=== PATIENT | female | born 1960 | race Caucasian/White ===

== ENCOUNTER 2017-08-10 16:57 | Inpatient (IN) | payer MEDICAID ==
[2017-08-10] MEDS ORDERED: ASPIRIN 325 MG TABLET PO STA (17:26)
[2017-08-10] MEDS ORDERED: MORPHINE 2 MG/ML SYRINGE IVP STA ×2 (17:26→19:13)
--- NOTE | 2017-08-10 17:29 | ED Physician Documentation ---
PD HPI CHEST PAIN - Stated complaint Stated Complaint: CP/NAUSEA - Chief complaint Chief Complaint: Cardiac - History obtained from History obtained from: Patient - History of Present Illness Timing - onset: Other (56-year-old woman with history of psoriatic arthritis developed substernal chest pressure radiating across the chest into the arms and back around 9 AM this morning which is at times severe and associated with nausea and shortness of breath. She has never had this before. No history of heart problems. No recent travel.) Review of Systems Ten Systems: 10 systems reviewed and negative Constitutional: denies: Fever, Chills Cardiac: reports: Chest pain / pressure. denies: Palpitations, Pedal edema, Calf pain Respiratory: reports: Dyspnea. denies: Cough PD PAST MEDICAL HISTORY - Past Medical History Past Medical History: Yes Other Past Medical History: psoriatic arthritis/ ankylosing spondylitis - Present Medications Home Medications: Ambulatory Orders Medication Instructions Recorded Confirmed No Known Home Medications [No 08/10/17 08/10/17 Known Home Medications] - Allergies Allergies/Adverse Reactions: Allergies Allergy/AdvReac Type Severity Reaction Status Date / Time No Known Drug Allergies Allergy Verified 08/10/17 17:22 - Family History Family history: reports: Non contributory PD ED PE NORMAL - Vitals Vital signs reviewed: Yes - General General: Alert and oriented X 3, Other (anxious) - HEENT HEENT: PERRL, EOMI - Neck Neck: Supple, no meningeal sign, No bony TTP - Cardiac Cardiac: RRR, No murmur - Respiratory Respiratory: No respiratory distress, Clear bilaterally - Abdomen Abdomen: Normal bowel sounds, Soft, Non tender - Back Back: No CVA TTP, No spinal TTP - Derm Derm: Normal color, Warm and dry - Extremities Extremities: No edema, No calf tenderness / cord - Neuro Neuro: Alert and oriented X 3, Normal speech - Psych Psych: Normal mood, Normal affect Results - Vitals Vitals: Vital Signs - 24 hr 08/10/17 17:10 Temperature 36.6 C Heart Rate 89 Respiratory 28 H Rate Blood Pressure 156/99 H O2 Saturation 99 Oxygen O2 Source Room air - EKG (time done) 1710 Rate: Rate (enter#) (89) Rhythm: NSR [place]: Normal Intervals: Normal MD QRS: Normal Compare to prior EKG: Other (some artifact she is shaky) Computer interpretation: Agree with computer - Labs Labs: Laboratory Tests 08/10/17 08/10/17 08/10/17 17:20 17:20 17:20 WBC 9.7 RBC 5.46 H Hgb 16.0 Hct 47.8 H MCV 87.5 MCH 29.4 MCHC 33.6 RDW 13.7 Plt Count 234 MPV 9.5 Neut # 5.8 Lymph # 2.8 [place] # 0.8 Eos # 0.1 Baso # 0.1 Absolute Nucleated RBC 0.00 Nucleated RBC % 0.0 D-Dimer 209.7 Sodium 139 Potassium 3.8 Chloride 102 Carbon Dioxide 24 Anion Gap 13.0 BUN 14 Creatinine 1.1 H Estimated GFR (MDRD) 51 L Glucose 116 H Calcium 10.0 Total Bilirubin 0.3 AST 28 ALT 35 Alkaline Phosphatase 61 Total Creatine Kinase 85 CK-MB (CK-2) Troponin I Total Protein 7.9 Albumin 4.5 Globulin 3.4 Albumin/Globulin Ratio 1.3 Lipase 13 L 08/10/17 17:20 WBC RBC Hgb Hct MCV MCH MCHC RDW Plt Count MPV Neut # Lymph # [place] # Eos # Baso # Absolute Nucleated RBC Nucleated RBC % D-Dimer Sodium Potassium Chloride Carbon Dioxide Anion Gap BUN Creatinine Estimated GFR (MDRD) Glucose Calcium Total Bilirubin AST ALT Alkaline Phosphatase Total Creatine Kinase CK-MB (CK-2) 2.1 Troponin I < 0.04 Total Protein Albumin Globulin Albumin/Globulin Ratio Lipase - Rads (name of study) 2v chest Radiology: EMP read contemporaneously (NAD) PD MEDICAL DECISION MAKING - ED course ED course: 56-year-old woman with severe chest pain episode, aortic dissection is unlikely with negative d-dimer, equal upper extremity blood pressures and normal mediastinum on chest x-ray. Her EKG was nonspecific and initial troponin was negative. She will be placed in observation for further evaluation and treatment. Call placed to the hospitalist at 6:51 PM. Departure - Departure Disposition: ED Place in Observation Clinical Impression: Chest pain Qualifiers: Chest pain type: unspecified Qualified Code(s): R07.9 - Chest pain, unspecified Condition: Stable
[2017-08-10 17:42] LABS: BASOPHILS # (AUTO) 0.1 10^3/uL (0.0-0.1); BASOPHILS % (AUTO) 1.1 %; EOSINOPHILS # (AUTO) 0.1 10^3/uL (0.0-0.7); EOSINOPHILS % (AUTO) 1.2 %; LYMPHOCYTES # (AUTO) 2.8 10^3/uL (1.5-3.5); LYMPHOCYTES % (AUTO) 29.3 %; MEAN CORPUSCULAR HEMOGLOBIN 29.4 pg (27.0-31.0); MEAN CORPUSCULAR HGB CONC 33.6 g/dL (32.0-36.0); MEAN CORPUSCULAR VOLUME 87.5 fL (81.0-99.0); MEAN PLATELET VOLUME 9.5 fL (7.9-10.8); MONOCYTES # (AUTO) 0.8 10^3/uL (0.0-1.0); MONOCYTES % (AUTO) 8.6 %; NEUTROPHILS # (AUTO) 5.8 10^3/uL (1.5-6.6); NEUTROPHILS % (AUTO) 59.8 %; PLT - PLATELET COUNT 234 10^3/uL (130-450); RED BLOOD COUNT 5.46 10^6/uL (4.20-5.40); RED CELL DISTRIBUTION WIDTH 13.7 % (12.0-15.0); WHITE BLOOD COUNT 9.7 x10^3/uL (4.8-10.8)
[2017-08-10 17:52] LABS: ALBUMIN 4.5 g/dL (3.2-5.5); ALBUMIN/GLOBULIN RATIO 1.3 (1.0-2.2); BILIRUBIN,TOTAL 0.3 mg/dL (0.2-1.0); CREATININE 1.1 mg/dL (0.4-1.0); TOTAL PROTEIN 7.9 g/dL (6.7-8.2)
[2017-08-10 17:57] LABS: TROPONIN I < 0.04 ng/mL (<0.49)
[2017-08-10 17:59] LABS: CREATINE KINASE MB 2.1 ng/mL (0.6-6.3)
--- NOTE | 2017-08-10 18:38 | XRAY Report ---
EXAM: CHEST RADIOGRAPHY EXAM DATE: 08/10/2017 06:08 PM. CLINICAL HISTORY: Chest pain. COMPARISON: None. TECHNIQUE: 2 views. FINDINGS: Lungs/Pleura: Clear. No effusion or pneumothorax. Mediastinum: Heart and mediastinal contours are unremarkable. Upper lobe vessels not distended. Other: Degenerative changes. IMPRESSION: No acute disease. [facility] Referring Provider Line: [phone] SITE ID: [id number]
[2017-08-10] MEDS ORDERED: IBUPROFEN 600 MG TABLET PO PRN (19:31)
[2017-08-10] MEDS ORDERED: ZOLPIDEM 5 MG TABLET PO PRN (19:31)
[2017-08-10] MEDS ORDERED: oxyCODONE 5 MG TABLET PO PRN (19:31)
[2017-08-10] MEDS ORDERED: PROMETHAZINE 25 MG/1 ML VIAL IM PRN (19:31)
[2017-08-10] MEDS ORDERED: ACETAMINOPHEN 325 MG TABLET PO PRN (19:31)
--- NOTE | 2017-08-10 20:38 | HISTORY & PHYSICAL EXAMINATION ---
Chief Complaint - Chief Complaint Chief Complaint: Chest pain History of Present Illness - Admitted From Admitted From:: Emergency Department - History Obtained From Records Reviewed: Yes History obtained from: Patient Exam Limitations: None - History of Present Illness HPI Comment/Other: Patient is a 56-year-old female with a past medical history significant for obesity, psoriatic arthritis, ankylosing spondylitis, osteoarthritis, rheumatoid arthritis status post fusion of her cervical spine who presents to the emergency department with a chief complaint of chest pain. The patient states that the chest pain started when she woke up this morning. She states that she was standing for about 5 minutes and had taken her dogs out when all of a sudden she felt this severe chest pain going across her chest. She states that it radiated into her left arm and then both of her arms. She states that her arms felt numb. She also states that she was diaphoretic and nauseated. She states that she felt very short of air and felt spasms in her back. She states that she went and sat on her bed hoping that the pain would subside. She states that she drank some water and waited for the pain to subside however it remained constant. She states that the severity did however improve. She states that her told her she should go to the emergency room but the patient did not want to at that time. She states that the pain initially felt like it was a squeezing pain and then gradually became a heaviness over her chest. She states that the pain originated on the left side of the chest but moved across her chest and into her arms. She states that she tried to lie down in bed but that made her feel worse. She states that at around 3 PM the pain intensity started to increase and she then decided to come into the emergency department because she felt very anxious and panicked. The patient denies any fevers or chills. She denies any cough, increased lower extremity swelling or any recent dyspnea on exertion. She states that she has never had a pain like this before but was very worried that she was having a heart attack. The patient does state that she has recently started a keto diet which is a diet that is low in carbs but high in fats and protein. She states that her daily diet consists of a lot of water, childs, cream and cheese. She states that she is not allowed any carbs in her diet. The patient also states that she takes a lot of supplements but does not take any chronic medication. She states that she did take an aspirin at home in the morning which did help with the pain. She also states that she felt lightheaded throughout the day. The patient does state that she has been under a lot of stress recently. She just recently found out that her father has cancer and her daughter is getting next month for which there is a lot of things to do. The patient states to alleviate her stress she usually smokes. She does state that she smokes a pack a day. She also states that she does have some family history of heart disease including her father and uncle. The patient also states that she does have a new rash in her right lower abdominal wall. The patient denies any headaches, blurred vision, runny nose, sore throat, nasal congestion, difficulty swallowing, abdominal pain, vomiting, constipation , diarrhea, urinary urgency, urinary frequency, dysuria, joint pain, muscle aches, joint swelling, neck stiffness, recent unintentional weight loss, changes in her appetite, hair loss, night sweats or any focal neurologic deficits. On presentation to the emergency department the patient was afebrile heart rate was 89, she was hypertensive and she was quite tachypneic. The patient was not hypoxic and did appear to be quite anxious and distressed. The patient underwent an EKG which showed no ST elevations or ischemic changes to suggest an acute AK. The patient's lab work revealed a negative troponin, unremarkable CBC, a d-dimer which was within normal limits and normal electrolytes with a mildly elevated creatinine. The patient was given aspirin and morphine in the emergency department but the patient's chest pain did persist although she states that it improved with the medication. The patient also underwent a chest x-ray which showed no acute disease. Given the patient's risk factors of obesity, tobacco abuse and family history the patient was placed in observation for serial troponins, telemetry monitoring and an echocardiogram. History - Past Medical History Cardiovascular: reports: None Respiratory: reports: None Neuro: reports: None Endocrine/Autoimmune: reports: None GI: reports: None GAME DEVELOPER: reports: None : reports: None HEENT: reports: None Psych: reports: Anxiety Musculoskeletal: reports: Osteoarthritis, Rheumatoid arthritis, Other ( Psoriatic Arthritis) Other Past Medical History: psoriatic arthritis/ ankylosing spondylitis - Family & Social History Family History: Mother: Alive and Well, Cancer (Mom: Renal cell Ca, Aunt has cancer), Father: , CAD (Uncle had CAD), Other family: CAD, Cancer, Diabetes, Type 2 (Aunt has diabetes) Living arrangement: At home Living Situation: With spouse/s.o. Social History Notes: Patient was born in [place], [place] but her father was in the and the patient grew up in [place]. She states that they lived in [facility] while she was growing up. She is currently and lives with her in [place], [place]. She states that she moved to [facility] 2 years ago prior to that she was living in [place] near her father. She has 3 kids 2 daughters and 1 son. She smokes almost a pack a day and has been doing so for nearly 40 years. She drinks alcohol rarely. She denies any illicit drug use. - Substance History Use: Uses substance without health or social issues: Tobacco - POLST Patient has POLST: No POLST Status: Full Code Meds/Allgy - Home Medications Home Medications: Ambulatory Orders Medication Instructions Recorded Confirmed No Known Home Medications [No 08/10/17 08/10/17 Known Home Medications] - Allergies Allergies/Adverse Reactions: Allergies Allergy/AdvReac Type Severity Reaction Status Date / Time No Known Drug Allergies Allergy Verified 08/10/17 17:22 Review of Systems - Other Findings Other Findings: A comprehensive review of systems was performed the pertinent positives and negatives are stated above in the HPI and the remainder of the review of systems is negative. Exam - Vital Signs Reviewed Vital Signs: Yes Vital Signs: Vital Signs x48h Temp Pulse Resp BP Pulse Ox 08/10/17 19:36 83 18 119/48 L 100 08/10/17 18:15 76 16 125/74 98 08/10/17 17:10 36.6 C 89 28 H 156/99 H 99 - Physical Exam General Appearance: positive: Alert, Anxious, Other (Obese) Eyes Bilateral: positive: Normal inspection, PERRL, EOMI, No lid inflammation, Conjunctivae nml, No scleral icterus ENT: positive: ENT inspection nml, Pharynx nml, No signs of dehydration. negative: Purulent nasal drainage, Pharyngeal erythema, Oral lesions Neck: positive: Nml inspection, Thyroid nml, No JVD, Trachea midline. negative : Thyromegaly, Lymphadenopathy (R), Lymphadenopathy (L), Stiff neck, Carotid bruit, Tracheal deviation Respiratory: positive: No respiratory distress, Breath sounds nml, Other ( Tachypneic with chest wall tenderness). negative: Wheezes, Rales, Rhonchi Cardiovascular: positive: Regular rate & rhythm, No murmur, No gallop Peripheral Pulses: positive: 2+ Abdomen: positive: Non-tender, No organomegaly, Nml bowel sounds, No distention. negative: Guarding, Rebound, Hepatomegaly Back: positive: Nml inspection. negative: CVA tenderness (R), CVA tenderness (L ) Skin: positive: Color nml, No rash, Warm. negative: Cyanosis, Diaphoresis, Pallor Extremities: positive: Non-tender, Full ROM, Nml appearance, No pedal edema Neurologic/Psychiatric: positive: Oriented x3, CN's nml (2-12), Motor nml, Sensation nml, Mood/affect nml Conclusion/Plan - Problem List (1) Chest pain Conclusion/Plan: The patient presented with acute onset of chest pain starting earlier in the day. The chest pain had both typical and atypical features. It did improve with aspirin. The patient has risk factors of obesity, tobacco abuse and family history. Initial EKG and troponin were negative. The patient does have chest wall tenderness and history of arthritis makes me suspicious that this could be a musculoskeletal chest pain however given her risk factors and the fact that we should rule out acute coronary syndrome the patient will be placed in observation. Plan: Serial troponins x3 Telemetry monitoring Nitroglycerin when necessary for chest pain Aspirin Lipitor Echo Qualifiers: Chest pain type: unspecified Qualified Code(s): R07.9 - Chest pain, unspecified (2) Tobacco abuse Conclusion/Plan: The patient smokes about 1 pack per day and has been doing so for nearly 40 years now. The patient was counseled on the dangers of smoking and her risk for cardiovascular disease, stroke and cancers. The patient was advised to quit smoking. She will be given a nicotine patch while she is hospitalized. (3) Obesity (BMI 30-39.9) Conclusion/Plan: The patient has been on a keto diet which is high in fats and proteins and low in carbs. I advised against this diet and advised for patient to make gradual changes in her diet by reducing her calorie intake and exercising. I also referred the patient to find a PCP on the [facility] if she does not have one and have further discussions about weight reduction with her primary care physician once she establishes one. (4) Anxiety Conclusion/Plan: The patient was quite anxious when she came in due to the chest pain and also has been dealing with anxiety because of stresses such as her father's recent diagnosis with oral cancer and stress from her children including a daughter who is going to be getting . While she is hospitalized I have started her on Lorazepam and she may need a prescription for an anxiolytic when she does return home. (5) Arthritis Conclusion/Plan: The patient does have a history of arthritis and her pain is mostly controlled. However today her symptoms of chest pain and back spasms may be due to her history of arthritis or possibly due to pinched nerve as she has been having numbness in her arms. At this point I will be giving the patient Tylenol and pain medication to help deal with the pain. If we do rule out acute coronary syndrome I would think that the most likely diagnosis is musculoskeletal chest pain possibly related to her arthritis. - Lab Results Lab results reviewed: Yes Fish Bones: 08/10/17 17:20 08/10/17 17:20 Other Lab Results: Laboratory Results WBC 9.7 x10^3/uL (4.8-10.8) 08/10/17 17:20 RBC 5.46 10^6/uL (4.20-5.40) H 08/10/17 17:20 Hgb 16.0 g/dL (12.0-16.0) 08/10/17 17:20 Hct 47.8 % (37.0-47.0) H 08/10/17 17:20 MCV 87.5 fL (81.0-99.0) 08/10/17 17:20 MCH 29.4 pg (27.0-31.0) 08/10/17 17:20 MCHC 33.6 g/dL (32.0-36.0) 08/10/17 17:20 RDW 13.7 % (12.0-15.0) 08/10/17 17:20 Plt Count 234 10^3/uL (130-450) 08/10/17 17:20 MPV 9.5 fL (7.9-10.8) 08/10/17 17:20 Neut # 5.8 10^3/uL (1.5-6.6) 08/10/17 17:20 Lymph # 2.8 10^3/uL (1.5-3.5) 08/10/17 17:20 [place] # 0.8 10^3/uL (0.0-1.0) 08/10/17 17:20 Eos # 0.1 10^3/uL (0.0-0.7) 08/10/17 17:20 Baso # 0.1 10^3/uL (0.0-0.1) 08/10/17 17:20 Absolute Nucleated RBC 0.00 x10^3/uL 08/10/17 17:20 Nucleated RBC % 0.0 /100WBC 08/10/17 17:20 D-Dimer 209.7 ng/mL (200.0-255.0) 08/10/17 17:20 Sodium 139 mmol/L (135-145) 08/10/17 17:20 Potassium 3.8 mmol/L (3.5-5.0) 08/10/17 17:20 Chloride 102 mmol/L (101-111) 08/10/17 17:20 Carbon Dioxide 24 mmol/L (21-32) 08/10/17 17:20 Anion Gap 13.0 (6-13) 08/10/17 17:20 BUN 14 mg/dL (6-20) 08/10/17 17:20 Creatinine 1.1 mg/dL (0.4-1.0) H 08/10/17 17:20 Estimated GFR (MDRD) 51 (>89) L 08/10/17 17:20 Glucose 116 mg/dL (70-100) H 08/10/17 17:20 Calcium 10.0 mg/dL (8.5-10.3) 08/10/17 17:20 Total Bilirubin 0.3 mg/dL (0.2-1.0) 08/10/17 17:20 AST 28 IU/L (10-42) 08/10/17 17:20 ALT 35 IU/L (10-60) 08/10/17 17:20 Alkaline Phosphatase 61 IU/L (42-121) 08/10/17 17:20 Total Creatine Kinase 85 IU/L (22-269) 04/06/18 17:20 CK-MB (CK-2) 2.1 ng/mL (0.6-6.3) 08/10/17 17:20 Troponin I < 0.04 ng/mL (<0.49) 08/10/17 17:20 Total Protein 7.9 g/dL (6.7-8.2) 08/10/17 17:20 Albumin 4.5 g/dL (3.2-5.5) 08/10/17 17:20 Globulin 3.4 g/dL (2.1-4.2) 08/10/17 17:20 Albumin/Globulin Ratio 1.3 (1.0-2.2) 08/10/17 17:20 Lipase 13 U/L (22-51) L 08/10/17 17:20 - Diagnostic Imaging Results Diagnostic Imaging Results: positive: Final report reviewed Diagnostic Imaging Results Comments: Chest x-ray Impression: No active disease - EKG Results EKG Interpreted Independently: Yes Core Measures - Anticipated LOS I expect patient to be DC'd or transferred within 96 hours.: Yes - DVT/VTE - Prophylaxis VTE/DVT Prophylaxis med ordered at admit?: Yes
[2017-08-10] MEDS: MORPHINE 2 MG/ML SYRINGE IVP PRN (21:14)
[2017-08-10] MEDS: PROCHLORPERAZINE 10 MG/2 ML VIAL IVP PRN (21:15)
[2017-08-10] MEDS: NITROGLYCERIN SL 0.4 MG TABLET SL PRN (21:15)
[2017-08-10] MEDS: LORazepam 0.5 MG TABLET PO PRN (21:22)
[2017-08-10] MEDS: NICOTINE 21 MG PATCH TOP SCH (21:22)
[2017-08-10] MEDS: ATORVASTATIN 40 MG TABLET PO SCH (21:23)
[2017-08-10] MEDS: HYDROCORTISONE 1% CREAM 28 GM TUBE TOP SCH (23:00)
[2017-08-10] MEDS: oxyCODONE 5 MG TABLET PO PRN (23:01)
[2017-08-11] MEDS: SODIUM CHLORIDE FLUSH 0.9% 10 ML SYRINGE IVP SCH ×3 (00:25→15:33)
[2017-08-11] MEDS: MORPHINE 2 MG/ML SYRINGE IVP PRN ×4 (05:59→15:33)
[2017-08-11] MEDS: SODIUM CHLORIDE FLUSH 0.9% 10 ML SYRINGE IVP PRN (05:59)
[2017-08-11] MEDS: NITROGLYCERIN SL 0.4 MG TABLET SL PRN ×3 (06:10→06:23)
[2017-08-11 06:15] LABS: BASOPHILS # (AUTO) 0.1 10^3/uL (0.0-0.1); EOSINOPHILS # (AUTO) 0.2 10^3/uL (0.0-0.7); EOSINOPHILS % (AUTO) 2.9 %; HGB - HEMOGLOBIN 14.4 g/dL (12.0-16.0); LYMPHOCYTES # (AUTO) 2.9 10^3/uL (1.5-3.5); LYMPHOCYTES % (AUTO) 43.4 %; MEAN CORPUSCULAR HEMOGLOBIN 29.3 pg (27.0-31.0); MEAN CORPUSCULAR HGB CONC 33.1 g/dL (32.0-36.0); MEAN CORPUSCULAR VOLUME 88.6 fL (81.0-99.0); MONOCYTES # (AUTO) 0.6 10^3/uL (0.0-1.0); MONOCYTES % (AUTO) 9.4 %; NEUTROPHILS # (AUTO) 2.9 10^3/uL (1.5-6.6); NEUTROPHILS % (AUTO) 43.3 %; PLT - PLATELET COUNT 200 10^3/uL (130-450); RED BLOOD COUNT 4.91 10^6/uL (4.20-5.40); RED CELL DISTRIBUTION WIDTH 13.7 % (12.0-15.0); WHITE BLOOD COUNT 6.7 x10^3/uL (4.8-10.8)
[2017-08-11 06:33] LABS: ALBUMIN 3.8 g/dL (3.2-5.5); ALBUMIN/GLOBULIN RATIO 1.4 (1.0-2.2); ALKALINE PHOSPHATASE 48 IU/L (42-121); ALT ALANINE AMINOTRANSFERASE 31 IU/L (10-60); AST ASPARTATE AMINOTRANSFERASE 23 IU/L (10-42); BILIRUBIN,TOTAL 0.5 mg/dL (0.2-1.0); BUN - BLOOD UREA NITROGEN 15 mg/dL (6-20); CARBON DIOXIDE - CO2 26 mmol/L (21-32); CHLORIDE 103 mmol/L (101-111); CHOL/HDL RATIO 3.5 (<4.4); CHOLESTEROL 138 mg/dL; CREATININE 0.7 mg/dL (0.4-1.0); GFR - MDRD 86 (>89); GLUCOSE 114 mg/dL (70-100); HDL CHOLESTEROL 40 mg/dL; LDL CHOLESTEROL,CALCULATED 71 mg/dL; LDL/HDL RATIO 1.8 (<4.4); SODIUM 138 mmol/L (135-145); TOTAL PROTEIN 6.5 g/dL (6.7-8.2); VLDL CHOLESTEROL 27 mg/dL
[2017-08-11] MEDS: LORazepam 0.5 MG TABLET PO PRN ×2 (06:44→14:37)
[2017-08-11 07:19] LABS: HB2 TOTAL 16.8 g/dL; HEMOGLOBIN A1C 0.79 g/dL; HEMOGLOBIN A1C % 6.5 % (4.6-6.2)
[2017-08-11] MEDS: NICOTINE 21 MG PATCH TOP SCH (08:35)
[2017-08-11] MEDS: ASPIRIN EC 81 MG TABLET PO SCH (08:38)
[2017-08-11] MEDS: HYDROCORTISONE 1% CREAM 28 GM TUBE TOP SCH ×2 (08:39→20:31)
[2017-08-11] MEDS ORDERED: FAMOTIDINE 20 MG TABLET PO SCH (09:00)
[2017-08-11] MEDS ORDERED: POLYETHYLENE GLYCOL 3350 17 GM PACKET PO SCH (09:00)
[2017-08-11] MEDS ORDERED: ENOXAPARIN 40 MG/0.4 ML SYRINGE SUBQ SCH (09:00)
[2017-08-11] MEDS ORDERED: SODIUM CHLORIDE 0.9% 1,000 ML IV ONE (11:06)
[2017-08-11] MEDS: KETOROLAC 15 MG/ML VIAL IVP PRN ×2 (11:38→20:40)
[2017-08-11] MEDS ORDERED: fentaNYL 100 MCG/2 ML VIAL IVP ONE (12:00)
[2017-08-11] MEDS ORDERED: ONDANSETRON 4 MG/2 ML VIAL IVP ONE (12:00)
[2017-08-11] MEDS ORDERED: METOCLOPRAMIDE 10 MG/2 ML VIAL IVP ONE (12:00)
[2017-08-11] MEDS: oxyCODONE 5 MG TABLET PO PRN (14:10)
[2017-08-11] MEDS ORDERED: fentaNYL 100 MCG/2 ML VIAL IVP PRN (16:34)
[2017-08-11] MEDS: PROCHLORPERAZINE 10 MG/2 ML VIAL IVP PRN (18:02)
--- NOTE | 2017-08-11 18:04 | PROVIDER PROGRESS NOTE ---
Subjective - Prog Note Date Prog Note Date: 08/11/17 - Subjective Pt reports feeling: Worse Subjective: Complains of unbearable pain and nausea; initially the pain was on the right side of the chest, then in the epigastrium and in the right UQ of abdomen. Reports eating makes the pain worse, noticed the symptoms when started "keto- diet". Objective - Vital Signs/Intake & Output Vital Signs: Vital Signs x48h Temp Pulse Resp BP Pulse Ox 08/11/17 15:28 36.3 C L 71 18 118/62 94 08/11/17 11:22 36.4 C L 74 18 130/80 95 Intake & Output: Intake & Output 08/08/17 08/09/17 08/10/17 08/11/17 23:59 23:59 23:59 23:59 Intake Total 400 690 Output Total 400 200 Balance 0 490 - Objective General Appearance: positive: Mild distress (distress due to abd pain.) Eyes Bilateral: positive: Normal inspection Respiratory: positive: No respiratory distress Cardiovascular: positive: Regular rate & rhythm Abdomen: positive: Tenderness (Right upper quadrant and epigastric tenderness.) - Lab Results Fish Bones: 08/12/17 04:54 08/11/17 05:48 Other Labs: Lab Results x24hrs 08/11/17 08/11/17 08/11/17 Range/Units 06:35 05:48 05:48 WBC (4.8-10.8) x10^3/uL RBC (4.20-5.40) 10^6/uL Hgb (12.0-16.0) g/dL Hct (37.0-47.0) % MCV (81.0-99.0) fL MCH (27.0-31.0) pg MCHC (32.0-36.0) g/dL RDW (12.0-15.0) % Plt Count (130-450) 10^3/uL MPV (7.9-10.8) fL Neut # (1.5-6.6) 10^3/uL Lymph # (1.5-3.5) 10^3/uL [place] # (0.0-1.0) 10^3/uL Eos # (0.0-0.7) 10^3/uL Baso # (0.0-0.1) 10^3/uL Absolute Nucleated RBC x10^3/uL Nucleated RBC % /100WBC Sodium (135-145) mmol/L Potassium (3.5-5.0) mmol/L Chloride (101-111) mmol/L Carbon Dioxide (21-32) mmol/L Anion Gap (6-13) BUN (6-20) mg/dL Creatinine (0.4-1.0) mg/dL Estimated GFR (MDRD) (>89) Glucose (70-100) mg/dL Glycated Hemoglobin 6.5 H (4.6-6.2) % Estim Average Glucose 140 H (70-100) Calcium (8.5-10.3) mg/dL Total Bilirubin (0.2-1.0) mg/dL AST (10-42) IU/L ALT (10-60) IU/L Alkaline Phosphatase (42-121) IU/L Troponin I < 0.04 (<0.49) ng/mL B-Natriuretic Peptide 5 (5-100) pg/mL Total Protein (6.7-8.2) g/dL Albumin (3.2-5.5) g/dL Globulin (2.1-4.2) g/dL Albumin/Globulin Ratio (1.0-2.2) Triglycerides ( - 149) mg/dL Cholesterol ( - 199) mg/dL LDL Cholesterol, Calc ( - 129) mg/dL VLDL Cholesterol mg/dL HDL Cholesterol (60 - ) mg/dL LDL/HDL Ratio (<4.4) Cholesterol/HDL Ratio (<4.4) 08/11/17 08/11/17 08/11/17 Range/Units 05:48 05:48 00:30 WBC 6.7 (4.8-10.8) x10^3/uL RBC 4.91 (4.20-5.40) 10^6/uL Hgb 14.4 (12.0-16.0) g/dL Hct 43.5 (37.0-47.0) % MCV 88.6 (81.0-99.0) fL MCH 29.3 (27.0-31.0) pg MCHC 33.1 (32.0-36.0) g/dL RDW 13.7 (12.0-15.0) % Plt Count 200 (130-450) 10^3/uL MPV 9.0 (7.9-10.8) fL Neut # 2.9 (1.5-6.6) 10^3/uL Lymph # 2.9 (1.5-3.5) 10^3/uL [place] # 0.6 (0.0-1.0) 10^3/uL Eos # 0.2 (0.0-0.7) 10^3/uL Baso # 0.1 (0.0-0.1) 10^3/uL Absolute Nucleated RBC 0.00 x10^3/uL Nucleated RBC % 0.0 /100WBC Sodium 138 (135-145) mmol/L Potassium 4.1 (3.5-5.0) mmol/L Chloride 103 (101-111) mmol/L Carbon Dioxide 26 (21-32) mmol/L Anion Gap 9.0 (6-13) BUN 15 (6-20) mg/dL Creatinine 0.7 (0.4-1.0) mg/dL Estimated GFR (MDRD) 86 L (>89) Glucose 114 H (70-100) mg/dL Glycated Hemoglobin (4.6-6.2) % Estim Average Glucose (70-100) Calcium 9.0 (8.5-10.3) mg/dL Total Bilirubin 0.5 (0.2-1.0) mg/dL AST 23 (10-42) IU/L ALT 31 (10-60) IU/L Alkaline Phosphatase 48 (42-121) IU/L Troponin I < 0.04 (<0.49) ng/mL B-Natriuretic Peptide (5-100) pg/mL Total Protein 6.5 L (6.7-8.2) g/dL Albumin 3.8 (3.2-5.5) g/dL Globulin 2.7 (2.1-4.2) g/dL Albumin/Globulin Ratio 1.4 (1.0-2.2) Triglycerides 133 ( - 149) mg/dL Cholesterol 138 ( - 199) mg/dL LDL Cholesterol, Calc 71 ( - 129) mg/dL VLDL Cholesterol 27 mg/dL HDL Cholesterol 40 L (60 - ) mg/dL LDL/HDL Ratio 1.8 (<4.4) Cholesterol/HDL Ratio 3.5 (<4.4) Assessment/Plan - Problem List (1) Abdominal pain Impression: 1. Chest pain was likely referred pain, or more of an epigastric pain. Underwent negative cardiac rule out. Echocardiogram was unremarkable, but cooking appliance repair technician saw gall stones. 2. US abd ordered, resulted at the end of the day showing cholecystitis. Case was d/w surgeon Dr. Robertson, he will see the patient in consultation. 3. Lactic acidosis /mild. Plan: ABX l(actic acidosis/ cholecystitis). NPO. IV hydration. Symptom control. Surgery evaluation. Qualifiers: Abdominal location: right upper quadrant Qualified Code(s): R10.11 - Right upper quadrant pain
--- NOTE | 2017-08-11 19:14 | Ultrasound Report ---
EXAM: ABDOMEN ULTRASOUND EXAM DATE: 08/11/2017 06:07 PM. CLINICAL HISTORY: Biliary colic / ? cholecystitis. COMPARISON: None. TECHNIQUE: Real-time scanning was performed with static images obtained. FINDINGS: Exam is technically difficult due to patient's pain and body habitus. Liver: Enlarged. Echogenic with coarsened echotexture. 22 cm. Main portal vein flow: Hepatopetal. Gallbladder: Cholelithiasis. Mild wall thickening up to 4 mm. No pericholecystic fluid. Positive sono graphic Chen sign. Biliary System: Common bile duct measures 5 mm. No intrahepatic or extrahepatic ductal dilatation. Pancreas: Largely obscured by bowel gas. Visualized portion of pancreatic body is within normal limit s. Kidneys: Right: 10.4 cm longitudinally. Questionable horseshoe kidney anatomy. Midline abdomen is obscured by bowel gas. Small 9 x 8 x 7 mm exophytic cyst at the interpolar region. No contour-deforming mass, st ones, or hydronephrosis. Left: 11.5 cm longitudinally. Contains a 6 x 6 x 5 mm hyperechoic mass, most consistent with an angio myolipoma. No stones, or hydronephrosis. Spleen: 12.3 x 6.3 x 4.6 cm (volume of 186 cc). Normal in size and echotexture. Aorta and Inferior Vena Cava: Unremarkable in visualized portions. Other: None. IMPRESSION: 1. Cholelithiasis with sonographic evidence of acute cholecystitis. 2. Diffuse hepatic steatosis and hepatomegaly. 3. Questioned horseshoe kidney anatomy. 4. 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 Findings are being called to the patient's referring clinician. Addendum will be issued when findings are discussed. [facility] Referring Provider Line: [phone] SITE ID: [id number]
--- NOTE | 2017-08-11 19:14 | Ultrasound Preliminary Report ---
Exam: US ABDOMEN COMPLETE IMPRESSION: 1. Cholelithiasis with sonographic evidence of acute cholecystitis. 2. Diffuse hepatic steatosis and hepatomegaly. 3. Questioned horseshoe kidney anatomy. 4. 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 Findings are being called to the patient's referring clinician. Addendum will be issued when findings are discussed. [facility] SITE ID: [id number]
[2017-08-11] MEDS: LACTATED RINGERS 1,000 ML IV SCH ×2 (19:45→23:27)
[2017-08-11] MEDS: ATORVASTATIN 40 MG TABLET PO SCH (20:29)
[2017-08-11] MEDS ORDERED: IOPAMIDOL-300 50 ML VIAL ONE (21:49)
[2017-08-11] MEDS ORDERED: IOPAMIDOL-300 100 ML VIAL ONE (21:49)
[2017-08-11] MEDS ORDERED: CIPROFLOXACIN 400 MG/200 ML 200 ML IV SCH (22:00)
[2017-08-11] MEDS ORDERED: IOPAMIDOL-300 50 ML VIAL PO ONE (22:36)
[2017-08-11] MEDS: metroNIDAZOLE 500 MG/100 ML 500 MG/100 ML BAG IV SCH (22:44)
[2017-08-11] MEDS: fentaNYL 100 MCG/2 ML VIAL IVP PRN (22:53)
[2017-08-11] MEDS ORDERED: IOPAMIDOL-300 100 ML VIAL IVP ONE (23:36)
--- NOTE | 2017-08-11 23:59 | CT Preliminary Report ---
Exam: CT ABDOMEN/PELVIS W/ IMPRESSION: 1. No acute inflammatory or obstructive process seen in the abdomen or pelvis. No CT evidence of isc hemic bowel. Of note, this does not exclude the clinical diagnosis. 2. Quite fatty liver. 3. Post hysterectomy. 4. Incidental horseshoe kidney. [facility] SITE ID: [id number]
--- NOTE | 2017-08-12 00:04 | CT Report ---
EXAM: CT ABDOMEN AND PELVIS EXAM DATE: 08/11/2017 11:37 PM. CLINICAL HISTORY: Abdominal pain with elevated lactic acid. COMPARISONS: Ultrasound same day. TECHNIQUE: Routine helical CT imaging was performed through the abdomen and pelvis. IV contrast: Yes . Enteric contrast: Yes . Reconstructions: Coronal and sagittal. In accordance with CT protocol optimization, one or more of the following dose reduction techniques w ere utilized for this exam: automated exposure control, adjustment of mA and/or KV based on patient s ize, or use of iterative reconstructive technique. FINDINGS: Lung Bases: Mild right lung base scarring. Liver: Quite fatty. No suspicious masses. Gallbladder/Bile Ducts: Unremarkable. Spleen: Unremarkable. Pancreas: Unremarkable. Adrenal Glands: Unremarkable. Kidneys: Horseshoe configuration. No suspicious masses or hydronephrosis. Peritoneal Cavity/Bowel: No bowel obstruction or inflammatory process seen. No free air or significan t free fluid. No masses or adenopathy. The appendix is not seen but there is no evidence of appendici tis. No excessive stool burden. Pelvic Organs: Post hysterectomy with no adnexal masses seen. The bladder appears within normal limit s. Vasculature: No vascular thrombosis seen. No aneurysms or other significant abnormality. Bones: No significant abnormality. Other: None. IMPRESSION: 1. No acute inflammatory or obstructive process seen in the abdomen or pelvis. No CT evidence of isch emic bowel. Of note, this does not exclude the clinical diagnosis. 2. Quite fatty liver. 3. Post hysterectomy. 4. Incidental horseshoe kidney. [facility] Referring Provider Line: [phone] SITE ID: [id number]
[2017-08-12] MEDS: metroNIDAZOLE 500 MG/100 ML 500 MG/100 ML BAG IV SCH ×4 (00:09→19:08)
[2017-08-12] MEDS: LORazepam 0.5 MG TABLET PO PRN ×2 (00:15→17:13)
[2017-08-12] MEDS: fentaNYL 100 MCG/2 ML VIAL IVP PRN ×4 (00:54→08:29)
[2017-08-12] MEDS: CIPROFLOXACIN 400 MG/200 ML 200 ML IV SCH ×3 (00:59→21:54)
[2017-08-12] MEDS: SODIUM CHLORIDE FLUSH 0.9% 10 ML SYRINGE IVP SCH ×3 (00:59→15:59)
[2017-08-12 05:04] LABS: BASOPHILS # (AUTO) 0.1 10^3/uL (0.0-0.1); BASOPHILS % (AUTO) 0.9 %; EOSINOPHILS # (AUTO) 0.2 10^3/uL (0.0-0.7); EOSINOPHILS % (AUTO) 2.6 %; HGB - HEMOGLOBIN 13.6 g/dL (12.0-16.0); LYMPHOCYTES # (AUTO) 2.7 10^3/uL (1.5-3.5); LYMPHOCYTES % (AUTO) 34.7 %; MEAN CORPUSCULAR HEMOGLOBIN 29.6 pg (27.0-31.0); MEAN CORPUSCULAR HGB CONC 33.3 g/dL (32.0-36.0); MEAN CORPUSCULAR VOLUME 88.9 fL (81.0-99.0); MEAN PLATELET VOLUME 8.7 fL (7.9-10.8); MONOCYTES # (AUTO) 0.7 10^3/uL (0.0-1.0); MONOCYTES % (AUTO) 9.5 %; NEUTROPHILS % (AUTO) 52.3 %; PLT - PLATELET COUNT 210 10^3/uL (130-450); RED BLOOD COUNT 4.59 10^6/uL (4.20-5.40); RED CELL DISTRIBUTION WIDTH 13.8 % (12.0-15.0); WHITE BLOOD COUNT 7.7 x10^3/uL (4.8-10.8)
[2017-08-12 05:17] LABS: PHOSPHORUS 5.1 mg/dL (2.5-4.6)
[2017-08-12] MEDS: KETOROLAC 15 MG/ML VIAL IVP PRN ×2 (08:29→15:59)
[2017-08-12] MEDS: ASPIRIN EC 81 MG TABLET PO SCH ×2 (08:46→08:56)
[2017-08-12] MEDS: NICOTINE 21 MG PATCH TOP SCH (08:46)
[2017-08-12] MEDS: HYDROCORTISONE 1% CREAM 28 GM TUBE TOP SCH ×2 (08:48→21:58)
[2017-08-12] MEDS ORDERED: BUPIVACAINE 0.5%-EPI 1:200000 PF 10 ML VIAL ONE (10:06)
[2017-08-12] MEDS ORDERED: LACTATED RINGERS 100 ML IV ONE (10:30)
[2017-08-12] MEDS ORDERED: LACTATED RINGERS 1,000 ML IV ONE (11:03)
[2017-08-12] MEDS ORDERED: BUPIVACAINE 0.5%-EPI 1:200000 PF 30 ML VIAL SUBQ ONE (11:18)
[2017-08-12] MEDS ORDERED: ROCURONIUM 50 MG/5 ML VIAL IVP ONE (11:30)
[2017-08-12] MEDS ORDERED: ONDANSETRON 4 MG/2 ML VIAL IVP ONE (11:30)
[2017-08-12] MEDS ORDERED: MIDAZOLAM 2 MG/2 ML VIAL IVP ONE (11:30)
[2017-08-12] MEDS ORDERED: LIDOCAINE-MPF 2% 5 ML VIAL IM ONE (11:30)
[2017-08-12] MEDS ORDERED: fentaNYL 250 MCG/5 ML VIAL IVP ONE (11:30)
[2017-08-12] MEDS ORDERED: NEOSTIGMINE 1 MG/1 ML 10 ML MDV IVP ONE (11:30)
[2017-08-12] MEDS ORDERED: SUCCINYLCHOLINE 200 MG/10 ML VIAL IVP ONE (11:30)
[2017-08-12] MEDS ORDERED: ACETAMINOPHEN 1,000 MG/100 ML 100 ML IV ONE (11:30)
[2017-08-12] MEDS ORDERED: DEXAMETHASONE 4 MG/ML VIAL IVP ONE (11:30)
[2017-08-12] MEDS ORDERED: GLYCOPYRROLATE 1 MG/5 ML VIAL IVP ONE (11:30)
[2017-08-12] MEDS ORDERED: PROPOFOL 200 MG/20 ML VIAL IVP ONE (11:30)
--- NOTE | 2017-08-12 11:45 | PROVIDER PROGRESS NOTE ---
Subjective - Prog Note Date Prog Note Date: 08/12/17 - Subjective Pt reports feeling: No change (Still with RUQ pain and nausea. Seen in the morning, awaiting cholecystectomy.) Objective - Vital Signs/Intake & Output Vital Signs: Vital Signs x48h Temp Pulse Resp BP Pulse Ox 08/12/17 08:00 36.4 C L 77 15 132/83 H 97 Intake & Output: Intake & Output 08/09/17 08/10/17 08/11/17 08/12/17 23:59 23:59 23:59 23:59 Intake Total 279.999 600 Output Total 950 Balance 279.999 -350 - Objective General Appearance: positive: No acute distress Respiratory: positive: No respiratory distress Cardiovascular: positive: Regular rate & rhythm Abdomen: positive: Tenderness Skin: positive: Color nml Neurologic/Psychiatric: positive: Oriented x3 - Lab Results Fish Bones: 08/12/17 04:54 08/11/17 05:48 Other Labs: Lab Results x24hrs 08/12/17 08/12/17 08/12/17 Range/Units 04:54 04:54 04:54 WBC 7.7 (4.8-10.8) x10^3/uL RBC 4.59 (4.20-5.40) 10^6/uL Hgb 13.6 (12.0-16.0) g/dL Hct 40.8 (37.0-47.0) % MCV 88.9 (81.0-99.0) fL MCH 29.6 (27.0-31.0) pg MCHC 33.3 (32.0-36.0) g/dL RDW 13.8 (12.0-15.0) % Plt Count 210 (130-450) 10^3/uL MPV 8.7 (7.9-10.8) fL Neut # 4.0 (1.5-6.6) 10^3/uL Lymph # 2.7 (1.5-3.5) 10^3/uL [place] # 0.7 (0.0-1.0) 10^3/uL Eos # 0.2 (0.0-0.7) 10^3/uL Baso # 0.1 (0.0-0.1) 10^3/uL Absolute Nucleated RBC 0.00 x10^3/uL Nucleated RBC % 0.0 /100WBC Lactic Acid 1.4 (0.5-2.2) mmol/L Phosphorus 5.1 H (2.5-4.6) mg/dL Magnesium 2.0 (1.7-2.8) mg/dL Assessment/Plan - Problem List (1) Abdominal pain Impression: 1. Acute Cholecystitis. Surgery today. IV, NPO, symptom control. ABX. 2. Thrombocytopenia/ mild; on IVF, ABX, DVT prophylactic dose lovenox -all of which can cause drop in platelet count. 3. Lactic acidosis resolved. 4. HgA1C 6.5, DM -new diagnosis. Qualifiers: Abdominal location: right upper quadrant Qualified Code(s): R10.11 - Right upper quadrant pain
[2017-08-12] MEDS ORDERED: HYDROcod/ACETAM 5/325 MG TABLET PO PRN ×2 (11:50)
[2017-08-12] MEDS: HYDROmorphone 1 MG/ML CARPUJECT ONE ×4 (12:15→12:47)
[2017-08-12] MEDS ORDERED: ONDANSETRON 4 MG/2 ML VIAL ONE (12:25)
[2017-08-12] MEDS ORDERED: KETOROLAC 30 MG/ML VIAL ONE (12:44)
[2017-08-12] MEDS ORDERED: HYDROcodone/ACETAM 7.5 MG/325 MG 15 ML UDC PO PRN ×2 (13:41)
[2017-08-12] MEDS: HYDROmorphone 1 MG/ML CARPUJECT IVP PRN ×4 (14:26→19:53)
[2017-08-12] MEDS: ACETAMINOPHEN 1,000 MG/100 ML 100 ML IV SCH ×2 (14:51→20:14)
[2017-08-12] MEDS: LACTATED RINGERS 1,000 ML IV SCH (14:52)
[2017-08-12] MEDS: SODIUM CHLORIDE FLUSH 0.9% 10 ML SYRINGE IVP PRN ×2 (16:53→19:53)
--- NOTE | 2017-08-12 18:21 | OPERATIVE REPORT ---
DATE OF SERVICE: 08/12/2017 Physician: Yobani Robertson MD PREOPERATIVE DIAGNOSES 1. Acute cholecystitis. 2. Ultrasound showing fatty liver. POSTOPERATIVE DIAGNOSES 1. Acute cholecystitis. 2. Ultrasound showing fatty liver. PROCEDURES PERFORMED 1. Laparoscopic cholecystectomy. 2. Liver biopsy. ANESTHESIA: Jammie Jordan CRNA. INDICATIONS FOR PROCEDURE: The patient is a 56-year-old female who presents with acute onset of chest pain, along with right back pain radiating to her right upper quadrant. She had an abdominal ultrasound, which showed a thickened gallbladder wall containing gallstones. On physical exam, she was tender in right upper quadrant consistent with acute cholecystitis. FINDINGS AT SURGERY: The patient had acute and chronic cholecystitis with a gallbladder containing a gallstone. PROCEDURE: After informed consent was obtained, the patient was taken to the operating room and placed in supine position. General endotracheal anesthesia was then administered. The patient's abdomen was then prepped and draped in the usual sterile fashion. Prior to making any abdominal incisions, the skin overlying the area to be incised was then injected with local anesthesia. Then, the infraumbilical incision was made in the skin using a scalpel. A 12 mm Optiview trocar was then inserted through the incision through the fascia and into the abdominal cavity under direct vision. The abdomen was then insufflated and looking inside no injuries were noted. Three 5 mm ports were then placed in the right upper quadrant under direct vision. The gallbladder fundus was then grasped and lifted anterior and superiorly exposing the triangle of [place]ot. There was omental adhesion to the gallbladder which was taken down using electrocautery. The peritoneum and the neck of the gallbladder was then incised, with the cystic duct then being identified. It was dissected free from the surrounding structures. Critical view was obtained. Clips were then placed proximally and distally along the cystic duct with it then being divided. Cystic artery was identified, clipped proximally and distally and then divided. Gallbladder was then dissected off the gallbladder bed using electrocautery, placed in an Endobag and removed through the umbilical port. Right upper quadrant was thoroughly irrigated until the return fluid was clear. A Neel-Cut needle was then placed through one of the port sites and into the liver, obtaining a biopsy. Hemostasis was obtained using electrocautery. The ports were then removed. No bleeding was noted at the port sites, with the abdomen then being desufflated. The umbilical fascial defect was closed using 0 Vicryl suture. Skin incisions were closed using 4-0 Monocryl subcuticular stitches. Dermabond was then applied. The patient was then awakened, extubated, and taken from the operating room in stable condition. ESTIMATED BLOOD LOSS: 25 mL. COMPLICATIONS: None. CONDITION OF THE PATIENT AT END OF PROCEDURE: Stable. SPECIMENS 1. Gallbladder. 2. Gallstones. DRAINS OR PACKS: None. CLASSIFICATION OF WOUND: Clean/contaminated. TD: 08/12/2017 18:20
[2017-08-12] MEDS: oxyCODONE 5 MG TABLET PO PRN ×2 (18:22→22:00)
[2017-08-12] MEDS: ATORVASTATIN 40 MG TABLET PO SCH (21:57)
--- NOTE | 2017-08-12 22:57 | CONSULTATION NOTE ---
DATE OF SERVICE: 08/12/2017 Physician: Yobani Robertson MD REFERRING PROVIDER: Tana Blackburn MD REASON FOR REFERRAL: Abdominal pain. HISTORY OF PRESENT ILLNESS: Patient is a 56-year-old female who presented to the hospital 2 days ago with acute onset of chest pain in the upper part of the chest. It radiated to both arms. She was then admitted to the hospital to rule out myocardial infarction. Her cardiac enzymes along with EKG were normal. Her chest pain resolved, but now she is presenting with right upper quadrant abdominal pain and tenderness. She had an abdominal ultrasound, which showed a gallbladder with gallstones, mildly thickened wall with positive Chen 's sign. Patient's liver function test along with white blood cell count are normal. Pain is in the right back radiating to the right upper quadrant. She has had intermittent pain in the past and has been told that she may need to have surgery on her gallbladder. PAST SURGICAL HISTORY 1. Cervical fusion. 2. Lap band being placed and later removed. 3. Ventral hernia repair. 4. Appendectomy. 5. Hysterectomy. ALLERGIES TO MEDICATIONS: NONE. MEDICATIONS: None. HABITS: Patient does smoke. Denies any alcohol or drug use. PAST MEDICAL HISTORY: Psoriatic arthritis, rheumatoid arthritis, osteoarthritis , anxiety. FAMILY HISTORY: Mother with renal cell cancer and aunt with unknown cancer. Family history of coronary artery disease. REVIEW OF SYSTEMS CARDIAC: Complains of chest pain that has now resolved. GASTROINTESTINAL: Abdominal pain and nausea. MUSCULOSKELETAL: Arthritis. PHYSICAL EXAMINATION VITAL SIGNS: Temperature is 36.6, heart rate 75, blood pressure 117/63. GENERAL: Patient is lying in bed. She is having mild uncomfortable secondary to right upper quadrant abdominal pain. EYES: Nonicteric. NECK: No lymphadenopathy. HEART: Regular. LUNGS: Clear. BACK: Nontender. ABDOMEN: Soft, tender in right upper quadrant with positive Chen's sign. No hernias. EXTREMITIES: No edema or cyanosis. NEUROLOGIC: Patient appears to be neurologically intact without any deficit. PSYCHOLOGICAL: Patient is coherent, cooperative, and appears to answer questions fully. DIAGNOSTIC DATA: See history of present illness. ASSESSMENT 1. Right upper quadrant abdominal pain with abdominal ultrasound showing gallstones and the thickened gallbladder wall with positive Chen's sign. Patient has a high chance of having acute cholecystitis. I have recommended that she undergo a laparoscopic cholecystectomy, possible laparotomy. Patient has also a fatty liver and consideration for liver biopsy at the time of the procedure. The risks and possible complications of surgery have been explained to her and include, but not limited to bleeding, infection, anesthesia risk, heart or lung problems, wound healing problems, continued symptoms after surgery, injury to abdominal structures such as intestine or common bile duct causing morbidity and need for further intervention, anesthesia risks, heart or lung problems hernia, formation, etc. She accepts the risks and wishes to proceed with the procedure. 2. Chest pain, resolved at this time. Cardiac in nature, has been ruled out. This could be musculoskeletal secondary to her arthritis conditions. 3. Tobacco dependency. She is on nicotine patch. 4. Morbid obesity. 5. Arthritis. PLAN 1. N.p.o. 2. IV fluids. 3. IV antibiotics. 4. Laparoscopic cholecystectomy, possible laparotomy, possible liver biopsy. TD: 08/12/2017 22:56 PAVITHRA
[2017-08-13] MEDS: HYDROmorphone 1 MG/ML CARPUJECT IVP PRN ×5 (00:11→22:25)
[2017-08-13] MEDS: SODIUM CHLORIDE FLUSH 0.9% 10 ML SYRINGE IVP SCH ×3 (00:23→13:19)
[2017-08-13] MEDS: SODIUM CHLORIDE FLUSH 0.9% 10 ML SYRINGE IVP PRN ×2 (00:32→04:18)
[2017-08-13] MEDS: metroNIDAZOLE 500 MG/100 ML 500 MG/100 ML BAG IV SCH ×3 (00:50→13:18)
[2017-08-13] MEDS: LORazepam 0.5 MG TABLET PO PRN ×4 (00:59→23:51)
[2017-08-13] MEDS: ACETAMINOPHEN 1,000 MG/100 ML 100 ML IV SCH ×3 (01:55→15:12)
[2017-08-13] MEDS: KETOROLAC 15 MG/ML VIAL IVP PRN ×2 (02:07→16:20)
[2017-08-13] MEDS: ONDANSETRON 4 MG/2 ML VIAL IVP PRN ×3 (02:09→22:29)
[2017-08-13 04:19] LABS: BASOPHILS # (AUTO) 0.1 10^3/uL (0.0-0.1); BASOPHILS % (AUTO) 0.6 %; HGB - HEMOGLOBIN 13.2 g/dL (12.0-16.0); LYMPHOCYTES # (AUTO) 1.2 10^3/uL (1.5-3.5); LYMPHOCYTES % (AUTO) 12.1 %; MEAN CORPUSCULAR HEMOGLOBIN 29.3 pg (27.0-31.0); MEAN CORPUSCULAR HGB CONC 32.8 g/dL (32.0-36.0); MEAN CORPUSCULAR VOLUME 89.4 fL (81.0-99.0); MEAN PLATELET VOLUME 8.6 fL (7.9-10.8); MONOCYTES # (AUTO) 0.6 10^3/uL (0.0-1.0); MONOCYTES % (AUTO) 5.8 %; NEUTROPHILS # (AUTO) 8.4 10^3/uL (1.5-6.6); NEUTROPHILS % (AUTO) 81.5 %; PLT - PLATELET COUNT 208 10^3/uL (130-450); RED CELL DISTRIBUTION WIDTH 13.6 % (12.0-15.0); WHITE BLOOD COUNT 10.3 x10^3/uL (4.8-10.8)
[2017-08-13 04:32] LABS: ALBUMIN 3.5 g/dL (3.2-5.5); ALBUMIN/GLOBULIN RATIO 1.4 (1.0-2.2); BILIRUBIN,TOTAL 0.4 mg/dL (0.2-1.0); CALCIUM 8.5 mg/dL (8.5-10.3); CREATININE 0.7 mg/dL (0.4-1.0)
[2017-08-13] MEDS: PROCHLORPERAZINE 10 MG/2 ML VIAL IVP PRN (06:58)
[2017-08-13] MEDS ORDERED: KETOROLAC 15 MG/ML VIAL IVP PRN (07:34)
[2017-08-13] MEDS ORDERED: oxyCODONE 5 MG TABLET PO PRN (07:37)
[2017-08-13] MEDS: NICOTINE 21 MG PATCH TOP SCH (08:13)
[2017-08-13] MEDS: HYDROCORTISONE 1% CREAM 28 GM TUBE TOP SCH ×2 (08:14→22:25)
[2017-08-13] MEDS ORDERED: HYDROmorphone 1 MG/ML CARPUJECT IVP PRN (08:49)
[2017-08-13] MEDS ORDERED: POLYETHYLENE GLYCOL 3350 17 GM PACKET PO SCH (09:00)
[2017-08-13] MEDS: traMADol 50 MG TABLET PO PRN ×2 (11:14→16:20)
[2017-08-13] MEDS ORDERED: oxyCOD/ACETAMIN 5 MG/325 MG TABLET PO PRN ×2 (16:56)
--- NOTE | 2017-08-13 17:03 | PROVIDER PROGRESS NOTE ---
Subjective - General Admit Date: 08/11/17 Procedure Date: 08/12/17 Post Op Days: 1 Procedure Performed: laparoscopic cholecystectomy - Review of Systems Gastrointestinal: positive: Other (c/o significant incisional pain) Objective - Patient Data Vital Signs: Vital Signs x48h Temp Pulse Resp BP Pulse Ox 08/13/17 16:00 36.7 C 71 18 120/65 96 Intake & Output: Intake and Output Totals x24h 08/11/17 08/12/17 08/13/17 23:59 23:59 23:59 Intake Total 180.938 4488.150 1512.933 Output Total 950 500 Balance 367.478 4779.150 1012.933 - Lab Results Lab Results: 08/13/17 04:01 08/13/17 04:01 Other Lab Results: Lab Results x24hrs 08/13/17 08/13/17 Range/Units 04:01 04:01 WBC 10.3 (4.8-10.8) x10^3/uL RBC 4.50 (4.20-5.40) 10^6/uL Hgb 13.2 (12.0-16.0) g/dL Hct 40.2 (37.0-47.0) % MCV 89.4 (81.0-99.0) fL MCH 29.3 (27.0-31.0) pg MCHC 32.8 (32.0-36.0) g/dL RDW 13.6 (12.0-15.0) % Plt Count 208 (130-450) 10^3/uL MPV 8.6 (7.9-10.8) fL Neut # 8.4 H (1.5-6.6) 10^3/uL Lymph # 1.2 L (1.5-3.5) 10^3/uL [place] # 0.6 (0.0-1.0) 10^3/uL Eos # 0.0 (0.0-0.7) 10^3/uL Baso # 0.1 (0.0-0.1) 10^3/uL Absolute Nucleated RBC 0.02 x10^3/uL Nucleated RBC % 0.2 /100WBC Sodium 137 (135-145) mmol/L Potassium 3.9 (3.5-5.0) mmol/L Chloride 103 (101-111) mmol/L Carbon Dioxide 28 (21-32) mmol/L Anion Gap 6.0 (6-13) BUN 12 (6-20) mg/dL Creatinine 0.7 (0.4-1.0) mg/dL Estimated GFR (MDRD) 86 L (>89) Glucose 132 H (70-100) mg/dL Calcium 8.5 (8.5-10.3) mg/dL Total Bilirubin 0.4 (0.2-1.0) mg/dL AST 73 H (10-42) IU/L ALT 81 H (10-60) IU/L Alkaline Phosphatase 43 (42-121) IU/L Total Protein 6.0 L (6.7-8.2) g/dL Albumin 3.5 (3.2-5.5) g/dL Globulin 2.5 (2.1-4.2) g/dL Albumin/Globulin Ratio 1.4 (1.0-2.2) - Current Medications Current Medications: Current Medications Generic Name Dose Route Start Last Admin Trade Name Fre PRN Reason Stop Dose Admin Atorvastatin Calcium 80 mg 08/10/17 21:00 08/12/17 21:57 Lipitor PO 80 mg QPM SONIA Administration Hydrocortisone 1 applic 08/10/17 21:00 08/13/17 08:14 Hydrocortisone TOP 1 applic BID SONIA Administration Hydromorphone HCl 1 mg 08/13/17 08:49 08/13/17 15:12 Dilaudid Inj Carp IVP 1 mg Q2HR PRN Administration PAIN Acetaminophen 100 mls @ 400 mls/hr 08/12/17 14:00 08/13/17 16:00 Ofirmev IV Infused Q6H SONIA Infusion Ketorolac Tromethamine 15 mg 08/11/17 11:05 08/13/17 16:20 Toradol Inj IVP 08/16/17 11:04 15 mg Q6HR PRN Administration PAIN Lorazepam 0.5 mg 08/10/17 20:36 08/13/17 13:16 Ativan PO 0.5 mg Q6H PRN Administration Anxiety Nicotine 1 patch 08/10/17 21:00 08/13/17 08:13 Nicoderm TOP 1 patch DAILY SONIA Administration Nitroglycerin 0.4 mg 08/10/17 19:31 08/11/17 06:23 Nitrostat SL 0.4 mg Q5MIN PRN Administration Chest Pain Ondansetron HCl 4 mg 08/10/17 19:31 08/13/17 13:18 Zofran Inj IVP 4 mg Q6HR PRN Administration Nausea / Vomiting Prochlorperazine Edisylate 10 mg 08/10/17 19:31 08/13/17 06:58 Compazine Inj IVP 10 mg Q6HR PRN Administration Nausea / Vomiting Sodium Chloride 10 ml 08/10/17 19:31 08/13/17 04:18 Normal Saline Flush 0.9% IVP 10 ml PRN PRN Administration NEEDED PER PROVIDER ORDERS Sodium Chloride 10 ml 08/11/17 01:00 08/13/17 13:19 Normal Saline Flush 0.9% IVP 10 ml 0100,0900,1700 SONIA Administration - Physical Exam Abdomen: positive: Other (incision clean without evidence of infection) Impression/Plan - Problem List Problem List: POD#1 C/o incisional pain not relieved with oral pain medication only IV dilaudid. Patients is feeling better with less nausea. Will try Percocet to see if patient has adequate pain relief. Will try pain medication/management overnight and if doing well, will discharge in AM. Mobilize patient. Low fat diet.
[2017-08-13] MEDS: DOCUSATE SODIUM 250 MG CAPSULE PO SCH (17:12)
--- NOTE | 2017-08-13 21:12 | DISCHARGE SUMMARY ---
Physician: Tana Blackburn MD DATE OF ADMISSION: 08/11/2017 DATE OF DISCHARGE: 08/13/2017 TRANSFER OF SERVICE NOTE BRIEF PRESENTATION AND HOSPITAL COURSE: The patient is a 56-year-old female who claims that she has no past medical history and has not provided the name of her primary care physician. She was not forthcoming about where is she coming from, but she reported being new in the area. She came to the ER on 08/10/2017 complaining of chest discomfort. I refer the reader to the history and physical dictated by Dr. Doll. The ER workup initially was unrevealing. The patient had unremarkable laboratories and negative troponin. Her EKG did not show acute ischemia. She underwent rapid cardiac rule-out including 3 negative troponins, was monitored on telemetry, and no event was recorded. On the morning of the second hospital day, she had an ultrasound of her heart/echocardiogram, which showed no abnormal valves, no wall motion abnormality, and normal systolic and diastolic function. Regardless of the negative workup, patient kept complaining of unbearable pain. Her pain complaint was to the point when she would be anxious, holding her chest. The technician automated equipment doing the echocardiogram informed us that as an incidental finding, she saw gallstones. Therefore, ultrasound of the abdomen was done, which showed abnormal gallbladder and gallstones. When these findings were shared with the patient, the chest pain complaint somewhat moved to the abdomen and subsequently she started to have abdominal pain radiating to her back. At that point, I consulted a surgeon, Dr. Robertson, who saw the patient and discussed the option of cholecystectomy with her. Subsequently, the patient was taken to surgery and underwent laparoscopic procedure. I refer the reader to the surgical note for details. In any case, Dr. Robertson shared with me the result of the surgery, which is gallbladder was removed, but there was no significant inflammation. Subsequently, the patient also informed me that liver biopsy was done and I suppose that was for the indication of fatty liver. Following the laparoscopic procedure, the patient remained in the hospital, given that her pain complaint remained complex, including chest discomfort, back pain, abdominal pain. Her pain was bad enough that she required IV Dilaudid, which she was getting in quite high dose, in 2 mg IV boluses. I would like to note that prior to this IV Dilaudid order, the patient was kept on IV fentanyl, morphine and different pain medication regimens were tried, but not much has worked. In any case, for 3 days she was continuously given IV narcotics. On the morning of the 4th day, the patient was afebrile and hemodynamically stable. I attempted to discuss her case with the surgeon, Dr. Robertson; however, he was busy and could not return my phone calls, or could not have a conversation with me when I met him in the hallway. When I saw the patient, I felt after laparoscopic procedure and with unrevealing workup, no obvious acute pathology causing the pain complaint, it would not be reasonable to continue IV narcotics. Therefore, I informed the patient that we would manage her pain with IV Toradol/anti-inflammatory and we would continue with oral opiate-like medications. I thought that IV opiate would not be beneficial. I explained to the patient that in some cases IV opiates would actually increase the pain sensation. The patient asking for more opiates, and I felt this was exactly her case and regardless of giving her quite significant doses of narcotics, she continued to complain of pain, and I felt that her pain was actually worse. I also offered further workup to the patient, but my conversation with her and with her mainly focused on the opiate issue. Subsequently, Dr. Robertson decided to take over the case, and I am dictating this note signing off the case. Patient remains hospitalized under Dr. Robertson's service. He will handle further workup or symptom control and discharge. Regarding additional issues, I would like to note that patient's blood glucose was found slightly elevated, therefore hemoglobin A1c was checked, which returned 6.5, being slightly above normal. The patient likely is developing type 2 diabetes. In addition, lipid panel was checked as well and HDL cholesterol was found lower than normal. PHYSICAL EXAMINATION VITAL SIGNS: Stable, reviewed per electronic medical record. GENERAL: Patient is a well-developed female who was alert, oriented, neurologically nonfocal. PSYCHIATRIC: Appeared anxious and tearful. Patient complained of pain, and she was tearful, especially when discontinuation of IV Dilaudid was discussed. She, however, did not show any other physical sign of pain such as increased heart rate or any other physical distress. Notably, when I entered the room, she had painful grimace on her face; however, that painful expression changed as the topic and the conversation changed. DISCHARGE DIAGNOSES 1. Atypical chest pain, underwent rapid cardiac rule out. 2. Cholelithiasis, abnormal gallbladder on ultrasound, status post cholecystectomy. 3. Complex pain complaint. 4. High tolerance to narcotics including tolerating 2 mg IV Dilaudid pushes without any mental status change, somnolence, and requesting more. 5. Hyperglycemia/type 2 diabetes. 6. Dyslipidemia. DISCHARGE RECOMMENDATIONS 1. Negative cardiac rule out. The patient might still have coronary artery disease, and we will recommend outpatient followup for chest pain with cardiac stress test and referral to cardiology if the chest pain continues, or if the stress test turns out to be abnormal. 2. Recommend establishing primary care. 3. Do not recommend any form, way, or use of narcotics as the patient does not have any diagnosis that would support that. 4. Recommend a diabetic diet, dietitian followup and primary care followup for diabetes. 5. Recommend diet and lipid lowering agents if needed. That will also be deferred to the primary care setting. 6. Regarding post-cholecystectomy and liver biopsy care, we will defer it to the surgery service, Dr. Robertson. Time spent in the care of this patient today was 1-1/2 hours, which included repeated visits with the patient, discussion with her , trying to reach Dr. Robertson to discuss the case, discussing the case with case management and nursing as well. I spent more than 50% of the time was spent with coordination of the care. TD: 08/13/2017 21:11 [email or web address]
[2017-08-13] MEDS: oxyCODONE 5 MG TABLET PO PRN (22:21)
[2017-08-13] MEDS: ATORVASTATIN 40 MG TABLET PO SCH (22:21)
[2017-08-14] MEDS: HYDROmorphone 1 MG/ML CARPUJECT IVP PRN ×2 (00:24→03:23)
[2017-08-14] MEDS: SODIUM CHLORIDE FLUSH 0.9% 10 ML SYRINGE IVP SCH ×2 (03:23→08:32)
[2017-08-14] MEDS: LORazepam 0.5 MG TABLET PO PRN (06:15)
[2017-08-14] MEDS: oxyCODONE 5 MG TABLET PO PRN (06:15)
[2017-08-14] MEDS: SODIUM CHLORIDE FLUSH 0.9% 10 ML SYRINGE IVP PRN (06:37)
[2017-08-14] MEDS: ONDANSETRON 4 MG/2 ML VIAL IVP PRN (06:37)
[2017-08-14] MEDS ORDERED: HYDROmorphone 2 MG TABLET PO PRN (08:01)
[2017-08-14] MEDS ORDERED: IBUPROFEN 400 MG TABLET PO PRN (08:03)
[2017-08-14] MEDS: DOCUSATE SODIUM 250 MG CAPSULE PO SCH (08:30)
[2017-08-14] MEDS: NICOTINE 21 MG PATCH TOP SCH (08:30)
[2017-08-14] MEDS: HYDROCORTISONE 1% CREAM 28 GM TUBE TOP SCH (08:32)
[2017-08-14] MEDS ORDERED: oxyCODONE 5 MG TABLET PO PRN (08:32)
[2017-08-14 08:58] LABS: ALBUMIN 3.8 g/dL (3.2-5.5); ALBUMIN/GLOBULIN RATIO 1.5 (1.0-2.2); BILIRUBIN,TOTAL 0.4 mg/dL (0.2-1.0); CALCIUM 8.5 mg/dL (8.5-10.3); CREATININE 0.8 mg/dL (0.4-1.0); TOTAL PROTEIN 6.3 g/dL (6.7-8.2)
--- NOTE | 2017-08-14 11:32 | Discharge Plan ---
Discharge Plan Disposition: 01 Home, Self Care Condition: Good Prescriptions: oxyCODONE [Roxicodone] 10 mg PO Q4HR PRN #30 tablet PRN Reason: Pain LORazepam [Ativan] 1 mg PO Q6H PRN #15 tablet PRN Reason: Anxiety Diet: Regular Activity Restrictions: no lifting over 15 lbs Shower Restrictions: No Driving Restrictions: Yes Weight Bearing: Full Weight Instruction Topics: Gallbladder Surg, Cholecystectomy Laparoscopic Additional Instructions or Follow Up instructions: Colace 100 mg 2 tablets po twice a day No Smoking: If you smoke, Please STOP! Call for help. Follow-up with: Yobani Robertson MD [Provider Admit Priv/Credential] - 2 Weeks
[2017-08-14 14:01] VITALS: BP 131/76
== END 2017-08-14 14:21 | disposition home or self-care (01) | DRG 419 ==
LOC: ED 16:57 → OBS 19:31 → OBSVTOIN 08-11 21:14 → MS3 08-11 23:18
PROVIDERS: ADMIT Internal Medicine; ATTEND Internal Medicine
PROC: 0FB03ZX Excision of Liver, Percutaneous Approach, Diagnostic (ICD-10-PCS; 2017-08-12)
PROC: 0FT44ZZ Resection of Gallbladder, Percutaneous Endoscopic Approach (ICD-10-PCS; principal; 2017-08-12 10:30)
DX: K80.00 Calculus of gallbladder with acute cholecystitis without obstruction (principal); K76.0 Fatty (change of) liver, not elsewhere classified; R73.9 Hyperglycemia, unspecified; E78.5 Hyperlipidemia, unspecified; E66.9 Obesity, unspecified; Z68.39 Body mass index [BMI] 39.0-39.9, adult; L40.50 Arthropathic psoriasis, unspecified; M06.9 Rheumatoid arthritis, unspecified; M45.9 Ankylosing spondylitis of unspecified sites in spine; M19.90 Unspecified osteoarthritis, unspecified site; F17.210 Nicotine dependence, cigarettes, uncomplicated; F41.9 Anxiety disorder, unspecified; Z98.1 Arthrodesis status; Z82.49 Family history of ischemic heart disease and other diseases of the circulatory system
CPT/HCPCS: 36415; 71046; 74177; 76700; 80053; 80061; 82550; 82553; 83036; 83605; 83690; 83721; 83735; 83880; 84100; 84484; 85025; 85379; 88304; 88307; 88313; 93005; 93306; 96361; 96372; 96374; 96375; 96376; 99283; 99284

== ENCOUNTER 2017-08-30 09:42 | Outpatient (CLI) | payer MEDICAID ==
[2017-08-30 17:59] LABS: BASOPHILS # (AUTO) 0.1 10^3/uL (0.0-0.1); BASOPHILS % (AUTO) 1.2 %; EOSINOPHILS # (AUTO) 0.2 10^3/uL (0.0-0.7); HGB - HEMOGLOBIN 15.1 g/dL (12.0-16.0); LYMPHOCYTES # (AUTO) 2.4 10^3/uL (1.5-3.5); LYMPHOCYTES % (AUTO) 30.2 %; MEAN CORPUSCULAR HEMOGLOBIN 29.7 pg (27.0-31.0); MEAN CORPUSCULAR HGB CONC 32.9 g/dL (32.0-36.0); MEAN CORPUSCULAR VOLUME 90.4 fL (81.0-99.0); MEAN PLATELET VOLUME 9.8 fL (7.9-10.8); MONOCYTES # (AUTO) 0.6 10^3/uL (0.0-1.0); MONOCYTES % (AUTO) 7.1 %; NEUTROPHILS # (AUTO) 4.7 10^3/uL (1.5-6.6); NEUTROPHILS % (AUTO) 59.5 %; PLT - PLATELET COUNT 239 10^3/uL (130-450); RED CELL DISTRIBUTION WIDTH 13.7 % (12.0-15.0); WHITE BLOOD COUNT 7.9 x10^3/uL (4.8-10.8)
[2017-08-30 18:12] LABS: ALBUMIN 4.4 g/dL (3.2-5.5); ALBUMIN/GLOBULIN RATIO 1.5 (1.0-2.2); ALKALINE PHOSPHATASE 60 IU/L (42-121); ALT ALANINE AMINOTRANSFERASE 37 IU/L (10-60); AST ASPARTATE AMINOTRANSFERASE 26 IU/L (10-42); BILIRUBIN,TOTAL 0.5 mg/dL (0.2-1.0); BUN - BLOOD UREA NITROGEN 11 mg/dL (6-20); CALCIUM 9.3 mg/dL (8.5-10.3); CARBON DIOXIDE - CO2 28 mmol/L (21-32); CHLORIDE 103 mmol/L (101-111); CHOL/HDL RATIO 3.9 (<4.4); CHOLESTEROL 146 mg/dL; CREATININE 0.6 mg/dL (0.4-1.0); GFR - MDRD 103 (>89); GLUCOSE 106 mg/dL (70-100); HDL CHOLESTEROL 37 mg/dL; LDL CHOLESTEROL,CALCULATED 61 mg/dL; LDL/HDL RATIO 1.6 (<4.4); SODIUM 138 mmol/L (135-145); TOTAL PROTEIN 7.4 g/dL (6.7-8.2); VLDL CHOLESTEROL 48 mg/dL
[2017-08-30 18:13] LABS: CRP - C-REACTIVE PROTEIN < 1.0 mg/dL (0-1.0)
== END 2017-08-30 09:43 | disposition home or self-care (01) ==
LOC: LAB.F 09:42
PROVIDERS: ATTEND Internal Medicine
DX: K76.0 Fatty (change of) liver, not elsewhere classified (principal); E66.9 Obesity, unspecified; M06.9 Rheumatoid arthritis, unspecified
CPT/HCPCS: 36415; 80053; 80061; 83721; 84443; 85025; 85651; 86140; 86200

== ENCOUNTER 2017-09-06 15:35 | Outpatient (CLI) | payer MEDICAID ==
--- NOTE | 2017-09-07 17:59 | Mammography Report ---
DIGITAL SCREENING MAMMOGRAM: 09/06/2017 CLINICAL INDICATION: A 56-year-old for baseline. TECHNIQUE: Routine CC and MLO projections were obtained of the breasts. FINDINGS: The breasts demonstrate fatty replacement bilaterally. A few punctate, typically benign calcifications are present. No suspicious masses, clustered microcalcifications, or regions of architectural distortion are identified. IMPRESSION: BENIGN FINDINGS. RECOMMENDATION: Routine annual screening unless otherwise clinically indicated. BI-RADS category 2 benign findings. STANDARD QUALIFYING STATEMENTS 1. This examination was reviewed with the aid of Computed-Aided Detection (CAD). 2. A negative or benign imaging report should not delay biopsy if clinically suspicious findings are present. Consider surgical consultation if warranted. More than 5% of cancers are not identified by imaging. 3. Dense breasts may obscure an underlying neoplasm. TD: 09/07/2017 17:58
== END 2017-09-06 15:36 | disposition home or self-care (01) ==
LOC: DI 15:35
PROVIDERS: ATTEND Internal Medicine
DX: Z12.31 Encounter for screening mammogram for malignant neoplasm of breast (principal)
CPT/HCPCS: 77067

== ENCOUNTER → 2017-11-28 | Outpatient (CLI) | payer MEDICAID | LOC: RT.N 16:54 | PROVIDERS: ATTEND Family Medicine | DX: R60.0 Localized edema (principal); R55 Syncope and collapse | CPT/HCPCS: 93005 ==

== ENCOUNTER 2017-12-04 11:43 | Outpatient (CLI) | payer MEDICAID ==
--- NOTE | 2017-12-04 12:24 | XRAY Report ---
Procedure Date: 12/04/2017 Accession Number: [id number] / [id number] Procedure: XRN - Hand 3 View LT CPT Code: FULL RESULT: EXAM: Hand 3 View LT DATE: 12/04/2017 12:00 PM CLINICAL HISTORY: PAIN IN LEFT HAND COMPARISON: None. TECHNIQUE: 3 views. FINDINGS: Bones: There are no bone lesions. Question minimally displaced fracture of the distal aspect of the middle third phalanx. Joints: There is advanced degenerative change with complete joint space loss in the distal and proximal interphalangeal joints, most severe in the distal second and third interphalangeal joints. There is no periarticular osteoporosis or marginal erosion to suggest rheumatoid arthritis. Additionally, metacarpophalangeal joints are preserved. Soft Tissues: Normal. No soft tissue swelling. IMPRESSION: Advanced degenerative joint disease, pattern suggestive of osteoarthrosis. Question of a minimally displaced distal fracture of the middle third phalanx should be correlated to point tenderness at the third distal interphalangeal joint significantly greater than the other interphalangeal joints. [facility]
== END 2017-12-04 11:44 | disposition home or self-care (01) ==
LOC: DI.N 11:43
PROVIDERS: ATTEND Family Medicine
DX: M19.042 Primary osteoarthritis, left hand (principal); R60.0 Localized edema; R55 Syncope and collapse; E66.9 Obesity, unspecified; R74.0 Nonspecific elevation of levels of transaminase and lactic acid dehydrogenase [LDH]
CPT/HCPCS: 36415; 80053; 80061; 83540; 83721; 84443; 84466; 85025; 86317; 86704; 86709; 86803; 87340

== ENCOUNTER 2017-12-04 13:02 | Outpatient (CLI) | payer MEDICAID ==
[2017-12-04 18:50] LABS: BASOPHILS # (AUTO) 0.1 10^3/uL (0.0-0.1); BASOPHILS % (AUTO) 1.2 %; EOSINOPHILS # (AUTO) 0.1 10^3/uL (0.0-0.7); EOSINOPHILS % (AUTO) 1.8 %; HGB - HEMOGLOBIN 15.9 g/dL (12.0-16.0); LYMPHOCYTES # (AUTO) 2.5 10^3/uL (1.5-3.5); LYMPHOCYTES % (AUTO) 32.1 %; MEAN CORPUSCULAR HEMOGLOBIN 30.8 pg (27.0-31.0); MEAN CORPUSCULAR HGB CONC 33.3 g/dL (32.0-36.0); MEAN CORPUSCULAR VOLUME 92.6 fL (81.0-99.0); MEAN PLATELET VOLUME 9.7 fL (7.9-10.8); MONOCYTES # (AUTO) 0.5 10^3/uL (0.0-1.0); MONOCYTES % (AUTO) 5.8 %; NEUTROPHILS # (AUTO) 4.6 10^3/uL (1.5-6.6); NEUTROPHILS % (AUTO) 59.1 %; PLT - PLATELET COUNT 208 10^3/uL (130-450); RED BLOOD COUNT 5.15 10^6/uL (4.20-5.40); RED CELL DISTRIBUTION WIDTH 14.3 % (12.0-15.0); WHITE BLOOD COUNT 7.9 x10^3/uL (4.8-10.8)
[2017-12-04 19:43] LABS: % IRON SATURATION 27 % (20-50); ALBUMIN/GLOBULIN RATIO 1.2 (1.0-2.2); ALKALINE PHOSPHATASE 57 IU/L (42-121); ALT ALANINE AMINOTRANSFERASE 49 IU/L (10-60); AST ASPARTATE AMINOTRANSFERASE 31 IU/L (10-42); BILIRUBIN,TOTAL 0.7 mg/dL (0.2-1.0); BUN - BLOOD UREA NITROGEN 15 mg/dL (6-20); CALCIUM 9.4 mg/dL (8.5-10.3); CARBON DIOXIDE - CO2 26 mmol/L (21-32); CHLORIDE 102 mmol/L (101-111); CHOL/HDL RATIO 3.7 (<4.4); CHOLESTEROL 164 mg/dL; CREATININE 0.7 mg/dL (0.4-1.0); GFR - MDRD 86 (>89); GLUCOSE 112 mg/dL (70-100); HDL CHOLESTEROL 44 mg/dL; IRON 103 ug/dL (28-170); LDL CHOLESTEROL,CALCULATED 69 mg/dL; LDL/HDL RATIO 1.6 (<4.4); SODIUM 137 mmol/L (135-145); TOTAL IRON BINDING CAPACITY 379 ug/dL (250-450); TOTAL PROTEIN 7.4 g/dL (6.7-8.2); TRANSFERRIN 271 mg/dL (192-382); VLDL CHOLESTEROL 51 mg/dL
[2017-12-05 12:31] LABS: HEPATITIS B SURFACE ANTIGEN NON-REACTIVE (NON-REACTIVE)
[2017-12-05 14:43] LABS: HEPATITIS C ANTIBODY NON-REACTIVE (NON-REACTIVE)
== END 2017-12-04 13:03 | disposition home or self-care (01) ==
LOC: LAB.N 13:02
PROVIDERS: ATTEND Family Medicine
DX: R60.0 Localized edema (principal); R55 Syncope and collapse; E66.9 Obesity, unspecified; R74.0 Nonspecific elevation of levels of transaminase and lactic acid dehydrogenase [LDH]
CPT/HCPCS: 36415; 80053; 80061; 83540; 83721; 84443; 84466; 85025; 86317; 86704; 86709; 86803; 87340

== ENCOUNTER 2017-12-12 08:00 | Outpatient (CLI) | payer MEDICAID ==
[2017-12-12 19:18] LABS: HEMOGLOBIN A1C 0.76 g/dL; HEMOGLOBIN A1C % 6.2 % (4.6-6.2)
[2017-12-12 21:42] LABS: RHEUMATOID FACTOR NEGATIVE (Negative)
[2017-12-14 16:46] LABS: ANA SCREEN POSITIVE (NEGATIVE)
== END 2017-12-12 08:01 | disposition home or self-care (01) ==
LOC: LAB.N 08:00
PROVIDERS: ATTEND Family Medicine
DX: R73.01 Impaired fasting glucose (principal); M79.642 Pain in left hand
CPT/HCPCS: 36415; 83036; 84550; 85651; 86038; 86430

== ENCOUNTER → 2018-03-21 | Outpatient (CLI) | payer MEDICAID ==
[2018-03-21 19:29] LABS: HGB - HEMOGLOBIN 16.2 g/dL (12.0-16.0); MEAN CORPUSCULAR HEMOGLOBIN 30.2 pg (27.0-31.0); MEAN CORPUSCULAR VOLUME 91.7 fL (81.0-99.0); MEAN PLATELET VOLUME 9.8 fL (7.9-10.8); RED BLOOD COUNT 5.37 10^6/uL (4.20-5.40); RED CELL DISTRIBUTION WIDTH 13.9 % (12.0-15.0); WHITE BLOOD COUNT 8.4 x10^3/uL (4.8-10.8)
[2018-03-21 19:59] LABS: CALCIUM 9.5 mg/dL (8.5-10.3); CREATININE 0.7 mg/dL (0.4-1.0)
[2018-03-21 20:10] LABS: HB2 TOTAL 18.3 g/dL; HEMOGLOBIN A1C 0.81 g/dL; HEMOGLOBIN A1C % 6.2 % (4.6-6.2)
== END ==
LOC: LAB.N 08:00
PROVIDERS: ATTEND Physician Assistant Medical
DX: I20.8 Other forms of angina pectoris (principal); R55 Syncope and collapse; R73.03 Prediabetes
CPT/HCPCS: 36415; 80048; 83036; 83880; 85027

== ENCOUNTER 2018-04-19 04:29 | Emergency (ER) | payer MEDICAID ==
[2018-04-19] MEDS ORDERED: NITROGLYCERIN SL 0.4 MG TABLET SL STA (04:35)
[2018-04-19] MEDS ORDERED: ONDANSETRON 4 MG/2 ML VIAL IVP STA (04:35)
[2018-04-19] MEDS ORDERED: SODIUM CHLORIDE 0.9% 1,000 ML IV ONE (04:35)
[2018-04-19] MEDS ORDERED: HEPARIN 25000UNITS/500ML (D5W) 25,000 UNIT/500 ML BAG IV STA (04:35)
[2018-04-19] MEDS ORDERED: HEPARIN 5,000 UNIT/ML VIAL IVP STA (04:35)
[2018-04-19] MEDS ORDERED: METOPROLOL 5 MG/5 ML VIAL IVP STA (04:37)
[2018-04-19] MEDS ORDERED: NITROGLYCERIN SL 0.4 MG TABLET SL ONE (04:38)
[2018-04-19] MEDS ORDERED: HEPARIN 5,000 UNIT/ML VIAL ONE (04:39)
[2018-04-19] MEDS ORDERED: CLOPIDOGREL 300 MG TABLET PO ONE (04:39)
[2018-04-19] MEDS ORDERED: ASPIRIN CHEW 81 MG TABLET ONE (04:39)
[2018-04-19] MEDS ORDERED: HEPARIN 25000UNITS/500ML (D5W) 25,000 UNIT/500 ML BAG IV ONE (04:40)
[2018-04-19] MEDS ORDERED: ASPIRIN CHEW 81 MG TABLET PO STA (04:40)
[2018-04-19] MEDS ORDERED: METOPROLOL TARTRATE 50 MG TABLET ONE (04:40)
--- NOTE | 2018-04-19 04:44 | ED Physician Documentation ---
PD HPI CHEST PAIN - Stated complaint Stated Complaint: CHEST PX - Chief complaint Chief Complaint: Cardiac - History obtained from History obtained from: Patient, Family - History of Present Illness Timing - onset: How many hours ago (1) Timing - onset during: Rest Timing - duration: Hours (1) Timing - details: Abrupt onset Pain level max: 8 Pain level now: 8 Quality: Aching, Pain Location: Substernal Radiation: Left upper extremity, Right upper extremity Improved by: Nothing Worsened by: Other (nothing) Associated symptoms: Shortness of air, Nausea, Feeling faint / dizzy. 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 Review of Systems Ten Systems: 10 systems reviewed and negative Constitutional: denies: Fever, Chills Ears: denies: Ear pain Nose: denies: Rhinorrhea / runny nose, Congestion Throat: denies: Sore throat Respiratory: denies: Cough, Wheezing GI: denies: Vomiting, Diarrhea Skin: denies: Rash Musculoskeletal: denies: Neck pain, Back pain Neurologic: denies: Headache PD PAST MEDICAL HISTORY - Past Medical History Past Medical History: Yes Cardiovascular: None Respiratory: None Endocrine/Autoimmune: None GI: None GUEST RELATIONS RECEPTIONIST: None : None HEENT: None Psych: Anxiety Musculoskeletal: Osteoarthritis, Rheumatoid arthritis, Other Derm: None - Past Surgical History Past Surgical History: Yes General: Appendectomy, Gastric surgery, Other /GUEST RELATIONS RECEPTIONIST: section, Hysterectomy, Other - Present Medications Home Medications: Ambulatory Orders Medication Instructions Recorded Confirmed LORazepam [Ativan] 1 mg PO Q6H PRN #15 tablet 08/14/17 oxyCODONE [Roxicodone] 10 mg PO Q4HR PRN #30 tablet 08/14/17 - Allergies Allergies/Adverse Reactions: Allergies Allergy/AdvReac Type Severity Reaction Status Date / Time No Known Drug Allergies Allergy Verified 04/19/18 04:37 - Social History Does the pt smoke?: No Smoking Status: Never smoker Does the pt drink ETOH?: No Does the pt have substance abuse?: Yes Substance Use and Type: Marijuana - Immunizations Immunizations are current?: Yes - POLST Patient has POLST: No POLST Status: Full Code PD ED PE NORMAL - Vitals Vital signs reviewed: Yes - General General: Alert and oriented X 3, Other (appears in pain) - HEENT HEENT: Moist mucous membranes - Neck Neck: Supple, no meningeal sign - Cardiac Cardiac: RRR, Strong equal pulses - Respiratory Respiratory: No respiratory distress, Clear bilaterally - Abdomen Abdomen: Soft, Non tender, Non distended - Derm Derm: Warm and dry - Extremities Extremities: No calf tenderness / cord - Neuro Neuro: Alert and oriented X 3 Results - Vitals Vitals: Vital Signs - 24 hr 04/19/18 04/19/18 04:30 05:01 Temperature 36.0 C L Heart Rate 78 85 Respiratory 24 20 Rate Blood Pressure 146/106 H 132/111 H O2 Saturation 99 100 Oxygen O2 Source Room air - EKG (time done) 0433 Rate: Rate (enter#) (83) Rhythm: NSR [place]: Normal Intervals: Normal [place] QRS: Normal Ischemia: ST elevation c/w ischemia (V1-2) - Labs Labs: Laboratory Tests 04/19/18 04/19/18 04/19/18 05:36 05:36 05:36 WBC 7.4 RBC 4.44 Hgb 13.5 Hct 40.4 MCV 91.2 MCH 30.5 MCHC 33.4 RDW 13.8 Plt Count 193 MPV 9.2 Neut # (Auto) 3.2 Lymph # (Auto) 3.4 [place] # (Auto) 0.6 Eos # (Auto) 0.2 Baso # (Auto) 0.1 Absolute Nucleated RBC 0.02 Nucleated RBC % 0.3 Sodium 138 Potassium 3.6 Chloride 101 Carbon Dioxide 25 Anion Gap 12.0 BUN 14 Creatinine 0.6 Estimated GFR (MDRD) 102 Glucose 137 H Calcium 9.4 Total Bilirubin 0.5 AST 31 ALT 41 Alkaline Phosphatase 60 Troponin I 0.05 Total Protein 7.3 Albumin 4.5 Globulin 2.8 Albumin/Globulin Ratio 1.6 Lipase 26 - Rads (name of study) cxr Radiology: Prelim report reviewed, EMP read contemporaneously, See rad report (no acute disease.) PD MEDICAL DECISION MAKING - ED course Complexity details: re-evaluated patient, considered differential, d/w patient, d/w family, d/w income tax consultant ED course: 57-year-old female who presents to the emergency department with chest pain, substernal and radiated to the bilateral arms. Took aspirin 162 mg prior to arrival. Found to have a STEMI on EKG. Given another 162 mg of aspirin. Started on a heparin drip. Also given metoprolol, morphine and Zofran. Discussed the case with Dr. Angeles, emergency department physician at [facility] who graciously accepts in transfer. Patient transferred to [facility] for further care. This document was made in part using voice recognition software. While efforts are made to proofread this document, sound alike and grammatical errors may occur. - Critical Care Time(min): 30 Time Includes: Direct patient care, Reassess patient, Document care, Coordinate care, See progress note Data interpretation: See progress note Procedures included in critical care time: See progress note Procedures excluded from critical care time: EKG, See progress note Departure - Departure Disposition: 02 Transfer Acute Care Hosp Clinical Impression: STEMI (ST elevation myocardial infarction) Qualifiers: Involved coronary artery: unspecified coronary artery Qualified Code(s): I21.3 - ST elevation (STEMI) myocardial infarction of unspecified site Condition: Stable Discharge Date/Time: 04/19/18 05:02
[2018-04-19 05:02] VITALS: BP 132/111
--- NOTE | 2018-04-19 05:19 | XRAY Report ---
Reason: Chest Pain Procedure Date: 04/19/2018 Accession Number: [id number] / [id number] Procedure: XR - Chest 1 View X-Ray CPT Code: 94842 FULL RESULT: EXAM: CHEST RADIOGRAPHY EXAM DATE: 04/19/2018 04:56 AM. CLINICAL HISTORY: Chest Pain. COMPARISON: CHEST 2 VIEW 08/10/2017 5:50 PM. TECHNIQUE: 1 view. FINDINGS: Lungs/Pleura: No alveolar consolidation or pleural effusion seen. Borderline pulmonary vascular congestion. No pneumothorax. Mediastinum: Within exam limitations, heart size is upper normal. Other: None. IMPRESSION: 1. Borderline heart size and pulmonary vascularity. RADIA
[2018-04-19 05:52] LABS: BASOPHILS # (AUTO) 0.1 10^3/uL (0.0-0.1); BASOPHILS % (AUTO) 0.9 %; EOSINOPHILS # (AUTO) 0.2 10^3/uL (0.0-0.7); EOSINOPHILS % (AUTO) 2.2 %; HGB - HEMOGLOBIN 13.5 g/dL (12.0-16.0); LYMPHOCYTES # (AUTO) 3.4 10^3/uL (1.5-3.5); LYMPHOCYTES % (AUTO) 45.9 %; MEAN CORPUSCULAR HEMOGLOBIN 30.5 pg (27.0-31.0); MEAN CORPUSCULAR HGB CONC 33.4 g/dL (32.0-36.0); MEAN CORPUSCULAR VOLUME 91.2 fL (81.0-99.0); MEAN PLATELET VOLUME 9.2 fL (7.9-10.8); MONOCYTES # (AUTO) 0.6 10^3/uL (0.0-1.0); MONOCYTES % (AUTO) 8.2 %; NEUTROPHILS # (AUTO) 3.2 10^3/uL (1.5-6.6); NEUTROPHILS % (AUTO) 42.8 %; PLT - PLATELET COUNT 193 10^3/uL (130-450); RED BLOOD COUNT 4.44 10^6/uL (4.20-5.40); RED CELL DISTRIBUTION WIDTH 13.8 % (12.0-15.0); WHITE BLOOD COUNT 7.4 x10^3/uL (4.8-10.8)
[2018-04-19 06:00] LABS: ALBUMIN 4.5 g/dL (3.2-5.5); ALBUMIN/GLOBULIN RATIO 1.6 (1.0-2.2); BILIRUBIN,TOTAL 0.5 mg/dL (0.2-1.0); CALCIUM 9.4 mg/dL (8.5-10.3); CREATININE 0.6 mg/dL (0.4-1.0); TOTAL PROTEIN 7.3 g/dL (6.7-8.2)
== END 2018-04-19 05:02 | disposition short-term general hospital (02) ==
LOC: ED 04:29
DX: I21.3 ST elevation (STEMI) myocardial infarction of unspecified site (principal)
CPT/HCPCS: 36415; 71045; 80053; 83690; 84484; 85025; 93005; 96374; 96375; 99285; 99291; A9270

== ENCOUNTER 2018-04-19 05:02 | Outpatient (CLI) | payer MEDICAID | END 2018-04-19 05:03 | disposition short-term general hospital (02) | LOC: EMS 05:02 | PROVIDERS: ATTEND Surgery | DX: R07.9 Chest pain, unspecified (principal) | CPT/HCPCS: A0425; A0427; A0999 ==

== ENCOUNTER 2018-06-05 10:52 | Outpatient (CLI) | payer MEDICAID ==
[2018-06-05 13:07] LABS: BASOPHILS % (AUTO) 0.9 %; EOSINOPHILS # (AUTO) 0.1 10^3/uL (0.0-0.7); EOSINOPHILS % (AUTO) 2.7 %; HGB - HEMOGLOBIN 14.9 g/dL (12.0-16.0); LYMPHOCYTES # (AUTO) 1.5 10^3/uL (1.5-3.5); LYMPHOCYTES % (AUTO) 27.6 %; MEAN CORPUSCULAR HEMOGLOBIN 30.1 pg (27.0-31.0); MEAN CORPUSCULAR HGB CONC 33.9 g/dL (32.0-36.0); MEAN CORPUSCULAR VOLUME 88.7 fL (81.0-99.0); MEAN PLATELET VOLUME 8.7 fL (7.9-10.8); MONOCYTES # (AUTO) 0.4 10^3/uL (0.0-1.0); MONOCYTES % (AUTO) 8.1 %; NEUTROPHILS # (AUTO) 3.3 10^3/uL (1.5-6.6); NEUTROPHILS % (AUTO) 60.7 %; PLT - PLATELET COUNT 203 10^3/uL (130-450); RED BLOOD COUNT 4.95 10^6/uL (4.20-5.40); RED CELL DISTRIBUTION WIDTH 13.3 % (12.0-15.0); WHITE BLOOD COUNT 5.5 x10^3/uL (4.8-10.8)
[2018-06-05 13:31] LABS: THYROID STIMULATING HORMONE 3.81 uIU/mL (0.34-5.60)
[2018-06-05 13:32] LABS: HB2 TOTAL 16.1 g/dL; HEMOGLOBIN A1C 0.72 g/dL; HEMOGLOBIN A1C % 6.2 % (4.6-6.2)
[2018-06-05 13:38] LABS: ALBUMIN 4.2 g/dL (3.2-5.5); ALBUMIN/GLOBULIN RATIO 1.4 (1.0-2.2); ALKALINE PHOSPHATASE 48 IU/L (42-121); ALT ALANINE AMINOTRANSFERASE 39 IU/L (10-60); AST ASPARTATE AMINOTRANSFERASE 29 IU/L (10-42); BILIRUBIN,TOTAL 0.6 mg/dL (0.2-1.0); BUN - BLOOD UREA NITROGEN 16 mg/dL (6-20); CALCIUM 9.4 mg/dL (8.5-10.3); CARBON DIOXIDE - CO2 29 mmol/L (21-32); CHLORIDE 100 mmol/L (101-111); CHOL/HDL RATIO 3.6 (<4.4); CHOLESTEROL 170 mg/dL; CREATININE 0.7 mg/dL (0.4-1.0); GFR - MDRD 86 (>89); GLUCOSE 116 mg/dL (70-100); HDL CHOLESTEROL 47 mg/dL; LDL CHOLESTEROL,CALCULATED 85 mg/dL; LDL/HDL RATIO 1.8 (<4.4); SODIUM 137 mmol/L (135-145); TOTAL PROTEIN 7.1 g/dL (6.7-8.2); VLDL CHOLESTEROL 38 mg/dL
[2018-06-05 13:39] LABS: FOLATE 15.93 ng/mL (5.90 - >24.8)
== END 2018-06-05 23:59 | disposition home or self-care (01) ==
LOC: LAB.N 10:52
PROVIDERS: ATTEND Nurse Practitioner
DX: I10 Essential (primary) hypertension (principal); E55.9 Vitamin D deficiency, unspecified; R53.83 Other fatigue; R73.9 Hyperglycemia, unspecified; I50.9 Heart failure, unspecified
CPT/HCPCS: 36415; 80053; 80061; 82306; 82607; 82746; 83036; 83721; 83880; 84443; 84484; 85025

== ENCOUNTER 2018-07-01 15:23 | Outpatient (CLI) | payer MEDICAID ==
[2018-07-01 15:46] LABS: CALCIUM 9.6 mg/dL (8.5-10.3); CREATININE 0.8 mg/dL (0.4-1.0)
== END 2018-07-01 15:24 | disposition home or self-care (01) ==
LOC: LAB 15:23
PROVIDERS: ATTEND Nurse Practitioner
DX: R07.9 Chest pain, unspecified (principal); I51.81 Takotsubo syndrome
CPT/HCPCS: 36415; 80048

== ENCOUNTER 2018-07-17 08:00 | Outpatient (CLI) | payer MEDICAID ==
[2018-07-17 19:37] LABS: CRP - C-REACTIVE PROTEIN < 1.0 mg/dL (0-1.0)
[2018-07-17 19:38] LABS: URIC ACID 8.2 mg/dL (2.6-7.2)
[2018-07-17 21:20] LABS: RHEUMATOID FACTOR NEGATIVE (Negative)
[2018-07-19 20:40] LABS: ANA SCREEN NEGATIVE (NEGATIVE)
== END 2018-07-17 23:59 | disposition home or self-care (01) ==
LOC: LAB.N 08:00
PROVIDERS: ATTEND Nurse Practitioner
DX: R53.1 Weakness (principal); M25.40 Effusion, unspecified joint
CPT/HCPCS: 36415; 84550; 85651; 86038; 86140; 86200; 86430

== ENCOUNTER 2018-10-10 08:00 | Outpatient (CLI) | payer MEDICAID | END 2018-10-10 23:59 | disposition home or self-care (01) | LOC: LAB.R 08:00 | PROVIDERS: ATTEND Obstetrics & Gynecology | DX: R10.2 Pelvic and perineal pain (principal) | CPT/HCPCS: 87661; 87801 ==

== ENCOUNTER 2018-10-31 07:53 | Day surgery (SDC) | payer MEDICAID ==
[2018-10-31] MEDS ORDERED: LACTATED RINGERS 1,000 ML IV ONE (08:20)
[2018-10-31] MEDS ORDERED: fentaNYL 250 MCG/5 ML VIAL IVP ONE (09:44)
[2018-10-31] MEDS ORDERED: MIDAZOLAM 2 MG/2 ML VIAL IVP ONE (09:44)
[2018-10-31] MEDS ORDERED: PROPOFOL 200 MG/20 ML VIAL IVP ONE (09:44)
[2018-10-31 11:13] VITALS: BP 114/71
== END 2018-10-31 07:54 | disposition home or self-care (01) ==
LOC: SDS 07:53
PROVIDERS: ATTEND Surgery
PROC: 0DBN8ZZ Excision of Sigmoid Colon, Via Natural or Artificial Opening Endoscopic (ICD-10-PCS; principal; 2018-10-31 09:30)
DX: Z12.11 Encounter for screening for malignant neoplasm of colon (principal); K63.5 Polyp of colon; K64.8 Other hemorrhoids; T88.52XA Failed moderate sedation during procedure, initial encounter; T41.1X5A Adverse effect of intravenous anesthetics, initial encounter; Y92.234 Operating room of hospital as the place of occurrence of the external cause; E66.9 Obesity, unspecified; I10 Essential (primary) hypertension; F17.290 Nicotine dependence, other tobacco product, uncomplicated; I25.2 Old myocardial infarction; Z68.41 Body mass index [BMI] 40.0-44.9, adult; Z79.899 Other long term (current) drug therapy
CPT/HCPCS: 45385; J3010; J7120

== ENCOUNTER 2018-11-14 09:50 | Outpatient (CLI) | payer MEDICAID ==
[2018-11-14 10:35] LABS: ALBUMIN 4.4 g/dL (3.2-5.5); ALBUMIN/GLOBULIN RATIO 1.4 (1.0-2.2); BILIRUBIN,TOTAL 0.7 mg/dL (0.2-1.0); CALCIUM 9.6 mg/dL (8.5-10.3); CREATININE 0.7 mg/dL (0.4-1.0); TOTAL PROTEIN 7.6 g/dL (6.7-8.2)
--- NOTE | 2018-11-14 23:25 | XRAY Report ---
Reason: [id number],R0602,I429,I509,CARDIOMYOPATHY,CHF,ACUTE,SOB Procedure Date: 11/14/2018 Accession Number: [id number] / [id number] Procedure: XR - Abdomen Acute CPT Code: FULL RESULT: EXAM: ABDOMINAL SERIES AND PA CHEST EXAM DATE: 11/14/2018 10:43 AM. CLINICAL HISTORY: CARDIOMYOPATHY,CHF,ACUTE,SOB. COMPARISON: CHEST 1 VIEW 04/19/2018 4:47 AM ABDOMEN/PELVIS W/ 08/11/2017 11:15 PM. TECHNIQUE: 2 views abdomen and 1 view chest. FINDINGS: CHEST: Lungs/Pleura: No dense consolidation. No effusion or pneumothorax. Mediastinum: Contours are unremarkable. ABDOMEN: Bowel Gas Pattern: No abnormally dilated gas-filled loops of bowel. Free Air: None. Other: Right upper quadrant surgical clips. Mild lumbar levocurvature. IMPRESSION: No acute radiographic abnormalities. RADIA
== END 2018-11-14 09:51 | disposition home or self-care (01) ==
LOC: LAB 09:50 → DI 09:51
PROVIDERS: ATTEND Obstetrics & Gynecology
DX: I42.9 Cardiomyopathy, unspecified (principal); I50.9 Heart failure, unspecified; R63.5 Abnormal weight gain
CPT/HCPCS: 36415; 74022; 80053; 83880

== ENCOUNTER 2018-12-27 17:12 | Emergency (ER) | payer MEDICAID ==
[2018-12-27] MEDS ORDERED: IPRATROPIUM/ALBUTEROL 3 ML NEB INH STA (17:26)
[2018-12-27] MEDS ORDERED: LORazepam 2 MG/ML VIAL IVP STA (17:36)
--- NOTE | 2018-12-27 17:39 | ED Physician Documentation ---
History of Present Illness - Stated complaint Stated Complaint: SOA/Cough - Chief complaint Chief Complaint: Resp - History obtained from History obtained from: Patient - History of Present Illness Timing: Today (This is a 58-year-old woman with a chief complaint of shortness of breath and productive cough. Review of the chart shows that couple of years ago she was admitted for intractable chest pain, there were considered significant concerns in that visit for drug-seeking behavior. Her work-up was negative at time. Subsequent to that last year she had an apparent STEMI, and was sent to [place]. She said that she had a negative angiographic findings, and was found to have cardiomyopathy. She does not know her ejection fraction. About 10 days ago she developed shortness of breath and a productive cough with green thick sputum. She was hospitalized in the [place] for a few days on IV antibiotics and they were running several tests, mostly centering around her fatty liver she says. She signed out AGAINST MEDICAL ADVICE so that she could return home. She is not really worse, but she still having a productive cough. She is not currently on any antibiotics. On initial evaluation she is clearly panicking and in distress from that.) Review of Systems Ten Systems: 10 systems reviewed and negative Constitutional: reports: Sweats. denies: Fever, Chills Cardiac: reports: Chest pain / pressure. 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 : None HEENT: None Psych: Anxiety Musculoskeletal: Osteoarthritis, Rheumatoid arthritis, Other Derm: None - Past Surgical History Past Surgical History: Yes General: Appendectomy, Gastric surgery, Other /EXHIBIT CLEANER: section, Hysterectomy, Other - Present Medications Home Medications: Ambulatory Orders Medication Instructions Recorded Confirmed Allopurinol [Zyloprim] 100 mg PO DAILY 10/31/18 10/31/18 Furosemide 40 mg PO DAILY 10/31/18 10/31/18 Losartan [Cozaar] 100 mg PO DAILY 10/31/18 10/31/18 Omeprazole 20 mg PO DAILY 10/31/18 10/31/18 buPROPion [Wellbutrin Sr] 75 mg PO DAILY 10/31/18 10/31/18 Albuterol Sulf [Ventolin Hfa 1 - 2 puffs INH Q4HR PRN #1 inhaler 12/27/18 Inhaler] Alprazolam [Xanax] 0.5 mg PO TID PRN #10 tablet 12/27/18 Benzonatate [Tessalon Perle] 100 - 200 mg PO TID PRN #30 capsule 12/27/18 - Allergies Allergies/Adverse Reactions: Allergies Allergy/AdvReac Type Severity Reaction Status Date / Time No Known Drug Allergies Allergy Verified 10/31/18 08:19 - Social History Does the pt smoke?: No Smoking Status: Never smoker Does the pt drink ETOH?: No Does the pt have substance abuse?: Yes - Immunizations Immunizations are current?: Yes - POLST Patient has POLST: No POLST Status: Full Code PD ED PE NORMAL - Vitals Vital signs reviewed: Yes - General General: Alert and oriented X 3, Other (She is a rotund 58-year-old woman who is in distress from a panic attack, hard to redirect.) - HEENT HEENT: PERRL, EOMI - Neck Neck: Supple, no meningeal sign, No bony TTP - Cardiac Cardiac: RRR, No murmur - Respiratory Respiratory: Other (Hyperventilating but clear lung sounds) - Abdomen Abdomen: Soft, Non tender - Extremities Extremities: No edema, No calf tenderness / cord - Neuro Neuro: Alert and oriented X 3, Normal speech Results - Vitals Vitals: Vital Signs - 24 hr 12/27/18 12/27/18 17:15 17:40 Temperature 36.5 C Heart Rate 95 86 Respiratory 20 28 H Rate Blood Pressure 148/88 H O2 Saturation 100 Oxygen O2 Source Room air - EKG (time done) 1748 Rate: Rate (enter#) (78) Rhythm: NSR, LAE [place]: Normal Intervals: Normal [place] QRS: Normal Ischemia: Non specific changes (Early R wave transition. Previous evidence of anterior STEMI has resolved.) Compare to prior EKG: Changed from prior EKG (no STEMI) - Labs Labs: Laboratory Tests 12/27/18 12/27/18 12/27/18 17:39 17:39 17:39 WBC 9.9 RBC 4.57 Hgb 13.5 Hct 40.8 MCV 89.3 MCH 29.5 MCHC 33.1 RDW 12.8 Plt Count 323 MPV 10.0 Neut # (Auto) 5.0 Lymph # (Auto) 3.1 [place] # (Auto) 1.0 Eos # (Auto) 0.2 Baso # (Auto) 0.1 Absolute Nucleated RBC 0.00 Nucleated RBC % 0.0 VBG pH VBG pCO2 VBG pO2 VBG HCO3 VBG Total CO2 VBG O2 Saturation VBG Base Excess Sodium 142 Potassium 4.1 Chloride 106 Carbon Dioxide 24 Anion Gap 12.0 BUN 9 Creatinine 0.7 Estimated GFR (MDRD) 85 L Glucose 180 H Calcium 9.3 Total Bilirubin 0.2 AST 47 H ALT 128 H Alkaline Phosphatase 106 Troponin I High Sens 4.0 Total Protein 7.5 Albumin 3.9 Globulin 3.6 Albumin/Globulin Ratio 1.1 Lipase 25 Ethyl Alcohol < 5.0 12/27/18 18:36 WBC RBC Hgb Hct MCV MCH MCHC RDW Plt Count MPV Neut # (Auto) Lymph # (Auto) [place] # (Auto) Eos # (Auto) Baso # (Auto) Absolute Nucleated RBC Nucleated RBC % VBG pH 7.425 H VBG pCO2 39.7 L VBG pO2 49.1 H VBG HCO3 25.5 VBG Total CO2 26.7 VBG O2 Saturation 86.7 H VBG Base Excess 1.1 Sodium Potassium Chloride Carbon Dioxide Anion Gap BUN Creatinine Estimated GFR (MDRD) Glucose Calcium Total Bilirubin AST ALT Alkaline Phosphatase Troponin I High Sens Total Protein Albumin Globulin Albumin/Globulin Ratio Lipase Ethyl Alcohol - Rads (name of study) 2v chest Radiology: EMP read contemporaneously (nromal) PD MEDICAL DECISION MAKING - ED course ED course: 58-year-old woman with recent diagnosis of pneumonia being treated in the [facility], now presents with persistent/worsening cough. This is clearly overlaid on exam with a significant anxiety component. Her work-up is negative here with a clear chest x-ray and clear lungs on exam. There is no evidence of heart failure. She was feeling much better after Ativan here. She was offered codeine for the cough which she declined, "it does not do anything for me." We settled on some Tessalon and Xanax for recurrent anxiety and she is encouraged to have her anxiety treated. Departure - Departure Disposition: 01 Home, Self Care Clinical Impression: Cough Condition: Good Record reviewed to determine appropriate education?: Yes Instructions: ED Bronchitis Asthmatic Prescriptions: Albuterol Sulf [Ventolin Hfa Inhaler] 1 - 2 puffs INH Q4HR PRN #1 inhaler PRN Reason: Shortness Of Air/Wheezing Alprazolam [Xanax] 0.5 mg PO TID PRN #10 tablet PRN Reason: Anxiety Benzonatate [Tessalon Perle] 100 - 200 mg PO TID PRN #30 capsule PRN Reason: Cough Comments: Your chest x-ray today is clear, your labs are normal except for mild chronic liver inflammation from fatty liver. Follow-up with your primary care physician. Return for new or worsening symptoms.
[2018-12-27 17:45] LABS: MEAN CORPUSCULAR VOLUME 89.3 fL (81.0-99.0)
[2018-12-27 17:48] LABS: BASOPHILS # (AUTO) 0.1 10^3/uL (0.0-0.1); EOSINOPHILS # (AUTO) 0.2 10^3/uL (0.0-0.7); HGB - HEMOGLOBIN 13.5 g/dL (12.0-16.0); LYMPHOCYTES # (AUTO) 3.1 10^3/uL (1.5-3.5); LYMPHOCYTES % (AUTO) 31.7 %; MEAN CORPUSCULAR HEMOGLOBIN 29.5 pg (27.0-31.0); MEAN CORPUSCULAR HGB CONC 33.1 g/dL (32.0-36.0); MONOCYTES % (AUTO) 9.9 %; NEUTROPHILS % (AUTO) 50.4 %; PLT - PLATELET COUNT 323 10^3/uL (130-450); RED BLOOD COUNT 4.57 10^6/uL (4.20-5.40); RED CELL DISTRIBUTION WIDTH 12.8 % (12.0-15.0); WHITE BLOOD COUNT 9.9 x10^3/uL (4.8-10.8)
[2018-12-27 18:04] LABS: ALBUMIN 3.9 g/dL (3.2-5.5); ALBUMIN/GLOBULIN RATIO 1.1 (1.0-2.2); ALKALINE PHOSPHATASE 106 IU/L (42-121); ALT ALANINE AMINOTRANSFERASE 128 IU/L (10-60); AST ASPARTATE AMINOTRANSFERASE 47 IU/L (10-42); BILIRUBIN,TOTAL 0.2 mg/dL (0.2-1.0); BUN - BLOOD UREA NITROGEN 9 mg/dL (6-20); CALCIUM 9.3 mg/dL (8.5-10.3); CARBON DIOXIDE - CO2 24 mmol/L (21-32); CHLORIDE 106 mmol/L (101-111); CREATININE 0.7 mg/dL (0.4-1.0); GFR - MDRD 85 (>89); GLUCOSE 180 mg/dL (70-100); LIPASE 25 U/L (22-51); SODIUM 142 mmol/L (135-145); TOTAL PROTEIN 7.5 g/dL (6.7-8.2)
--- NOTE | 2018-12-27 18:40 | XRAY Report ---
Reason: cough Procedure Date: 12/27/2018 Accession Number: [id number] / [id number] Procedure: XR - Chest 2 View X-Ray CPT Code: 85978 FULL RESULT: EXAM: CHEST RADIOGRAPHY EXAM DATE: 12/27/2018 06:23 PM. CLINICAL HISTORY: Cough. COMPARISON: ABDOMEN ACUTE 11/14/2018 10:21 AM. TECHNIQUE: 2 views. FINDINGS: Lungs/Pleura: No focal opacities evident. No pleural effusion. No pneumothorax. Normal volumes. Mediastinum: Heart and mediastinal contours are unremarkable. Other: Postsurgical changes cervical spine. Minimal lower thoracic upper lumbar S-shaped scoliosis. IMPRESSION: Clear lungs. No acute findings. RADIA
[2018-12-27 18:42] LABS: VBG BASE EXCESS 1.1 mmol/L (-2 - +2); VBG PCO2 39.7 mmHg (41-51); VBG PH 7.425 (7.31-7.41); VBG PO2 49.1 mmHg (25-47); VBG TOTAL CO2 26.7 mmol/L (24-29)
[2018-12-27] MEDS ORDERED: BENZONATATE 100 MG CAPSULE PO STA (18:49)
[2018-12-27 19:04] VITALS: BP 146/89
== END 2018-12-27 19:05 | disposition home or self-care (01) ==
LOC: ED 17:12
DX: R05 Cough (principal); R41.9 Unspecified symptoms and signs involving cognitive functions and awareness
CPT/HCPCS: 36415; 71046; 80053; 80320; 82803; 83690; 84484; 85025; 93005; 94640; 96374; 99283; 99284; A9270; J2060

== ENCOUNTER 2019-01-08 08:00 | Outpatient (CLI) | payer MEDICAID | END 2019-01-08 23:59 | disposition home or self-care (01) | LOC: LAB.R 08:00 | PROVIDERS: ATTEND Physician Assistant Medical | DX: J04.0 Acute laryngitis (principal) | CPT/HCPCS: 87070; 87077 ==

== ENCOUNTER 2019-02-28 21:24 | Emergency (ER) | payer MEDICAID ==
[2019-02-28] MEDS ORDERED: SODIUM CHLORIDE 0.9% 1,000 ML IV STA (21:51)
[2019-02-28] MEDS ORDERED: MORPHINE 10 MG/ML VIAL IVP STA (21:51)
[2019-02-28] MEDS ORDERED: HYDROmorphone 1 MG/ML CARPUJECT IVP STA ×3 (21:51→23:41)
[2019-02-28] MEDS ORDERED: ONDANSETRON 4 MG/2 ML VIAL IVP STA (21:55)
[2019-02-28 21:57] LABS: BASOPHILS # (AUTO) 0.1 10^3/uL (0.0-0.1); EOSINOPHILS # (AUTO) 0.1 10^3/uL (0.0-0.7); EOSINOPHILS % (AUTO) 2.4 %; HGB - HEMOGLOBIN 14.3 g/dL (12.0-16.0); LYMPHOCYTES # (AUTO) 2.5 10^3/uL (1.5-3.5); LYMPHOCYTES % (AUTO) 41.8 %; MEAN CORPUSCULAR HEMOGLOBIN 30.2 pg (27.0-31.0); MEAN CORPUSCULAR HGB CONC 33.1 g/dL (32.0-36.0); MEAN CORPUSCULAR VOLUME 91.1 fL (81.0-99.0); MEAN PLATELET VOLUME 10.3 fL (7.9-10.8); MONOCYTES # (AUTO) 0.5 10^3/uL (0.0-1.0); MONOCYTES % (AUTO) 8.1 %; NEUTROPHILS # (AUTO) 2.8 10^3/uL (1.5-6.6); NEUTROPHILS % (AUTO) 46.4 %; PLT - PLATELET COUNT 240 10^3/uL (130-450); RED BLOOD COUNT 4.74 10^6/uL (4.20-5.40); RED CELL DISTRIBUTION WIDTH 12.6 % (12.0-15.0)
--- NOTE | 2019-02-28 22:03 | ED Physician Documentation ---
PD HPI ABD PAIN - Stated complaint Stated Complaint: BK PX - Chief complaint Chief Complaint: Abd Pain - History obtained from History obtained from: Patient - History of Present Illness Timing - onset: How many hours ago (1-2) Timing - details: Abrupt onset, Waxing and waning Pain level max: 10 Pain level now: 10 Quality: Pain Location: RUQ Radiation: Right flank Improved by: Other (no ameliorating factors) Worsened by: Palpation Associated symptoms: Nausea, Vomiting. 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 Waxing and waning. Denies h/o same Review of Systems Constitutional: denies: Fever, Chills, Sweats Cardiac: reports: Reviewed and negative Respiratory: reports: Reviewed and negative GI: reports: Abdominal Pain, Nausea, Vomiting. 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 : None HEENT: None Psych: Anxiety Musculoskeletal: Osteoarthritis, Rheumatoid arthritis, Other Derm: None - Past Surgical History Past Surgical History: Yes General: Appendectomy, Gastric surgery, Other /UNIX SYSTEMS ADMINISTRATOR: section, Hysterectomy, Other - Present Medications Home Medications: Ambulatory Orders Medication Instructions Recorded Confirmed Allopurinol [Zyloprim] 100 mg PO DAILY 10/31/18 10/31/18 Furosemide 40 mg PO DAILY 10/31/18 10/31/18 Losartan [Cozaar] 100 mg PO DAILY 10/31/18 10/31/18 Omeprazole 20 mg PO DAILY 10/31/18 10/31/18 buPROPion [Wellbutrin Sr] 75 mg PO DAILY 10/31/18 10/31/18 Albuterol Sulf [Ventolin Hfa 1 - 2 puffs INH Q4HR PRN #1 inhaler 12/27/18 Inhaler] Alprazolam [Xanax] 0.5 mg PO TID PRN #10 tablet 12/27/18 Benzonatate [Tessalon Perle] 100 - 200 mg PO TID PRN #30 capsule 12/27/18 Ondansetron Odt [Zofran] 4 mg TL Q6H PRN #10 tablet 03/01/19 Oxycodone HCl/Acetaminophen 1 - 2 each PO Q6H PRN #14 tablet 03/01/19 [Percocet 5-325 mg Tablet] - Allergies Allergies/Adverse Reactions: Allergies Allergy/AdvReac Type Severity Reaction Status Date / Time No Known Drug Allergies Allergy Verified 10/31/18 08:19 - Social History Does the pt smoke?: No Smoking Status: Never smoker Does the pt drink ETOH?: No Does the pt have substance abuse?: Yes - Immunizations Immunizations are current?: Yes - POLST Patient has POLST: No POLST Status: Full Code PD ED PE NORMAL - Vitals Vital signs reviewed: Yes - General General: Alert and oriented X 3, Well developed/nourished, Other (obvious severe painful distress) - HEENT HEENT: Moist mucous membranes - Neck Neck: Supple, no meningeal sign - Cardiac Cardiac: RRR, No murmur - Respiratory Respiratory: No respiratory distress, Clear bilaterally - Abdomen Abdomen: Soft, Non distended, Other (mild TTP RUQ and right hypogastrium without rebound or guarding) - Back Back: No CVA TTP - Derm Derm: Normal color, Warm and dry, No rash Results - Vitals Vitals: Vital Signs - 24 hr 02/28/19 02/28/19 03/01/19 21:37 23:40 00:00 Temperature 36.4 C L Heart Rate 101 H 56 L 70 Respiratory 30 H 16 14 Rate Blood Pressure 116/81 H 149/55 H 126/83 H O2 Saturation 100 93 99 03/01/19 03/01/19 03/01/19 00:30 01:00 01:43 Temperature Heart Rate 72 77 80 Respiratory 20 13 18 Rate Blood Pressure 129/69 141/100 H 136/72 H O2 Saturation 100 100 97 03/01/19 03/01/19 03/01/19 01:59 02:30 03:23 Temperature Heart Rate 77 71 64 Respiratory 20 16 14 Rate Blood Pressure 133/80 H 125/72 128/68 O2 Saturation 97 99 95 03/01/19 03/01/19 03/01/19 03:43 04:02 05:41 Temperature Heart Rate 77 76 70 Respiratory 11 L 9 L 12 Rate Blood Pressure 121/73 150/95 H 124/83 H O2 Saturation 97 97 100 03/01/19 03/01/19 03/01/19 06:00 07:08 10:00 Temperature Heart Rate 79 71 85 Respiratory 14 10 L 22 Rate Blood Pressure 139/83 H 133/67 H 122/76 O2 Saturation 98 98 95 03/01/19 03/01/19 03/01/19 10:30 11:00 11:17 Temperature 37 C Heart Rate 88 78 80 Respiratory 13 19 16 Rate Blood Pressure 110/67 110/67 O2 Saturation 99 100 98 Oxygen O2 Source Room air - EKG (time done) No standard instances Rate: Rate (enter#) (89) Rhythm: NSR [place]: LAD Intervals: Normal [place] QRS: Normal Ischemia: Normal ST segments - Labs Labs: Laboratory Tests 02/28/19 02/28/19 02/28/19 21:50 21:50 21:50 WBC 6.0 RBC 4.74 Hgb 14.3 Hct 43.2 MCV 91.1 MCH 30.2 MCHC 33.1 RDW 12.6 Plt Count 240 MPV 10.3 Neut # (Auto) 2.8 Lymph # (Auto) 2.5 [place] # (Auto) 0.5 Eos # (Auto) 0.1 Baso # (Auto) 0.1 Absolute Nucleated RBC 0.00 Nucleated RBC % 0.0 D-Dimer 270.7 H Sodium 140 Potassium 4.1 Chloride 103 Carbon Dioxide 26 Anion Gap 11.0 BUN 14 Creatinine 1.0 Estimated GFR (MDRD) 57 L Glucose 262 H Lactic Acid Calcium 9.4 Total Bilirubin 0.8 AST 43 H ALT 71 H Alkaline Phosphatase 57 Troponin I High Sens Total Protein 7.2 Albumin 4.2 Globulin 3.0 Albumin/Globulin Ratio 1.4 Lipase 27 Urine Color Urine Clarity Urine pH Ur Specific [place] Urine Protein Urine Glucose (UA) Urine Ketones Urine Occult Blood Urine Nitrite Urine Bilirubin Urine Urobilinogen Ur Leukocyte Esterase Ur Microscopic Review Urine Culture Comments 02/28/19 03/01/19 03/01/19 23:21 01:57 03:32 WBC RBC Hgb Hct MCV MCH MCHC RDW Plt Count MPV Neut # (Auto) Lymph # (Auto) [place] # (Auto) Eos # (Auto) Baso # (Auto) Absolute Nucleated RBC Nucleated RBC % D-Dimer Sodium Potassium Chloride Carbon Dioxide Anion Gap BUN Creatinine Estimated GFR (MDRD) Glucose Lactic Acid 4.6 H* Calcium Total Bilirubin AST ALT Alkaline Phosphatase Troponin I High Sens 2.7 Total Protein Albumin Globulin Albumin/Globulin Ratio Lipase Urine Color YELLOW Urine Clarity CLEAR Urine pH 6.0 Ur Specific [place] 1.020 Urine Protein NEGATIVE Urine Glucose (UA) 500 H Urine Ketones TRACE Urine Occult Blood NEGATIVE Urine Nitrite NEGATIVE Urine Bilirubin NEGATIVE Urine Urobilinogen 0.2 (NORMAL) Ur Leukocyte Esterase NEGATIVE Ur Microscopic Review NOT INDICATED Urine Culture Comments NOT INDICATED 03/01/19 07:15 WBC RBC Hgb Hct MCV MCH MCHC RDW Plt Count MPV Neut # (Auto) Lymph # (Auto) [place] # (Auto) Eos # (Auto) Baso # (Auto) Absolute Nucleated RBC Nucleated RBC % D-Dimer Sodium Potassium Chloride Carbon Dioxide Anion Gap BUN Creatinine Estimated GFR (MDRD) Glucose Lactic Acid 1.9 Calcium Total Bilirubin AST ALT Alkaline Phosphatase Troponin I High Sens Total Protein Albumin Globulin Albumin/Globulin Ratio Lipase Urine Color Urine Clarity Urine pH Ur Specific [place] Urine Protein Urine Glucose (UA) Urine Ketones Urine Occult Blood Urine Nitrite Urine Bilirubin Urine Urobilinogen Ur Leukocyte Esterase Ur Microscopic Review Urine Culture Comments - Rads (name of study) CT A/P Radiology: Prelim report reviewed, See rad report thoracic MRI Radiology: See rad report PD MEDICAL DECISION MAKING - ED course Complexity details: reviewed old records (previous records reviewed including [facility] ED visit 2 months ago, [facility] inpatient stay last year, and [facility] ED visit 04/2018 as well as [facility] records (she was transferred to [facility] on this 04/2018 visit)), reviewed results, re-evaluated patient, considered differential, d/w patient ED course: Patient required repeated doses of dilaudid, zofran, and a dose of IV phenergan, as well as valium IV, before symptoms could be controlled. The ED w/u does not reveal etiology of her symptoms. During her stay, there appeared to be a component of her pain that was related to movement and thus thoracic MRI ordered. Departure - Departure Disposition: 01 Home, Self Care Clinical Impression: Flank pain Condition: Good Instructions: ED Flank Pain Uncertain Cause Follow-Up: Elpidio Mejia PA-C [Primary Care Provider] - Within 3 Days Prescriptions: Ondansetron Odt [Zofran] 4 mg TL Q6H PRN #10 tablet PRN Reason: Nausea / Vomiting Oxycodone HCl/Acetaminophen [Percocet 5-325 mg Tablet] 1 - 2 each PO Q6H PRN #14 tablet PRN Reason: pain Comments: Your blood sugar was a bit high today, this can be a sign of diabetes, please follow up with your PCP/regular doctor to have this rechecked and to consider diabetes screening. Return to the emergency department if you are having new or worsening symptoms such as weakness in your arms or legs, changing chest discomfort, coughing up blood, shortness of breath. Do not drink alcohol or drive while taking narcotic pain medication. Note that many narcotic pain relievers also contain Tylenol/acetaminophen. Please ensure that your total dose of acetaminophen from all sources does not exceed 3 g (3000 mg) per day. You may get constipated while on this medication. Take a stool softener such as Colace twice a day while you are on it. Also add an [id number] laxative such as senna or MiraLAX on any day that you do not have a bowel movement. If you received a narcotic pain medication or sedative while in the emergency department, do not drive for the next 24 hours. Discharge Date/Time: 03/01/19 11:17
[2019-02-28 22:09] LABS: ALBUMIN 4.2 g/dL (3.2-5.5); ALBUMIN/GLOBULIN RATIO 1.4 (1.0-2.2); BILIRUBIN,TOTAL 0.8 mg/dL (0.2-1.0); CALCIUM 9.4 mg/dL (8.5-10.3); TOTAL PROTEIN 7.2 g/dL (6.7-8.2)
[2019-02-28] MEDS ORDERED: KETOROLAC 30 MG/ML VIAL IVP STA (22:16)
--- NOTE | 2019-02-28 23:35 | CT Report ---
Reason: right flank pain Procedure Date: 02/28/2019 Accession Number: [id number] / [id number] Procedure: CT - Abdomen/Pelvis WO CPT Code: FULL RESULT: EXAM: CT ABDOMEN AND PELVIS (CT KUB) EXAM DATE: 02/28/2019 10:59 PM. CLINICAL HISTORY: Right flank pain. Nausea. COMPARISONS: ABDOMEN/PELVIS W/ 08/11/2017 11:15 PM. TECHNIQUE: Routine axial helical CT imaging was performed through the abdomen and pelvis without IV contrast. Reconstructions: Coronal and sagittal. In accordance with CT protocol optimization, one or more of the following dose reduction techniques were utilized for this exam: automated exposure control, adjustment of mA and/or KV based on patient size, or use of iterative reconstructive technique. FINDINGS: Lung Bases: Unremarkable. Right Kidney/Ureter: Horseshoe kidney. Suspect nonobstructing 2 mm stone in the right moiety. No ureteral stone or hydronephrosis seen on the right. There may be minimal perinephric stranding about the right moiety. Left Kidney/Ureter: Horseshoe kidney. No stones, hydronephrosis, or hydroureter of the left moiety. No perinephric fat stranding on the left. Other Solid Organs: Enlarged fatty liver measuring 21.2 cm. Spleen, pancreas, and adrenals show no focal abnormalities on this noncontrast examination. Gallbladder/Bile Ducts: Status post cholecystectomy. Peritoneal Cavity: No bowel obstruction seen. No free air or free fluid. No diverticulitis. Moderate stool in the colon. No lymphadenopathy. Pelvic Organs: Uterus is absent. The visualized pelvic organs are unremarkable. Vasculature: Unremarkable. Other: Degenerative changes in the spine with grade 1 degenerative spondylolisthesis at L4-L5. IMPRESSION: 1. Horseshoe kidney with possible nonobstructing 2 mm stone in the right moiety. 2. No ureteral stone or obstructive uropathy seen bilaterally. 3. Possible trace perinephric stranding on the right. Recently passed stone would be a consideration. Mild infection would also be in the differential diagnosis. 4. Enlarged fatty liver. RADIA
[2019-02-28] MEDS ORDERED: diazePAM INJ 5 MG/ML SYRINGE IVP STA (23:41)
[2019-03-01] MEDS ORDERED: HYDROmorphone 1 MG/ML CARPUJECT IVP STA ×3 (01:20→09:39)
[2019-03-01 02:07] LABS: BILIRUBIN,URINE NEGATIVE (NEGATIVE); GLUCOSE, URINE (UA) 500 mg/dL (NEGATIVE); KETONES,URINE (UA) TRACE mg/dL (NEGATIVE); LEUKOCYTE ESTERASE, URINE NEGATIVE (NEGATIVE); NITRITE,URINE NEGATIVE (NEGATIVE); OCCULT BLOOD,URINE NEGATIVE (NEGATIVE); PROTEIN,URINE NEGATIVE (NEGATIVE); UROBILINOGEN,URINE 0.2 (NORMAL) E.U./dL (NORMAL)
[2019-03-01 02:08] LABS: CLARITY,URINE CLEAR (CLEAR)
[2019-03-01] MEDS ORDERED: ONDANSETRON 4 MG/2 ML VIAL ONE (02:37)
[2019-03-01] MEDS ORDERED: ONDANSETRON 4 MG/2 ML VIAL IVP STA (02:40)
[2019-03-01] MEDS ORDERED: PROMETHAZINE INJ 25 MG in SODIUM CHLORIDE 0.9% 50 ML IV STA (03:05)
[2019-03-01] MEDS ORDERED: diazePAM INJ 5 MG/ML SYRINGE IVP STA (06:05)
[2019-03-01] MEDS ORDERED: oxyCODONE 5 MG TABLET PO STA (06:07)
--- NOTE | 2019-03-01 07:40 | ED Physician Documentation ---
ED Addendum - Addendum Addendum: Pt received in sign-out from Dr. Ortiz. This is a 58F Presenting with right thoracic/flank pain. CT shows a horseshoe kidney, with a nonobstructing stone in the right moiety, but no ureteral stone. Labs are unrevealing, lactate was slightly elevated, and will be rechecked. Age-adjusted D-dimer negative, low suspicion for PE. She is awaiting MRI of her thoracic spine, if this is negative we will reassess and likely plans to discharge patient home. She has required multiple doses of pain medications while here. 03/01/19 07:39 Chest x-ray shows no focal consolidation or acute abnormality. Repeat Lactate normal. MRI of the thoracic spine is overall unremarkable, with no significant stenosis. I reviewed patients results with her and explained that I do not see an emergent cause of her discomfort. She has been up and walking independently to the bathroom, is able to tolerate PO, has normal vital signs, and is well- appearing. I discussed that given her extensive work-up and reassuring results at this time, I recommended close PCP follow up and return to the ED with reggie ng or worsening symptoms. Originally the plan with Dr. Ortiz was to discharge with prescriptions for phenergan, valium, and percocet, however I was not comfortable sending her home with this combination of medications so I provided a prescription for a small number of percocet with instructions to use them sparingly and only if absolutely needed. Patient agreed and was discharged home, she continued to be well-appearing at the time of discharge. 03/01/19 09:49
--- NOTE | 2019-03-01 09:28 | MRI Report ---
Reason: back pain radiating to right flank Procedure Date: 03/01/2019 Accession Number: [id number] / [id number] Procedure: MRI - Thoracic Spine W/O CPT Code: FULL RESULT: EXAM: MRI THORACIC SPINE WITHOUT CONTRAST EXAM DATE: 03/01/2019 09:12 AM. CLINICAL HISTORY: Back pain radiating to right flank. COMPARISONS: None. TECHNIQUE: Multiplanar, multisequence T1-weighted and fluid-sensitive sequences of the thoracic spine from C7 to L1 without contrast. Other: None. FINDINGS: Spinal Canal: No signal abnormality in the visualized spinal cord. Alignment: No scoliosis or spondylolisthesis. Bone Marrow: No gross fractures or bone lesion. No bone marrow replacement. Disk Levels/Facets: Multilevel disk space height loss and disk dehydration. C7-T1: Unremarkable. T1-T2: Unremarkable. T2-T3: Unremarkable. T3-T4: Unremarkable. T4-T5: Unremarkable. T5-T6: Unremarkable. T6-T7: Unremarkable. T7-T8: Unremarkable. T8-T9: Unremarkable. T9-T10: Unremarkable. T10-T11: Unremarkable. T11-T12: Unremarkable. T12-L1: Unremarkable. Musculature: Moderate fatty atrophy of the multifidus musculature. Other: The visualized lungs, mediastinum, and abdominal cavity are unremarkable. IMPRESSION: 1. Overall, unremarkable exam. The bones are normal. 2. No central or foraminal stenosis. Mild disk space height loss and some disk dehydration. RADIA
--- NOTE | 2019-03-01 09:47 | XRAY Report ---
Reason: cough Procedure Date: 03/01/2019 Accession Number: [id number] / [id number] Procedure: XR - Chest 2 View X-Ray CPT Code: 11722 FULL RESULT: EXAM: CHEST RADIOGRAPHY EXAM DATE: 03/01/2019 09:18 AM. CLINICAL HISTORY: Cough. COMPARISON: CHEST 2 VIEW 12/27/2018 5:55 PM. TECHNIQUE: 2 views. FINDINGS: Lungs/Pleura: No focal opacities evident. No pleural effusion. No pneumothorax. Normal volumes. Mediastinum: Heart and mediastinal contours are unremarkable. Other: None. IMPRESSION: No focal consolidation. RADIA
[2019-03-01 11:05] VITALS: BP 110/67
== END 2019-03-01 11:17 | disposition home or self-care (01) ==
LOC: ED 21:24
DX: M54.6 Pain in thoracic spine (principal); R10.11 Right upper quadrant pain; N20.0 Calculus of kidney; Q63.1 Lobulated, fused and horseshoe kidney; R73.9 Hyperglycemia, unspecified; M19.90 Unspecified osteoarthritis, unspecified site; M06.9 Rheumatoid arthritis, unspecified; Z90.49 Acquired absence of other specified parts of digestive tract; Z79.899 Other long term (current) drug therapy
CPT/HCPCS: 36415; 71046; 72146; 74176; 80053; 81003; 83605; 83690; 84484; 85025; 85379; 93005; 96361; 96365; 96375; 96376; 99284; A9270; J1170; J7040; 81001; 87086

== ENCOUNTER 2019-05-04 02:24 | Emergency (ER) | payer MEDICAID ==
--- NOTE | 2019-05-04 03:43 | ED Physician Documentation ---
PD HPI SKIN - Stated complaint Stated Complaint: SWOLLEN BUMP ON ABD - Chief complaint Chief Complaint: Wound - History obtained from History obtained from: Patient - History of Present Illness Timing - onset: How many hours ago (5) Timing - duration: Hours (5) Timing - details: Abrupt onset (She noticed onset of the left abdominal wall tenderness and redness while bringing wood in from the outside. She noticed discomfort as her arm brushed on the area but did not notice a bite per se or bug per se.), Still present Location: Abdomen (left lower abd wall) Quality / character: Painful, Discolored (red), Swelling Improved by: No: Benadryl Associated symptoms: Myalgias. 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 : None HEENT: None Psych: Depression, Anxiety Musculoskeletal: Osteoarthritis, Rheumatoid arthritis, Other Derm: None - Past Surgical History Past Surgical History: Yes General: Appendectomy, Gastric surgery, Other /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: section, Hysterectomy, Other - Present Medications Home Medications: Ambulatory Orders Medication Instructions Recorded Confirmed Losartan [Cozaar] 100 mg PO DAILY 10/31/18 05/04/19 Omeprazole 20 mg PO DAILY 10/31/18 05/04/19 Alprazolam [Xanax] 0.5 mg PO TID PRN #10 tablet 12/27/18 05/04/19 Doxycycline Monohydrate 100 mg PO BID #14 tablet 05/04/19 Hydrocodone/Acetaminophen [[place] 1 each PO Q6H PRN #12 tablet 05/04/19 5-325 Tablet] dexAMETHasone [Decadron] 4 mg PO DAILY #5 tablet 05/04/19 - Allergies Allergies/Adverse Reactions: Allergies Allergy/AdvReac Type Severity Reaction Status Date / Time No Known Drug Allergies Allergy Verified 05/04/19 02:32 - Social History Does the pt smoke?: No Smoking Status: Never smoker Does the pt drink ETOH?: No Does the pt have substance abuse?: Yes - Immunizations Immunizations are current?: Yes - POLST Patient has POLST: No POLST Status: Full Code PD ED PE NORMAL - Vitals Vital signs reviewed: Yes - General General: Alert and oriented X 3, No acute distress, Well developed/nourished - Abdomen Abdomen: Soft, Non tender, Non distended, No organomegaly, Other (There is a 3 to 4 cm area of rounded redness with some local induration and firmness and 1/2 cm central pustule on the left lower abdominal wall. The pustule area is raised above the surface. I nicked it with a scalpel tip and got a couple of drops of white fluid from it that I cultured. There is no other drainage. The soft tissue in the area is very tender. There is no diffuse abdominal tenderness nor deep tenderness to palpation.) - Derm Derm: Normal color, Warm and dry - Neuro Neuro: Alert and oriented X 3, No motor deficit, Normal speech Results - Vitals Vitals: Vital Signs - 24 hr 05/04/19 02:30 Temperature 36.8 C Heart Rate 91 Respiratory 16 Rate Blood Pressure 149/103 H O2 Saturation 97 Oxygen O2 Source Room air PD MEDICAL DECISION MAKING - ED course Complexity details: considered differential (Consider local venom effect such as a spider bite and possibly some local inflammatory or allergic response to it. However concern would be for infectious cause instead.), d/w patient Departure - Departure Disposition: 01 Home, Self Care Clinical Impression: Abdominal wall cellulitis Condition: Stable Record reviewed to determine appropriate education?: Yes Follow-Up: Deadnre Rodriguez MD [Primary Care Provider] - Prescriptions: dexAMETHasone [Decadron] 4 mg PO DAILY #5 tablet Doxycycline Monohydrate 100 mg PO BID #14 tablet Hydrocodone/Acetaminophen [[place] 5-325 Tablet] 1 each PO Q6H PRN #12 tablet PRN Reason: Pain Comments: This could be a local venom effect and allergic reaction to an insect such as a spider bite. If so would be treated with antihistamines such as Benadryl or cetirizine and also steroid medicine such as Decadron daily for the next 5 days to reduce the inflammation response. However this could be a local infection blossoming quickly and so would want to treat it with an antibiotic in case. I did do a culture from the small amount of pus that came from the pustule. This will result in a couple of days. If there is no growth from it, then we can discontinue the antibiotics. Tylenol or ibuprofen if needed for pains. Add pain medicine if needed.
[2019-05-04] MEDS ORDERED: oxyCODONE 5 MG TABLET PO STA (04:03)
[2019-05-04] MEDS ORDERED: diphenhydrAMINE 25 MG CAPSULE PO STA (04:03)
[2019-05-04] MEDS ORDERED: CHERRY SYRUP 10 ML UDC PO ONE (04:03)
[2019-05-04] MEDS ORDERED: DOXYCYCLINE 100 MG TABLET PO STA (04:03)
[2019-05-04] MEDS ORDERED: DEXAMETHASONE 10 MG/ML VIAL PO STA (04:03)
[2019-05-04 04:31] VITALS: BP 150/89
== END 2019-05-04 04:21 | disposition home or self-care (01) ==
LOC: ED 02:24
DX: L03.311 Cellulitis of abdominal wall (principal)
CPT/HCPCS: 87070; 87181; 87205; 99283; A9270

== ENCOUNTER 2019-09-25 07:11 | Emergency (ER) | payer MEDICAID ==
[2019-09-25] MEDS ORDERED: ASPIRIN CHEW 81 MG TABLET PO STA (07:33)
[2019-09-25] MEDS ORDERED: SODIUM CHLORIDE 0.9% 1,000 ML IV STA (07:33)
[2019-09-25] MEDS ORDERED: KETOROLAC 30 MG/ML VIAL IVP STA (07:45)
[2019-09-25] MEDS ORDERED: LORazepam 2 MG/ML VIAL IVP STA (07:45)
[2019-09-25 07:54] LABS: BASOPHILS # (AUTO) 0.1 10^3/uL (0.0-0.1); EOSINOPHILS # (AUTO) 0.1 10^3/uL (0.0-0.7); EOSINOPHILS % (AUTO) 1.2 %; HGB - HEMOGLOBIN 16.2 g/dL (12.0-16.0); LYMPHOCYTES # (AUTO) 1.8 10^3/uL (1.5-3.5); LYMPHOCYTES % (AUTO) 17.6 %; MEAN CORPUSCULAR HEMOGLOBIN 30.2 pg (27.0-31.0); MEAN CORPUSCULAR HGB CONC 33.8 g/dL (32.0-36.0); MEAN CORPUSCULAR VOLUME 89.2 fL (81.0-99.0); MEAN PLATELET VOLUME 10.6 fL (7.9-10.8); MONOCYTES % (AUTO) 9.2 %; NEUTROPHILS # (AUTO) 7.3 10^3/uL (1.5-6.6); NEUTROPHILS % (AUTO) 70.5 %; PLT - PLATELET COUNT 240 10^3/uL (130-450); RED BLOOD COUNT 5.37 10^6/uL (4.20-5.40); RED CELL DISTRIBUTION WIDTH 12.2 % (12.0-15.0); WHITE BLOOD COUNT 10.3 x10^3/uL (4.8-10.8)
[2019-09-25 07:56] LABS: INR 1.1 (0.8-1.2); PT - PROTHROMBIN TIME 12.5 secs (9.9-12.6)
[2019-09-25 08:03] LABS: D-DIMER 280.7 ng/mL (200.0-255.0)
[2019-09-25 08:05] LABS: ALBUMIN 4.2 g/dL (3.2-5.5); ALBUMIN/GLOBULIN RATIO 1.1 (1.0-2.2); BILIRUBIN,TOTAL 0.8 mg/dL (0.2-1.0); CALCIUM 9.4 mg/dL (8.5-10.3); CREATININE 0.7 mg/dL (0.4-1.0); TOTAL PROTEIN 7.9 g/dL (6.7-8.2)
--- NOTE | 2019-09-25 08:16 | XRAY Report ---
Reason: Chest Pain Procedure Date: 09/25/2019 Accession Number: [id number] / [id number] Procedure: XR - Chest 1 View X-Ray CPT Code: 80473 Final Report FULL RESULT: EXAM: CHEST RADIOGRAPHY EXAM DATE: 09/25/2019 07:50 AM. CLINICAL HISTORY: Chest Pain. COMPARISON: CHEST 2 VIEW 03/01/2019 8:08 AM. TECHNIQUE: 1 view. FINDINGS: Lungs/Pleura: No focal opacities evident. No pleural effusion. No pneumothorax. Mediastinum: Within exam limitations, the cardiomediastinal contour is normal. Other: None. IMPRESSION: No focal consolidation. RADIA
[2019-09-25] MEDS ORDERED: IOVERSOL 320 100 ML VIAL IVP ONE ×2 (08:20→08:47)
--- NOTE | 2019-09-25 09:45 | CT Report ---
Reason: R chest pain, dyspnea, elevated d-dimer Procedure Date: 09/25/2019 Accession Number: [id number] / [id number] Procedure: CT - ANGIO CHEST W/WO CPT Code: Final Report FULL RESULT: EXAM: CT ANGIOGRAM CHEST EXAM DATE: 09/25/2019 08:41 AM. CLINICAL HISTORY: R chest pain, dyspnea, elevated d-dimer. COMPARISON: None. TECHNIQUE: Routine helical imaging was performed through the chest in the pulmonary arterial phase. IV Contrast: 80 mL Optiray 320. Reconstructions: Coronal 3-D MIP reconstructions. Sagittal and coronal. In accordance with CT protocol optimization, one or more of the following dose reduction techniques were utilized for this exam: automated exposure control, adjustment of mA and/or KV based on patient size, or use of iterative reconstructive technique. FINDINGS: Pulmonary Arteries: Diagnostic quality: Adequate through the segmental arteries. No evidence for acute or chronic pulmonary emboli. RV/LV is within normal limits. There is no interventricular septal bowing. There is no reflux of contrast material in the IVC. Lungs/Pleura: Irregular opacities in the right lung base. No pleural effusion or pneumothorax. Mediastinum: Normal. No cardiac enlargement or adenopathy. Thoracic Aorta: Unremarkable. Upper Abdomen: The liver is diffusely low in attenuation consistent with hepatic steatosis. Other: None. IMPRESSION: 1. No pulmonary emboli. 2. Irregular opacities in the right lung base may represent aspiration or infectious process. RADIA
[2019-09-25] MEDS ORDERED: cefTRIAXone 2 GM in SODIUM CHLORIDE 0.9% MINIBAG 100 ML IV STA (10:23)
[2019-09-25] MEDS ORDERED: AZITHROMYCIN 250 MG TABLET PO STA (10:23)
--- NOTE | 2019-09-25 10:25 | ED Physician Documentation ---
PD HPI CHEST PAIN - Stated complaint Stated Complaint: SOA - Chief complaint Chief Complaint: Cardiac - History obtained from History obtained from: Patient - Additional information Additional information: Patient comes emergency department complaining of right chest sided chest pain which is worse when she takes a deep breath. She states it starts in the right lateral chest wall and wraps around underneath her right breast. Patient states that it is very hard to get a deep breath and because it hurts. Patient states she has been coughing only very little and denies any fevers or chills. She states that she had pneumonia back in the late fall and that her breathing has never seem to be quite the same since. She states that at that time, she was admitted to the ICU in [facility], but had to catch a flight back. She signed herself out AGAINST MEDICAL ADVICE and then re-presented to the hospital when she returned to the [facility]. Patient states that she was treated with antibiotics, but has seemed to have various illnesses throughout the remainder of winter and spring. Patient denies any abdominal pain. No nausea or vomiting she denies any left-sided chest pain. No lower extremity edema or pain. No other complaints at this time. Review of Systems Ten Systems: 10 systems reviewed and negative Constitutional: reports: Reviewed and negative Eyes: reports: Reviewed and negative Ears: reports: Reviewed and negative Nose: reports: Reviewed and negative Throat: reports: Reviewed and negative Cardiac: reports: Chest pain / pressure Respiratory: reports: Dyspnea GI: reports: Reviewed and negative : reports: Reviewed and negative Skin: reports: Reviewed and negative Musculoskeletal: reports: Reviewed and negative Neurologic: reports: Reviewed and negative Psychiatric: reports: Reviewed and negative Endocrine: reports: Reviewed and negative Immunocompromised: reports: Reviewed and negative PD PAST MEDICAL HISTORY - Past Medical History Past Medical History: Yes Cardiovascular: Congestive heart failure, [place] Respiratory: None Neuro: None Endocrine/Autoimmune: None 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 : None HEENT: None Psych: Depression, Anxiety Musculoskeletal: Osteoarthritis, Rheumatoid arthritis, Other Derm: None - Past Surgical History Past Surgical History: Yes General: Appendectomy, Gastric surgery, 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, Hysterectomy, Other - Present Medications Home Medications: Ambulatory Orders Medication Instructions Recorded Confirmed Losartan [Cozaar] 100 mg PO DAILY 10/31/18 05/04/19 Omeprazole 20 mg PO DAILY 10/31/18 05/04/19 Alprazolam [Xanax] 0.5 mg PO TID PRN #10 tablet 12/27/18 05/04/19 Doxycycline Monohydrate 100 mg PO BID #14 tablet 05/04/19 Hydrocodone/Acetaminophen [[place] 1 each PO Q6H PRN #12 tablet 05/04/19 5-325 Tablet] dexAMETHasone [Decadron] 4 mg PO DAILY #5 tablet 05/04/19 Azithromycin [Zithromax] 250 mg PO DAILY #6 tablet 09/25/19 Hydrocodone/Acetaminophen 1 - 2 each PO Q6H PRN #14 tablet 09/25/19 [Hydrocodon-Acetaminophen 5-325] - Allergies Allergies/Adverse Reactions: Allergies Allergy/AdvReac Type Severity Reaction Status Date / Time No Known Drug Allergies Allergy Verified 09/25/19 18:54 - Social History Does the pt smoke?: No Smoking Status: Never smoker Does the pt drink ETOH?: No Does the pt have substance abuse?: Yes - Immunizations Immunizations are current?: Yes - POLST Patient has POLST: No POLST Status: Full Code PD ED PE NORMAL - Vitals Vital signs reviewed: Yes - General General: Alert and oriented X 3, Well developed/nourished, Other (Patient appears very anxious, but when distracted, is able to Become more calm) - HEENT HEENT: Atraumatic (.), PERRL, EOMI, Moist mucous membranes - Neck Neck: Supple, no meningeal sign - Cardiac Cardiac: RRR, No murmur - Respiratory Respiratory: Clear bilaterally, Other (Patient is tachypneic, but is splinting and taking shallow breaths. When distracted, she is actually able to take a deep breath repeatedly and her respiratory rate dropped significantly to a nearly normal rate. Patient is able to speak in full sentences.) - Abdomen Abdomen: Soft, Non tender, Non distended - Derm Derm: Normal color, Warm and dry, No rash - Extremities Extremities: No deformity, No edema, No calf tenderness / cord - Neuro Neuro: Alert and oriented X 3, Other (Grossly normal) - Psych Psych: Other (Patient is very anxious. She is hyperventilating and crying out.) Results - Vitals Vitals: Vital Signs - 24 hr 09/25/19 09/25/19 09/25/19 07:13 07:30 08:00 Temperature 37.3 C Heart Rate 114 H 96 91 Respiratory 35 H 25 H 26 H Rate Blood Pressure 154/121 H 128/66 137/71 H O2 Saturation 93 97 93 09/25/19 09/25/19 09/25/19 09:00 09:30 10:30 Temperature Heart Rate 85 86 84 Respiratory 17 16 16 Rate Blood Pressure 140/69 H 136/86 H 142/78 H O2 Saturation 94 98 98 09/25/19 11:25 Temperature 36.4 C L Heart Rate 85 Respiratory 18 Rate Blood Pressure 140/70 H O2 Saturation 97 Oxygen O2 Source Room air - EKG (time done) 0751 Rate: Rate (enter#) (86) Rhythm: NSR [place]: Normal Intervals: Normal [place] QRS: LVH Ischemia: Normal ST segments. No: T wave inversion Compare to prior EKG: Old EKG unavailable Computer interpretation: Agree with computer - Labs Labs: Laboratory Tests 09/25/19 09/25/19 09/25/19 07:34 07:34 07:34 WBC 10.3 RBC 5.37 Hgb 16.2 H Hct 47.9 H MCV 89.2 MCH 30.2 MCHC 33.8 RDW 12.2 Plt Count 240 MPV 10.6 Neut # (Auto) 7.3 H Lymph # (Auto) 1.8 [place] # (Auto) 1.0 Eos # (Auto) 0.1 Baso # (Auto) 0.1 Absolute Nucleated RBC 0.00 Nucleated RBC % 0.0 PT 12.5 INR 1.1 D-Dimer 280.7 H Sodium Potassium Chloride Carbon Dioxide Anion Gap BUN Creatinine Estimated GFR (MDRD) Glucose Calcium Total Bilirubin AST ALT Alkaline Phosphatase Troponin I High Sens B-Natriuretic Peptide 12 Total Protein Albumin Globulin Albumin/Globulin Ratio Lipase 09/25/19 09/25/19 07:34 07:34 WBC RBC Hgb Hct MCV MCH MCHC RDW Plt Count MPV Neut # (Auto) Lymph # (Auto) [place] # (Auto) Eos # (Auto) Baso # (Auto) Absolute Nucleated RBC Nucleated RBC % PT INR D-Dimer Sodium 134 L Potassium 4.1 Chloride 96 L Carbon Dioxide 25 Anion Gap 13.0 BUN 10 Creatinine 0.7 Estimated GFR (MDRD) 85 L Glucose 307 H Calcium 9.4 Total Bilirubin 0.8 AST 27 ALT 46 Alkaline Phosphatase 84 Troponin I High Sens 2.4 B-Natriuretic Peptide Total Protein 7.9 Albumin 4.2 Globulin 3.7 Albumin/Globulin Ratio 1.1 Lipase 26 - Rads (name of study) CTA chest Radiology: Final report received, EMP read indepedently, See rad report (Final radiologist impression: No pulmonary emboli; Irregular opacities in right lung base may represent aspiration or infectious process.) cxr Radiology: Final report received, EMP read indepedently, See rad report (No focal consolidation) PD MEDICAL DECISION MAKING - ED course Complexity details: reviewed results, re-evaluated patient, considered differential, d/w patient ED course: The patient is extremely anxious in the emergency department, but was actually found to have good oxygen saturation, and was found to have a normal lung exam. Her pain sounded more pleuritic or mechanical than visceral, and I suspected that her tachypnea was mainly due to splinting and shallow respirations. Patient was worked up with labs, EKG, and chest x-ray, which were unremarkable except for a significantly elevated d-dimer. As such, CT angiogram was obtained, and showed no PE, but some scattered small areas that could represent pneumonia. As such, the patient was treated with Rocephin and Zithromax in the emergency department. She was also treated with Ativan, Toradol, and ultimately, a dose of Dilaudid. The patient expressed her wish to be admitted to the hospital for her chest pain, and I stated to her that we have no grounds to admit her, given her normal lung exam, normal oxygen saturation, normal white blood cell count, and lack of emergent findings on work-up. The patient was found to be feeling more comfortable and not so anxious, and I felt she was stable for discharge home. She requested medication for pain at home and I stated I would give her a small dose prescription of analgesia, but that otherwise, she should use ibuprofen and Tylenol. Patient is advised that as her antibiotics begin to work, she will most likely notice an improvement in her pain. Departure - Departure Disposition: 01 Home, Self Care Clinical Impression: Pneumonia Qualifiers: Pneumonia type: due to unspecified organism Laterality: right Lung location: unspecified part of lung Qualified Code(s): J18.9 - Pneumonia, unspecified organism Condition: Stable Instructions: ED Pneumonia Adult Prescriptions: Azithromycin [Zithromax] 250 mg PO DAILY #6 tablet Hydrocodone/Acetaminophen [Hydrocodon-Acetaminophen 5-325] 1 - 2 each PO Q6H PRN #14 tablet PRN Reason: pain Comments: Your CT scan showed no blood clot, but you do have a small area of pneumonia. Please finish the antibiotics at home, as directed. You may use ibuprofen and Tylenol, as needed for pain, as well. Discharge Date/Time: 09/25/19 11:27
[2019-09-25] MEDS ORDERED: HYDROmorphone 1 MG/ML CARPUJECT IVP STA (10:51)
[2019-09-25 11:27] VITALS: BP 140/70
== END 2019-09-25 11:27 | disposition home or self-care (01) ==
LOC: ED 07:11
DX: J18.9 Pneumonia, unspecified organism (principal); F41.9 Anxiety disorder, unspecified; R79.89 Other specified abnormal findings of blood chemistry
CPT/HCPCS: 36415; 71045; 71275; 80053; 83690; 83880; 84484; 85025; 85379; 85610; 93005; 96361; 96365; 96375; 99285; A9270; J1170; J2060; Q9967

== ENCOUNTER 2019-09-25 18:43 | Inpatient (IN) | payer MEDICAID ==
--- NOTE | 2019-09-25 19:47 | ED Physician Documentation ---
History of Present Illness - Stated complaint Stated Complaint: SOA - Chief complaint Chief Complaint: Resp - History obtained from History obtained from: Patient (Patient is a 4-year-old female who presents with right-sided flank pain she was seen here earlier today for similar complaints and was sent home and return complaining of severe pain in her right flank. She had a significant work-up to include labs and a negative CTA of the chest however she is complaining of severe right-sided lower back pain that radiates up towards her shoulder blade she has had a previous cholecystectomy she denies fevers.) Review of Systems Constitutional: reports: Reviewed and negative Eyes: reports: Reviewed and negative Ears: reports: Reviewed and negative Nose: reports: Reviewed and negative Throat: reports: Reviewed and negative Cardiac: reports: Reviewed and negative Respiratory: reports: Reviewed and negative GI: reports: Reviewed and negative : reports: Reviewed and negative Skin: reports: Reviewed and negative Musculoskeletal: reports: Other (Right-sided flank pain) Neurologic: reports: Reviewed and negative Psychiatric: reports: Reviewed and negative Endocrine: reports: Reviewed and negative Immunocompromised: reports: Reviewed and negative PD PAST MEDICAL HISTORY - Past Medical History Past Medical History: Yes Cardiovascular: Congestive heart failure, [place] Respiratory: None Neuro: None Endocrine/Autoimmune: None GI: GERD 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 : None HEENT: None Psych: Depression, Anxiety Musculoskeletal: Osteoarthritis, Rheumatoid arthritis, Other Derm: None - Past Surgical History Past Surgical History: Yes General: Appendectomy, Gastric surgery, Other /PERFORMANCE IMPROVEMENT ANALYST: section, Hysterectomy, Other - Present Medications Home Medications: Ambulatory Orders Medication Instructions Recorded Confirmed Losartan [Cozaar] 100 mg PO DAILY 10/31/18 05/04/19 Omeprazole 20 mg PO DAILY 10/31/18 05/04/19 Alprazolam [Xanax] 0.5 mg PO TID PRN #10 tablet 12/27/18 05/04/19 Doxycycline Monohydrate 100 mg PO BID #14 tablet 05/04/19 Hydrocodone/Acetaminophen [Ray 1 each PO Q6H PRN #12 tablet 05/04/19 5-325 Tablet] dexAMETHasone [Decadron] 4 mg PO DAILY #5 tablet 05/04/19 Azithromycin [Zithromax] 250 mg PO DAILY #6 tablet 09/25/19 Hydrocodone/Acetaminophen 1 - 2 each PO Q6H PRN #14 tablet 09/25/19 [Hydrocodon-Acetaminophen 5-325] - Allergies Allergies/Adverse Reactions: Allergies Allergy/AdvReac Type Severity Reaction Status Date / Time No Known Drug Allergies Allergy Verified 09/25/19 18:54 - Social History Does the pt smoke?: No Smoking Status: Never smoker Does the pt drink ETOH?: No Does the pt have substance abuse?: Yes - Immunizations Immunizations are current?: Yes - POLST Patient has POLST: No POLST Status: Full Code PD ED PE NORMAL - Vitals Vital signs reviewed: Yes - General General: Alert and oriented X 3, No acute distress - HEENT HEENT: PERRL - Neck Neck: Supple, no meningeal sign - Cardiac Cardiac: RRR, No murmur - Respiratory Respiratory: Clear bilaterally - Abdomen Abdomen: Normal bowel sounds, Soft, Non tender, Non distended - Back Back: Other (Right-sided CVA tenderness to palpation) - Derm Derm: Warm and dry - Extremities Extremities: No deformity - Neuro Neuro: Alert and oriented X 3 - Psych Psych: Normal mood, Normal affect Results - Vitals Vitals: Vital Signs - 24 hr 09/25/19 09/25/19 09/25/19 18:50 20:43 22:00 Temperature 36.8 C Heart Rate 71 98 93 Respiratory 14 16 17 Rate Blood Pressure 127/89 H 120/74 134/84 H O2 Saturation 93 92 96 Oxygen O2 Source Room air - EKG (time done) 18:58 Rate: Other (no stemi) - Labs Labs: Laboratory Tests 09/25/19 09/25/19 09/25/19 20:15 20:15 20:15 WBC 11.5 H RBC 5.27 Hgb 15.6 Hct 47.4 H MCV 89.9 MCH 29.6 MCHC 32.9 RDW 12.3 Plt Count 219 MPV 10.4 Neut # (Auto) 9.2 H Lymph # (Auto) 0.9 L [place] # (Auto) 1.2 H Eos # (Auto) 0.0 Baso # (Auto) 0.1 Absolute Nucleated RBC 0.00 Nucleated RBC % 0.0 PT INR APTT Sodium 132 L Potassium 4.3 Chloride 94 L Carbon Dioxide 25 Anion Gap 13.0 BUN 10 Creatinine 0.7 Estimated GFR (MDRD) 85 L Glucose 345 H Lactic Acid 2.0 Calcium 9.3 Total Bilirubin 0.7 AST 56 H ALT 68 H Alkaline Phosphatase 92 Troponin I High Sens B-Natriuretic Peptide Total Protein 8.1 Albumin 4.2 Globulin 3.9 Albumin/Globulin Ratio 1.1 Lipase 23 Urine Color Urine Clarity Urine pH Ur Specific [place] Urine Protein Urine Glucose (UA) Urine Ketones Urine Occult Blood Urine Nitrite Urine Bilirubin Urine Urobilinogen Ur Leukocyte Esterase Ur Microscopic Review Urine Culture Comments Urine HCG, Qual 09/25/19 09/25/19 09/25/19 20:15 20:15 20:15 WBC RBC Hgb Hct MCV MCH MCHC RDW Plt Count MPV Neut # (Auto) Lymph # (Auto) [place] # (Auto) Eos # (Auto) Baso # (Auto) Absolute Nucleated RBC Nucleated RBC % PT 12.9 H INR 1.1 APTT 27.0 Sodium Potassium Chloride Carbon Dioxide Anion Gap BUN Creatinine Estimated GFR (MDRD) Glucose Lactic Acid Calcium Total Bilirubin AST ALT Alkaline Phosphatase Troponin I High Sens 2.6 B-Natriuretic Peptide 13 Total Protein Albumin Globulin Albumin/Globulin Ratio Lipase Urine Color Urine Clarity Urine pH Ur Specific [place] Urine Protein Urine Glucose (UA) Urine Ketones Urine Occult Blood Urine Nitrite Urine Bilirubin Urine Urobilinogen Ur Leukocyte Esterase Ur Microscopic Review Urine Culture Comments Urine HCG, Qual 09/25/19 09/25/19 20:56 20:56 WBC RBC Hgb Hct MCV MCH MCHC RDW Plt Count MPV Neut # (Auto) Lymph # (Auto) [place] # (Auto) Eos # (Auto) Baso # (Auto) Absolute Nucleated RBC Nucleated RBC % PT INR APTT Sodium Potassium Chloride Carbon Dioxide Anion Gap BUN Creatinine Estimated GFR (MDRD) Glucose Lactic Acid Calcium Total Bilirubin AST ALT Alkaline Phosphatase Troponin I High Sens B-Natriuretic Peptide Total Protein Albumin Globulin Albumin/Globulin Ratio Lipase Urine Color YELLOW Urine Clarity CLEAR Urine pH 5.0 Ur Specific [place] >=1.030 H >=1.030 H Urine Protein NEGATIVE Urine Glucose (UA) 500 H Urine Ketones TRACE Urine Occult Blood NEGATIVE Urine Nitrite NEGATIVE Urine Bilirubin NEGATIVE Urine Urobilinogen 0.2 (NORMAL) Ur Leukocyte Esterase NEGATIVE Ur Microscopic Review NOT INDICATED Urine Culture Comments NOT INDICATED Urine HCG, Qual NEGATIVE PD MEDICAL DECISION MAKING - ED course Complexity details: reviewed results, re-evaluated patient, considered differential (CT of the chest performed earlier in the day did show possible right-sided pneumonia with right-sided pleural effusion. Patient is having worsening pain today we did get a CT scan the abdomen pelvis as she was now complaining of some right-sided flank pain she has no evidence of ureterolithiasis or obstructing nephrolithiasis. Patient's continue to have intractable pain As well as a pneumonia on imaging, hyponatremia, hyperglycemia and a possible pleural effusion did discuss the case with the hospitalist who agreed to admit this patient for observation.), d/w patient, d/w corporate travel consultant - Consults Consults: Discussed case with (dr. burciaga. will admit for observation.) Departure - Departure Disposition: ED Place in Observation Clinical Impression: Pleural effusion, Hyperglycemia, Hyponatremia Pneumonia Qualifiers: Pneumonia type: due to unspecified organism Laterality: right Lung location: lower lobe of lung Qualified Code(s): J18.9 - Pneumonia, unspecified organism Condition: Stable Discharge Date/Time: 09/25/19 22:45
[2019-09-25] MEDS ORDERED: KETOROLAC 30 MG/ML VIAL IVP STA (20:01)
[2019-09-25] MEDS ORDERED: HYDROmorphone 0.5 MG/0.5 ML SYRINGE IVP STA (20:01)
[2019-09-25] MEDS ORDERED: SODIUM CHLORIDE 0.9% 1,000 ML IV STA (20:01)
[2019-09-25] MEDS ORDERED: ONDANSETRON 4 MG/2 ML VIAL IVP STA (20:01)
[2019-09-25] MEDS ORDERED: HYDROmorphone 1 MG/ML CARPUJECT IVP STA (20:15)
[2019-09-25 20:19] LABS: BASOPHILS # (AUTO) 0.1 10^3/uL (0.0-0.1); BASOPHILS % (AUTO) 0.5 %; EOSINOPHILS % (AUTO) 0.3 %; HGB - HEMOGLOBIN 15.6 g/dL (12.0-16.0); LYMPHOCYTES # (AUTO) 0.9 10^3/uL (1.5-3.5); LYMPHOCYTES % (AUTO) 8.2 %; MEAN CORPUSCULAR HEMOGLOBIN 29.6 pg (27.0-31.0); MEAN CORPUSCULAR HGB CONC 32.9 g/dL (32.0-36.0); MEAN CORPUSCULAR VOLUME 89.9 fL (81.0-99.0); MEAN PLATELET VOLUME 10.4 fL (7.9-10.8); MONOCYTES # (AUTO) 1.2 10^3/uL (0.0-1.0); MONOCYTES % (AUTO) 10.3 %; NEUTROPHILS # (AUTO) 9.2 10^3/uL (1.5-6.6); NEUTROPHILS % (AUTO) 80.2 %; PLT - PLATELET COUNT 219 10^3/uL (130-450); RED BLOOD COUNT 5.27 10^6/uL (4.20-5.40); RED CELL DISTRIBUTION WIDTH 12.3 % (12.0-15.0); WHITE BLOOD COUNT 11.5 x10^3/uL (4.8-10.8)
[2019-09-25 20:30] LABS: INR 1.1 (0.8-1.2); PT - PROTHROMBIN TIME 12.9 secs (9.9-12.6)
[2019-09-25 20:32] LABS: ALBUMIN 4.2 g/dL (3.2-5.5); ALBUMIN/GLOBULIN RATIO 1.1 (1.0-2.2); BILIRUBIN,TOTAL 0.7 mg/dL (0.2-1.0); CALCIUM 9.3 mg/dL (8.5-10.3); CREATININE 0.7 mg/dL (0.4-1.0); TOTAL PROTEIN 8.1 g/dL (6.7-8.2)
[2019-09-25 21:03] LABS: BILIRUBIN,URINE NEGATIVE (NEGATIVE); GLUCOSE, URINE (UA) 500 mg/dL (NEGATIVE); KETONES,URINE (UA) TRACE mg/dL (NEGATIVE); LEUKOCYTE ESTERASE, URINE NEGATIVE (NEGATIVE); NITRITE,URINE NEGATIVE (NEGATIVE); OCCULT BLOOD,URINE NEGATIVE (NEGATIVE); PROTEIN,URINE NEGATIVE (NEGATIVE); UROBILINOGEN,URINE 0.2 (NORMAL) E.U./dL (NORMAL)
[2019-09-25 21:04] LABS: CLARITY,URINE CLEAR (CLEAR)
[2019-09-25 21:05] LABS: HCG UR QUAL NEGATIVE
--- NOTE | 2019-09-25 21:06 | CT Report ---
Reason: Right-sided flank pain Procedure Date: 09/25/2019 Accession Number: [id number] / [id number] Procedure: CT - Abdomen/Pelvis WO CPT Code: Final Report FULL RESULT: EXAM: CT ABDOMEN AND PELVIS EXAM DATE: 09/25/2019 08:33 PM. CLINICAL HISTORY: Right-sided flank pain. COMPARISONS: ABDOMEN/PELVIS W/O 02/28/2019 10:53 PM ANGIO CHEST W/WO 09/25/2019 8:30 AM. TECHNIQUE: Routine helical CT imaging was performed through the abdomen and pelvis. IV contrast: None. Enteric contrast: No. Reconstructions: Coronal and sagittal. In accordance with CT protocol optimization, one or more of the following dose reduction techniques were utilized for this exam: automated exposure control, adjustment of mA and/or KV based on patient size, or use of iterative reconstructive technique. FINDINGS: Lung Bases: There is pulmonary consolidation in the right lower lobe with a trace right pleural effusion. Liver: There is hepatomegaly. Liver parenchyma is diffusely low in density. The liver measures 227 mm cranial caudal. There is focal fatty sparing in segment 4. Gallbladder/Bile Ducts: Gallbladder is surgically absent. Spleen: Normal in size and contour. Pancreas: Normal in size and contour. Adrenal Glands: Normal. Kidneys: There is a horseshoe kidney. No renal mass or hydronephrosis demonstrated by noncontrast CT Peritoneal Cavity/Bowel: The bowel is normal in caliber. There is no abnormal fluid or gas collection. No lymphadenopathy. Pelvic Organs: There is contrast within the urinary bladder. Uterus is absent. Vasculature: No aneurysms or other significant abnormality. Bones: No significant abnormality. Other: None. IMPRESSION: 1. Hepatomegaly with steatosis of the liver. 2. Horseshoe kidney. 3. Findings in the chest are dictated in separate report. RADIA
[2019-09-25] MEDS ORDERED: HYDROmorphone 0.5 MG/0.5 ML SYRINGE IVP PRN ×2 (22:06→23:15)
--- NOTE | 2019-09-25 22:38 | HISTORY & PHYSICAL EXAMINATION ---
Chief Complaint - Chief Complaint Chief Complaint: right-sided pleuritic pain History of Present Illness - Admitted From Admitted From:: [facility] ED - History Obtained From Records Reviewed: yes History obtained from: patient - History of Present Illness HPI Comment/Other: Patient is 58-year-old female who presented to the ED with complaint of right- sided pleuritic/musculoskeletal pain and dyspnea. Her symptoms started last night but got worse this morning. She initially presented to the ED this morning where work-up showed that she had pneumonia and a small right pleural effusion. She was prescribed oral antibiotics and pain medications and discharged home. She took the oral pain medication she was given with no significant improvement in her pain. As a result of significant pain she was having difficulty breathing and she was very nauseous so she returned to the emergency department later this evening. In the ED she was given Dilaudid 1 mg IV x2. While this caused a slight improvement in her pain, her symptoms worsened 2 hours after administration. As a result of the intractable pain she was presented for admission. She denied any recent injury. She denied chest pain, abdominal pain, fever or chills. History - Past Medical History Cardiovascular: reports: Congestive heart failure, [place] Respiratory: reports: None Neuro: reports: None Endocrine/Autoimmune: reports: None GI: reports: GERD MUCK OPERATOR: reports: None : reports: None HEENT: reports: None Psych: reports: Depression, Anxiety Musculoskeletal: reports: Osteoarthritis, Rheumatoid arthritis, Other Derm: reports: None MRSA Hx?: Yes - Past Surgical History General: reports: Appendectomy, Gastric surgery, Other /MUCK OPERATOR: reports: section, Hysterectomy, Other - Family & Social History Family History: Mother: Alive and Well, Cancer (Mom: Renal cell Ca, Aunt has cancer), Father: , CAD (Uncle had CAD), Other family: CAD, Cancer, Diabetes, Type 2 (Aunt has diabetes) Social History Notes: Patient was born in [place], [place] but her father was in the and the patient grew up in [place]. She states that they lived in [facility] while she was growing up. She is currently and lives with her in [place], [place]. She states that she moved to [facility] 2 years ago prior to that she was living in [place] near her father. She has 3 kids 2 daughters and 1 son. She smokes almost a pack a day and has been doing so for nearly 40 years. She drinks alcohol rarely. She denies any illicit drug use. - Substance History Use: Uses substance without health or social issues: Tobacco - POLST Patient has POLST: No POLST Status: Full Code Meds/Allgy - Home Medications Home Medications: Ambulatory Orders Medication Instructions Recorded Confirmed Losartan [Cozaar] 100 mg PO DAILY 10/31/18 05/04/19 Omeprazole 20 mg PO DAILY 10/31/18 05/04/19 Alprazolam [Xanax] 0.5 mg PO TID PRN #10 tablet 12/27/18 05/04/19 Doxycycline Monohydrate 100 mg PO BID #14 tablet 05/04/19 Hydrocodone/Acetaminophen [[place] 1 each PO Q6H PRN #12 tablet 05/04/19 5-325 Tablet] dexAMETHasone [Decadron] 4 mg PO DAILY #5 tablet 05/04/19 Azithromycin [Zithromax] 250 mg PO DAILY #6 tablet 09/25/19 Hydrocodone/Acetaminophen 1 - 2 each PO Q6H PRN #14 tablet 09/25/19 [Hydrocodon-Acetaminophen 5-325] - Allergies Allergies/Adverse Reactions: Allergies Allergy/AdvReac Type Severity Reaction Status Date / Time No Known Drug Allergies Allergy Verified 09/25/19 18:54 Review of Systems - Constitutional Constitutional: denies: Fatigue, Fever, Weakness - Eyes Eyes: denies: Pain, Dipolpia - Ears, Nose & Throat Ears, Nose & Throat: denies: Sore throat - Cardiovascular Cariovascular: denies: Irregular heart rate, Palpitations, Chest pain, Syncope, Exertional dyspnea - Respiratory Respiratory: reports: Pleuritic pain. denies: Cough, Sputum production, Wheezing, SOB at rest, SOB with exertion - Gastrointestinal Gastrointestinal: reports: Nausea, Reflux/heartburn. denies: Abdominal pain, Abdominal distention, Constipation, Diarrhea, Vomiting - Genitourinary Genitourinary: denies: Dysuria, Frequency, Urgency, Hematuria - Musculoskeletal Musculoskeletal: denies: Muscle pain, Back pain, Muscle aches - Integumentary Integumentary: denies: Rash, Pruritis - Neurological Neurological: denies: General weakness, Headache, Dizziness - Psychiatric Psychiatric: reports: Anxiety. denies: Depression - Endocrine Endocrine: denies: Polyuria, Polydypsia - Hematologic/Lymphatic Hematologic/Lymphatic: denies: Anemia, Bruising Prior Level of Functionality: She is independent of activities of daily living Exam - Vital Signs Vital Signs: Vital Signs x48h Temp Pulse Resp BP Pulse Ox 09/25/19 22:00 93 17 134/84 H 96 09/25/19 20:43 98 16 120/74 92 09/25/19 18:50 36.8 C 71 14 127/89 H 93 - Physical Exam General Appearance: positive: Severe distress Eyes Bilateral: positive: PERRL, EOMI ENT: positive: No signs of dehydration Neck: positive: No JVD, Trachea midline Respiratory: negative: Chest non-tender, Wheezes, Rales, Rhonchi Cardiovascular: positive: Regular rate & rhythm, No murmur Abdomen: positive: Non-tender, No organomegaly, Nml bowel sounds, No distention. negative: Guarding, Rebound Back: positive: Nml inspection Skin: positive: Color nml, No rash, Warm, Dry Extremities: positive: Non-tender, Full ROM, Nml appearance, No pedal edema Neurologic/Psychiatric: positive: Oriented x3, Motor nml, Mood/affect nml Conclusion/Plan - Problem List (1) Pneumonia Conclusion/Plan: Will administer a dose of Rocephin IV. We will continue azithromycin to 50 mg p.o. daily x4 more doses. We will give patient an incentive spirometer. Qualifiers: Pneumonia type: due to unspecified organism Laterality: right Lung location: lower lobe of lung Qualified Code(s): J18.9 - Pneumonia, unspecified organism (2) Intractable pain Conclusion/Plan: This is likely multifactorial: pleuritic pain related to her pneumonia and possibly muskuloskeletal due to disalignment or dislocation of a rib. We will manage pain with Dilaudid IV and oral [place] oral. Flexeril has also been ordered. Patient given an incentive spirometer. Anticipating improvement tomorrow such that patient may be discharged home. (3) Hyperglycemia Conclusion/Plan: Suspect diabetes mellitus. Hemoglobin A1c pending. Sliding scale insulin and Accu-Cheks ordered. Carb controlled diet ordered. Patient advised on watching sugars especially processed sugars in her diet and on increasing physical activity. - Lab Results Fish Bones: 09/26/19 04:30 09/26/19 04:30 Core Measures - Anticipated LOS I expect patient to be DC'd or transferred within 96 hours.: Yes - DVT/VTE - Prophylaxis VTE/DVT Device ordered at admit?: Yes VTE/DVT Prophylaxis med ordered at admit?: Yes
[2019-09-25] MEDS: SODIUM CHLORIDE FLUSH 0.9% 10 ML SYRINGE IVP SCH (23:55)
[2019-09-25] MEDS: CYCLOBENZAPRINE 10 MG TABLET PO PRN (23:55)
[2019-09-25] MEDS: HYDROcod/ACETAM 5/325 MG TABLET PO PRN (23:55)
[2019-09-26] MEDS: HYDROmorphone 1 MG/ML CARPUJECT IVP PRN ×8 (02:21→21:56)
[2019-09-26] MEDS: HYDROcod/ACETAM 5/325 MG TABLET PO PRN ×4 (03:33→21:22)
[2019-09-26 05:22] LABS: BASOPHILS # (AUTO) 0.1 10^3/uL (0.0-0.1); BASOPHILS % (AUTO) 0.7 %; EOSINOPHILS # (AUTO) 0.1 10^3/uL (0.0-0.7); EOSINOPHILS % (AUTO) 1.5 %; HGB - HEMOGLOBIN 14.3 g/dL (12.0-16.0); LYMPHOCYTES # (AUTO) 1.6 10^3/uL (1.5-3.5); MEAN CORPUSCULAR HEMOGLOBIN 28.4 pg (27.0-31.0); MEAN CORPUSCULAR HGB CONC 31.2 g/dL (32.0-36.0); MEAN CORPUSCULAR VOLUME 91.1 fL (81.0-99.0); MEAN PLATELET VOLUME 10.8 fL (7.9-10.8); MONOCYTES % (AUTO) 11.8 %; NEUTROPHILS % (AUTO) 67.5 %; PLT - PLATELET COUNT 212 10^3/uL (130-450); RED BLOOD COUNT 5.03 10^6/uL (4.20-5.40); RED CELL DISTRIBUTION WIDTH 12.5 % (12.0-15.0); WHITE BLOOD COUNT 8.9 x10^3/uL (4.8-10.8)
[2019-09-26 05:31] LABS: CREATININE 0.7 mg/dL (0.4-1.0)
[2019-09-26 06:12] LABS: HB2 TOTAL 15.5 g/dL; HEMOGLOBIN A1C 1.74 g/dL; HEMOGLOBIN A1C % 12.4 % (4.6-6.2)
[2019-09-26] MEDS ORDERED: INSULIN GLARGINE 300 UNIT/3 ML PEN SUBQ SCH (08:00)
[2019-09-26] MEDS ORDERED: INSULIN ASPART 300 UNIT/3 ML PEN SUBQ SCH (08:00)
[2019-09-26] MEDS ORDERED: SODIUM CHLORIDE 0.9% 1,000 ML IV SCH (08:00)
[2019-09-26] MEDS: INSULIN ASPART 300 UNIT/3 ML PEN SUBQ SCH ×5 (08:27→21:09)
[2019-09-26] MEDS: CYCLOBENZAPRINE 10 MG TABLET PO PRN ×2 (08:29→16:57)
[2019-09-26] MEDS: ENOXAPARIN 40 MG/0.4 ML SYRINGE SUBQ SCH (08:29)
[2019-09-26] MEDS: SODIUM CHLORIDE FLUSH 0.9% 10 ML SYRINGE IVP SCH ×2 (08:30→16:43)
[2019-09-26] MEDS ORDERED: cefTRIAXone 1 GM in SODIUM CHLORIDE 0.9% MINIBAG 100 ML IV SCH (09:00)
[2019-09-26] MEDS ORDERED: cefTRIAXone 2 GM in SODIUM CHLORIDE 0.9% MINIBAG 100 ML IV SCH (09:00)
[2019-09-26] MEDS ORDERED: AZITHROMYCIN 250 MG TABLET PO SCH (09:00)
--- NOTE | 2019-09-26 09:08 | XRAY Report ---
Reason: cough Procedure Date: 09/26/2019 Accession Number: [id number] / [id number] Procedure: XR - Chest 1 View X-Ray CPT Code: 66395 Final Report FULL RESULT: EXAM: CHEST RADIOGRAPHY EXAM DATE: 09/26/2019 08:31 AM. CLINICAL HISTORY: Cough. COMPARISON: CHEST 1 VIEW 09/25/2019 7:31 AM ANGIO CHEST W/WO 09/25/2019 8:30 AM. TECHNIQUE: 1 view. FINDINGS: Lungs/Pleura: Increasing right basilar infiltrate. Mild linear left basilar opacities likely representing atelectasis. No pleural effusion or pneumothorax. Mediastinum: Within exam limitations, the cardiomediastinal contour is normal. The aorta is mildly tortuous, as before. Other: The bones are unremarkable. IMPRESSION: Increasing right basilar infiltrate, suggesting worsening infection. RADIA
[2019-09-26] MEDS ORDERED: oxyCODONE 5 MG TABLET PO PRN (09:27)
[2019-09-26] MEDS: KETOROLAC 15 MG/ML VIAL IVP PRN ×3 (10:37→21:57)
--- NOTE | 2019-09-26 11:29 | PHARMACY PROGRESS NOTE ---
- Best Possible Medication History Admit Date and Time: 09/25/192205 Processed by: Pharmacy Medication History completed: Yes Patient Interview: Completed Secondary Source(s): Pharmacy records, Insurance records As the person ultimately responsible for medication therapy, providers are able to order a medication from an existing home medication list in [facility] via the "Reconcile Routine" prior to Confirmation of that medication by operations support specialist. Such practice is discouraged except when the physician, in their clinical judgment, deems that a medical need exists for a medication without regard to previous use.
--- NOTE | 2019-09-26 11:50 | PROVIDER PROGRESS NOTE ---
Subjective - Prog Note Date Prog Note Date: 09/26/19 - Subjective Pt reports feeling: No change Subjective: pt report her right flank pain. she denies fever, chill or chest pain. Current Medications - Current Medications Current Medications: Active Medications Hydrocodone Bitart/Acetaminophen ([place] 5/325) 1 tab PO Q4HR PRN PRN Reason: Pain 5 to 7 Last Admin: 09/26/19 10:37 Dose: 1 tab Azithromycin (Zithromax) 250 mg PO DAILY SONIA Stop: 09/29/19 09:01 Last Admin: 09/26/19 08:29 Dose: 250 mg Cyclobenzaprine HCl (Flexeril) 10 mg PO TID PRN PRN Reason: Spasms Last Admin: 09/26/19 08:29 Dose: 10 mg Enoxaparin Sodium (Lovenox) 40 mg SUBQ DAILY [facility] Last Admin: 09/26/19 08:29 Dose: 40 mg Hydromorphone HCl (Dilaudid Inj Carp) 1 mg IVP Q2H PRN PRN Reason: PAIN 8-10 Last Admin: 09/26/19 12:20 Dose: 1 mg Sodium Chloride (Normal Saline 0.9%) 1,000 mls @ 100 mls/hr IV .Q10H SONIA Stop: 09/27/19 03:59 Last Admin: 09/26/19 08:29 Dose: 100 mls/hr Ceftriaxone Sodium 2 gm/ (Sodium Chloride) 100 mls @ 200 mls/hr IV DAILY SONIA Stop: 09/30/19 09:29 Last Infusion: 09/26/19 10:30 Dose: Infused Insulin Aspart (Novolog) 5 unit SUBQ QDBREAKFAST [facility]; Protocol Last Admin: 09/26/19 08:27 Dose: 5 unit Insulin Aspart (Novolog) 1 - 9 unit SUBQ 0800,1200,1700,2100 [facility]; Protocol Last Admin: 09/26/19 12:21 Dose: 5 unit Insulin Glargine (Lantus Solostar) 20 unit SUBQ QDBREAKFAST [facility] Ketorolac Tromethamine (Toradol Inj (15mg)) 15 mg IVP Q6HR PRN PRN Reason: PAIN Stop: 10/01/19 06:52 Last Admin: 09/26/19 10:37 Dose: 15 mg Ondansetron HCl (Zofran Inj) 4 mg IVP Q6HR PRN PRN Reason: Nausea / Vomiting Sodium Chloride (Normal Saline Flush 0.9%) 10 ml IVP PRN PRN PRN Reason: NEEDED PER PROVIDER ORDERS Sodium Chloride (Normal Saline Flush 0.9%) 10 ml IVP 0100,0900,1700 SONIA Last Admin: 09/26/19 08:30 Dose: 10 ml No Known Home Medications 09/26/19 Objective - Vital Signs/Intake & Output Vital Signs: Vital Signs x48h Temp Pulse Resp BP Pulse Ox 09/26/19 08:58 36.9 C 74 24 135/90 H 95 09/26/19 03:51 36.7 C 83 18 127/64 94 Intake & Output: Intake & Output 09/23/19 09/24/19 09/25/19 09/26/19 23:59 23:59 23:59 23:59 Intake Total 240 620 Output Total 100 Balance 140 620 - Objective General Appearance: positive: Alert, Mild distress. negative: Lethargic Eyes Bilateral: positive: Normal inspection, PERRL, No lid inflammation ENT: positive: ENT inspection nml, Pharynx nml, No signs of dehydration. negative: Purulent nasal drainage Neck: positive: Nml inspection, Thyroid nml, No JVD, Trachea midline. negative: Thyromegaly, Lymphadenopathy (R), Lymphadenopathy (L), Stiff neck, Tracheal deviation Respiratory: positive: Chest non-tender, No respiratory distress, Rhonchi. negative: Wheezes, Rales Cardiovascular: positive: Regular rate & rhythm, No murmur, No gallop. negative: Irregularly irregular, Tachycardia, Bradycardia, Systolic murmur, Diastolic murmur Peripheral Pulses: 2+ Radial (R), 2+ Radial (L) Abdomen: positive: Non-tender, No organomegaly, Nml bowel sounds. negative: Tenderness, Guarding, Rebound Back: positive: Nml inspection Skin: positive: Color nml, No rash, Warm, Dry. negative: Cyanosis, Diaphoresis, Pallor Extremities: positive: Non-tender, Nml appearance. negative: Calf tenderness, Ilana's sign/cords Neurologic/Psychiatric: positive: Oriented x3, Sensation nml. negative: Weakness, Sensory loss, Facial droop, Slurred/abnml speech - Lab Results Fish Bones: 09/26/19 04:30 05/22/20 04:30 Other Labs: Lab Results x24hrs 09/26/19 09/26/19 09/26/19 Range/Units 07:54 04:30 04:30 WBC 8.9 (4.8-10.8) x10^3/uL RBC 5.03 (4.20-5.40) 10^6/uL Hgb 14.3 (12.0-16.0) g/dL Hct 45.8 (37.0-47.0) % MCV 91.1 (81.0-99.0) fL MCH 28.4 (27.0-31.0) pg MCHC 31.2 L (32.0-36.0) g/dL RDW 12.5 (12.0-15.0) % Plt Count 212 (130-450) 10^3/uL MPV 10.8 (7.9-10.8) fL Neut # (Auto) 6.0 (1.5-6.6) 10^3/uL Lymph # (Auto) 1.6 (1.5-3.5) 10^3/uL [place] # (Auto) 1.0 (0.0-1.0) 10^3/uL Eos # (Auto) 0.1 (0.0-0.7) 10^3/uL Baso # (Auto) 0.1 (0.0-0.1) 10^3/uL Absolute Nucleated RBC 0.00 x10^3/uL Nucleated RBC % 0.0 /100WBC PT (9.9-12.6) secs INR (0.8-1.2) APTT (24.9-33.3) secs Sodium 134 L (135-145) mmol/L Potassium 4.3 (3.5-5.0) mmol/L Chloride 98 L (101-111) mmol/L Carbon Dioxide 26 (21-32) mmol/L Anion Gap 10.0 (6-13) BUN 13 (6-20) mg/dL Creatinine 0.7 (0.4-1.0) mg/dL Estimated GFR (MDRD) 85 L (>89) Glucose 328 H (70-100) mg/dL POC Whole Bld Glucose 292 H (70 - 100) mg/dL Glycated Hemoglobin (4.6-6.2) % Estim Average Glucose (70-100) Lactic Acid (0.5-2.2) mmol/L Calcium 9.0 (8.5-10.3) mg/dL Total Bilirubin (0.2-1.0) mg/dL AST (10-42) IU/L ALT (10-60) IU/L Alkaline Phosphatase (42-121) IU/L Troponin I High Sens (2.3-14.8) ng/L B-Natriuretic Peptide (5-100) pg/mL Total Protein (6.7-8.2) g/dL Albumin (3.2-5.5) g/dL Globulin (2.1-4.2) g/dL Albumin/Globulin Ratio (1.0-2.2) Lipase (22-51) U/L Urine Color Urine Clarity (CLEAR) Urine pH (5.0-7.5) PH Ur Specific [place] (1.002-1.030) Urine Protein (NEGATIVE) mg/dL Urine Glucose (UA) (NEGATIVE) mg/dL Urine Ketones (NEGATIVE) mg/dL Urine Occult Blood (NEGATIVE) Urine Nitrite (NEGATIVE) Urine Bilirubin (NEGATIVE) Urine Urobilinogen (NORMAL) E.U./dL Ur Leukocyte Esterase (NEGATIVE) Ur Microscopic Review Urine Culture Comments Urine HCG, Qual 09/26/19 09/25/19 09/25/19 Range/Units 04:30 20:56 20:56 WBC (4.8-10.8) x10^3/uL RBC (4.20-5.40) 10^6/uL Hgb (12.0-16.0) g/dL Hct (37.0-47.0) % MCV (81.0-99.0) fL MCH (27.0-31.0) pg MCHC (32.0-36.0) g/dL RDW (12.0-15.0) % Plt Count (130-450) 10^3/uL MPV (7.9-10.8) fL Neut # (Auto) (1.5-6.6) 10^3/uL Lymph # (Auto) (1.5-3.5) 10^3/uL [place] # (Auto) (0.0-1.0) 10^3/uL Eos # (Auto) (0.0-0.7) 10^3/uL Baso # (Auto) (0.0-0.1) 10^3/uL Absolute Nucleated RBC x10^3/uL Nucleated RBC % /100WBC PT (9.9-12.6) secs INR (0.8-1.2) APTT (24.9-33.3) secs Sodium (135-145) mmol/L Potassium (3.5-5.0) mmol/L Chloride (101-111) mmol/L Carbon Dioxide (21-32) mmol/L Anion Gap (6-13) BUN (6-20) mg/dL Creatinine (0.4-1.0) mg/dL Estimated GFR (MDRD) (>89) Glucose (70-100) mg/dL POC Whole Bld Glucose (70 - 100) mg/dL Glycated Hemoglobin 12.4 H (4.6-6.2) % Estim Average Glucose 309 H (70-100) Lactic Acid (0.5-2.2) mmol/L Calcium (8.5-10.3) mg/dL Total Bilirubin (0.2-1.0) mg/dL AST (10-42) IU/L ALT (10-60) IU/L Alkaline Phosphatase (42-121) IU/L Troponin I High Sens (2.3-14.8) ng/L B-Natriuretic Peptide (5-100) pg/mL Total Protein (6.7-8.2) g/dL Albumin (3.2-5.5) g/dL Globulin (2.1-4.2) g/dL Albumin/Globulin Ratio (1.0-2.2) Lipase (22-51) U/L Urine Color YELLOW Urine Clarity CLEAR (CLEAR) Urine pH 5.0 (5.0-7.5) PH Ur Specific [place] >=1.030 H >=1.030 H (1.002-1.030) Urine Protein NEGATIVE (NEGATIVE) mg/dL Urine Glucose (UA) 500 H (NEGATIVE) mg/dL Urine Ketones TRACE (NEGATIVE) mg/dL Urine Occult Blood NEGATIVE (NEGATIVE) Urine Nitrite NEGATIVE (NEGATIVE) Urine Bilirubin NEGATIVE (NEGATIVE) Urine Urobilinogen 0.2 (NORMAL) (NORMAL) E.U./dL Ur Leukocyte Esterase NEGATIVE (NEGATIVE) Ur Microscopic Review NOT INDICATED Urine Culture Comments NOT INDICATED Urine HCG, Qual NEGATIVE 09/25/19 09/25/19 09/25/19 Range/Units 20:15 20:15 20:15 WBC (4.8-10.8) x10^3/uL RBC (4.20-5.40) 10^6/uL Hgb (12.0-16.0) g/dL Hct (37.0-47.0) % MCV (81.0-99.0) fL MCH (27.0-31.0) pg MCHC (32.0-36.0) g/dL RDW (12.0-15.0) % Plt Count (130-450) 10^3/uL MPV (7.9-10.8) fL Neut # (Auto) (1.5-6.6) 10^3/uL Lymph # (Auto) (1.5-3.5) 10^3/uL [place] # (Auto) (0.0-1.0) 10^3/uL Eos # (Auto) (0.0-0.7) 10^3/uL Baso # (Auto) (0.0-0.1) 10^3/uL Absolute Nucleated RBC x10^3/uL Nucleated RBC % /100WBC PT 12.9 H (9.9-12.6) secs INR 1.1 (0.8-1.2) APTT 27.0 (24.9-33.3) secs Sodium (135-145) mmol/L Potassium (3.5-5.0) mmol/L Chloride (101-111) mmol/L Carbon Dioxide (21-32) mmol/L Anion Gap (6-13) BUN (6-20) mg/dL Creatinine (0.4-1.0) mg/dL Estimated GFR (MDRD) (>89) Glucose (70-100) mg/dL POC Whole Bld Glucose (70 - 100) mg/dL Glycated Hemoglobin (4.6-6.2) % Estim Average Glucose (70-100) Lactic Acid (0.5-2.2) mmol/L Calcium (8.5-10.3) mg/dL Total Bilirubin (0.2-1.0) mg/dL AST (10-42) IU/L ALT (10-60) IU/L Alkaline Phosphatase (42-121) IU/L Troponin I High Sens 2.6 (2.3-14.8) ng/L B-Natriuretic Peptide 13 (5-100) pg/mL Total Protein (6.7-8.2) g/dL Albumin (3.2-5.5) g/dL Globulin (2.1-4.2) g/dL Albumin/Globulin Ratio (1.0-2.2) Lipase (22-51) U/L Urine Color Urine Clarity (CLEAR) Urine pH (5.0-7.5) PH Ur Specific [place] (1.002-1.030) Urine Protein (NEGATIVE) mg/dL Urine Glucose (UA) (NEGATIVE) mg/dL Urine Ketones (NEGATIVE) mg/dL Urine Occult Blood (NEGATIVE) Urine Nitrite (NEGATIVE) Urine Bilirubin (NEGATIVE) Urine Urobilinogen (NORMAL) E.U./dL Ur Leukocyte Esterase (NEGATIVE) Ur Microscopic Review Urine Culture Comments Urine HCG, Qual 09/25/19 09/25/19 09/25/19 Range/Units 20:15 20:15 20:15 WBC 11.5 H (4.8-10.8) x10^3/uL RBC 5.27 (4.20-5.40) 10^6/uL Hgb 15.6 (12.0-16.0) g/dL Hct 47.4 H (37.0-47.0) % MCV 89.9 (81.0-99.0) fL MCH 29.6 (27.0-31.0) pg MCHC 32.9 (32.0-36.0) g/dL RDW 12.3 (12.0-15.0) % Plt Count 219 (130-450) 10^3/uL MPV 10.4 (7.9-10.8) fL Neut # (Auto) 9.2 H (1.5-6.6) 10^3/uL Lymph # (Auto) 0.9 L (1.5-3.5) 10^3/uL [place] # (Auto) 1.2 H (0.0-1.0) 10^3/uL Eos # (Auto) 0.0 (0.0-0.7) 10^3/uL Baso # (Auto) 0.1 (0.0-0.1) 10^3/uL Absolute Nucleated RBC 0.00 x10^3/uL Nucleated RBC % 0.0 /100WBC PT (9.9-12.6) secs INR (0.8-1.2) APTT (24.9-33.3) secs Sodium 132 L (135-145) mmol/L Potassium 4.3 (3.5-5.0) mmol/L Chloride 94 L (101-111) mmol/L Carbon Dioxide 25 (21-32) mmol/L Anion Gap 13.0 (6-13) BUN 10 (6-20) mg/dL Creatinine 0.7 (0.4-1.0) mg/dL Estimated GFR (MDRD) 85 L (>89) Glucose 345 H (70-100) mg/dL POC Whole Bld Glucose (70 - 100) mg/dL Glycated Hemoglobin (4.6-6.2) % Estim Average Glucose (70-100) Lactic Acid 2.0 (0.5-2.2) mmol/L Calcium 9.3 (8.5-10.3) mg/dL Total Bilirubin 0.7 (0.2-1.0) mg/dL AST 56 H (10-42) IU/L ALT 68 H (10-60) IU/L Alkaline Phosphatase 92 (42-121) IU/L Troponin I High Sens (2.3-14.8) ng/L B-Natriuretic Peptide (5-100) pg/mL Total Protein 8.1 (6.7-8.2) g/dL Albumin 4.2 (3.2-5.5) g/dL Globulin 3.9 (2.1-4.2) g/dL Albumin/Globulin Ratio 1.1 (1.0-2.2) Lipase 23 (22-51) U/L Urine Color Urine Clarity (CLEAR) Urine pH (5.0-7.5) PH Ur Specific [place] (1.002-1.030) Urine Protein (NEGATIVE) mg/dL Urine Glucose (UA) (NEGATIVE) mg/dL Urine Ketones (NEGATIVE) mg/dL Urine Occult Blood (NEGATIVE) Urine Nitrite (NEGATIVE) Urine Bilirubin (NEGATIVE) Urine Urobilinogen (NORMAL) E.U./dL Ur Leukocyte Esterase (NEGATIVE) Ur Microscopic Review Urine Culture Comments Urine HCG, Qual ABX Reporting Has patient been on IV antibiotics over the past 48 hours?: Yes Assessment/Plan - Problem List (1) Pneumonia Impression: 09/25 pt report right flank pain, possible radiated a pain from pneumonia at right side. Chest x-ray will show worsening right lower pneumonia and left Bas ilar opacity like representing atelectatics. Covid 19 is order today morning. Plan:Continue antibiotics treatment, continue IVF (2) Intractable pain Conclusion/Plan: pt report right flank pain, possible radiated a pain from pneumonia at right side. CAT scan of abdomen reveals unremarkable. continue pain control (3) new diabetes Patient has A1c 12.4, patient reported she did not know she has diabetic before, patient glucose level is over 300, with start to uses sliding scale, begin Lantus, beginning hypoglycemia protocol, consult with chemical educator (4)obesity Patient has weight 115 kg, BMI 43.5, discussed with the patient for loss of the weight (5)Medical non-compliance Patient heads medications scheduled, but pharmacy find out patient she did not take any medication in the home, clearly patient did not do medical compliance, discussed with the patient the importance of medical compliance, advised patient for medical compliance Qualifiers: Pneumonia type: due to unspecified organism Laterality: right Lung location: lower lobe of lung Qualified Code(s): J18.9 - Pneumonia, unspecified organism
[2019-09-26] MEDS: ONDANSETRON 4 MG/2 ML VIAL IVP PRN (16:02)
[2019-09-26] MEDS: HYDROmorphone 1 MG/ML CARPUJECT IVP SCH ×2 (16:31→16:55)
[2019-09-26] MEDS: CEFEPIME 2 GM in SODIUM CHLORIDE 0.9% MINIBAG 100 ML IV SCH ×2 (16:33→21:05)
[2019-09-26] MEDS: SODIUM CHLORIDE 0.9% 1,000 ML IV SCH (18:17)
[2019-09-26] MEDS: ACETAMINOPHEN 325 MG TABLET PO PRN (18:21)
[2019-09-26] MEDS: VANCOMYCIN INJ 1 GM, VANCOMYCIN INJ 250 MG in SODIUM CHLORIDE 0.9% 250 ML IV SCH (18:21)
[2019-09-27] MEDS: SODIUM CHLORIDE FLUSH 0.9% 10 ML SYRINGE IVP SCH ×4 (00:18→21:33)
[2019-09-27] MEDS: CYCLOBENZAPRINE 10 MG TABLET PO PRN ×3 (00:19→17:02)
[2019-09-27] MEDS: HYDROmorphone 1 MG/ML CARPUJECT IVP PRN ×6 (00:19→21:33)
[2019-09-27] MEDS: HYDROcod/ACETAM 5/325 MG TABLET PO PRN ×4 (04:41→23:26)
[2019-09-27] MEDS: KETOROLAC 15 MG/ML VIAL IVP PRN ×2 (04:43→15:45)
[2019-09-27 05:28] LABS: BASOPHILS # (AUTO) 0.1 10^3/uL (0.0-0.1); BASOPHILS % (AUTO) 0.7 %; EOSINOPHILS # (AUTO) 0.3 10^3/uL (0.0-0.7); EOSINOPHILS % (AUTO) 2.9 %; HGB - HEMOGLOBIN 13.9 g/dL (12.0-16.0); LYMPHOCYTES # (AUTO) 1.1 10^3/uL (1.5-3.5); LYMPHOCYTES % (AUTO) 11.4 %; MEAN CORPUSCULAR HEMOGLOBIN 28.7 pg (27.0-31.0); MEAN CORPUSCULAR VOLUME 92.6 fL (81.0-99.0); MEAN PLATELET VOLUME 10.4 fL (7.9-10.8); MONOCYTES # (AUTO) 1.1 10^3/uL (0.0-1.0); MONOCYTES % (AUTO) 11.4 %; NEUTROPHILS # (AUTO) 7.2 10^3/uL (1.5-6.6); PLT - PLATELET COUNT 209 10^3/uL (130-450); RED BLOOD COUNT 4.84 10^6/uL (4.20-5.40); RED CELL DISTRIBUTION WIDTH 12.4 % (12.0-15.0); WHITE BLOOD COUNT 9.9 x10^3/uL (4.8-10.8)
[2019-09-27 05:36] LABS: ALBUMIN 3.5 g/dL (3.2-5.5); BILIRUBIN,TOTAL 0.8 mg/dL (0.2-1.0); CALCIUM 8.4 mg/dL (8.5-10.3); CREATININE 0.7 mg/dL (0.4-1.0); TOTAL PROTEIN 6.9 g/dL (6.7-8.2)
[2019-09-27] MEDS: VANCOMYCIN INJ 1 GM, VANCOMYCIN INJ 250 MG in SODIUM CHLORIDE 0.9% 250 ML IV SCH ×2 (05:58→18:30)
[2019-09-27] MEDS: SODIUM CHLORIDE 0.9% 1,000 ML IV SCH (06:24)
[2019-09-27] MEDS ORDERED: INSULIN GLARGINE 300 UNIT/3 ML PEN SUBQ SCH (08:00)
[2019-09-27] MEDS: ENOXAPARIN 40 MG/0.4 ML SYRINGE SUBQ SCH (08:28)
[2019-09-27] MEDS: CEFEPIME 2 GM in SODIUM CHLORIDE 0.9% MINIBAG 100 ML IV SCH (08:29)
[2019-09-27] MEDS: INSULIN ASPART 300 UNIT/3 ML PEN SUBQ SCH ×5 (08:31→20:43)
[2019-09-27] MEDS: INSULIN GLARGINE 300 UNIT/3 ML PEN SUBQ SCH (08:31)
[2019-09-27] MEDS ORDERED: IOVERSOL 320 100 ML VIAL IVP ONE ×2 (15:42→16:36)
[2019-09-27] MEDS: ONDANSETRON 4 MG/2 ML VIAL IVP PRN (15:48)
[2019-09-27] MEDS: ACETAMINOPHEN 325 MG TABLET PO PRN (15:50)
--- NOTE | 2019-09-27 15:51 | PROVIDER PROGRESS NOTE ---
Assessment/Plan - Problem List (1) Intractable pain Assessment/Plan: She is supposed to get oral narcotics and Dilaudid which are not controlling the pain. The pain is definitely pleuritic therefore we will add a nonsteroidal anti- inflammatory and check an ESR. Caloric dose will be increased. We will obtain a chest CT for more definitive imaging of the area. She will be made an Inpatient (2) Pleuritic chest pain Assessment/Plan: As above in #1. Flexeril was not helping the pain. She desaturated to 86% on room air, needs 2 L of oxygen Obtain CT chest, eval for PE. Will obtain an Echo as pericarditis could give her pleuritic pain although it would usually be on the left side, unless she has dextrocardia. Obtain ESR. Incentive spirometry was ordered but she cannot tolerated because of severe pain with minimal inspiration. (3) Pleural effusion Assessment/Plan: This was reported on the chest x-ray. CT chest ordered. Nonsteroidal anti-inflammatories will be started for management (4) CAP (community acquired pneumonia) Assessment/Plan: She started getting a new cough today but has such bad splinting that she cannot expectorate anything Her COVID nasal swab was sent yesterday, it has returned negative. Will obtain a chest CT to evaluate lung parenchyma in more detail. Will stop the respiratory isolation order. Continue empiric broadened antibiotics of Vanco and Cefipime. (5) DM (diabetes mellitus), type 2, uncontrolled Assessment/Plan: Patient has had elevated A1c's for months, at this presentation, the A1c is greater than 12. She has been started on sliding scale insulin and carb controlled diet and seen by diabetic nurse educator yesterday. She will be discharged on oral agents to start management and needs close foll ow-up and weight loss (6) Hyponatremia Assessment/Plan: [place] related to hyperglycemia but also may be from the long pathology. Follow BMP daily. (7) Horseshoe kidney Assessment/Plan: Patient was diagnosed with this at her last admission when she needed cholecystectomy. It was again reported on imaging of the abdomen by CT this admission. - Current Meds Current Meds: Current Medications Generic Name Dose Route Start Last Admin Trade Name Freq PRN Reason Stop Dose Admin Acetaminophen 650 mg 09/26/19 16:53 09/26/19 18:21 Tylenol PO 650 mg Q4HR PRN Administration Pain or Fever > 38C (100.4F) Hydrocodone Bitart/Acetaminophen 1 tab 09/25/19 22:06 09/27/19 13:23 [place] 5/325 PO 1 tab Q4HR PRN Administration Pain 5 to 7 Cyclobenzaprine HCl 10 mg 09/25/19 23:02 09/27/19 08:28 Flexeril PO 10 mg TID PRN Administration Spasms Enoxaparin Sodium 40 mg 09/26/19 09:00 09/27/19 08:28 Lovenox SUBQ 40 mg DAILY SONIA Administration Hydromorphone HCl 1 mg 09/26/19 06:53 09/27/19 12:01 Dilaudid Inj Carp IVP 1 mg Q2H PRN Administration PAIN 8-10 Cefepime HCl 2 gm/ Sodium 100 mls @ 200 mls/hr 09/26/19 16:15 09/27/19 09:00 Chloride IV Infused BID SONIA Infusion Vancomycin HCl 1 gm/ 250 mls @ 167 mls/hr 09/26/19 18:00 09/27/19 06:55 Vancomycin HCl 250 mg/ Sodium IV Infused Chloride Q12H SONIA Infusion Insulin Aspart 5 unit 09/26/19 08:00 09/27/19 08:31 Novolog SUBQ 5 unit QDBREAKFAST SONIA Administration Protocol Insulin Aspart 1 - 9 unit 09/26/19 08:00 09/27/19 11:58 Novolog SUBQ 3 unit 0800,1200,1700,2100 SONIA Administration Protocol Insulin Glargine 15 unit 09/27/19 08:00 09/27/19 08:31 Lantus Solostar SUBQ 15 unit QDBREAKFAST SONIA Administration Ketorolac Tromethamine 15 mg 09/26/19 06:53 09/27/19 15:45 Toradol Inj (15mg) IVP 10/01/19 06:52 15 mg Q6HR PRN Administration PAIN Ondansetron HCl 4 mg 09/25/19 22:06 09/27/19 15:48 Zofran Inj IVP 4 mg Q6HR PRN Administration Nausea / Vomiting Sodium Chloride 10 ml 09/26/19 01:00 09/27/19 09:00 Normal Saline Flush 0.9% IVP 10 ml 0100,0900,1700 SONIA Administration - Lab Result Fish Bone Diagrams: 09/27/19 04:40 09/27/19 04:40 - Additional Planning My Orders: My Active Orders 09/27/19 ESR- ERYTHROCYTE SEDIMENT RATE [HEME] Urgent 09/27/19 12:17 Isolation [Isolation - Discontinue] [RC] .once 09/27/19 15:27 CHEST W [CT] Stat 09/27/19 15:46 Admit \ Transfer \ Status [RC] .ONCE 09/28/19 05:00 BMP - BASIC METABOLIC PANEL [CHEM] DAILYLAB 09/29/19 05:00 BMP - BASIC METABOLIC PANEL [CHEM] DAILYLAB 09/30/19 05:00 BMP - BASIC METABOLIC PANEL [CHEM] DAILYLAB 10/01/19 05:00 BMP - BASIC METABOLIC PANEL [CHEM] DAILYLAB Subjective - Subjective Patient Reports: Pain (Worsened pleuritic chest pain, rated 10 out of 10, it has now wrapped around from the right flank area to the right axillary line and below the right breast. She is visibly splinting because of it.) Objective Vital Signs: Vital Signs - 24 hr 09/26/19 09/26/19 09/27/19 16:01 21:00 00:06 Temperature 37.3 C 38.1 C H 37.4 C Heart Rate [ 99 85 91 Brachial] Respiratory 24 17 18 Rate Blood Pressure 148/89 H 119/75 123/67 [Left Brachial artery] O2 Saturation 92 95 93 09/27/19 09/27/19 09/27/19 05:48 07:39 13:11 Temperature 37.3 C 36.9 C 37.4 C Heart Rate [ 91 89 91 Brachial] Respiratory 20 18 22 Rate Blood Pressure 135/79 H 99/62 141/93 H [Left Brachial artery] O2 Saturation 93 94 94 Oxygen O2 Source Nasal cannula I&O (Last 24 Hrs): Intake and Output Totals x24h 09/25/19 09/26/19 09/27/19 23:59 23:59 23:59 Intake Total 240 3010 1820.000 Output Total 100 300 Balance 140 3010 1520.000 General: Alert, Moderate distress HEENT: Atraumatic, EOMI, Mucous membr. moist/pink Neck: Supple, No JVD Neuro: Alert, Non Focal Cardiovascular: Regular rate, Other (Distant heart sounds) Respiratory: Other (Distant breath sounds, Cannot rule out a rub) Abdomen: Soft, Other Extremities: No edema - Results Results: Laboratory Results WBC 9.9 x10^3/uL (4.8-10.8) 09/27/19 04:40 RBC 4.84 10^6/uL (4.20-5.40) 09/27/19 04:40 Hgb 13.9 g/dL (12.0-16.0) 09/27/19 04:40 Hct 44.8 % (37.0-47.0) 09/27/19 04:40 MCV 92.6 fL (81.0-99.0) 09/27/19 04:40 MCH 28.7 pg (27.0-31.0) 09/27/19 04:40 MCHC 31.0 g/dL (32.0-36.0) L 09/27/19 04:40 RDW 12.4 % (12.0-15.0) 09/27/19 04:40 Plt Count 209 10^3/uL (130-450) 09/27/19 04:40 MPV 10.4 fL (7.9-10.8) 09/27/19 04:40 Neut # (Auto) 7.2 10^3/uL (1.5-6.6) H 09/27/19 04:40 Lymph # (Auto) 1.1 10^3/uL (1.5-3.5) L 09/27/19 04:40 [place] # (Auto) 1.1 10^3/uL (0.0-1.0) H 09/27/19 04:40 Eos # (Auto) 0.3 10^3/uL (0.0-0.7) 09/27/19 04:40 Baso # (Auto) 0.1 10^3/uL (0.0-0.1) 09/27/19 04:40 Absolute Nucleated RBC 0.00 x10^3/uL 09/27/19 04:40 Nucleated RBC % 0.0 /100WBC 09/27/19 04:40 PT 12.9 secs (9.9-12.6) H 09/25/19 20:15 INR 1.1 (0.8-1.2) 09/25/19 20:15 APTT 27.0 secs (24.9-33.3) 09/25/19 20:15 Sodium 133 mmol/L (135-145) L 09/27/19 04:40 Potassium 4.2 mmol/L (3.5-5.0) 09/27/19 04:40 Chloride 99 mmol/L (101-111) L 09/27/19 04:40 Carbon Dioxide 25 mmol/L (21-32) 09/27/19 04:40 Anion Gap 9.0 (6-13) 09/27/19 04:40 BUN 12 mg/dL (6-20) 09/27/19 04:40 Creatinine 0.7 mg/dL (0.4-1.0) 09/27/19 04:40 Estimated GFR (MDRD) 85 (>89) L 09/27/19 04:40 Glucose 230 mg/dL (70-100) H 09/27/19 04:40 POC Whole Bld Glucose 194 mg/dL (70 - 100) H 09/27/19 11:18 Glycated Hemoglobin 12.4 % (4.6-6.2) H 09/26/19 04:30 Estim Average Glucose 309 (70-100) H 09/26/19 04:30 Lactic Acid 2.0 mmol/L (0.5-2.2) 09/25/19 20:15 Calcium 8.4 mg/dL (8.5-10.3) L 09/27/19 04:40 Total Bilirubin 0.8 mg/dL (0.2-1.0) 09/27/19 04:40 AST 34 IU/L (10-42) 09/27/19 04:40 ALT 46 IU/L (10-60) 09/27/19 04:40 Alkaline Phosphatase 83 IU/L (42-121) 09/27/19 04:40 Troponin I High Sens 2.6 ng/L (2.3-14.8) 09/25/19 20:15 B-Natriuretic Peptide 13 pg/mL (5-100) 09/25/19 20:15 Total Protein 6.9 g/dL (6.7-8.2) 09/27/19 04:40 Albumin 3.5 g/dL (3.2-5.5) 09/27/19 04:40 Globulin 3.4 g/dL (2.1-4.2) 09/27/19 04:40 Albumin/Globulin Ratio 1.0 (1.0-2.2) 09/27/19 04:40 Lipase 23 U/L (22-51) 09/25/19 20:15 Urine Color YELLOW 09/25/19 20:56 Urine Clarity CLEAR (CLEAR) 09/25/19 20:56 Urine pH 5.0 PH (5.0-7.5) 09/25/19 20:56 Ur Specific [place] >=1.030 (1.002-1.030) H 09/25/19 20:56 Urine Protein NEGATIVE mg/dL (NEGATIVE) 09/25/19 20:56 Urine Glucose (UA) 500 mg/dL (NEGATIVE) H 09/25/19 20:56 Urine Ketones TRACE mg/dL (NEGATIVE) 09/25/19 20:56 Urine Occult Blood NEGATIVE (NEGATIVE) 09/25/19 20:56 Urine Nitrite NEGATIVE (NEGATIVE) 09/25/19 20:56 Urine Bilirubin NEGATIVE (NEGATIVE) 09/25/19 20:56 Urine Urobilinogen 0.2 (NORMAL) E.U./dL (NORMAL) 09/25/19 20:56 Ur Leukocyte Esterase NEGATIVE (NEGATIVE) 09/25/19 20:56 Ur Microscopic Review NOT INDICATED 09/25/19 20:56 Urine Culture Comments NOT INDICATED 09/25/19 20:56 Urine HCG, Qual NEGATIVE 09/25/19 20:56 Coronavirus (PCR) NEGATIVE 09/26/19 11:30 - Procedures Procedures: Procedures EXCISION OF LIVER, PERCUTANEOUS APPROACH, DIAGNOSTIC (08/11/17) EXCISION OF SIGMOID COLON, ENDO (10/31/18) RESECTION OF GALLBLADDER, PERCUTANEOUS ENDOSCOPIC APPROACH (08/11/17)
--- NOTE | 2019-09-27 17:08 | CT Report ---
Reason: Pleuritic R chest pain Procedure Date: 09/27/2019 Accession Number: [id number] / [id number] Procedure: CT - CHEST W CPT Code: Final Report FULL RESULT: EXAM: CT CHEST EXAM DATE: 09/27/2019 04:33 PM. CLINICAL HISTORY: Pleuritic R chest pain. COMPARISONS: CHEST 1 VIEW 09/26/2019 8:04 AM ANGIO CHEST W/WO 09/25/2019 8:30 AM. TECHNIQUE: Routine helical CT imaging was performed through the chest. IV contrast: 80 cc Optiray 320. Reconstructions: Coronal and sagittal. In accordance with CT protocol optimization, one or more of the following dose reduction techniques were utilized for this exam: automated exposure control, adjustment of mA and/or KV based on patient size, or use of iterative reconstructive technique. FINDINGS: Lungs/Pleura: Right upper lobe areas of atelectasis or infiltrate. Right middle lobe infiltrate. Right lower lobe infiltrate. Loculated right effusion 3.6 cm. Left upper lobe small peripheral areas of infiltrate. Left lower lobe infiltrate. Left apical scarring. Areas of infiltrate in the lingula. Mediastinum: Mediastinal adenopathy. Largest lymph node as azygoesophageal 1.2 cm. Bilateral hilar adenopathy. Heart size normal. Right cardiophrenic angle small lymph nodes Bones: Unremarkable. Visualized Abdomen: Fatty infiltrated liver with areas of fatty sparing Other: Right thyroid 2.1 cm nodular density. IMPRESSION: 1. Bilateral areas of infiltrate most prominent in right middle lobe, right lower lobe. Loculated right pleural effusion 3.6 cm. 2. Mediastinal and hilar adenopathy. 3. Right thyroid nodule could be evaluated with ultrasound [facility]
[2019-09-27] MEDS ORDERED: AZITHROMYCIN INJ 500 MG in SODIUM CHLORIDE 0.9% 250 ML IV SCH (18:03)
[2019-09-27] MEDS: AMPICILLIN/SULBACTAM 3 GM in SODIUM CHLORIDE 0.9% MINIBAG 100 ML IV SCH (20:31)
[2019-09-27] MEDS: KETOROLAC 30 MG/ML VIAL IVP PRN (20:40)
[2019-09-27] MEDS: AZITHROMYCIN INJ 500 MG in SODIUM CHLORIDE 0.9% 250 ML IV SCH (21:35)
[2019-09-28] MEDS: CYCLOBENZAPRINE 10 MG TABLET PO PRN ×2 (00:58→13:03)
[2019-09-28] MEDS: AMPICILLIN/SULBACTAM 3 GM in SODIUM CHLORIDE 0.9% MINIBAG 100 ML IV SCH ×5 (00:58→23:56)
[2019-09-28] MEDS: SODIUM CHLORIDE FLUSH 0.9% 10 ML SYRINGE IVP PRN ×2 (03:29→04:57)
[2019-09-28] MEDS: HYDROcod/ACETAM 5/325 MG TABLET PO PRN ×5 (03:29→22:56)
[2019-09-28] MEDS: HYDROmorphone 1 MG/ML CARPUJECT IVP PRN ×5 (03:29→19:51)
[2019-09-28] MEDS: KETOROLAC 30 MG/ML VIAL IVP PRN ×2 (04:57→10:55)
[2019-09-28 05:33] LABS: BASOPHILS # (AUTO) 0.1 10^3/uL (0.0-0.1); BASOPHILS % (AUTO) 0.8 %; EOSINOPHILS # (AUTO) 0.2 10^3/uL (0.0-0.7); EOSINOPHILS % (AUTO) 3.1 %; HGB - HEMOGLOBIN 12.9 g/dL (12.0-16.0); LYMPHOCYTES # (AUTO) 0.8 10^3/uL (1.5-3.5); LYMPHOCYTES % (AUTO) 11.1 %; MEAN CORPUSCULAR HEMOGLOBIN 28.7 pg (27.0-31.0); MEAN CORPUSCULAR HGB CONC 31.3 g/dL (32.0-36.0); MEAN CORPUSCULAR VOLUME 91.6 fL (81.0-99.0); MEAN PLATELET VOLUME 10.3 fL (7.9-10.8); MONOCYTES # (AUTO) 0.9 10^3/uL (0.0-1.0); MONOCYTES % (AUTO) 12.3 %; NEUTROPHILS # (AUTO) 5.4 10^3/uL (1.5-6.6); NEUTROPHILS % (AUTO) 72.2 %; PLT - PLATELET COUNT 198 10^3/uL (130-450); RED CELL DISTRIBUTION WIDTH 12.3 % (12.0-15.0); WHITE BLOOD COUNT 7.5 x10^3/uL (4.8-10.8)
[2019-09-28 05:49] LABS: BUN - BLOOD UREA NITROGEN 8 mg/dL (6-20); CALCIUM 8.2 mg/dL (8.5-10.3); CARBON DIOXIDE - CO2 25 mmol/L (21-32); CHLORIDE 102 mmol/L (101-111); CREATININE 0.6 mg/dL (0.4-1.0); GLUCOSE 209 mg/dL (70-100); SODIUM 134 mmol/L (135-145); VANCOMYCIN,TROUGH 8.8 ug/mL (10.0-20.0)
[2019-09-28 06:16] LABS: MAGNESIUM 2.2 mg/dL (1.7-2.8); PHOSPHORUS 2.4 mg/dL (2.5-4.6)
[2019-09-28] MEDS: VANCOMYCIN INJ 1 GM, VANCOMYCIN INJ 250 MG in SODIUM CHLORIDE 0.9% 250 ML IV SCH (06:34)
[2019-09-28] MEDS: INSULIN ASPART 300 UNIT/3 ML PEN SUBQ SCH ×5 (08:01→21:03)
[2019-09-28] MEDS: INSULIN GLARGINE 300 UNIT/3 ML PEN SUBQ SCH (08:02)
[2019-09-28] MEDS: SODIUM CHLORIDE FLUSH 0.9% 10 ML SYRINGE IVP SCH ×3 (08:15→23:56)
[2019-09-28] MEDS: ENOXAPARIN 40 MG/0.4 ML SYRINGE SUBQ SCH (08:15)
[2019-09-28] MEDS ORDERED: POTASSIUM PHOSPHATE 15 MMOL in SODIUM CHLORIDE 0.9% 250 ML IV ONE (10:00)
[2019-09-28] MEDS: NEUTRA-PHOS 250 MG TABLET PO SCH ×2 (11:49→13:10)
--- NOTE | 2019-09-28 12:33 | PROVIDER PROGRESS NOTE ---
Assessment/Plan - Problem List (1) Intractable pain Assessment/Plan: Her pain is overall somewhat better but still occurs with activity, inspiration, movement or cough. She is holding a pillow in front of her chest when coughing. We will make her NSAIDs scheduled. (2) Pleuritic chest pain Assessment/Plan: Will make her IV NSAID scheduled for the next 1 to 2 days. Hopefully she can resume incentive spirometry that way. Will order an Echo to R/O a pericardial effusion, which could also give severe pleuritic pain, which is usually anterior, not R lateral and R flank area. (3) Pleural effusion Assessment/Plan: The NSAID is being used for pain control and anti-inflammatory effect of this pleural effusion. (4) CAP (community acquired pneumonia) Assessment/Plan: A multilobar pneumonia was found yesterday by CT of the chest. Continue with IV antibiotics empiric. We will order respiratory culture however she may not be able to produce sputum because of splinting when coughing and sputum could be normal since she has had 2 to 3 days of antibiotics. (5) Multilobar lung infiltrate Assessment/Plan: Yesterday, a chest CT scan showed involvement of every lobe of the lungs, bilaterally. I confirmed that by speaking to the [facility] interpreting radiologist personally. The images are not consistent with COVID pneumonia, the radiologist described. It is unclear why she has such a diffuse pneumonia. (6) DM (diabetes mellitus), type 2, uncontrolled Assessment/Plan: At presentation, her A1c was 12. She has had elevated A1c's in the 6 range for many months and has never started diabetic treatment. Several days ago she had a first visit from a diabetic nurse specialist teacher. She will need to follow with the [facility] here or her PCP or an admissions gate attendant. She is on a carb controlled diet and sliding scale insulin while here, at discharge metformin will be started (7) Hyponatremia Assessment/Plan: She is still hovering between 132 and 134 daily. This is likely from her hyperglycemia or the significant pulmonary disease. Follow BMP daily (8) Horseshoe kidney Assessment/Plan: As per Hx. (9) Morbid obesity with BMI of 45.0-49.9, adult Assessment/Plan: Weight loss would also help DM management. (10) Hx of cardiomyopathy Assessment/Plan: Today the patient revealed to me that she remembered having chest pain 2 years ago when she came here to the ER, and then was transferred to [facility] because she "had a heart attack". She said she had a coronary angiogram and did not need stents, and she was diagnosed "with a cardiomyopathy". She follows by Dr. Onofre every 6 months and states the cardiomyopathy "has healed itself". And yet, she was on no prescription meds before this hospitalization. An Echo will be ordered, to evaluate LV function and also the RV, in case or Cor Pulmonale. - Current Meds Current Meds: Current Medications Generic Name Dose Route Start Last Admin Trade Name Freq PRN Reason Stop Dose Admin Acetaminophen 650 mg 09/26/19 16:53 09/27/19 15:50 Tylenol PO 650 mg Q4HR PRN Administration Pain or Fever > 38C (100.4F) Hydrocodone Bitart/Acetaminophen 1 tab 09/25/19 22:06 09/28/19 11:50 [place] 5/325 PO 1 tab Q4HR PRN Administration Pain 5 to 7 Cyclobenzaprine HCl 10 mg 09/25/19 23:02 09/28/19 00:58 Flexeril PO 10 mg TID PRN Administration Spasms Enoxaparin Sodium 40 mg 09/26/19 09:00 09/28/19 08:15 Lovenox SUBQ 40 mg DAILY SONIA Administration Hydromorphone HCl 1 mg 09/26/19 06:53 09/28/19 10:55 Dilaudid Inj Carp IVP 1 mg Q2H PRN Administration PAIN 8-10 Ampicillin Sodium/Sulbactam 100 mls @ 200 mls/hr 09/27/19 19:00 09/28/19 12:05 Sodium 3 gm/ Sodium Chloride IV 200 mls/hr Q6HR SONIA Administration Azithromycin 500 mg/ Sodium 250 mls @ 250 mls/hr 09/27/19 19:00 09/27/19 22:45 Chloride IV Infused 1800 SONIA Infusion Potassium Phosphate 15 mmol/ 255 mls @ 63 mls/hr 09/28/19 10:00 09/28/19 10:30 Sodium Chloride IV 09/28/19 14:02 Infused ONCE ONE Infusion Protocol Insulin Aspart 5 unit 09/26/19 08:00 09/28/19 08:01 Novolog SUBQ 5 unit QDBREAKFAST SONIA Administration Protocol Insulin Aspart 1 - 9 unit 09/26/19 08:00 09/28/19 11:57 Novolog SUBQ 1 unit 0800,1200,1700,2100 SONIA Administration Protocol Insulin Glargine 15 unit 09/27/19 08:00 09/28/19 08:02 Lantus Solostar SUBQ 15 unit QDBREAKFAST SONIA Administration Ondansetron HCl 4 mg 09/25/19 22:06 09/27/19 15:48 Zofran Inj IVP 4 mg Q6HR PRN Administration Nausea / Vomiting Sodium Chloride 10 ml 09/25/19 22:06 09/28/19 04:57 Normal Saline Flush 0.9% IVP 10 ml PRN PRN Administration NEEDED PER PROVIDER ORDERS Sodium Chloride 10 ml 09/26/19 01:00 09/28/19 08:15 Normal Saline Flush 0.9% IVP 10 ml 0100,0900,1700 SONIA Administration Sodium Phosphate 250 mg 09/28/19 11:00 09/28/19 11:49 K-Phos Neutral PO 09/28/19 13:01 250 mg Q2H SONIA Administration Protocol - Lab Result Fish Bone Diagrams: 09/28/19 05:20 09/28/19 05:20 - Additional Planning My Orders: My Active Orders 09/27/19 17:54 Daily Weight [RC] 0600 Initiate Bronchodialator Britany [RC] .PROTOCOL Initiate ICU Electrolyte Prot. [RC] .protocol Initiate Lung Inflation Protoc [RC] .PROTOCOL Initiate Secretion Clearance P [RC] .PROTOCOL Code Status [OTHERS] Routine 09/27/19 17:56 Oral Care - Nursing [RC] Routine Telemetry- [RC] Q4HR Turn, Cough and Deep Breathe [RC] Routine 09/27/19 19:00 Ampicillin/Sulbactam [Unasyn] 3 gm Sodium Chloride 0.9% Minibag [Normal Saline 0.9% Minibag] 100 ml IV Q6HR Azithromycin Inj [Zithromax Inj] 500 mg Sodium Chloride 0.9% [Normal Saline 0.9%] 250 ml IV 1800 09/28/19 10:00 Potassium Phosphate 15 mmol Sodium Chloride 0.9% [Normal Saline 0.9%] 250 ml IV ONCE 09/28/19 18:00 Ketorolac Inj (30Mg) [Toradol Inj (30Mg)] 30 mg IVP Q6HR 09/29/19 05:00 BMP - BASIC METABOLIC PANEL [CHEM] DAILYLAB 09/30/19 05:00 BMP - BASIC METABOLIC PANEL [CHEM] DAILYLAB 10/01/19 05:00 BMP - BASIC METABOLIC PANEL [CHEM] DAILYLAB Objective Vital Signs: Vital Signs - 24 hr 09/27/19 09/27/19 09/27/19 13:11 16:38 18:20 Temperature 37.4 C 37.2 C 37.1 C Heart Rate [ 91 90 91 Brachial] Respiratory 22 20 19 Rate Blood Pressure 141/93 H 145/80 H 150/72 H [Left Brachial artery] Blood Pressure [Right Radial artery] O2 Saturation 94 95 95 09/27/19 09/27/19 09/27/19 19:57 20:00 21:00 Temperature 37.2 C 37.2 C Heart Rate [ 84 88 Brachial] Respiratory 17 19 Rate Blood Pressure 109/75 100/82 H [Left Brachial artery] Blood Pressure [Right Radial artery] O2 Saturation 94 92 09/27/19 09/27/19 09/28/19 22:16 23:00 00:00 Temperature 36.7 C 36.7 C Heart Rate [ 88 84 82 Brachial] Respiratory 19 17 13 Rate Blood Pressure 102/59 L 101/69 [Left Brachial artery] Blood Pressure 98/71 [Right Radial artery] O2 Saturation 92 91 L 90 L 09/28/19 09/28/19 09/28/19 01:00 02:00 03:01 Temperature Heart Rate [ 87 81 86 Brachial] Respiratory 21 17 17 Rate Blood Pressure [Left Brachial artery] Blood Pressure 120/70 129/88 H 152/96 H [Right Radial artery] O2 Saturation 94 95 93 09/28/19 09/28/19 09/28/19 04:19 05:00 06:00 Temperature Heart Rate [ 93 88 86 Brachial] Respiratory 23 16 95 H Rate Blood Pressure [Left Brachial artery] Blood Pressure 139/74 H 138/93 H 112/71 [Right Radial artery] O2 Saturation 92 92 16 L 09/28/19 09/28/19 09/28/19 07:00 08:00 09:00 Temperature Heart Rate [ 80 88 85 Brachial] Respiratory 13 23 16 Rate Blood Pressure [Left Brachial artery] Blood Pressure 111/59 L 124/79 123/58 L [Right Radial artery] O2 Saturation 95 96 94 05/24/20 11:00 Temperature Heart Rate [ 85 Brachial] Respiratory 14 Rate Blood Pressure [Left Brachial artery] Blood Pressure 123/79 [Right Radial artery] O2 Saturation 95 Oxygen O2 Source Nasal cannula I&O (Last 24 Hrs): Intake and Output Totals x24h 09/26/19 09/27/19 09/28/19 23:59 23:59 23:59 Intake Total 3010 3120.000 1469 Output Total 1400 700 Balance 3010 1720.000 769 General: Alert, Oriented x3 HEENT: Mucous membr. moist/pink, Other (Hoarsew voice, new since yesterday) Neck: Supple, No JVD Neuro: Alert, Non Focal Cardiovascular: Regular rate, No murmurs, Other (Diastnat heart sounds due to large breasts) Respiratory: Other (Distant breath sounds antyyeriorly, scattered wheezes posteriorly (per her RN, Cirilo).) Abdomen: Soft, No tenderness, Other (Obese with a pannus) Extremities: No clubbing, No edema - Results Results: Laboratory Results WBC 7.5 x10^3/uL (4.8-10.8) 09/28/19 05:20 RBC 4.50 10^6/uL (4.20-5.40) 09/28/19 05:20 Hgb 12.9 g/dL (12.0-16.0) 09/28/19 05:20 Hct 41.2 % (37.0-47.0) 09/28/19 05:20 MCV 91.6 fL (81.0-99.0) 09/28/19 05:20 MCH 28.7 pg (27.0-31.0) 09/28/19 05:20 MCHC 31.3 g/dL (32.0-36.0) L 09/28/19 05:20 RDW 12.3 % (12.0-15.0) 09/28/19 05:20 Plt Count 198 10^3/uL (130-450) 09/28/19 05:20 MPV 10.3 fL (7.9-10.8) 09/28/19 05:20 Neut # (Auto) 5.4 10^3/uL (1.5-6.6) 09/28/19 05:20 Lymph # (Auto) 0.8 10^3/uL (1.5-3.5) L 09/28/19 05:20 [place] # (Auto) 0.9 10^3/uL (0.0-1.0) 09/28/19 05:20 Eos # (Auto) 0.2 10^3/uL (0.0-0.7) 09/28/19 05:20 Baso # (Auto) 0.1 10^3/uL (0.0-0.1) 09/28/19 05:20 Absolute Nucleated RBC 0.00 x10^3/uL 09/28/19 05:20 Nucleated RBC % 0.0 /100WBC 09/28/19 05:20 ESR 52 mm/Hr (0-30) H 09/27/19 16:00 PT 12.9 secs (9.9-12.6) H 09/25/19 20:15 INR 1.1 (0.8-1.2) 09/25/19 20:15 APTT 27.0 secs (24.9-33.3) 09/25/19 20:15 Sodium 134 mmol/L (135-145) L 09/28/19 05:20 Potassium 3.8 mmol/L (3.5-5.0) 09/28/19 05:20 Chloride 102 mmol/L (101-111) 09/28/19 05:20 Carbon Dioxide 25 mmol/L (21-32) 09/28/19 05:20 Anion Gap 7.0 (6-13) 09/28/19 05:20 BUN 8 mg/dL (6-20) 09/28/19 05:20 Creatinine 0.6 mg/dL (0.4-1.0) 09/28/19 05:20 Estimated GFR (MDRD) 102 (>89) 09/28/19 05:20 Glucose 209 mg/dL (70-100) H 09/28/19 05:20 POC Whole Bld Glucose 153 mg/dL (70 - 100) H 09/28/19 11:54 Glycated Hemoglobin 12.4 % (4.6-6.2) H 09/26/19 04:30 Estim Average Glucose 309 (70-100) H 09/26/19 04:30 Lactic Acid 2.0 mmol/L (0.5-2.2) 09/25/19 20:15 Calcium 8.2 mg/dL (8.5-10.3) L 09/28/19 05:20 Phosphorus 2.4 mg/dL (2.5-4.6) L 09/28/19 05:20 Magnesium 2.2 mg/dL (1.7-2.8) 09/28/19 05:20 Total Bilirubin 0.8 mg/dL (0.2-1.0) 09/27/19 04:40 AST 34 IU/L (10-42) 09/27/19 04:40 ALT 46 IU/L (10-60) 09/27/19 04:40 Alkaline Phosphatase 83 IU/L (42-121) 09/27/19 04:40 Troponin I High Sens 2.6 ng/L (2.3-14.8) 09/25/19 20:15 B-Natriuretic Peptide 13 pg/mL (5-100) 09/25/19 20:15 Total Protein 6.9 g/dL (6.7-8.2) 09/27/19 04:40 Albumin 3.5 g/dL (3.2-5.5) 09/27/19 04:40 Globulin 3.4 g/dL (2.1-4.2) 09/27/19 04:40 Albumin/Globulin Ratio 1.0 (1.0-2.2) 09/27/19 04:40 Lipase 23 U/L (22-51) 09/25/19 20:15 Urine Color YELLOW 09/25/19 20:56 Urine Clarity CLEAR (CLEAR) 09/25/19 20:56 Urine pH 5.0 PH (5.0-7.5) 09/25/19 20:56 Ur Specific [place] >=1.030 (1.002-1.030) H 09/25/19 20:56 Urine Protein NEGATIVE mg/dL (NEGATIVE) 09/25/19 20:56 Urine Glucose (UA) 500 mg/dL (NEGATIVE) H 09/25/19 20:56 Urine Ketones TRACE mg/dL (NEGATIVE) 09/25/19 20:56 Urine Occult Blood NEGATIVE (NEGATIVE) 09/25/19 20:56 Urine Nitrite NEGATIVE (NEGATIVE) 09/25/19 20:56 Urine Bilirubin NEGATIVE (NEGATIVE) 09/25/19 20:56 Urine Urobilinogen 0.2 (NORMAL) E.U./dL (NORMAL) 09/25/19 20:56 Ur Leukocyte Esterase NEGATIVE (NEGATIVE) 09/25/19 20:56 Ur Microscopic Review NOT INDICATED 09/25/19 20:56 Urine Culture Comments NOT INDICATED 09/25/19 20:56 Urine HCG, Qual NEGATIVE 09/25/19 20:56 Nasal Screen MRSA (PCR) NEGATIVE (NEGATIVE) 09/27/19 18:15 Last Dose Date 09/26/19 09/28/19 05:20 Last Dose Time 1800 09/28/19 05:20 Vancomycin Trough 8.8 ug/mL (10.0-20.0) L 09/28/19 05:20 Coronavirus (PCR) NEGATIVE 09/26/19 11:30 - Procedures Procedures: Procedures EXCISION OF LIVER, PERCUTANEOUS APPROACH, DIAGNOSTIC (08/11/17) EXCISION OF SIGMOID COLON, ENDO (10/31/18) RESECTION OF GALLBLADDER, PERCUTANEOUS ENDOSCOPIC APPROACH (08/11/17)
[2019-09-28] MEDS: VANCOMYCIN IV SCH (13:05)
[2019-09-28] MEDS: SODIUM CHLORIDE 0.9% IV SCH (13:05)
[2019-09-28] MEDS: KETOROLAC 30 MG/ML VIAL IVP SCH ×2 (18:09→23:56)
[2019-09-28] MEDS: ACETAMINOPHEN 325 MG TABLET PO PRN (18:13)
[2019-09-28] MEDS: AZITHROMYCIN INJ 500 MG in SODIUM CHLORIDE 0.9% 250 ML IV SCH (19:51)
[2019-09-28] MEDS: FAMOTIDINE 20 MG TABLET PO SCH (21:03)
[2019-09-29] MEDS: VANCOMYCIN IV SCH ×2 (01:52→13:50)
[2019-09-29] MEDS: SODIUM CHLORIDE 0.9% IV SCH ×2 (01:52→13:50)
[2019-09-29] MEDS: HYDROmorphone 1 MG/ML CARPUJECT IVP PRN ×5 (04:11→23:06)
[2019-09-29 05:03] LABS: BASOPHILS # (AUTO) 0.1 10^3/uL (0.0-0.1); BASOPHILS % (AUTO) 0.9 %; EOSINOPHILS # (AUTO) 0.3 10^3/uL (0.0-0.7); EOSINOPHILS % (AUTO) 5.2 %; HGB - HEMOGLOBIN 12.7 g/dL (12.0-16.0); LYMPHOCYTES # (AUTO) 1.1 10^3/uL (1.5-3.5); LYMPHOCYTES % (AUTO) 18.3 %; MEAN CORPUSCULAR HEMOGLOBIN 28.7 pg (27.0-31.0); MEAN CORPUSCULAR HGB CONC 30.7 g/dL (32.0-36.0); MEAN CORPUSCULAR VOLUME 93.7 fL (81.0-99.0); MONOCYTES # (AUTO) 0.7 10^3/uL (0.0-1.0); MONOCYTES % (AUTO) 11.2 %; NEUTROPHILS # (AUTO) 3.7 10^3/uL (1.5-6.6); NEUTROPHILS % (AUTO) 63.7 %; PLT - PLATELET COUNT 225 10^3/uL (130-450); RED BLOOD COUNT 4.42 10^6/uL (4.20-5.40); RED CELL DISTRIBUTION WIDTH 12.4 % (12.0-15.0); WHITE BLOOD COUNT 5.8 x10^3/uL (4.8-10.8)
[2019-09-29 05:15] LABS: CREATININE 0.6 mg/dL (0.4-1.0); PHOSPHORUS 3.6 mg/dL (2.5-4.6)
[2019-09-29] MEDS: AMPICILLIN/SULBACTAM 3 GM in SODIUM CHLORIDE 0.9% MINIBAG 100 ML IV SCH ×3 (05:51→20:15)
[2019-09-29] MEDS: KETOROLAC 30 MG/ML VIAL IVP SCH ×3 (05:51→19:16)
[2019-09-29] MEDS: HYDROcod/ACETAM 5/325 MG TABLET PO PRN ×2 (06:51→11:02)
[2019-09-29] MEDS: CYCLOBENZAPRINE 10 MG TABLET PO PRN ×3 (06:54→16:00)
[2019-09-29] MEDS: INSULIN ASPART 300 UNIT/3 ML PEN SUBQ SCH ×5 (08:12→20:56)
[2019-09-29] MEDS: INSULIN GLARGINE 300 UNIT/3 ML PEN SUBQ SCH (08:18)
[2019-09-29] MEDS: polyethylene glycoL 3350 17 GM PACKET PO SCH (08:24)
[2019-09-29] MEDS: ACETAMINOPHEN 325 MG TABLET PO PRN ×2 (08:27→20:00)
[2019-09-29] MEDS: SODIUM CHLORIDE FLUSH 0.9% 10 ML SYRINGE IVP SCH ×2 (08:27→17:19)
[2019-09-29] MEDS: ENOXAPARIN 40 MG/0.4 ML SYRINGE SUBQ SCH (08:38)
[2019-09-29] MEDS: FAMOTIDINE 20 MG TABLET PO SCH ×2 (08:49→20:15)
[2019-09-29] MEDS: ONDANSETRON 4 MG/2 ML VIAL IVP PRN (08:56)
[2019-09-29] MEDS: SODIUM CHLORIDE FLUSH 0.9% 10 ML SYRINGE IVP PRN (08:57)
[2019-09-29] MEDS: BENZONATATE 100 MG CAPSULE PO PRN ×2 (10:40→17:31)
--- NOTE | 2019-09-29 13:10 | PROVIDER PROGRESS NOTE ---
Assessment/Plan - Problem List (1) Intractable pain Assessment/Plan: Overall her pain is better than on the first 2 days of admission. She still gets breakthrough pain when her medications wear off. (2) Pleuritic chest pain Assessment/Plan: At admission her pain was right posterio-lateral pain, at the rib cage border and was labeled flank pain but it then began to spread to the rightlateral rib cage alower border and around, to below the right breast and is definitely pleuritic. She has extreme splinting. Because of splinting and desaturations she was moved to the ICU 2 days ago. Nonsteroidal anti-inflammatory meds have been started on a scheduled basis, IV dosing. In addition, she gets iv pain meds. These need to be adjusted to oral meds so that she can tolerate the pain after Dch, at home. An Echo was ordered to evaluate for pericarditis as well. (3) Pleural effusion Assessment/Plan: Her admission chest x-ray showed just a right lower lobe infiltrate and small pleural effusion. By the time her chest CT was done 2 days later, she has infiltrates in every lobe of her lungs bilaterally and a larger sized right pleural effusion. She was started on scheduled iv NSAIDs. A follow-up chest x-ray (portable and decubitus) will be planned for tomorrow to determine if the pleural effusion is decreasing or growing in size. The patient even stated that she "would not mind having surgery remove the fluid so that she can hurry up and feel better". A chest tube for evacuation may need to be considered if the effusion is increasing in size. (4) CAP (community acquired pneumonia) Assessment/Plan: I spoke to the [facility] radiologist to confirm that she has such extensive infiltrates. The radiologist confirmed that this appears to be a bacterial pneumonia, it does not have features of being atypical or viral pneumonia such as COVID. The patient tested negative for COVID by nasal swab done at admission. Continue with IV antibiotics. (5) Multilobar lung infiltrate Assessment/Plan: As above. Patient is not immunocompromised that we know of to have such extensive infiltrates. She was on no prescription medications at all before this hospitalization. (6) DM (diabetes mellitus), type 2, uncontrolled Assessment/Plan: Her past lab reports showed she had A1c levels of 6-7. Patient told me today that she was not aware of being a pre-diabetic before this admission. At admission now her A1c was 12. She was seen by the [facility] diabetic nurse educator here on Sunday and started to get education about managing diabetes. Here she is on a carb controlled diet and sliding scale insulin. At discharge, starting Metformin is the plan. (7) Hyponatremia Assessment/Plan: Related to her hyperglycemia and slowly getting better. Follow BMP daily. (8) Horseshoe kidney Assessment/Plan: This was diagnosed several months ago when she had imaging of the abdomen. (9) Morbid obesity with BMI of 45.0-49.9, adult Assessment/Plan: Weight loss was discussed with the patient. (10) Hx of cardiomyopathy Assessment/Plan: Yesterday the patient offered details about her past cardiac history. She said she has been here several times with chest pain and in the past needed transfer to [facility], she is followed by Dr. Onofre, she said she had an angiogram that showed no coronary blockages and that she was told she had cardiomyopathy. She was on no prescription medications however before this hospitalization. - Current Meds Current Meds: Current Medications Generic Name Dose Route Start Last Admin Trade Name Freq PRN Reason Stop Dose Admin Acetaminophen 650 mg 09/26/19 16:53 09/29/19 08:27 Tylenol PO 650 mg Q4HR PRN Administration Pain or Fever > 38C (100.4F) Hydrocodone Bitart/Acetaminophen 1 tab 09/25/19 22:06 09/29/19 11:02 [place] 5/325 PO 1 tab Q4HR PRN Administration Pain 5 to 7 Benzonatate 100 mg 09/29/19 09:43 09/29/19 10:40 Tessalon PO 100 mg TID PRN Administration Cough Cyclobenzaprine HCl 10 mg 09/25/19 23:02 09/29/19 06:54 Flexeril PO 10 mg TID PRN Administration Spasms Enoxaparin Sodium 40 mg 09/26/19 09:00 09/29/19 08:38 Lovenox SUBQ 40 mg DAILY SONIA Administration Famotidine 20 mg 09/28/19 21:00 09/29/19 08:49 Pepcid PO 20 mg BID SONIA Administration Hydromorphone HCl 1 mg 09/26/19 06:53 09/29/19 08:57 Dilaudid Inj Carp IVP 1 mg Q2H PRN Administration PAIN 8-10 Ampicillin Sodium/Sulbactam 100 mls @ 200 mls/hr 09/27/19 19:00 09/29/19 12:02 Sodium 3 gm/ Sodium Chloride IV 200 mls/hr Q6HR SONIA Administration Azithromycin 500 mg/ Sodium 250 mls @ 250 mls/hr 09/27/19 19:00 09/28/19 22:57 Chloride IV Infused 1800 SONIA Infusion Vancomycin HCl 1 gm/ 500 mls @ 250 mls/hr 09/28/19 14:00 09/29/19 04:55 Vancomycin HCl 750 mg/ Sodium IV Infused Chloride Q12H SONIA Infusion Insulin Aspart 5 unit 09/26/19 08:00 09/29/19 08:12 Novolog SUBQ 5 unit QDBREAKFAST SONIA Administration Protocol Insulin Aspart 1 - 9 unit 09/26/19 08:00 09/29/19 12:01 Novolog SUBQ Not Given 0800,1200,1700,2100 [facility] Protocol Insulin Glargine 15 unit 09/27/19 08:00 09/29/19 08:18 Lantus Solostar SUBQ 15 unit QDBREAKFAST SONIA Administration Ketorolac Tromethamine 30 mg 09/28/19 18:00 09/29/19 12:00 Toradol Inj (30mg) IVP 10/03/19 17:59 30 mg Q6HR SONIA Administration Ondansetron HCl 4 mg 09/25/19 22:06 09/29/19 08:56 Zofran Inj IVP 4 mg Q6HR PRN Administration Nausea / Vomiting Polyethylene Glycol 17 gm 09/29/19 09:00 09/29/19 08:24 Miralax PO 17 gm DAILY SONIA Administration Sodium Chloride 10 ml 09/25/19 22:06 09/29/19 08:57 Normal Saline Flush 0.9% IVP 10 ml PRN PRN Administration NEEDED PER PROVIDER ORDERS Sodium Chloride 10 ml 09/26/19 01:00 09/29/19 08:27 Normal Saline Flush 0.9% IVP 10 ml 0100,0900,1700 SONIA Administration - Lab Result Fish Bone Diagrams: 09/29/19 04:53 09/29/19 04:53 - Additional Planning My Orders: My Active Orders 09/28/19 18:00 Ketorolac Inj (30Mg) [Toradol Inj (30Mg)] 30 mg IVP Q6HR 09/28/19 21:00 Famotidine [Pepcid] 20 mg PO BID 09/29/19 09:00 polyethylene glycoL 3350 [Miralax] 17 gm PO DAILY 09/29/19 09:43 Benzonatate [Tessalon] 100 mg PO TID PRN 09/30/19 05:00 BMP - BASIC METABOLIC PANEL [CHEM] DAILYLAB CBC - COMP BLD CT W/AUTO DIFF [HEME] DAILYLAB MAGNESIUM [CHEM] DAILYLAB PHOSPHORUS [CHEM] DAILYLAB 09/30/19 08:00 Echo Transthoracic Complete [ECHO] Routine 10/01/19 05:00 BMP - BASIC METABOLIC PANEL [CHEM] DAILYLAB CBC - COMP BLD CT W/AUTO DIFF [HEME] DAILYLAB MAGNESIUM [CHEM] DAILYLAB PHOSPHORUS [CHEM] DAILYLAB Subjective - Subjective Patient Reports: Shortness of Breath, Other (She still has severe pleuritic chest pain, which breaks through between medication doses. Today she is tearful, says she is feeling sorry for herself.) Objective Vital Signs: Vital Signs - 24 hr 09/28/19 09/28/19 09/28/19 14:00 15:00 16:00 Temperature 36.3 C L Heart Rate [ 83 82 91 Brachial] Respiratory 12 13 18 Rate Blood Pressure 122/80 109/75 138/87 H [Left Brachial artery] Blood Pressure [Left Radial artery] O2 Saturation 94 96 98 09/28/19 09/29/19 09/29/19 20:00 00:03 04:20 Temperature 37.0 C 36.8 C 36.8 C Heart Rate [ 83 77 88 Brachial] Respiratory 18 16 22 Rate Blood Pressure [Left Brachial artery] Blood Pressure 114/87 H 132/88 H 97/82 H [Left Radial artery] O2 Saturation 95 97 95 09/29/19 08:35 Temperature 36.8 C Heart Rate [ 94 Brachial] Respiratory 19 Rate Blood Pressure [Left Brachial artery] Blood Pressure 129/73 [Left Radial artery] O2 Saturation 94 Oxygen O2 Source Nasal cannula I&O (Last 24 Hrs): Intake and Output Totals x24h 09/27/19 09/28/19 09/29/19 23:59 23:59 23:59 Intake Total 3120.000 3169 1440 Output Total 1400 900 500 Balance 6684.204 2726 940 General: Alert, Oriented x3 HEENT: Mucous membr. moist/pink Neck: Supple, No JVD Neuro: Alert, Non Focal Cardiovascular: Regular rate, No murmurs, Other (Distant heart sounds due to large breasts) Respiratory: Other (Scattered crackles in all lung winn posteriorly, except left lower sounds clear. She is splinting and not taking deep breaths.) Abdomen: Soft, Other (Obese with pannus) Extremities: No edema - Results Results: Laboratory Results WBC 5.8 x10^3/uL (4.8-10.8) 09/29/19 04:53 RBC 4.42 10^6/uL (4.20-5.40) 09/29/19 04:53 Hgb 12.7 g/dL (12.0-16.0) 09/29/19 04:53 Hct 41.4 % (37.0-47.0) 09/29/19 04:53 MCV 93.7 fL (81.0-99.0) 09/29/19 04:53 MCH 28.7 pg (27.0-31.0) 09/29/19 04:53 MCHC 30.7 g/dL (32.0-36.0) L 09/29/19 04:53 RDW 12.4 % (12.0-15.0) 09/29/19 04:53 Plt Count 225 10^3/uL (130-450) 09/29/19 04:53 MPV 10.0 fL (7.9-10.8) 09/29/19 04:53 Neut # (Auto) 3.7 10^3/uL (1.5-6.6) 09/29/19 04:53 Lymph # (Auto) 1.1 10^3/uL (1.5-3.5) L 09/29/19 04:53 [place] # (Auto) 0.7 10^3/uL (0.0-1.0) 09/29/19 04:53 Eos # (Auto) 0.3 10^3/uL (0.0-0.7) 09/29/19 04:53 Baso # (Auto) 0.1 10^3/uL (0.0-0.1) 09/29/19 04:53 Absolute Nucleated RBC 0.00 x10^3/uL 09/29/19 04:53 Nucleated RBC % 0.0 /100WBC 09/29/19 04:53 ESR 52 mm/Hr (0-30) H 09/27/19 16:00 PT 12.9 secs (9.9-12.6) H 09/25/19 20:15 INR 1.1 (0.8-1.2) 09/25/19 20:15 APTT 27.0 secs (24.9-33.3) 09/25/19 20:15 Sodium 137 mmol/L (135-145) 09/29/19 04:53 Potassium 3.7 mmol/L (3.5-5.0) 09/29/19 04:53 Chloride 102 mmol/L (101-111) 09/29/19 04:53 Carbon Dioxide 28 mmol/L (21-32) 09/29/19 04:53 Anion Gap 7.0 (6-13) 09/29/19 04:53 BUN 8 mg/dL (6-20) 09/29/19 04:53 Creatinine 0.6 mg/dL (0.4-1.0) 09/29/19 04:53 Estimated GFR (MDRD) 102 (>89) 09/29/19 04:53 Glucose 155 mg/dL (70-100) H 09/29/19 04:53 POC Whole Bld Glucose 110 mg/dL (70 - 100) H 09/29/19 12:01 Glycated Hemoglobin 12.4 % (4.6-6.2) H 09/26/19 04:30 Estim Average Glucose 309 (70-100) H 09/26/19 04:30 Lactic Acid 2.0 mmol/L (0.5-2.2) 09/25/19 20:15 Calcium 8.0 mg/dL (8.5-10.3) L 09/29/19 04:53 Phosphorus 3.6 mg/dL (2.5-4.6) 09/29/19 04:53 Magnesium 2.0 mg/dL (1.7-2.8) 09/29/19 04:53 Total Bilirubin 0.8 mg/dL (0.2-1.0) 09/27/19 04:40 AST 34 IU/L (10-42) 09/27/19 04:40 ALT 46 IU/L (10-60) 09/27/19 04:40 Alkaline Phosphatase 83 IU/L (42-121) 09/27/19 04:40 Troponin I High Sens 2.6 ng/L (2.3-14.8) 09/25/19 20:15 B-Natriuretic Peptide 13 pg/mL (5-100) 09/25/19 20:15 Total Protein 6.9 g/dL (6.7-8.2) 09/27/19 04:40 Albumin 2.5 g/dL (3.2-5.5) L 09/29/19 04:53 Globulin 3.4 g/dL (2.1-4.2) 09/27/19 04:40 Albumin/Globulin Ratio 1.0 (1.0-2.2) 09/27/19 04:40 Lipase 23 U/L (22-51) 09/25/19 20:15 Urine Color YELLOW 09/25/19 20:56 Urine Clarity CLEAR (CLEAR) 09/25/19 20:56 Urine pH 5.0 PH (5.0-7.5) 09/25/19 20:56 Ur Specific [place] >=1.030 (1.002-1.030) H 09/25/19 20:56 Urine Protein NEGATIVE mg/dL (NEGATIVE) 09/25/19 20:56 Urine Glucose (UA) 500 mg/dL (NEGATIVE) H 09/25/19 20:56 Urine Ketones TRACE mg/dL (NEGATIVE) 09/25/19 20:56 Urine Occult Blood NEGATIVE (NEGATIVE) 09/25/19 20:56 Urine Nitrite NEGATIVE (NEGATIVE) 09/25/19 20:56 Urine Bilirubin NEGATIVE (NEGATIVE) 09/25/19 20:56 Urine Urobilinogen 0.2 (NORMAL) E.U./dL (NORMAL) 09/25/19 20:56 Ur Leukocyte Esterase NEGATIVE (NEGATIVE) 09/25/19 20:56 Ur Microscopic Review NOT INDICATED 09/25/19 20:56 Urine Culture Comments NOT INDICATED 09/25/19 20:56 Urine HCG, Qual NEGATIVE 09/25/19 20:56 Nasal Screen MRSA (PCR) NEGATIVE (NEGATIVE) 09/27/19 18:15 Last Dose Date 09/26/19 09/28/19 05:20 Last Dose Time 1800 09/28/19 05:20 Vancomycin Trough 8.8 ug/mL (10.0-20.0) L 09/28/19 05:20 Coronavirus (PCR) NEGATIVE 09/26/19 11:30 - Procedures Procedures: Procedures EXCISION OF LIVER, PERCUTANEOUS APPROACH, DIAGNOSTIC (08/11/17) EXCISION OF SIGMOID COLON, ENDO (10/31/18) RESECTION OF GALLBLADDER, PERCUTANEOUS ENDOSCOPIC APPROACH (08/11/17)
--- NOTE | 2019-09-29 15:26 | PHARMACY PROGRESS NOTE ---
- Therapy Status Vancomycin regimen day #: 2 Therapy status: Trough subtherapeutic (INCREASE DOSE TO 1750MG Q12 FROM 1250MG Q12, RETIME [place] [employer] STATE TROUGH) Basis for treatment: Empirical Trough goal: 15-20 - ERIK Risk Risk level for Acute Kidney Injury: Moderate Acute Kidney Injury risk factors: Wt >100kg or BMI >40, IV contrast within 72 hrs, Goal trough >15, Diabetes, Admission to ICU - Monitoring and Recommendation Clinical response to treatment: I&O Previous 24 hours 09/27/19 09/28/19 09/29/19 23:59 23:59 23:59 Intake Total 3120.000 3169 1540 Output Total 1400 900 500 Balance 5951.712 5313 1040 Lab Results 09/29/19 09/28/19 09/27/19 04:53 05:20 16:00 ESR 52 H BUN 8 8 Creatinine 0.6 0.6 Estimated GFR (MDRD) 102 102 09/27/19 09/26/19 09/25/19 04:40 04:30 20:15 ESR BUN 12 13 10 Creatinine 0.7 0.7 0.7 Estimated GFR (MDRD) 85 L 85 L 85 L Vancomycin Monitoring 09/28/19 05:20 Vancomycin Trough 8.8 L Monitoring plan: Daily serum creatinine
[2019-09-29] MEDS: BENZOCAINE/MENTHOL LOZENGE MM PRN (20:01)
[2019-09-29] MEDS ORDERED: BISACODYL 10 MG SUPP PR ONE (21:00)
[2019-09-30] MEDS: AMPICILLIN/SULBACTAM 3 GM in SODIUM CHLORIDE 0.9% MINIBAG 100 ML IV SCH ×5 (00:05→23:49)
[2019-09-30] MEDS: KETOROLAC 30 MG/ML VIAL IVP SCH ×5 (00:06→23:49)
[2019-09-30] MEDS: SODIUM CHLORIDE FLUSH 0.9% 10 ML SYRINGE IVP SCH ×4 (00:07→23:50)
[2019-09-30] MEDS ORDERED: SODIUM CHLORIDE 0.9% 500 ML IV PRN (00:43)
[2019-09-30] MEDS ORDERED: SODIUM CHLORIDE 0.9% 500 ML ONE (00:46)
[2019-09-30 01:04] LABS: VANCOMYCIN,TROUGH 14.6 ug/mL (10.0-20.0)
[2019-09-30] MEDS: SODIUM CHLORIDE 0.9% IV SCH (01:08)
[2019-09-30] MEDS: VANCOMYCIN IV SCH (01:08)
[2019-09-30] MEDS ORDERED: SENNA 8.6 MG TABLET PO SCH (02:00)
[2019-09-30] MEDS: HYDROmorphone 1 MG/ML CARPUJECT IVP PRN ×4 (03:39→21:44)
[2019-09-30] MEDS: BENZONATATE 100 MG CAPSULE PO PRN ×2 (04:52→22:19)
[2019-09-30 05:07] LABS: CALCIUM 7.8 mg/dL (8.5-10.3); CREATININE 0.5 mg/dL (0.4-1.0); MAGNESIUM 2.1 mg/dL (1.7-2.8); PHOSPHORUS 3.7 mg/dL (2.5-4.6)
[2019-09-30 06:03] LABS: BASOPHILS % (AUTO) 0.7 %; EOSINOPHILS # (AUTO) 0.3 10^3/uL (0.0-0.7); EOSINOPHILS % (AUTO) 4.9 %; HGB - HEMOGLOBIN 12.1 g/dL (12.0-16.0); LYMPHOCYTES # (AUTO) 0.9 10^3/uL (1.5-3.5); LYMPHOCYTES % (AUTO) 16.2 %; MEAN CORPUSCULAR HEMOGLOBIN 29.7 pg (27.0-31.0); MEAN CORPUSCULAR VOLUME 92.9 fL (81.0-99.0); MEAN PLATELET VOLUME 9.2 fL (7.9-10.8); MONOCYTES # (AUTO) 0.8 10^3/uL (0.0-1.0); MONOCYTES % (AUTO) 13.9 %; NEUTROPHILS # (AUTO) 3.7 10^3/uL (1.5-6.6); NEUTROPHILS % (AUTO) 63.8 %; PLT - PLATELET COUNT 246 10^3/uL (130-450); RED BLOOD COUNT 4.07 10^6/uL (4.20-5.40); RED CELL DISTRIBUTION WIDTH 12.7 % (12.0-15.0); WHITE BLOOD COUNT 5.7 x10^3/uL (4.8-10.8)
[2019-09-30] MEDS ORDERED: POTASSIUM CHLORIDE 20 MEQ TABLET PO ONE (08:00)
[2019-09-30] MEDS: INSULIN ASPART 300 UNIT/3 ML PEN SUBQ SCH ×5 (08:07→20:52)
[2019-09-30] MEDS: INSULIN GLARGINE 300 UNIT/3 ML PEN SUBQ SCH (08:07)
[2019-09-30] MEDS: SENNA 8.6 MG TABLET PO SCH ×3 (08:33→20:47)
[2019-09-30] MEDS: FAMOTIDINE 20 MG TABLET PO SCH ×2 (08:33→20:47)
[2019-09-30] MEDS: DOCUSATE SODIUM 250 MG CAPSULE PO SCH (08:34)
[2019-09-30] MEDS: ENOXAPARIN 40 MG/0.4 ML SYRINGE SUBQ SCH (08:34)
[2019-09-30] MEDS: polyethylene glycoL 3350 17 GM PACKET PO SCH (08:35)
--- NOTE | 2019-09-30 18:36 | PROVIDER PROGRESS NOTE ---
Subjective - Prog Note Date Prog Note Date: 09/30/19 Prog Note Time: 18:34 - Subjective Pt reports feeling: No change (from yesterday) Subjective: Tearful this morning. Every time she takes a deep breath or coughs the stabbing, sharp pleuritic chest pain is really severe. This is been stable for her. It is not a new problem. Right now she is on IV Toradol, Dilaudid and it helps. She was told that she had diabetes a few years ago by the certified adaptive physical educator and she never followed up. A1c is now 12%. She really does not want to take Lantus or short acting insulin and would really like to try oral medication. She has been seen by Leilani certified adaptive physical educator today. Leilani is firm that she will follow-up with the patient and not let her slip through the cracks if we try this. Current Medications - Current Medications Current Medications: Active Medications Acetaminophen (Tylenol) 650 mg PO Q4HR PRN PRN Reason: Pain or Fever > 38C (100.4F) Last Admin: 09/29/19 20:00 Dose: 650 mg Hydrocodone Bitart/Acetaminophen ([place] 5/325) 1 tab PO Q4HR PRN PRN Reason: Pain 5 to 7 Last Admin: 09/29/19 11:02 Dose: 1 tab Benzonatate (Tessalon) 100 mg PO TID PRN PRN Reason: Cough Last Admin: 09/30/19 04:52 Dose: 100 mg Cyclobenzaprine HCl (Flexeril) 10 mg PO TID PRN PRN Reason: Spasms Last Admin: 09/29/19 16:00 Dose: 10 mg Docusate Sodium (Colace 250mg Capsule) 250 - 500 mg PO DAILY [facility] Last Admin: 09/30/19 08:34 Dose: 250 mg Enoxaparin Sodium (Lovenox) 40 mg SUBQ DAILY [facility] Last Admin: 09/30/19 08:34 Dose: 40 mg Famotidine (Pepcid) 20 mg PO BID [facility] Last Admin: 09/30/19 08:33 Dose: 20 mg Hydromorphone HCl (Dilaudid Inj Carp) 1 mg IVP Q2H PRN PRN Reason: PAIN 8-10 Last Admin: 09/30/19 13:03 Dose: 1 mg Ampicillin Sodium/Sulbactam (Sodium 3 gm/ Sodium Chloride) 100 mls @ 200 mls/hr IV Q6HR [facility] Last Infusion: 09/30/19 18:30 Dose: Infused Sodium Chloride (Normal Saline 0.9%) 500 mls @ 0 mls/hr IV Q24H PRN PRN Reason: TKO RATE Last Admin: 09/30/19 00:44 Dose: 20 mls/hr Insulin Aspart (Novolog) 5 unit SUBQ QDBREAKFAST [facility]; Protocol Last Admin: 09/30/19 08:07 Dose: 5 unit Insulin Aspart (Novolog) 1 - 9 unit SUBQ 0800,1200,1700,2100 [facility]; Protocol Last Admin: 09/30/19 16:54 Dose: Not Given Insulin Glargine (Lantus Solostar) 15 unit SUBQ QDBREAKFAST [facility] Last Admin: 09/30/19 08:07 Dose: 15 unit Ketorolac Tromethamine (Toradol Inj (30mg)) 30 mg IVP Q6HR [facility] Stop: 10/03/19 17:59 Last Admin: 09/30/19 18:19 Dose: 30 mg Metformin HCl (Glucophage) 500 mg PO BIDWM [facility] Ondansetron HCl (Zofran Inj) 4 mg IVP Q6HR PRN PRN Reason: Nausea / Vomiting Last Admin: 09/29/19 08:56 Dose: 4 mg Polyethylene Glycol (Miralax) 17 gm PO DAILY [facility] Last Admin: 09/30/19 08:35 Dose: Not Given Senna (Senokot) 17.2 - 25.8 mg PO Q6H [facility] Stop: 10/01/19 02:01 Last Admin: 09/30/19 17:03 Dose: 17.2 mg Sodium Chloride (Normal Saline Flush 0.9%) 10 ml IVP PRN PRN PRN Reason: NEEDED PER PROVIDER ORDERS Last Admin: 09/29/19 08:57 Dose: 10 ml Sodium Chloride (Normal Saline Flush 0.9%) 10 ml IVP 0100,0900,1700 [facility] Last Admin: 09/30/19 17:27 Dose: 10 ml Throat Lozenges (Cepacol) 1 lozenge MM Q2HR PRN PRN Reason: Throat pain Last Admin: 09/29/19 20:01 Dose: 1 lozenge No Known Home Medications 09/26/19 Objective - Vital Signs/Intake & Output Reviewed Vital Signs: Yes Vital Signs: Vital Signs x48h Temp Pulse Resp BP BP Pulse Ox 09/30/19 17:41 147/82 H 09/30/19 17:08 36.9 C 78 22 95 09/30/19 16:54 36.8 C 84 21 154/97 H 95 09/30/19 13:00 37.2 C 90 17 93 09/30/19 12:16 83 25 H 168/95 H 96 Intake & Output: Intake & Output 09/27/19 09/28/19 09/29/19 09/30/19 23:59 23:59 23:59 23:59 Intake Total 3120.000 3169 3640 1915 Output Total 1400 900 500 825 Balance 0562.587 0003 3140 1090 - Objective General Appearance: positive: Moderate distress (From pleuritic chest pain and cough) Eyes Bilateral: positive: PERRL ENT: positive: Pharynx nml Neck: positive: No JVD. negative: Lymphadenopathy (R), Lymphadenopathy (L), Stiff neck Respiratory: positive: Chest non-tender, Wheezes (But no increased respiratory effort, slow shallow unlabored respiration), Other (Diminished at bases, dull left base with new egophony). negative: Rales, Rhonchi Cardiovascular: positive: Regular rate & rhythm, Systolic murmur. negative: Gallop/S4, Friction rub Abdomen: positive: Non-tender, No organomegaly, Nml bowel sounds, No distention Skin: positive: Warm, Dry Extremities: positive: Full ROM, No pedal edema Neurologic/Psychiatric: positive: Oriented x3, CN's nml (2-12), Motor nml, Weakness (Generalized and she is fatigued from being in bed with pneumonia) - Lab Results Fish Bones: 09/30/19 05:55 09/30/19 04:43 Other Labs: Lab Results x24hrs 09/30/19 09/30/19 09/30/19 Range/Units 16:48 11:07 07:24 WBC (4.8-10.8) x10^3/uL RBC (4.20-5.40) 10^6/uL Hgb (12.0-16.0) g/dL Hct (37.0-47.0) % MCV (81.0-99.0) fL MCH (27.0-31.0) pg MCHC (32.0-36.0) g/dL RDW (12.0-15.0) % Plt Count (130-450) 10^3/uL MPV (7.9-10.8) fL Neut # (Auto) (1.5-6.6) 10^3/uL Lymph # (Auto) (1.5-3.5) 10^3/uL [place] # (Auto) (0.0-1.0) 10^3/uL Eos # (Auto) (0.0-0.7) 10^3/uL Baso # (Auto) (0.0-0.1) 10^3/uL Absolute Nucleated RBC x10^3/uL Nucleated RBC % /100WBC Sodium (135-145) mmol/L Potassium (3.5-5.0) mmol/L Chloride (101-111) mmol/L Carbon Dioxide (21-32) mmol/L Anion Gap (6-13) BUN (6-20) mg/dL Creatinine (0.4-1.0) mg/dL Estimated GFR (MDRD) (>89) Glucose (70-100) mg/dL POC Whole Bld Glucose 122 H 140 H 123 H (70 - 100) mg/dL Calcium (8.5-10.3) mg/dL Phosphorus (2.5-4.6) mg/dL Magnesium (1.7-2.8) mg/dL Albumin (3.2-5.5) g/dL Last Dose Date Last Dose Time Vancomycin Trough (10.0-20.0) ug/mL 09/30/19 09/30/19 09/30/19 Range/Units 05:55 04:43 04:43 WBC 5.7 (4.8-10.8) x10^3/uL RBC 4.07 L (4.20-5.40) 10^6/uL Hgb 12.1 (12.0-16.0) g/dL Hct 37.8 (37.0-47.0) % MCV 92.9 (81.0-99.0) fL MCH 29.7 (27.0-31.0) pg MCHC 32.0 (32.0-36.0) g/dL RDW 12.7 (12.0-15.0) % Plt Count 246 (130-450) 10^3/uL MPV 9.2 (7.9-10.8) fL Neut # (Auto) 3.7 (1.5-6.6) 10^3/uL Lymph # (Auto) 0.9 L (1.5-3.5) 10^3/uL [place] # (Auto) 0.8 (0.0-1.0) 10^3/uL Eos # (Auto) 0.3 (0.0-0.7) 10^3/uL Baso # (Auto) 0.0 (0.0-0.1) 10^3/uL Absolute Nucleated RBC 0.00 x10^3/uL Nucleated RBC % 0.0 /100WBC Sodium 135 (135-145) mmol/L Potassium 3.4 L (3.5-5.0) mmol/L Chloride 99 L (101-111) mmol/L Carbon Dioxide 26 (21-32) mmol/L Anion Gap 10.0 (6-13) BUN 6 (6-20) mg/dL Creatinine 0.5 (0.4-1.0) mg/dL Estimated GFR (MDRD) 126 (>89) Glucose 135 H (70-100) mg/dL POC Whole Bld Glucose (70 - 100) mg/dL Calcium 7.8 L (8.5-10.3) mg/dL Phosphorus 3.7 (2.5-4.6) mg/dL Magnesium 2.1 (1.7-2.8) mg/dL Albumin 2.7 L (3.2-5.5) g/dL Last Dose Date Last Dose Time Vancomycin Trough (10.0-20.0) ug/mL 09/30/19 09/29/19 Range/Units 00:47 20:47 WBC (4.8-10.8) x10^3/uL RBC (4.20-5.40) 10^6/uL Hgb (12.0-16.0) g/dL Hct (37.0-47.0) % MCV (81.0-99.0) fL MCH (27.0-31.0) pg MCHC (32.0-36.0) g/dL RDW (12.0-15.0) % Plt Count (130-450) 10^3/uL MPV (7.9-10.8) fL Neut # (Auto) (1.5-6.6) 10^3/uL Lymph # (Auto) (1.5-3.5) 10^3/uL [place] # (Auto) (0.0-1.0) 10^3/uL Eos # (Auto) (0.0-0.7) 10^3/uL Baso # (Auto) (0.0-0.1) 10^3/uL Absolute Nucleated RBC x10^3/uL Nucleated RBC % /100WBC Sodium (135-145) mmol/L Potassium (3.5-5.0) mmol/L Chloride (101-111) mmol/L Carbon Dioxide (21-32) mmol/L Anion Gap (6-13) BUN (6-20) mg/dL Creatinine (0.4-1.0) mg/dL Estimated GFR (MDRD) (>89) Glucose (70-100) mg/dL POC Whole Bld Glucose 157 H (70 - 100) mg/dL Calcium (8.5-10.3) mg/dL Phosphorus (2.5-4.6) mg/dL Magnesium (1.7-2.8) mg/dL Albumin (3.2-5.5) g/dL Last Dose Date UNKNOWN Last Dose Time UNKNOWN Vancomycin Trough 14.6 (10.0-20.0) ug/mL ABX Reporting Has patient been on IV antibiotics over the past 48 hours?: Yes Assessment/Plan - Problem List (1) Pleurisy with effusion Impression: Overall her pain is better than on the first 2 days of admission. She still gets breakthrough pain when her medications wear off. Her admission chest x-ray showed just a right lower lobe infiltrate and small pleural effusion. By the time her chest CT was done 2 days later, she has infiltrates in every lobe of her lungs bilaterally and a larger sized right pleural effusion. She was started on scheduled iv NSAIDs. A follow-up chest x-ray (portable and decubitus) Was planned for today to determine if the pleural effusion is decreasing or growing in size. The patient even stated that she "would not mind having surgery remove the fluid so that she can hurry up and feel better". A chest tube for evacuation may need to be considered if the effusion is increasing in size. Once I went over this process with her, she changed her mind. She thought that she would be taken to the operating room and given general anesthesia. I explained that usually they do not do that. She decided to wait. She does not want a chest tube at this time. (2) CAP (community acquired pneumonia) Assessment/Plan: Hospitalist spoke to the [facility] radiologist to confirm that she has such extensive infiltrates. The radiologist confirmed that this appears to be a bacterial pneumonia, it does not have features of being atypical or viral pneumonia such as COVID. The patient tested negative for COVID by nasal swab done at admission. I thought of septic pulmonary embolic disease. Echocardiogram was done September 29 and has not been completely read. Preliminary shows left ventricular wall motion normal with ejection fraction 55 to 60%. No significant valvular heart disease. Mild to moderately abnormal right heart pressures with RVSP at 50 mmHg. Compared to the prior echo she has pulmonary arterial systolic pressure that is increased. She had respiratory culture but never had blood cultures done. White cell count started at 11.5 thousand. She is drifted down to 5.7 thousand today. Maximum temperature was 38.1 on the day of admission. Since then she is gradually drifted down and has been afebrile since September 27 in the evening. At most she required 2 L. She is down to 2 L nasal cannula and O2 sat is 95%. Continue with IV antibiotics.Since she is MRSA negative, vancomycin has been discontinued and she is on Unasyn. (3) DM (diabetes mellitus), type 2, uncontrolled Assessment/Plan: Her past lab reports showed she had A1c levels of 6-7. Patient told me previous Hospitalist that she was not aware of being a pre-diabetic before this admission. But the diabetic education center says that the patient has been informed of this before. There was no follow-through. At admission now her A1c was 12. She [place] [facility] [place] here on Sunday and today and started to get education about managing diabetes. Here she is on a carb controlled diet and sliding scale insulin. At discharge, starting Metformin is the plan. She really wants to try metformin before she leaves. She does not want to take insulin. Plan: Start metformin with meals. Give her prescription for Lantus to be used at home. She does not have to brass pickler the prescription at this time. clinical educator will follow up with her after 3 to 5 days. If glucose is unacceptably high, she will need to start the Lantus. (4) Hyponatremia resolved. Assessment/Plan: Related to her hyperglycemia and slowly getting better. Follow BMP daily. (5) Horseshoe kidney Assessment/Plan: This was diagnosed several months ago when she had imaging of the abdomen. (6) Morbid obesity with BMI of 45.0-49.9, adult Assessment/Plan: Weight loss was discussed with the patient. (7) Hx of cardiomyopathy Assessment/Plan: On 09/27, the patient offered details about her past cardiac history to that hospitalist. She said she has been here several times with chest pain and in the past needed transfer to [facility], she is followed by Dr. Onofre, she said she had an angiogram that showed no coronary blockages and that she was told she had cardiomyopathy. She was on no prescription medications however before this hospitalization. Echocardiogram was reviewed and results discussed in problem #2. Plan: No change at this time (8) Hypokalemia supplement po.
[2019-09-30] MEDS: metFORMIN 500 MG TABLET PO SCH (20:47)
[2019-09-30] MEDS: SODIUM CHLORIDE FLUSH 0.9% 10 ML SYRINGE IVP PRN (21:44)
[2019-09-30] MEDS: HYDROcod/ACETAM 5/325 MG TABLET PO PRN (22:19)
[2019-10-01] MEDS: SENNA 8.6 MG TABLET PO SCH (00:51)
[2019-10-01 05:23] LABS: BASOPHILS # (AUTO) 0.1 10^3/uL (0.0-0.1); BASOPHILS % (AUTO) 0.8 %; EOSINOPHILS # (AUTO) 0.3 10^3/uL (0.0-0.7); HGB - HEMOGLOBIN 12.2 g/dL (12.0-16.0); LYMPHOCYTES # (AUTO) 1.3 10^3/uL (1.5-3.5); LYMPHOCYTES % (AUTO) 20.9 %; MEAN CORPUSCULAR HEMOGLOBIN 29.8 pg (27.0-31.0); MEAN CORPUSCULAR HGB CONC 31.9 g/dL (32.0-36.0); MEAN CORPUSCULAR VOLUME 93.2 fL (81.0-99.0); MEAN PLATELET VOLUME 9.5 fL (7.9-10.8); MONOCYTES # (AUTO) 0.9 10^3/uL (0.0-1.0); MONOCYTES % (AUTO) 14.7 %; NEUTROPHILS # (AUTO) 3.5 10^3/uL (1.5-6.6); NEUTROPHILS % (AUTO) 57.8 %; PLT - PLATELET COUNT 303 10^3/uL (130-450); RED CELL DISTRIBUTION WIDTH 12.7 % (12.0-15.0)
[2019-10-01 05:35] LABS: CALCIUM 8.3 mg/dL (8.5-10.3); CREATININE 0.6 mg/dL (0.4-1.0); MAGNESIUM 2.1 mg/dL (1.7-2.8); PHOSPHORUS 4.1 mg/dL (2.5-4.6)
[2019-10-01] MEDS: AMPICILLIN/SULBACTAM 3 GM in SODIUM CHLORIDE 0.9% MINIBAG 100 ML IV SCH ×4 (05:51→23:57)
[2019-10-01] MEDS: SODIUM CHLORIDE FLUSH 0.9% 10 ML SYRINGE IVP PRN ×3 (05:51→17:41)
[2019-10-01] MEDS: KETOROLAC 30 MG/ML VIAL IVP SCH ×4 (05:51→23:57)
[2019-10-01] MEDS ORDERED: MAGNESIUM HYDROXIDE 2,400 MG/30 ML UDC PO ONE (07:00)
[2019-10-01] MEDS: HYDROcod/ACETAM 5/325 MG TABLET PO PRN ×3 (08:05→21:04)
[2019-10-01] MEDS: metFORMIN 500 MG TABLET PO SCH ×2 (08:06→17:30)
[2019-10-01] MEDS: INSULIN ASPART 300 UNIT/3 ML PEN SUBQ SCH ×5 (08:11→20:52)
[2019-10-01] MEDS: INSULIN GLARGINE 300 UNIT/3 ML PEN SUBQ SCH (08:11)
[2019-10-01] MEDS: FAMOTIDINE 20 MG TABLET PO SCH ×2 (08:13→20:50)
[2019-10-01] MEDS: DOCUSATE SODIUM 250 MG CAPSULE PO SCH (08:13)
[2019-10-01] MEDS: polyethylene glycoL 3350 17 GM PACKET PO SCH (08:13)
[2019-10-01] MEDS: ENOXAPARIN 40 MG/0.4 ML SYRINGE SUBQ SCH (08:48)
--- NOTE | 2019-10-01 10:11 | XRAY Report ---
Reason: fu pnuem and effusion Procedure Date: 10/01/2019 Accession Number: [id number] / [id number] Procedure: XR - Chest 3 View X-Ray CPT Code: 71876 Final Report FULL RESULT: EXAM: CHEST RADIOGRAPHY EXAM DATE: 10/01/2019 09:22 AM. CLINICAL HISTORY: Follow-up pneumonia and pleural effusion. COMPARISON: Chest radiograph from 09/26/2019, CT chest from 09/27/2019. TECHNIQUE: 3 views. FINDINGS: Lungs/Pleura: There is a small-moderate, loculated right pleural effusion, which remains anti-dependent in left lateral decubitus position. Pleural effusion measures approximately 3.8 cm in thickness laterally. There is patchy opacity in the right mid lung and base. The left lung is clear. No left pleural effusion is demonstrated. No pneumothorax. Mediastinum: There is partial obscuration of the right heart border. Overall cardiomediastinal contour is mildly prominent, as seen previously. Other: None. IMPRESSION: Small-moderate, loculated right pleural effusion with associated airspace opacity in the right midlung and base. Overall appearance is similar to the previous CT when accounting for difference in position. [facility]
[2019-10-01] MEDS ORDERED: BISACODYL 10 MG SUPP PR ONE (10:30)
[2019-10-01] MEDS: SODIUM CHLORIDE FLUSH 0.9% 10 ML SYRINGE IVP SCH ×3 (10:50→23:57)
[2019-10-01] MEDS: HYDROmorphone 1 MG/ML CARPUJECT IVP PRN ×2 (11:16→14:41)
--- NOTE | 2019-10-01 13:35 | PROVIDER PROGRESS NOTE ---
Subjective - Prog Note Date Prog Note Date: 10/01/19 Prog Note Time: 13:33 - Subjective Pt reports feeling: No change Subjective: This poor unfortunate lady continues to be in significant pleuritic chest pain. Brings her to tears. I re-discussed the need for chest tube since she may have a loculated effusion on that left side and pain is not getting any better. This terrifies her and she really wants to be "put under" if she gets a chest tube. I have discussed the case with Dr. Warren. At 3 cm size, this may be too small to have any intervention. Even with interventional radiology. But because her pain is progressing, he recommends repeating a CT of the chest. If the CT shows that her loculated effusion is getting worse, he feels that she would be a candidate for interventional radiology or cardiothoracic surgical consultation. The patient herself states that if she needs to be transferred to have a procedure done, she would like to be transferred to [facility]. Her supervisor blood is there. I did speak to her today. He wanted to be brought up-to-date on her case. He reiterates that she has a high level of anxiety, almost to the point of working herself up into a panic attack and refusing to get something done because she gets so scared. I spoke to him at [phone]. Current Medications - Current Medications Current Medications: Active Medications Acetaminophen (Tylenol) 650 mg PO Q4HR PRN PRN Reason: Pain or Fever > 38C (100.4F) Last Admin: 09/29/19 20:00 Dose: 650 mg Hydrocodone Bitart/Acetaminophen ([place] 5/325) 1 tab PO Q4HR PRN PRN Reason: Pain 5 to 7 Last Admin: 10/01/19 13:31 Dose: 1 tab Benzonatate (Tessalon) 100 mg PO TID PRN PRN Reason: Cough Last Admin: 09/30/19 22:19 Dose: 100 mg Cyclobenzaprine HCl (Flexeril) 10 mg PO TID PRN PRN Reason: Spasms Last Admin: 09/29/19 16:00 Dose: 10 mg Docusate Sodium (Colace 250mg Capsule) 250 - 500 mg PO DAILY SONIA Last Admin: 10/01/19 08:13 Dose: 250 mg Enoxaparin Sodium (Lovenox) 40 mg SUBQ DAILY [facility] Last Admin: 10/01/19 08:48 Dose: 40 mg Famotidine (Pepcid) 20 mg PO BID [facility] Last Admin: 10/01/19 08:13 Dose: 20 mg Hydromorphone HCl (Dilaudid Inj Carp) 1 mg IVP Q2H PRN PRN Reason: PAIN 8-10 Last Admin: 10/01/19 11:16 Dose: 1 mg Ampicillin Sodium/Sulbactam (Sodium 3 gm/ Sodium Chloride) 100 mls @ 200 mls/hr IV Q6HR [facility] Last Infusion: 10/01/19 11:53 Dose: Infused Sodium Chloride (Normal Saline 0.9%) 500 mls @ 0 mls/hr IV Q24H PRN PRN Reason: TKO RATE Last Infusion: 10/01/19 06:33 Dose: Infused Insulin Aspart (Novolog) 5 unit SUBQ QDBREAKFAST [facility]; Protocol Last Admin: 10/01/19 08:12 Dose: 5 unit Insulin Aspart (Novolog) 1 - 9 unit SUBQ 0800,1200,1700,2100 [facility]; Protocol Last Admin: 10/01/19 13:32 Dose: Not Given Insulin Glargine (Lantus Solostar) 15 unit SUBQ QDBREAKFAST [facility] Last Admin: 10/01/19 08:11 Dose: 15 unit Ketorolac Tromethamine (Toradol Inj (30mg)) 30 mg IVP Q6HR [facility] Stop: 10/03/19 17:59 Last Admin: 10/01/19 12:00 Dose: 30 mg Metformin HCl (Glucophage) 500 mg PO BIDWM [facility] Last Admin: 10/01/19 08:06 Dose: 500 mg Ondansetron HCl (Zofran Inj) 4 mg IVP Q6HR PRN PRN Reason: Nausea / Vomiting Last Admin: 09/29/19 08:56 Dose: 4 mg Polyethylene Glycol (Miralax) 17 gm PO DAILY [facility] Last Admin: 10/01/19 08:13 Dose: 17 gm Sodium Chloride (Normal Saline Flush 0.9%) 10 ml IVP PRN PRN PRN Reason: NEEDED PER PROVIDER ORDERS Last Admin: 10/01/19 12:11 Dose: 10 ml Sodium Chloride (Normal Saline Flush 0.9%) 10 ml IVP 0100,0900,1700 SONIA Last Admin: 10/01/19 10:50 Dose: Not Given Throat Lozenges (Cepacol) 1 lozenge MM Q2HR PRN PRN Reason: Throat pain Last Admin: 09/29/19 20:01 Dose: 1 lozenge No Known Home Medications 09/26/19 Objective - Vital Signs/Intake & Output Reviewed Vital Signs: Yes Vital Signs: Vital Signs x48h Temp Pulse Resp BP Pulse Ox 10/01/19 13:00 36.9 C 85 18 93 10/01/19 08:27 36.6 C 85 24 104/84 H 94 Intake & Output: Intake & Output 09/28/19 09/29/19 09/30/19 10/01/19 23:59 23:59 23:59 23:59 Intake Total 3169 3640 1915 1480 Output Total 900 062 595 5379 Balance 2269 3140 940 80 - Objective General Appearance: positive: Moderate distress (from pleurtitic chest pain), Anxious, Other (5 feet 4 inches white female who weighs 122.5 kg) Eyes Bilateral: positive: PERRL, EOMI ENT: positive: Pharynx nml Neck: positive: No JVD. negative: Stiff neck Respiratory: positive: Wheezes, Other (gets kan with sitting up and struggles to get out of bed to BR. Pain is limiting.) Cardiovascular: positive: Regular rate & rhythm. negative: Gallop/S4, Friction rub Abdomen: positive: Non-tender, Nml bowel sounds, No distention. negative: Guarding, Rebound Skin: positive: Warm Extremities: positive: Full ROM, Pedal edema Neurologic/Psychiatric: positive: Oriented x3, CN's nml (2-12), Motor nml. negative: Mood/affect nml - Lab Results Fish Bones: 10/01/19 04:20 10/01/19 04:20 Other Labs: Lab Results x24hrs 10/01/19 10/01/19 10/01/19 Range/Units 12:24 08:04 04:20 WBC (4.8-10.8) x10^3/uL RBC (4.20-5.40) 10^6/uL Hgb (12.0-16.0) g/dL Hct (37.0-47.0) % MCV (81.0-99.0) fL MCH (27.0-31.0) pg MCHC (32.0-36.0) g/dL RDW (12.0-15.0) % Plt Count (130-450) 10^3/uL MPV (7.9-10.8) fL Neut # (Auto) (1.5-6.6) 10^3/uL Lymph # (Auto) (1.5-3.5) 10^3/uL Stanley # (Auto) (0.0-1.0) 10^3/uL Eos # (Auto) (0.0-0.7) 10^3/uL Baso # (Auto) (0.0-0.1) 10^3/uL Absolute Nucleated RBC x10^3/uL Nucleated RBC % /100WBC Sodium (135-145) mmol/L Potassium (3.5-5.0) mmol/L Chloride (101-111) mmol/L Carbon Dioxide (21-32) mmol/L Anion Gap (6-13) BUN (6-20) mg/dL Creatinine (0.4-1.0) mg/dL Estimated GFR (MDRD) (>89) Glucose (70-100) mg/dL POC Whole Bld Glucose 107 H 134 H (70 - 100) mg/dL Calcium (8.5-10.3) mg/dL Phosphorus (2.5-4.6) mg/dL Magnesium (1.7-2.8) mg/dL Albumin 2.4 L (3.2-5.5) g/dL 10/01/19 10/01/19 09/30/19 Range/Units 04:20 04:20 20:48 WBC 6.0 (4.8-10.8) x10^3/uL RBC 4.10 L (4.20-5.40) 10^6/uL Hgb 12.2 (12.0-16.0) g/dL Hct 38.2 (37.0-47.0) % MCV 93.2 (81.0-99.0) fL MCH 29.8 (27.0-31.0) pg MCHC 31.9 L (32.0-36.0) g/dL RDW 12.7 (12.0-15.0) % Plt Count 303 (130-450) 10^3/uL MPV 9.5 (7.9-10.8) fL Neut # (Auto) 3.5 (1.5-6.6) 10^3/uL Lymph # (Auto) 1.3 L (1.5-3.5) 10^3/uL Stanley # (Auto) 0.9 (0.0-1.0) 10^3/uL Eos # (Auto) 0.3 (0.0-0.7) 10^3/uL Baso # (Auto) 0.1 (0.0-0.1) 10^3/uL Absolute Nucleated RBC 0.00 x10^3/uL Nucleated RBC % 0.0 /100WBC Sodium 139 (135-145) mmol/L Potassium 3.7 (3.5-5.0) mmol/L Chloride 99 L (101-111) mmol/L Carbon Dioxide 30 (21-32) mmol/L Anion Gap 10.0 (6-13) BUN 6 (6-20) mg/dL Creatinine 0.6 (0.4-1.0) mg/dL Estimated GFR (MDRD) 102 (>89) Glucose 123 H (70-100) mg/dL POC Whole Bld Glucose 144 H (70 - 100) mg/dL Calcium 8.3 L (8.5-10.3) mg/dL Phosphorus 4.1 (2.5-4.6) mg/dL Magnesium 2.1 (1.7-2.8) mg/dL Albumin (3.2-5.5) g/dL 09/30/19 Range/Units 16:48 WBC (4.8-10.8) x10^3/uL RBC (4.20-5.40) 10^6/uL Hgb (12.0-16.0) g/dL Hct (37.0-47.0) % MCV (81.0-99.0) fL MCH (27.0-31.0) pg MCHC (32.0-36.0) g/dL RDW (12.0-15.0) % Plt Count (130-450) 10^3/uL MPV (7.9-10.8) fL Neut # (Auto) (1.5-6.6) 10^3/uL Lymph # (Auto) (1.5-3.5) 10^3/uL Stanley # (Auto) (0.0-1.0) 10^3/uL Eos # (Auto) (0.0-0.7) 10^3/uL Baso # (Auto) (0.0-0.1) 10^3/uL Absolute Nucleated RBC x10^3/uL Nucleated RBC % /100WBC Sodium (135-145) mmol/L Potassium (3.5-5.0) mmol/L Chloride (101-111) mmol/L Carbon Dioxide (21-32) mmol/L Anion Gap (6-13) BUN (6-20) mg/dL Creatinine (0.4-1.0) mg/dL Estimated GFR (MDRD) (>89) Glucose (70-100) mg/dL POC Whole Bld Glucose 122 H (70 - 100) mg/dL Calcium (8.5-10.3) mg/dL Phosphorus (2.5-4.6) mg/dL Magnesium (1.7-2.8) mg/dL Albumin (3.2-5.5) g/dL ABX Reporting Has patient been on IV antibiotics over the past 48 hours?: Yes Assessment/Plan - Problem List (1) Pleurisy with effusion Impression: Overall her pain is better than on the first 2 days of admission. She still gets breakthrough pain when her medications wear off. Her admission chest x-ray showed just a right lower lobe infiltrate and small pleural effusion. By the time her chest CT was done 2 days later, she has infiltrates in every lobe of her lungs bilaterally and a larger sized right pleural effusion. She also had a loculated effusion on the right that was between 3 to 4 cm size. She was started on scheduled iv NSAIDs. A follow-up chest x-ray (portable and decubitus) Was planned for 09/30 to deter mine if the pleural effusion is decreasing or growing in size. The patient even stated that she "would not mind having surgery remove the fluid so that she can hurry up and feel better". A chest tube for evacuation may need to be considered if the effusion is increasing in size. Once I went over this process with her, she changed her mind. She thought that she would be taken to the operating room and given general anesthesia. I explained that usually they do not do that. She decided to wait. She does not want a chest tube at this time. We did do a repeat chest x-ray. That was yesterday. She has a small, moderate, loculated right pleural effusion with associated airspace opacity in the right midlung and base. Overall appearance is similar to the previous CT. Plan: Repeat CT of the chest Once the size of the loculated effusion is assessed, she will either remain here for duration of therapy or need to be transferred. Continue antibiotics Continue to reassure and use judicious pain medication (2) CAP (community acquired pneumonia) Assessment/Plan: She has been here 7 days now. Hospitalist spoke to the [facility] radiologist to confirm that she has such extensive infiltrates. The radiologist confirmed that this appears to be a bacterial pneumonia, it does not have features of being atypical or viral pneumonia such as COVID. The patient tested negative for COVID by nasal swab done at admission. I thought of septic pulmonary embolic disease. Echocardiogram was done September 29 and has not been completely read. Preliminary shows left ventricular wall motion normal with ejection fraction 55 to 60%. No significant valvular heart disease. Mild to moderately abnormal right heart pressures with RVSP at 50 mmHg. Compared to the prior echo she has pulmonary arterial systolic pressure that is increased. She had respiratory culture but never had blood cultures done. White cell count started at 11.5 thousand. She is drifted down to 5.7 and is 6 today. Maximum temperature was 38.1 on the day of admission. Since then she is gradually drifted down and has been afebrile since September 27 in the evening. At most she required 2 L. She is down to 1 L nasal cannula and O2 sat is 93% so she was put back to 2 L and is still 93% Continue with IV antibiotics.Since she is MRSA negative, vancomycin has been discontinued and she is on Unasyn. (3) DM (diabetes mellitus), type 2, uncontrolled Assessment/Plan: Her past lab reports showed she had A1c levels of 6-7. Patient told me previous Hospitalist that she was not aware of being a pre-diabetic before this admission. But the diabetic education center says that the patient has been informed of this before. There was no follow-through. At admission now her A1c was 12. She was seen by the [facility] diabetic nurse educator here on Sunday and today and started to get education about managing diabetes. Here she is on a carb controlled diet and sliding scale insulin. At discharge, starting Metformin is the plan. She really wants to try metformin before she leaves. She does not want to take insulin. Plan: Yesterday glucose was 123, 140, 122, 144. Today she is 134 and 107. She is receiving 5 units with each meal of NovoLog. 15 units of Lantus in the morning. And Glucophage 500 mg twice daily with meals. In an attempt to get her closer to her goal of being on Glucophage and no insulin, I will stop the meal dosing, increase Glucophage to 750, and continue Lantus 15 units. I also sent a prescription to [employer] for a true Metrix glucometer with true metric test strips. Lancets. And a prescription for Lantus pen with needles. She does not have to pickle processor the prescription until her glucose is consistently greater than 1:30 in the morning in spite of Glucophage 750. Leilani from the diabetic education program states that she will follow-up with the patient within 3 to 4 days of discharge to make sure that she does not need to go on the Lantus. (4) Hyponatremia resolved. Assessment/Plan: Related to her hyperglycemia and slowly getting better. Follow BMP daily. (5) Horseshoe kidney Assessment/Plan: This was diagnosed several months ago when she had imaging of the abdomen. (6) Morbid obesity with BMI of 45.0-49.9, adult Assessment/Plan: Weight loss was discussed with the patient. (7) Hx of cardiomyopathy Assessment/Plan: On 09/27, the patient offered details about her past cardiac history to that hospitalist. She said she has been here several times with chest pain and in the past needed transfer to [facility], she is followed by Dr. Onofre, she said she had an angiogram that showed no coronary blockages and that she was to ld she had cardiomyopathy. She was on no prescription medications however before this hospitalization. Echocardiogram was reviewed and results discussed in problem #2. Plan: No change at this time (8) Hypokalemia supplement po.
--- NOTE | 2019-10-01 14:27 | CT Report ---
Reason: worse chest pain in pt w loculate L effusion Procedure Date: 10/01/2019 Accession Number: [id number] / [id number] Procedure: CT - CHEST WO CPT Code: Final Report FULL RESULT: EXAM: CT CHEST EXAM DATE: 10/01/2019 01:57 PM. CLINICAL HISTORY: Worse chest pain in pt w loculate L effusion. COMPARISONS: CHEST W 09/27/2019 4:07 PM. TECHNIQUE: Routine helical CT imaging was performed through the chest. IV contrast: None. Reconstructions: Coronal and sagittal. In accordance with CT protocol optimization, one or more of the following dose reduction techniques were utilized for this exam: automated exposure control, adjustment of mA and/or KV based on patient size, or use of iterative reconstructive technique. FINDINGS: Lungs/Pleura: There is a small right and trace left pleural effusion. Small right pleural effusion is smaller since 09 27 19. There is improved atelectasis and scarring in right middle and lower lobes with mild residual scarlike opacities. Mild atelectasis is also seen in left lung base. Overall improvement since 09 27 19. Mild underlying loculations on right pleural effusion cannot be excluded. Mediastinum: Persistently enlarged right thyroid lobe noted, most consistent with goiter. No mediastinal lymphadenopathy. No adenopathy or masses. The heart and great vessels are normal. Small subcentimeter lymph nodes in the right anterior costophrenic sulcus are unchanged since prior. Bones: Unremarkable. Visualized Abdomen: Significant low attenuation hepatic parenchyma is suggestive of steatosis. Other: None. IMPRESSION: A small right and trace left pleural effusion. Small right pleural effusion is smaller since 09 27 19 with improved atelectasis and scarring in right middle and lower lobes with mild residual scar like opacities. However underlying pleural loculations cannot be excluded. Small subcentimeter lymph node in right cardiophrenic sulcus are unchanged. Mild atelectasis in left lung base. Overall improvement since 09 27 19. No obvious loculations in left pleural effusions. RAD[facility]
[2019-10-01] MEDS: BENZONATATE 100 MG CAPSULE PO PRN (21:59)
[2019-10-01] MEDS: lisinopriL 5 MG TABLET PO SCH (22:22)
[2019-10-02] MEDS: BENZOCAINE/MENTHOL LOZENGE MM PRN (03:02)
[2019-10-02] MEDS: SODIUM CHLORIDE FLUSH 0.9% 10 ML SYRINGE IVP PRN ×2 (03:15→05:44)
[2019-10-02] MEDS: HYDROmorphone 1 MG/ML CARPUJECT IVP PRN (03:15)
[2019-10-02] MEDS: AMPICILLIN/SULBACTAM 3 GM in SODIUM CHLORIDE 0.9% MINIBAG 100 ML IV SCH ×2 (05:44→11:30)
[2019-10-02] MEDS: KETOROLAC 30 MG/ML VIAL IVP SCH (05:44)
[2019-10-02] MEDS: INSULIN ASPART 300 UNIT/3 ML PEN SUBQ SCH ×4 (08:00→21:02)
--- NOTE | 2019-10-02 08:34 | PROVIDER PROGRESS NOTE ---
Subjective - Prog Note Date Prog Note Date: 10/02/19 Prog Note Time: 08:35 - Subjective Pt reports feeling: Improved Subjective: Many questions answered. Pleuritic chest pain has improved steadily since I met her on September 29. It is less intense, more fleeting. But still present every once in all if she coughs a certain way or moves a certain way. I have been decreasing her oxygen and she is been on room air at 92 to 93%. Noticeably she desaturates when asleep. She has a lot of questions about her diabetes. Those were answered. New sensation of mouth ulcers on the buccal mucosa of both sides of her mouth that sting Mild increase in cough and sensation of sore throat Current Medications - Current Medications Current Medications: Active Medications Acetaminophen (Tylenol) 650 mg PO Q4HR PRN PRN Reason: Pain or Fever > 38C (100.4F) Last Admin: 09/29/19 20:00 Dose: 650 mg Hydrocodone Bitart/Acetaminophen ([place] 5/325) 1 tab PO Q4HR PRN PRN Reason: Pain 5 to 7 Last Admin: 10/01/19 21:04 Dose: 1 tab Benzonatate (Tessalon) 100 mg PO TID PRN PRN Reason: Cough Last Admin: 10/01/19 21:59 Dose: 100 mg Cyclobenzaprine HCl (Flexeril) 10 mg PO TID PRN PRN Reason: Spasms Last Admin: 09/29/19 16:00 Dose: 10 mg Docusate Sodium (Colace 250mg Capsule) 250 - 500 mg PO DAILY [facility] Last Admin: 10/01/19 08:13 Dose: 250 mg Enoxaparin Sodium (Lovenox) 40 mg SUBQ DAILY [facility] Last Admin: 10/01/19 08:48 Dose: 40 mg Famotidine (Pepcid) 20 mg PO BID [facility] Last Admin: 10/01/19 20:50 Dose: 20 mg Hydromorphone HCl (Dilaudid Inj Carp) 1 mg IVP Q2H PRN PRN Reason: PAIN 8-10 Last Admin: 10/02/19 03:15 Dose: 1 mg Ampicillin Sodium/Sulbactam (Sodium 3 gm/ Sodium Chloride) 100 mls @ 200 mls/hr IV Q6HR [facility] Last Infusion: 10/02/19 06:59 Dose: Infused Insulin Aspart (Novolog) 1 - 9 unit SUBQ 0800,1200,1700,2100 [facility]; Protocol Last Admin: 10/01/19 20:52 Dose: Not Given Ketorolac Tromethamine (Toradol Inj (30mg)) 30 mg IVP Q6HR [facility] Stop: 10/03/19 17:59 Last Admin: 10/02/19 05:44 Dose: 30 mg Lisinopril (Zestril) 10 mg PO DAILY [facility] Last Admin: 10/01/19 22:22 Dose: 10 mg Metformin HCl (Glucophage) 500 mg PO BIDWM [facility] Last Admin: 10/01/19 17:30 Dose: 500 mg Ondansetron HCl (Zofran Inj) 4 mg IVP Q6HR PRN PRN Reason: Nausea / Vomiting Last Admin: 09/29/19 08:56 Dose: 4 mg Polyethylene Glycol (Miralax) 17 gm PO DAILY [facility] Last Admin: 10/01/19 08:13 Dose: 17 gm Sodium Chloride (Normal Saline Flush 0.9%) 10 ml IVP PRN PRN PRN Reason: NEEDED PER PROVIDER ORDERS Last Admin: 10/02/19 05:44 Dose: 10 ml Sodium Chloride (Normal Saline Flush 0.9%) 10 ml IVP 0100,0900,1700 [facility] Last Admin: 10/01/19 23:57 Dose: 10 ml Throat Lozenges (Cepacol) 1 lozenge MM Q2HR PRN PRN Reason: Throat pain Last Admin: 10/02/19 03:02 Dose: 1 lozenge Objective - Vital Signs/Intake & Output Reviewed Vital Signs: Yes Vital Signs: Vital Signs x48h Temp Pulse Resp BP Pulse Ox 10/02/19 08:15 36.4 C L 72 15 141/67 H 93 10/02/19 05:47 36.7 C 82 19 158/96 H 96 Intake & Output: Intake & Output 09/29/19 09/30/19 10/01/19 10/02/19 23:59 23:59 23:59 23:59 Intake Total 3640 1915 2260 440 Output Total 041 773 3983 700 Balance 3140 940 -290 -260 - Objective General Appearance: positive: Alert, Other (Exceedingly pleasant, morbidly obese white female sitting up in chair without any distress as she speaks to me) Eyes Bilateral: positive: PERRL ENT: positive: Other (Buccal mucosa with herpetic blisters. Small vesicles, clear. No ulcers.) Neck: positive: No JVD. negative: Stiff neck Respiratory: positive: Chest non-tender, No respiratory distress, Wheezes (Were steady when I first met her. Since then they have been gradually lengthening and now they are scattered, intermittent). negative: Other (No respiratory rub) Cardiovascular: positive: Regular rate & rhythm, No murmur. negative: Gallop/S4, Friction rub Abdomen: positive: Non-tender, No organomegaly, Nml bowel sounds, No distention, Other (obese. She had a bowel movement yesterday.) Skin: positive: Warm, Dry Extremities: positive: Full ROM, No pedal edema Neurologic/Psychiatric: positive: Oriented x3, CN's nml (2-12), Motor nml, Sensation nml - Lab Results Fish Bones: 10/01/19 04:20 10/01/19 04:20 Other Labs: Lab Results x24hrs 10/02/19 10/01/19 10/01/19 Range/Units 07:52 20:52 16:56 POC Whole Bld Glucose 123 H 101 H 100 (70 - 100) mg/dL 10/01/19 Range/Units 12:24 POC Whole Bld Glucose 107 H (70 - 100) mg/dL ABX Reporting Has patient been on IV antibiotics over the past 48 hours?: Yes Assessment/Plan - Problem List (1) Hypertension Impression: She says that she used to take lisinopril in the outpatient setting when Dr. Braun, cardiology, treated her congestive heart failure. She has not taken it in a while. Last night she was started on lisinopril by the rn cardiac rehab. She was 158/103. This morning she is 148/99. Plan, continue lisinopril in the outpatient setting. Have a blood pressure check with either her primary care provider or Dr. Braun. Qualifiers: Hypertension type: essential hypertension Qualified Code(s): I10 - Essential (primary) hypertension (2) Pleurisy with effusion Impression: Pain is now controlled. But she is on Dilaudid as needed. Last dose was at 3 this morning. She is also on Toradol with last dose at 544 this morning. We have explained that IV is not can be available for her at home. We will switch to p.o. Dilaudid today and p.o. nonsteroidal. I am also going to start a proton pump inhibitor while she is on the nonsteroidal. She may need high doses of nonsteroidals when she gets home. In review, repeat CT of the chest does not indicate a chest tube or intervention necessary. But she will need close follow-up in the outpatient setting to make sure she does not develop cough, indolent fevers. Discharge tomorrow if pain is controlled today with new measures. (2) CAP (community acquired pneumonia) Assessment/Plan: She received 2 days of routine community-acquired pneumonia with Rocephin and az ithromycin and then changed to broad-spectrum once she was identified as having progression of her disease with multi lobar, bilateral infiltrates. Differential has included community-acquired pneumonia, staph pneumonia, viral pneumonia, septic emboli. So far no evidence of any of those problems. She is afebrile, normal white cell count. Still needing 1 to 2 L of oxygen and hope to get her off of that today. She is completed 8 days of antibiotics. She will not need any antibiotics at discharge. I will order Mucinex for the cough. Make sure she has some at home. (3) DM (diabetes mellitus), type 2, uncontrolled Assessment/Plan: Her past lab reports showed she had A1c levels of 6-7. Patient told me previous Hospitalist that she was not aware of being a pre-diabetic before this admission. But the diabetic education center says that the patient has been inf ormed of this before. There was no follow-through. At admission now her A1c was 12. She was seen by the [facility] diabetic nurse educator here on Sunday and today and started to get education about managing diabetes. Here she is on a carb controlled diet and sliding scale insulin. At discharge, starting Metformin is the plan. In an attempt to get her closer to her goal of being on Glucophage and no in sulin, I stopped the meal fixed dosing, kept glucophage at 500 bid WM and discontinue lantus tomorrow but continue ac sliding scale. I also sent a prescription to [email or web address] for a true Metrix glucometer with true metric test strips. Lancets. And a prescription for Lantus pen with needles. She does not have to molded goods spot picker the prescription until her glucose is consistently greater than 1:30 in the morning in spite of Glucophage 750. Leilani from the diabetic education program states that she will follow-up with the patient within 3 to 4 days of discharge to make sure that she does not need to go on the Lantus. So far between yesterday afternoon and this morning glucose is very well controlled. We will watch her sugars today. If they remain stable without any bump, she will be sent home on metformin. Anticipate discharge tomorrow morning.She lets me know that [facility] is not her pharmacy in . So I have reissued prescriptions to [facility] and canceled at [facility] I have also explained that she does not need to be at goal weight to control her diabetes. She was thinking that she needed to lose quite a bit of weight. While she is morbidly obese and weighs about 247 pounds I explained that if she lost 10% of her body weight and was able to walk 30 minutes a day that would go a very long way of bring her A1c down to near good control. That skin to be her aim in the outpatient setting with the help of her sister who is a herbalist and automation and controls manager.
[2019-10-02] MEDS ORDERED: HYDROmorphone 2 MG TABLET PO PRN (09:29)
[2019-10-02] MEDS: metFORMIN 500 MG TABLET PO SCH ×2 (10:12→17:18)
[2019-10-02] MEDS: lisinopriL 5 MG TABLET PO SCH (10:13)
[2019-10-02] MEDS: FAMOTIDINE 20 MG TABLET PO SCH ×2 (10:13→21:12)
[2019-10-02] MEDS: ENOXAPARIN 40 MG/0.4 ML SYRINGE SUBQ SCH (10:14)
[2019-10-02] MEDS: DOCUSATE SODIUM 250 MG CAPSULE PO SCH (10:14)
[2019-10-02] MEDS: polyethylene glycoL 3350 17 GM PACKET PO SCH (10:36)
[2019-10-02] MEDS: ACETAMINOPHEN 325 MG TABLET PO PRN (11:07)
[2019-10-02] MEDS: PANTOPRAZOLE 40 MG TABLET PO SCH (11:07)
[2019-10-02] MEDS: SODIUM CHLORIDE FLUSH 0.9% 10 ML SYRINGE IVP SCH ×3 (11:30→18:00)
[2019-10-02] MEDS: NAPROXEN 250 MG TABLET PO PRN ×2 (13:04→17:22)
--- NOTE | 2019-10-02 14:48 | Discharge Plan ---
Discharge Plan Problem Reviewed?: Yes Disposition: Home, Self Care Condition: Stable Prescriptions: Blood Sugar Diagnostic [Glucometer Strips] 1 each MC TIDWM #1 pkg Blood-Glucose Meter [Glucometer] 1 each MC DAILY #1 each Guaifenesin [Mucinex] 600 mg PO BID #30 tab.er.12h Insulin Glargine [Lantus Solostar] 15 unit SQ DAILY #1 pen lisinopriL [Lisinopril] 10 mg PO DAILY #30 tablet metFORMIN [Glucophage] 500 mg PO BIDWM #60 tablet Pen Needle, Diabetic [Insulin Pen Needle] 1 each MC DAILY #1 pkg Diet: Diabetic Activity Restrictions: Activity as Tolerated Shower Restrictions: No Driving Restrictions: No Instruction Topics: Metformin tablets, Guaifenesin oral ER tablets, Lisinopril tablets Health Concerns: You presented to our emergency room after several days of shortness of breath, and a very sharp, severe stabbing chest pain in the right chest. You had no appetite, and had been coughing for quite some time. You were found to have pneumonia. You were treated in the emergency room and sent home but came back because the pain was intolerable. We found you to have bilateral pneumonia. And fluid in the pleural cavity which is the space around her lungs. There is a small scar tissue area that has formed in the right space that still has a little bit of fluid left. But after 2 CAT scans of the chest you do not need to have interventions to remove that fluid. We also found you to have diabetes mellitus uncontrolled. A goal glycosylated hemoglobin to have is 7% or less. You were 12.4%. You initially placed on insulin, but have managed to bring your glucose down with good reduction in your carbohydrate intake. You were found to have high blood pressure and have been put on a new blood pressure medicine. Plan of Treatment: 1. You have completed antibiotics and do not need to go home on any. But please start a probiotic for the next 1 to 2 weeks. 2. You will be sent home on metformin. The certified adapted physical educator will follow up with you by phone over the next few days so please keep a diary of your glucose checks. 3. Since you have been started on a new blood pressure medicine, please follow- up with your primary care provider which should be a provider in the [facility]. 4. Check your glucose before meals and keep a diary of those glucose checks. Share those results with the certified adapted physical educator. That glucose review will decide if you need to go back on Lantus or not. We have prescribed Lantus, needles, but you do not need to leaf size picker the Lantus until the certified adapted physical educator reviews your glucose. 5. You still have a mild cough and we have prescribed Mucinex 6. The small pocket of fluid that is scarred down around your right lung will gradually be reabsorbed by your own body. However, very rarely, sometimes the fluid gets infected and grows larger. Symptoms will be increasing cough, increasing fatigue, fevers that come and go, lack of appetite. You may also experience increasing chest pain over several days. If all of these symptoms are occurring please contact your primary care provider for evaluation. Unless you are severely short of breath, you do not need to go to the emergency room for this Care Goals: To resume normal activity, lose 10% of your body weight to control your diabetes, and gradually increase your activity level to be able to walk 30 minutes a day. All of this will take several weeks and months. Please be patient. Assessment: Care goals and treatment plan discussed with patient. She promises to follow through. Follow-Up Care: [facility] - Diabetes Ed No Smoking: If you smoke, Please STOP! Call for help. Follow-up with: Deandre Rodriguez MD [Credentialed Staff Provider] -
[2019-10-02] MEDS: guaiFENesin 600 MG TABLET PO SCH ×2 (17:18→21:12)
[2019-10-02] MEDS ORDERED: guaiFENesin 600 MG TABLET PO SCH (21:00)
[2019-10-02] MEDS: BENZONATATE 100 MG CAPSULE PO PRN (21:13)
[2019-10-02] MEDS: CYCLOBENZAPRINE 10 MG TABLET PO PRN (21:53)
[2019-10-02] MEDS: HYDROcod/ACETAM 5/325 MG TABLET PO PRN (21:53)
[2019-10-03] MEDS: SODIUM CHLORIDE FLUSH 0.9% 10 ML SYRINGE IVP SCH ×2 (06:02→08:12)
[2019-10-03] MEDS: PANTOPRAZOLE 40 MG TABLET PO SCH (07:11)
[2019-10-03 07:33] VITALS: BP 163/103
[2019-10-03] MEDS: INSULIN ASPART 300 UNIT/3 ML PEN SUBQ SCH (07:45)
[2019-10-03] MEDS: metFORMIN 500 MG TABLET PO SCH (07:48)
[2019-10-03] MEDS: lisinopriL 5 MG TABLET PO SCH (08:04)
[2019-10-03] MEDS: ENOXAPARIN 40 MG/0.4 ML SYRINGE SUBQ SCH (08:06)
[2019-10-03] MEDS: DOCUSATE SODIUM 250 MG CAPSULE PO SCH (08:06)
[2019-10-03] MEDS: polyethylene glycoL 3350 17 GM PACKET PO SCH (08:09)
[2019-10-03] MEDS: FAMOTIDINE 20 MG TABLET PO SCH (08:10)
[2019-10-03] MEDS: guaiFENesin 600 MG TABLET PO SCH (08:12)
--- NOTE | 2019-10-03 18:54 | DISCHARGE SUMMARY ---
Discharge Summary Admit Date: 09/25/19 Discharge Date: 10/03/19 Discharging Provider: Janee Joshua MD Primary Care Provider: Toma Puentes MD Endocrinology [facility] Code Status: Attempt Resuscitation Condition at Discharge: Stable Discharge Disposition: 01 Home, Self Care - DIAGNOSES Discharge Diagnoses with Status of Each Condition: 1. Community-acquired pneumonia 2. Pleurisy with effusion 3. Type 2 diabetes mellitus, uncontrolled, with complication, not on long-term insulin 4. Hypertension 5. Hyponatremia 6. Horseshoe kidney 7. Loculated right pleural effusion 8. History of cardiomyopathy 9. Morbid obesity - HPI History of Present Illness: Patient is 58-year-old female who presented to the ED with complaint of right- sided pleuritic/musculoskeletal pain and dyspnea. Her symptoms started last night but got worse this morning. She initially presented to the ED this morning where work-up showed that she had pneumonia and a small right pleural effusion. She was prescribed oral antibiotics and pain medications and discharged home. She took the oral pain medication she was given with no significant improvement in her pain. As a result of significant pain she was having difficulty breathing and she was very nauseous so she returned to the emergency department later this evening. In the ED she was given Dilaudid 1 mg IV x2. While this caused a slight improvement in her pain, her symptoms worsened 2 hours after administration. As a result of the intractable pain she was presented for admission. She denied any recent injury. She denied chest pain, abdominal pain, fever or chills. Past Medical History Cardiovascular: reports: Congestive heart failure, [place] Respiratory: reports: None Neuro: reports: None Endocrine/Autoimmune: reports: None GI: reports: GERD PHYSICIST [employer]: reports: None : reports: None HEENT: reports: None Psych: reports: Depression, Anxiety Musculoskeletal: reports: Osteoarthritis, Rheumatoid arthritis, Other Derm: reports: None - CONSULTS | PROCEDURES Procedures: 1. CT abdomen and pelvis with pulmonary consolidation in the right lower lobe and trace right pleural effusion. Hepatomegaly. Fatty liver. 2. Chest/thorax CT angiogram September 24 without emboli, irregular opacities right lung base, no pleural effusion. Liver with fatty liver changes. Chest CT September 26 bilateral areas of infiltrate most prominent in the right middle lobe, right lower lobe, loculated right pleural effusion that is 3.6 cm. Mediastinal and hilar adenopathy. Right thyroid nodule/goiter. Horseshow kidney. Chest CT September 30 with small right and trace left pleural effusion. Smaller than September 26. Improved atelectasis and scarring right middle lobe and right lower lobe. Mild atelectasis left lung base. Overall improvement since September 26. Mild underlying loculations right pleural effusion not clearly seen. Persistently enlarged right thyroid lobe consistent with goiter. 3. Chest x-ray September 24 showed no focal opacities or consolidation. Chest x-ray September 25 showed increasing right basilar infiltrate when compared to previous day. Chest x-ray September 30 showed small/moderate loculated right pleural effusion with associated airspace opacity in the right midlung and base. Patchy opacity in the right mid lung base. Left lung now clear. 4. no blood cultures or urine cultures 5. Coronavirus PCR negative 6. MRSA nasal screen negative 7. Glycosylated hemoglobin 12.4% 8. Echocardiogram showed overall left ventricular systolic function normal with ejection fraction 55 to 60%. Mild to moderately abnormal right heart pressures with an RVSP at rest 50 mmHg. No valvular heart disease. - HOSPITAL COURSE Hospital Course: After being seen for a second time in the emergency room that day she was admitted and started on empiric antibiotic therapy for presumed community- acquired pneumonia. She complained bitterly of sharp stabbing right pleuritic chest pain and a repeat chest x-ray showed worsening infiltrates that were now increasing. On September 26, 2 days after her first chest CT, we did a second CT because of her pain and changing chest xray and she now had bilateral multi lobar pneumonia with pleural effusions and a right loculation. Antibiotics were changed and broadened to cover. We were worried about COVID and atypical pneumonia but radiology was very firm in telling us that this was not a typical pneumonia and did not look like groundglass pneumonia. COVID was negative. We concentrated on the pneumonia and she gradually improved over time with pleuritic chest pain being her main complaint. She needed less and less oxygen. We repeated the CT to make sure that the loculated right pleural effusion did not need chest tube drainage. It did not. Diabetes mellitus was given as a diagnosis. She states that she had "borderline diabetes for years." We started her on Lantus and sliding scale insulin as well as fixed dose short acting insulin with her meals. She really did not want to go home on insulin and asked us to please use oral medications. As such with strict carb control in the hospital and starting her on metformin glucoses were acceptable and in the low 100s before food. She promises to follow through with strict carb control, and follow-up with her wire stripping machine operator. Our music educator will follow up with her in the next week to make sure that her glucose is under control and that she does not need to go back on Lantus. A prescriptio n for Lantus, was called into her pharmacy. But she does not need to pick it up until the music educator says so. A glucometer, glucometer strips, lancets were all called into the pharmacy as well. Nutrition services as well as music educator addressed her morbid obesity. Need for weight loss. She was given the results of the incidental finding of a horseshoe kidney. For her history of cardiomyopathy her fluid intake and daily weights were watched and she had no congestive heart failure exacerbation. Hypokalemia was treated with supplementation. I have advised her to at least lose 10% of her body weight, and aim for walking 30 minutes a day and her goal to keep her glucose under control. New medications included lisinopril, metformin, Mucinex. She is not to rock picker the Lantus insulin pen until music educator instruct her to do so. She is discharged in stable condition and still having intermittent right-sided pleuritic chest pain. But eating well, and is 92% on room air even with ambulation. Temperature is 36.9 pulse is 85 blood pressure 163/103 and respirations are 21. She is 5 foot 4 inches tall and weighs 118 kg. Thyroid asymmetry is slightly palpable. Lungs have coarse upper airway sounds with occasional wheeze. But no increased respiratory effort no respiratory distress. A regular rate and rhythm. And abdomen that is hugely obese, nontender, soft. Difficult to assess for organomegaly. Legs are without edema. She ambulates without assistance but is fatigued and will get short of breath and need to sit down. Greater than 30 minutes was spent coordinating discharge. She is asked to follow-up with her primary care provider, and her wire stripping machine operator at the [facility]. Goiter may need to be addressed. - ALLERGIES Allergies/Adverse Reactions: Allergies Allergy/AdvReac Type Severity Reaction Status Date / Time No Known Drug Allergies Allergy Verified 09/25/19 18:54 - MEDICATIONS Home Medications: Ambulatory Orders Medication Instructions Recorded Confirmed Blood Sugar Diagnostic [Glucometer 1 each MC TIDWM #1 pkg 10/01/19 Strips] Blood-Glucose Meter [Glucometer] 1 each MC DAILY #1 each 10/01/19 Insulin Glargine [Lantus Solostar] 15 unit SQ DAILY #1 pen 10/01/19 Pen Needle, Diabetic [Insulin Pen 1 each MC DAILY #1 pkg 10/01/19 Needle] Guaifenesin [Mucinex] 600 mg PO BID #30 tab.er.12h 10/02/19 lisinopriL [Lisinopril] 10 mg PO DAILY #30 tablet 10/02/19 metFORMIN [Glucophage] 500 mg PO BIDWM #60 tablet 10/02/19 - LABS Result Diagrams: 10/01/19 04:20 10/01/19 04:20
== END 2019-10-03 09:13 | disposition home or self-care (01) | DRG 194 ==
LOC: ED 18:43 → MS2 22:06 → OBSVTOIN 09-27 15:46 → ICU 09-27 18:18
PROVIDERS: ADMIT Internal Medicine; ATTEND Specialist
DX: J18.9 Pneumonia, unspecified organism (principal); E87.1 Hypo-osmolality and hyponatremia; Z68.41 Body mass index [BMI] 40.0-44.9, adult; R09.1 Pleurisy; E11.65 Type 2 diabetes mellitus with hyperglycemia; E87.6 Hypokalemia; E04.9 Nontoxic goiter, unspecified; Q63.1 Lobulated, fused and horseshoe kidney; E66.01 Morbid (severe) obesity due to excess calories; F17.210 Nicotine dependence, cigarettes, uncomplicated; M06.9 Rheumatoid arthritis, unspecified; K21.9 Gastro-esophageal reflux disease without esophagitis; Z20.828 Contact with and (suspected) exposure to other viral communicable diseases; I25.2 Old myocardial infarction; Z86.79 Personal history of other diseases of the circulatory system; Z91.14 Patient's other noncompliance with medication regimen; Z91.19 Patient's noncompliance with other medical treatment and regimen; F41.9 Anxiety disorder, unspecified; R79.89 Other specified abnormal findings of blood chemistry
CPT/HCPCS: 36415; 71045; 71047; 71250; 71260; 71275; 74176; 80048; 80053; 80202; 81003; 81025; 82040; 83036; 83605; 83690; 83735; 83880; 84100; 84484; 85025; 85379; 85610; 85651; 85730; 87150; 87635; 93005; 93306; 94761; 96361; 96365; 96372; 96375; 96376; 99285; A9270; G0378; J1170; J1650; J1815; J2060; J3370; Q9967; 81001; 81599; 87086

== ENCOUNTER 2019-12-10 10:40 | Outpatient (CLI) | payer MEDICAID ==
--- NOTE | 2019-12-10 11:36 | XRAY Report ---
PROCEDURE: Hand 3 View BILAT INDICATIONS: GOUT AND HAND PAIN TECHNIQUE: 3 views of the hand(s) acquired. COMPARISON: None. FINDINGS: Bones: No fractures or dislocations. No suspicious bony lesions. Severe diffuse bilateral interphal angeal osteoarthritis. There is thumb interphalangeal joint degeneration. Small marginal lucency present at the right third and fourth MCP joints. Additional marginal lucency projects at the right index finger PIP joint. Soft tissues: No suspicious soft tissue calcifications. IMPRESSION: Severe diffuse bilateral hand osteoarthritis as above. Small marginal lucencies involving the right third and fourth MCP joints, and the right index finger PIP joint Reviewed by: Demetri Briones MD on 12/10/2019 11:35 AM PDT Approved by: Demetri Briones MD on 12/10/2019 11:35 AM PDT Station ID: [id number]
[2019-12-10 15:14] LABS: BASOPHILS # (AUTO) 0.1 10^3/uL (0.0-0.1); BASOPHILS % (AUTO) 1.2 %; EOSINOPHILS # (AUTO) 0.1 10^3/uL (0.0-0.7); EOSINOPHILS % (AUTO) 1.8 %; HGB - HEMOGLOBIN 14.6 g/dL (12.0-16.0); LYMPHOCYTES # (AUTO) 1.9 10^3/uL (1.5-3.5); LYMPHOCYTES % (AUTO) 39.2 %; MEAN CORPUSCULAR HGB CONC 31.6 g/dL (32.0-36.0); MEAN CORPUSCULAR VOLUME 91.7 fL (81.0-99.0); MONOCYTES # (AUTO) 0.4 10^3/uL (0.0-1.0); MONOCYTES % (AUTO) 7.8 %; NEUTROPHILS # (AUTO) 2.4 10^3/uL (1.5-6.6); NEUTROPHILS % (AUTO) 49.8 %; PLT - PLATELET COUNT 199 10^3/uL (130-450); RED BLOOD COUNT 5.04 10^6/uL (4.20-5.40); RED CELL DISTRIBUTION WIDTH 14.4 % (12.0-15.0); WHITE BLOOD COUNT 4.9 x10^3/uL (4.8-10.8)
[2019-12-10 16:29] LABS: ALBUMIN 4.3 g/dL (3.2-5.5); ALBUMIN/GLOBULIN RATIO 1.5 (1.0-2.2); ALKALINE PHOSPHATASE 43 IU/L (42-121); ALT ALANINE AMINOTRANSFERASE 43 IU/L (10-60); AST ASPARTATE AMINOTRANSFERASE 30 IU/L (10-42); BILIRUBIN,TOTAL 0.5 mg/dL (0.2-1.0); BUN - BLOOD UREA NITROGEN 14 mg/dL (6-20); CALCIUM 9.4 mg/dL (8.5-10.3); CARBON DIOXIDE - CO2 25 mmol/L (21-32); CHLORIDE 104 mmol/L (101-111); CREATININE 0.8 mg/dL (0.4-1.0); GLUCOSE 121 mg/dL (70-100); SODIUM 138 mmol/L (135-145); TOTAL PROTEIN 7.2 g/dL (6.7-8.2); URIC ACID 6.5 mg/dL (2.6-7.2)
[2019-12-10 16:30] LABS: CRP - C-REACTIVE PROTEIN < 1.0 mg/dL (0-1.0)
== END 2019-12-10 10:41 | disposition home or self-care (01) ==
LOC: DI.S 10:40
PROVIDERS: ATTEND Family Medicine
DX: M19.042 Primary osteoarthritis, left hand (principal); M19.041 Primary osteoarthritis, right hand; L03.311 Cellulitis of abdominal wall; M10.9 Gout, unspecified; R21 Rash and other nonspecific skin eruption
CPT/HCPCS: 36415; 80053; 84550; 85025; 85651; 86140

== ENCOUNTER 2020-08-11 | Outpatient (CLI) | payer MEDICAID | END 2020-08-11 11:11 | disposition left against medical advice (07) ==

== ENCOUNTER 2020-08-12 11:11 | Outpatient (CLI) | payer MEDICAID ==
--- NOTE | 2020-08-12 14:28 | XRAY Report ---
PROCEDURE: Abdomen 2 View X-Ray INDICATIONS: BACK PAIN, THORACIC REGION TECHNIQUE: 2 views of the abdomen were acquired. COMPARISON: None FINDINGS: Surgical changes and devices: Cholecystectomy clips. Bowel: No pneumoperitoneum. The bowel gas pattern is normal. Soft tissues: No masses; visualized solid organ contours appear normal in size. No suspicious abdom inal calcifications. Bones: No suspicious bony abnormalities. Mild degenerative spinal changes. IMPRESSION: Nonspecific, nonobstructive bowel gas pattern. Reviewed by: Devorah Quintero MD on 08/12/2020 1:27 PM [facility]NOW Approved by: Devorah Quintero MD on 08/12/2020 1:27 PM [facility] Station ID: [id number]
[2020-08-12 15:17] LABS: EOSINOPHILS # (AUTO) 0.1 10^3/uL (0.0-0.7); EOSINOPHILS % (AUTO) 2.3 %; HCT - HEMATOCRIT 51.1 % (37.0-47.0); HGB - HEMOGLOBIN 16.3 g/dL (12.0-16.0); LYMPHOCYTES % (AUTO) 33.3 %; MEAN CORPUSCULAR HEMOGLOBIN 29.5 pg (27.0-31.0); MEAN CORPUSCULAR HGB CONC 31.9 g/dL (32.0-36.0); MEAN CORPUSCULAR VOLUME 92.6 fL (81.0-99.0); MEAN PLATELET VOLUME 11.1 fL (7.9-10.8); MONOCYTES # (AUTO) 0.3 10^3/uL (0.0-1.0); MONOCYTES % (AUTO) 8.4 %; NEUTROPHILS # (AUTO) 1.7 10^3/uL (1.5-6.6); NEUTROPHILS % (AUTO) 54.4 %; PLT - PLATELET COUNT 123 10^3/uL (130-450); RED BLOOD COUNT 5.52 10^6/uL (4.20-5.40); RED CELL DISTRIBUTION WIDTH 12.8 % (12.0-15.0); WHITE BLOOD COUNT 3.1 x10^3/uL (4.8-10.8)
[2020-08-12 15:35] LABS: ALBUMIN 4.4 g/dL (3.2-5.5); ALBUMIN/GLOBULIN RATIO 1.4 (1.0-2.2); BILIRUBIN,TOTAL 0.5 mg/dL (0.2-1.0); CALCIUM 8.8 mg/dL (8.5-10.3); CREATININE 0.7 mg/dL (0.4-1.0); POTASSIUM 4.4 mmol/L (3.5-5.0); TOTAL PROTEIN 7.5 g/dL (6.7-8.2)
== END 2020-08-12 11:12 | disposition home or self-care (01) ==
LOC: DI.S 11:11
PROVIDERS: ATTEND Registered Nurse
DX: M54.6 Pain in thoracic spine (principal); R10.12 Left upper quadrant pain; R10.13 Epigastric pain; R11.0 Nausea
CPT/HCPCS: 36415; 80053; 85025

== ENCOUNTER 2020-08-14 15:03 | Emergency (ER) | payer MEDICAID ==
--- OUTSIDE RECORDS SUMMARY | 2020-08-14 15:07 | EXTERNAL MEDICAL SUMMARY RPT | Continuity of Care Document ---
:1960 Demographics Phone Unavailable Preferred Language Unknown Marital Status Unknown Denominational Affiliation Unknown Race Unknown Ethnic Group Unknown Author Organization [facility] Address [address] [phone] Phone Social History date description facility [id number]
--- OUTSIDE RECORDS SUMMARY | 2020-08-14 15:10 | EXTERNAL MEDICAL SUMMARY RPT | Continuity of Care Document ---
:1960 Demographics Phone Unavailable Preferred Language Unknown Marital Status Unknown Presybeterian Affiliation Unknown Race Unknown Ethnic Group Unknown Author Organization [facility] Address [address] [phone] Phone Social History date description facility [id number]
[2020-08-14] MEDS ORDERED: ONDANSETRON 4 MG/2 ML VIAL IVP STA (15:38)
[2020-08-14] MEDS ORDERED: LIDOCAINE VISCOUS 2% 15 ML UDC MM STA (15:38)
[2020-08-14] MEDS ORDERED: PANTOPRAZOLE 40 MG VIAL IVP STA (15:38)
[2020-08-14] MEDS ORDERED: MORPHINE 2 MG/ML CARPUJECT IVP STA (15:38)
[2020-08-14] MEDS ORDERED: SUCRALFATE 1 GM/10 ML UDC PO STA (15:38)
[2020-08-14] MEDS ORDERED: MAG HYDROX/AL HYDROX/SIMETH 30 ML UDC PO STA (15:38)
--- NOTE | 2020-08-14 15:38 | ED Physician Documentation ---
History of Present Illness - Stated complaint Stated Complaint: WEAKNESS,BODY PX - Chief complaint Chief Complaint: Abd Pain - History obtained from History obtained from: Patient - History of Present Illness Timing: How many days ago (10) Pain level max: 7 Pain level now: 7 - Additonal information Additional information: Patient is a 59-year-old female who presents to the emergency department with abdominal pain for the past 10 days. She states she visited [facility], was told she had normal laboratory work at that time and sent home. Followed up with her doctor who told her she may have hepatitis as her LFTs were higher than her prior lab draw. The patient is 2 years status post cholecys tectomy. Most of the pain is epigastric radiating to the back. Worse with eating and drinking. Nothing makes it better. No history of pancreatitis. Does not drink alcohol. No drug use. No rash. Has had some diarrhea, nonbloody. Has had nausea but no vomiting. Review of Systems Ten Systems: 10 systems reviewed and negative Constitutional: denies: Fever, Chills Ears: denies: Ear pain Nose: denies: Rhinorrhea / runny nose, Congestion Respiratory: denies: Cough GI: reports: Nausea, Diarrhea. 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 : None HEENT: None Psych: Depression, Anxiety Musculoskeletal: Osteoarthritis, Rheumatoid arthritis, Other Derm: None - Past Surgical History Past Surgical History: Yes General: Appendectomy, Gastric surgery, Other /DAIRY CHEMIST: section, Hysterectomy, Other - Present Medications Home Medications: Ambulatory Orders Medication Instructions Recorded Confirmed Blood Sugar Diagnostic [Glucometer 1 each MC TIDWM #1 pkg 10/01/19 08/14/20 Strips] Blood-Glucose Meter [Glucometer] 1 each MC DAILY #1 each 10/01/19 08/14/20 lisinopriL [Lisinopril] 10 mg PO DAILY #30 tablet 10/02/19 08/14/[address] [Voltaren] 75 mg PO BIDWM 08/14/20 08/14/20 Empagliflozin [Jardiance] 10 mg ORAL DAILY 08/14/20 08/14/20 Esomeprazole Magnesium [Nexium] 40 mg PO DAILY #30 cap 08/14/20 Famotidine [Pepcid] 20 mg PO BID #60 tablet 08/14/20 Lansoprazole [Prevacid] 15 mg PO DAILY 08/14/20 08/14/20 Ondansetron Odt [Zofran] 4 mg TL Q6H PRN #10 tablet 08/14/20 Oxycodone HCl/Acetaminophen 1 - 2 each PO Q6H PRN #14 tablet 08/14/20 [Percocet 5-325 mg Tablet] Rosuvastatin Calcium [Crestor] 5 mg PO HS 08/14/20 08/14/20 Sucralfate [Carafate] 1 gm PO ACHS #60 tablet 08/14/20 metFORMIN [Glucophage] 1,000 mg PO BIDWM 08/14/20 08/14/20 - Allergies Allergies/Adverse Reactions: Allergies Allergy/AdvReac Type Severity Reaction Status Date / Time No Known Drug Allergies Allergy Verified 08/14/20 15:06 - Social History Does the pt smoke?: No Smoking Status: Never smoker Does the pt drink ETOH?: No Does the pt have substance abuse?: Yes - Immunizations Immunizations are current?: Yes - POLST Patient has POLST: No POLST Status: Full Code PD ED PE NORMAL - Vitals Vital signs reviewed: Yes - General General: Alert and oriented X 3, No acute distress - HEENT HEENT: Moist mucous membranes - Neck Neck: Supple, no meningeal sign - Cardiac Cardiac: RRR - Respiratory Respiratory: No respiratory distress, Clear bilaterally - Abdomen Abdomen: Soft, Other (Diffusely tender to palpation, mainly epigastric and bilateral upper quadrants) - Back Back: No spinal TTP - Derm Derm: Warm and dry - Extremities Extremities: No edema - Neuro Neuro: Alert and oriented X 3 Results - Vitals Vitals: Vital Signs - 24 hr 08/14/20 08/14/20 08/14/20 15:06 15:39 17:10 Temperature 36.5 C Heart Rate 89 89 79 Respiratory 16 18 18 Rate Blood Pressure 142/95 H 140/73 H 127/75 O2 Saturation 96 95 95 Oxygen O2 Source Room air - Labs Labs: Laboratory Tests 08/14/20 08/14/20 08/14/20 15:30 15:30 16:48 WBC 4.1 L RBC 5.61 H Hgb 16.5 H Hct 50.6 H MCV 90.2 MCH 29.4 MCHC 32.6 RDW 12.6 Plt Count 176 MPV 10.4 Neut # (Auto) 2.1 Lymph # (Auto) 1.6 [place] # (Auto) 0.4 Eos # (Auto) 0.0 Baso # (Auto) 0.0 Absolute Nucleated RBC 0.00 Nucleated RBC % 0.0 Sodium 139 Potassium 4.2 Chloride 101 Carbon Dioxide 25 Anion Gap 13.0 BUN 17 Creatinine 0.8 Estimated GFR (MDRD) 73 L Glucose 137 H Calcium 9.6 Total Bilirubin 0.7 AST 45 H ALT 69 H Alkaline Phosphatase 103 Total Protein 8.2 Albumin 4.2 Globulin 4.0 Albumin/Globulin Ratio 1.1 Lipase 22 Urine Color YELLOW Urine Clarity CLEAR Urine pH 5.5 Ur Specific [place] 1.020 Urine Protein NEGATIVE Urine Glucose (UA) >=1000 H Urine Ketones NEGATIVE Urine Occult Blood NEGATIVE Urine Nitrite NEGATIVE Urine Bilirubin NEGATIVE Urine Urobilinogen 0.2 (NORMAL) Ur Leukocyte Esterase NEGATIVE Ur Microscopic Review NOT INDICATED Urine Culture Comments NOT INDICATED - Rads (name of study) CT abd/pelvis Radiology: Prelim report reviewed, EMP read contemporaneously, See rad report PD MEDICAL DECISION MAKING - ED course Complexity details: reviewed results, re-evaluated patient, considered differential, d/w patient ED course: 59-year-old female with epigastric abdominal pain. Symptoms resolved with GI cocktail. Feels much better. Symptoms appear consistent with gastritis versus ulcer disease. Patient states she had a negative Covid test about 5 days ago. 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 No fevers. No chills. No cough. We will place her on a PPI, H2 shirley and Carafate. Recommend that she follow-up with her doctor for referral for EGD. Patient is tolerating p.o. without difficulty. Patient counseled regarding signs and symptoms for which I believe and urgent re-evaluation would be necessary. Patient with good understanding of and agreement to plan and is comfortable going home at this time This document was made in part using voice recognition software. While efforts are made to proofread this document, sound alike and grammatical errors may occur. IMPRESSION: Patchy interstitial infiltrates are seen at the lung bases. Please consider COVID pneumonia. A cause of acute abdominal pain is not identified. Incidental note is made of: Fatty liver infiltration Cholecystectomy Horseshoe kidney Fat-containing periumbilical hernia Hysterectomy Departure - Departure Disposition: 01 Home, Self Care Clinical Impression: Abdominal pain Qualifiers: Abdominal location: epigastric Qualified Code(s): R10.13 - Epigastric pain Gastritis Qualifiers: Gastritis type: unspecified gastritis Chronicity: acute Gastritis bleeding: without bleeding Qualified Code(s): K29.00 - Acute gastritis without bleeding Condition: Good Instructions: ED PUD Vs Gastritis Follow-Up: Afshan Forrester ARNP [Primary Care Provider] - Within 1 week Prescriptions: Sucralfate [Carafate] 1 gm PO ACHS #60 tablet Esomeprazole Magnesium [Nexium] 40 mg PO DAILY #30 cap Famotidine [Pepcid] 20 mg PO BID #60 tablet Oxycodone HCl/Acetaminophen [Percocet 5-325 mg Tablet] 1 - 2 each PO Q6H PRN #14 tablet PRN Reason: pain Ondansetron Odt [Zofran] 4 mg TL Q6H PRN #10 tablet PRN Reason: Nausea / Vomiting Comments: Your doctor for further care. Return if you worsen. Please avoid anti- inflammatory medications, spicy food, fried food, caffeine and any other foods that bother your stomach. You should have an endoscopy to confirm gastritis/ulcers. Your doctor can refer you for this. Do not drink alcohol or drive while on narcotic pain medicine. Note that many narcotic pain relievers also contain tylenol/acetaminophen. Please ensure that your total dose of acetaminophen from all sources does not exceed 3 grams (3000mg) per day. You may constipated on this medication, take a stool softener such as "Colace" twice a day while you are on it. Also recommend a plxz-cbn-konldyz laxative such as senna or MiraLAX any day that you do not have a bowel movement. If you received narcotic pain medication in the emergency department, do not drive or operate machinery for the next 24 hours. Discharge Date/Time: 08/14/20 18:06
[2020-08-14 15:42] LABS: BASOPHILS % (AUTO) 0.5 %; EOSINOPHILS % (AUTO) 0.5 %; HCT - HEMATOCRIT 50.6 % (37.0-47.0); HGB - HEMOGLOBIN 16.5 g/dL (12.0-16.0); LYMPHOCYTES # (AUTO) 1.6 10^3/uL (1.5-3.5); MEAN CORPUSCULAR HEMOGLOBIN 29.4 pg (27.0-31.0); MEAN CORPUSCULAR HGB CONC 32.6 g/dL (32.0-36.0); MEAN CORPUSCULAR VOLUME 90.2 fL (81.0-99.0); MEAN PLATELET VOLUME 10.4 fL (7.9-10.8); MONOCYTES # (AUTO) 0.4 10^3/uL (0.0-1.0); MONOCYTES % (AUTO) 8.6 %; NEUTROPHILS # (AUTO) 2.1 10^3/uL (1.5-6.6); NEUTROPHILS % (AUTO) 50.9 %; PLT - PLATELET COUNT 176 10^3/uL (130-450); RED BLOOD COUNT 5.61 10^6/uL (4.20-5.40); RED CELL DISTRIBUTION WIDTH 12.6 % (12.0-15.0); WHITE BLOOD COUNT 4.1 x10^3/uL (4.8-10.8)
[2020-08-14] MEDS ORDERED: SODIUM CHLORIDE 0.9% 1,000 ML IV STA ×2 (15:44)
[2020-08-14] MEDS ORDERED: IOPAMIDOL-300 100 ML VIAL ONE (15:46)
[2020-08-14 15:55] LABS: ALBUMIN 4.2 g/dL (3.2-5.5); ALBUMIN/GLOBULIN RATIO 1.1 (1.0-2.2); BILIRUBIN,TOTAL 0.7 mg/dL (0.2-1.0); CALCIUM 9.6 mg/dL (8.5-10.3); CREATININE 0.8 mg/dL (0.4-1.0); POTASSIUM 4.2 mmol/L (3.5-5.0); TOTAL PROTEIN 8.2 g/dL (6.7-8.2)
[2020-08-14] MEDS ORDERED: IOPAMIDOL-300 100 ML VIAL IVP ONE (16:36)
[2020-08-14] MEDS ORDERED: FAMOTIDINE 20 MG TABLET PO STA (16:56)
[2020-08-14] MEDS ORDERED: oxyCODONE 5 MG TABLET PO STA (16:56)
[2020-08-14 16:59] LABS: BILIRUBIN,URINE NEGATIVE (NEGATIVE); GLUCOSE, URINE (UA) >=1000 mg/dL (NEGATIVE); KETONES,URINE (UA) NEGATIVE (NEGATIVE); LEUKOCYTE ESTERASE, URINE NEGATIVE (NEGATIVE); NITRITE,URINE NEGATIVE (NEGATIVE); OCCULT BLOOD,URINE NEGATIVE (NEGATIVE); PH,URINE 5.5 PH (5.0-7.5); PROTEIN,URINE NEGATIVE (NEGATIVE); UROBILINOGEN,URINE 0.2 (NORMAL) E.U./dL (NORMAL)
[2020-08-14 17:00] LABS: CLARITY,URINE CLEAR (CLEAR)
--- NOTE | 2020-08-14 17:03 | CT Report ---
PROCEDURE: Abdomen/Pelvis W INDICATIONS: diffuse abd pain CONTRAST: IV CONTRAST: Isovue 300 ml: 100 PO CONTRAST: *NO PO CONTRAST TECHNIQUE: After the administration of nonionic IV contrast, 5 mm thick sections acquired from the diaphragms to the symphysis. 5 mm thick coronal and sagittal reformats were acquired. For radiation dose reducti on, the following was used: automated exposure control, adjustment of mA and/or kV according to eusebio ent size. COMPARISON: 09/25/2019 FINDINGS: Image quality: Excellent. ABDOMEN: Lung bases: Patchy interstitial type infiltrates can be seen at the lung bases. Heart size is normal. Solid organs: The liver is enlarged. Diffuse fatty liver infiltration can be seen. Gallbladder has been removed. Biliary system is non dilated. Pancreas enhances normally. No adrenal nodules. The spleen demonstrates normal size and demonstrates no focal lesions. A horseshoe kidney is seen. No hydronephrosis or masses are seen. Peritoneum and bowel: Bowel loops demonstrate normal wall thickness and caliber. No free fluid or a ir. Nodes and vessels: No retroperitoneal or mesenteric adenopathy by size criteria. Aorta and inferior vena cava are normal in size. Miscellaneous: A mild fat-containing periumbilical hernia is seen. PELVIS: Genitourinary: Bladder wall thickness is normal. This patient is status post hysterectomy. No adnex al masses can be seen. Miscellaneous: No inguinal hernias or adenopathy. Bones: No suspicious bony lesions. No vertebral body compression fractures. IMPRESSION: Patchy interstitial infiltrates are seen at the lung bases. Please consider COVID pneumo yong. A cause of acute abdominal pain is not identified. Incidental note is made of: Fatty liver infiltration Cholecystectomy Horseshoe kidney Fat-containing periumbilical hernia Hysterectomy Reviewed by: Armando Brower MD on 08/14/2020 4:02 PM AKSNOW Approved by: Armando Brower MD on 08/14/2020 4:02 PM AKDT Station ID: [id number]
[2020-08-14 17:18] VITALS: BP 127/75
== END 2020-08-14 18:06 | disposition home or self-care (01) ==
LOC: ED 15:03
DX: K29.00 Acute gastritis without bleeding (principal); U07.1 COVID-19; R91.8 Other nonspecific abnormal finding of lung field; K42.9 Umbilical hernia without obstruction or gangrene; K76.0 Fatty (change of) liver, not elsewhere classified; Z90.49 Acquired absence of other specified parts of digestive tract
CPT/HCPCS: 36415; 74177; 80053; 81003; 83690; 85025; 87635; 96374; 96375; 99284; A9270; Q9967; 81001; 87086

== ENCOUNTER 2020-09-21 18:41 | Outpatient (CLI) | payer MEDICAID | END 2020-09-21 18:42 | disposition critical access hospital (66) | LOC: EMS 18:41 | DX: R07.9 Chest pain, unspecified (principal); F41.9 Anxiety disorder, unspecified | CPT/HCPCS: A0425; A0429; A0999 ==

== ENCOUNTER 2020-09-21 19:06 | Emergency (ER) | payer MEDICAID ==
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
[2020-09-21] MEDS ORDERED: KETOROLAC 30 MG/ML VIAL IVP STA (19:40)
[2020-09-21] MEDS ORDERED: LORazepam 2 MG/ML VIAL IVP STA (19:40)
[2020-09-21 19:52] LABS: BASOPHILS # (AUTO) 0.1 10^3/uL (0.0-0.1); BASOPHILS % (AUTO) 1.1 %; EOSINOPHILS # (AUTO) 0.1 10^3/uL (0.0-0.7); EOSINOPHILS % (AUTO) 1.9 %; HCT - HEMATOCRIT 46.6 % (37.0-47.0); HGB - HEMOGLOBIN 15.2 g/dL (12.0-16.0); LYMPHOCYTES # (AUTO) 2.1 10^3/uL (1.5-3.5); LYMPHOCYTES % (AUTO) 37.5 %; MEAN CORPUSCULAR HEMOGLOBIN 29.3 pg (27.0-31.0); MEAN CORPUSCULAR HGB CONC 32.6 g/dL (32.0-36.0); MEAN PLATELET VOLUME 10.1 fL (7.9-10.8); MONOCYTES # (AUTO) 0.4 10^3/uL (0.0-1.0); PLT - PLATELET COUNT 197 10^3/uL (130-450); RED BLOOD COUNT 5.18 10^6/uL (4.20-5.40); RED CELL DISTRIBUTION WIDTH 13.6 % (12.0-15.0); WHITE BLOOD COUNT 5.7 x10^3/uL (4.8-10.8)
--- NOTE | 2020-09-21 20:03 | XRAY Report ---
PROCEDURE: Chest 1 View X-Ray INDICATIONS: chest pain TECHNIQUE: One view of the chest was acquired. COMPARISON: 08/01/2019 FINDINGS: Surgical changes and devices: None. Lungs and pleura: No pleural effusions or pneumothorax. Lungs are clear. Mediastinum: Mediastinal contours appear normal. Heart size is normal. Bones and chest wall: No suspicious bony lesions. Overlying soft tissues appear unremarkable. IMPRESSION: No evidence of acute pulmonary process. Reviewed by: Zoltan Melgar MD on 09/21/2020 8:02 PM PDT Approved by: Zoltan Melgar MD on 09/21/2020 8:02 PM PDT Station ID: [id number]
[2020-09-21 20:08] LABS: ALBUMIN 4.3 g/dL (3.2-5.5); ALBUMIN/GLOBULIN RATIO 1.6 (1.0-2.2); BILIRUBIN,TOTAL 0.9 mg/dL (0.2-1.0); CALCIUM 9.7 mg/dL (8.5-10.3); CREATININE 0.7 mg/dL (0.4-1.0); POTASSIUM 3.8 mmol/L (3.5-5.0)
[2020-09-21] MEDS ORDERED: DEXAMETHASONE 10 MG/ML VIAL IVP STA (20:19)
[2020-09-21 22:08] VITALS: BP 122/75
== END 2020-09-21 22:09 | disposition home or self-care (01) ==
LOC: EDBD → EDUNIT# → ED 19:06 → SUPCPDRO 19:06 → ED 22:09
DX: R07.89 Other chest pain (principal); I51.81 Takotsubo syndrome; I50.9 Heart failure, unspecified; I25.2 Old myocardial infarction; K21.9 Gastro-esophageal reflux disease without esophagitis; F32.9 Major depressive disorder, single episode, unspecified; F41.9 Anxiety disorder, unspecified; M06.9 Rheumatoid arthritis, unspecified; M19.90 Unspecified osteoarthritis, unspecified site; Z79.891 Long term (current) use of opiate analgesic; Z79.899 Other long term (current) drug therapy
CPT/HCPCS: 36415; 71045; 80053; 83690; 84484; 85025; 93005; 96374; 96375; 99284; J2060

== ENCOUNTER 2020-10-29 14:33 | Outpatient (CLI) | payer MEDICAID | END 2020-10-29 14:34 | disposition home or self-care (01) | LOC: COV 14:33 | PROVIDERS: ATTEND Specialist | DX: Z01.812 Encounter for preprocedural laboratory examination (principal); Z20.822 Contact with and (suspected) exposure to COVID-19 ==

== ENCOUNTER 2021-09-05 20:01 | Outpatient (CLI) | payer MEDICAID | END 2021-09-05 20:02 | disposition critical access hospital (66) | LOC: EMS 20:01 | DX: R55 Syncope and collapse (principal); R51.9 Headache, unspecified; F41.9 Anxiety disorder, unspecified; R45.89 Other symptoms and signs involving emotional state | CPT/HCPCS: A0425; A0429; A0999 ==

== ENCOUNTER 2021-09-05 20:23 | Emergency (ER) | payer MEDICAID ==
[2021-09-05] MEDS ORDERED: SODIUM CHLORIDE 0.9% 1,000 ML IV STA (20:46)
[2021-09-05] MEDS ORDERED: KETOROLAC 30 MG/ML VIAL IVP STA (21:08)
[2021-09-05 21:23] LABS: BASOPHILS # (AUTO) 0.1 10^3/uL (0.0-0.1); BASOPHILS % (AUTO) 1.1 %; EOSINOPHILS # (AUTO) 0.1 10^3/uL (0.0-0.7); HCT - HEMATOCRIT 44.4 % (37.0-47.0); HGB - HEMOGLOBIN 14.6 g/dL (12.0-16.0); LYMPHOCYTES # (AUTO) 2.1 10^3/uL (1.5-3.5); LYMPHOCYTES % (AUTO) 38.1 %; MEAN CORPUSCULAR HGB CONC 32.9 g/dL (32.0-36.0); MEAN CORPUSCULAR VOLUME 88.1 fL (81.0-99.0); MEAN PLATELET VOLUME 10.6 fL (7.9-10.8); MONOCYTES # (AUTO) 0.5 10^3/uL (0.0-1.0); MONOCYTES % (AUTO) 8.2 %; NEUTROPHILS # (AUTO) 2.8 10^3/uL (1.5-6.6); NEUTROPHILS % (AUTO) 50.4 %; PLT - PLATELET COUNT 172 10^3/uL (130-450); RED BLOOD COUNT 5.04 10^6/uL (4.20-5.40); RED CELL DISTRIBUTION WIDTH 12.7 % (12.0-15.0); WHITE BLOOD COUNT 5.6 x10^3/uL (4.8-10.8)
--- NOTE | 2021-09-05 21:32 | ED Physician Documentation ---
History of Present Illness - Stated complaint Stated Complaint: ANXIETY/SYNCOPE - Chief complaint Chief Complaint: Neuro - History obtained from History obtained from: Patient - Additonal information Additional information: Patient is a 60-year-old female with a history significant for hypertension, diabetes, Takotsubo's cardiomyopathy presenting for evaluation of headache that has been present since this morning, Feeling near syncopal, having midsternal chest pain throughout the day.Patient reports having increased stress recently. Her significant other at the bedside explains that they are living with their grandchildren and 2 [address] and that there is been increased stress. Patient reports waking up with her headache this morning. Denies thunderclap in intensity. It feels like a pressure.Denies recent trauma or exertion at onset.She has not taken anything for the pain.She additionally reports feeling weak and lightheaded tonight.Per she has had these ep isodes in the past of feeling near syncopal or syncopal and has had previous work-up with no clear cause. He reports believing it is related to stress. She additionally reports having midsternal chest pain and [id number] for sensation in her left arm throughout the day. Nothing makes it better or worse. She denies difficulty breathing, fever, cough, abdominal pain, vomiting or diarrhea. Review of Systems Constitutional: denies: Fever Nose: denies: Congestion Throat: denies: Sore throat Cardiac: reports: Chest pain / pressure. denies: Palpitations Respiratory: denies: Dyspnea, Cough GI: denies: Abdominal Pain, Vomiting, Diarrhea : denies: Dysuria Skin: denies: Rash Neurologic: reports: Near syncope, Headache. 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 : None HEENT: None Psych: Depression, Anxiety Musculoskeletal: Osteoarthritis, Rheumatoid arthritis, Other Derm: None - Past Surgical History Past Surgical History: Yes General: Appendectomy, Gastric surgery, Other /ACCOUNT AUDITOR: section, Hysterectomy, Other - Present Medications Home Medications: Ambulatory Orders Medication Instructions Recorded Confirmed Blood Sugar Diagnostic [Glucometer 1 each TID #1 pkg 10/01/19 09/21/20 Strips] Blood-Glucose Meter [Glucometer] 1 each MC DAILY #1 each 10/01/19 09/21/20 lisinopriL [Lisinopril] 10 mg PO DAILY #30 tablet 10/02/19 09/21/[address] [Voltaren] 75 mg PO BIDWM 08/14/20 09/21/20 Empagliflozin [Jardiance] 10 mg ORAL DAILY 08/14/20 09/21/20 Esomeprazole Magnesium [Nexium] 40 mg PO DAILY #30 cap 08/14/20 09/21/20 Famotidine [Pepcid] 20 mg PO BID #60 tablet 08/14/20 09/21/20 Lansoprazole [Prevacid] 15 mg PO DAILY 08/14/20 09/21/20 Ondansetron Odt [Zofran] 4 mg TL Q6H PRN #10 tablet 08/14/20 09/21/20 Oxycodone HCl/Acetaminophen 1 - 2 each PO Q6H PRN #14 tablet 08/14/20 09/21/20 [Percocet 5-325 mg Tablet] Rosuvastatin Calcium [Crestor] 5 mg PO HS 08/14/20 09/21/20 Sucralfate [Carafate] 1 gm PO ACHS #60 tablet 08/14/20 09/21/20 metFORMIN [Glucophage] 1,000 mg PO BIDWM 08/14/20 09/21/20 ALPRAZolam [Alprazolam] 0.5 mg PO Q6HR PRN #10 tablet 09/05/21 - Allergies Allergies/Adverse Reactions: Allergies Allergy/AdvReac Type Severity Reaction Status Date / Time No Known Drug Allergies Allergy Verified 09/05/21 20:35 - Social History Does the pt smoke?: No Smoking Status: Never smoker Does the pt drink ETOH?: No Does the pt have substance abuse?: Yes - Immunizations Immunizations are current?: Yes - POLST Patient has POLST: No POLST Status: Full Code PD ED PE NORMAL - General General: Alert and oriented X 3, No acute distress, Well developed/nourished - HEENT HEENT: Atraumatic, PERRL, EOMI, Moist mucous membranes - Neck Neck: Supple, no meningeal sign, No bony TTP - Cardiac Cardiac: RRR, No murmur, Strong equal pulses - Respiratory Respiratory: No respiratory distress, Clear bilaterally - Abdomen Abdomen: Normal bowel sounds, Soft, Non tender - Derm Derm: Normal color, Warm and dry - Extremities Extremities: No deformity, No edema, No calf tenderness / cord - Neuro Neuro: Alert and oriented X 3, forensic social worker 2-12 intact, No motor deficit, Normal speech Eye Opening: Spontaneous Motor: Obeys Commands Verbal: Oriented GCS Score: 15 - Psych Psych: Normal mood, Normal affect Results - Vitals Vitals: Vital Signs - 24 hr 09/05/21 09/05/21 09/05/21 20:32 22:00 22:30 Temperature 36.3 C L Heart Rate 78 87 79 Respiratory 18 16 18 Rate Blood Pressure 135/85 H 143/93 H 140/98 H O2 Saturation 97 98 96 Oxygen O2 Source Room air - EKG (time done) 2045 Rate: Rate (enter#) (71) Rhythm: NSR Ischemia: No: ST elevation c/w ischemia Compare to prior EKG: Unchanged from prior EKG (Similar to previous EKG in September 2020) - Labs Labs: Laboratory Tests 09/05/21 09/05/21 09/05/21 21:15 21:15 21:15 WBC 5.6 RBC 5.04 Hgb 14.6 Hct 44.4 MCV 88.1 MCH 29.0 MCHC 32.9 RDW 12.7 Plt Count 172 MPV 10.6 Neut # (Auto) 2.8 Lymph # (Auto) 2.1 [place] # (Auto) 0.5 Eos # (Auto) 0.1 Baso # (Auto) 0.1 Absolute Nucleated RBC 0.00 Nucleated RBC % 0.0 Sodium 137 Potassium 3.7 Chloride 100 L Carbon Dioxide 26 Anion Gap 11.0 BUN 15 Creatinine 0.6 Estimated GFR (MDRD) 101 Glucose 184 H Calcium 9.7 Total Bilirubin 0.3 AST 30 ALT 37 Alkaline Phosphatase 50 Troponin I High Sens 2.8 Total Protein 6.5 L Albumin 3.8 Globulin 2.7 Albumin/Globulin Ratio 1.4 Lipase 27 PD MEDICAL DECISION MAKING - ED course Complexity details: reviewed results, re-evaluated patient, d/w patient, d/w [facility] ED course: Patient is a 60-year-old female presenting for evaluation of headache, chest pain and feeling near syncopal. Has history of similar episodes in the past with no clear etiology. On arrival, her neurologic exam is normal and vital signs are reassuring. In regards to her headache, I do not think symptoms suggest subarachnoid hemorrhage, intracranial bleed, stroke or dissection. Patient felt better with medications for migraine. In regards to her chest pain, EKG is reassuring without signs of acute ischemia. Her high-sensitivity troponin is negative with patient having symptoms greater than 6 hours. I do not think her symptoms today suggest an [place] or PE.Patient is ambulatory in the ED without any recurrence of feeling near syncopal. She does endorse having increased stress and feels anxious at times. Patient does have a history of anxiety per chart review. Small amount of anxiety medications was prescribed as patient does not currently have a PCP.She is aware of strict return precautions. She is aware of need to establish care with new PCP. Departure - Departure Disposition: Home, Self Care Clinical Impression: Near syncope, Stress at home Chest pain Qualifiers: Chest pain type: unspecified Qualified Code(s): R07.9 - Chest pain, unspecified Headache Qualifiers: Headache type: tension-type Headache chronicity pattern: acute headache Intractability: not intractable Qualified Code(s): G44.209 - Tension-type headache, unspecified, not intractable Condition: Stable Instructions: ED Chest Pain Atypical Unkn Cause, ED Headache Tension, ED Near Syncope Unkn Prescriptions: ALPRAZolam [Alprazolam] 0.5 mg PO Q6HR PRN #10 tablet PRN Reason: Anxiety Comments: You have been evaluated for a headache and chest pain. Your labs are reassuring and your test do not show signs of a heart attack at this time. Your chest x- ray is clear. You received medications to help you with your headache and you your exam did not show signs of a stroke. You did mention that you are experiencing a lot of stress and do have a history of anxiety. As you do not currently have a primary care doctor, I have prescribed a short course of antianxiety medication called alprazolam that you have also taken before. Please do not Drive or operate any heavy machinery while taking this medication as itCan cause drowsiness. You do need to reestablish care with a new primary care doctor.If anytime you have any new or worsening symptoms please return to the emergency department for another evaluation. Prescription will be [facility] to the [facility]. Discharge Date/Time: 09/05/21 22:41
[2021-09-05 21:37] LABS: ALBUMIN 3.8 g/dL (3.2-5.5); ALBUMIN/GLOBULIN RATIO 1.4 (1.0-2.2); BILIRUBIN,TOTAL 0.3 mg/dL (0.2-1.0); CALCIUM 9.7 mg/dL (8.5-10.3); CREATININE 0.6 mg/dL (0.4-1.0); POTASSIUM 3.7 mmol/L (3.5-5.0); TOTAL PROTEIN 6.5 g/dL (6.7-8.2)
[2021-09-05] MEDS ORDERED: ACETAMINOPHEN 325 MG TABLET PO STA (21:46)
[2021-09-05] MEDS ORDERED: diphenhydrAMINE INJ 50 MG/ML VIAL IVP STA (21:50)
[2021-09-05] MEDS ORDERED: METOCLOPRAMIDE 10 MG/2 ML VIAL IVP STA (21:50)
--- NOTE | 2021-09-05 22:19 | XRAY Report ---
PROCEDURE: Chest 1 View X-Ray INDICATIONS: CP TECHNIQUE: One view of the chest was acquired. COMPARISON: 09/21/2020 FINDINGS: Surgical changes and devices: Postsurgical changes redemonstrated in the lower cervical spine. Lungs and pleura: No pleural effusions or pneumothorax. Lungs are clear. Mediastinum: Mediastinal contours appear unchanged. Heart size is normal. Bones and chest wall: No suspicious bony lesions. Overlying soft tissues appear unremarkable. IMPRESSION: 1. No acute cardiopulmonary disease. Reviewed by: Manav Raymundo MD on 09/05/2021 10:18 PM PDT Approved by: Manav Raymundo MD on 09/05/2021 10:18 PM PDT Station ID: [id number]
[2021-09-05 22:41] VITALS: BP 140/98
== END 2021-09-05 22:41 | disposition home or self-care (01) ==
LOC: EDUNIT# → ED 20:23
DX: Z63.8 Other specified problems related to primary support group (principal); R07.9 Chest pain, unspecified; R55 Syncope and collapse; Z79.84 Long term (current) use of oral hypoglycemic drugs; I10 Essential (primary) hypertension; E11.9 Type 2 diabetes mellitus without complications
CPT/HCPCS: 36415; 71045; 80053; 83690; 84484; 85025; 93005; 96374; 96375; 99283; 99284; A9270; J1200; J2765

== ENCOUNTER 2021-09-27 09:52 | Outpatient (CLI) | payer MEDICAID ==
[2021-09-27 10:27] LABS: CHOL/HDL RATIO 2.1 (<4.4); CHOLESTEROL 96 mg/dL; HDL CHOLESTEROL 45 mg/dL; LDL CHOLESTEROL,CALCULATED 18 mg/dL; LDL/HDL RATIO 0.4 (<4.4); TRIGLYCERIDES 164 mg/dL; VLDL CHOLESTEROL 33 mg/dL
== END 2021-09-27 09:53 | disposition home or self-care (01) ==
LOC: LAB 09:52
PROVIDERS: ATTEND Emergency Medicine
DX: E78.5 Hyperlipidemia, unspecified (principal)
CPT/HCPCS: 36415; 80061; 83721

== ENCOUNTER 2022-11-18 13:53 | Emergency (ER) | payer MEDICAID ==
[2022-11-18 14:37] LABS: BASOPHILS # (AUTO) 0.1 10^3/uL (0.0-0.1); BASOPHILS % (AUTO) 0.9 %; EOSINOPHILS # (AUTO) 0.1 10^3/uL (0.0-0.7); EOSINOPHILS % (AUTO) 0.9 %; HCT - HEMATOCRIT 47.3 % (37.0-47.0); HGB - HEMOGLOBIN 15.4 g/dL (12.0-16.0); LYMPHOCYTES % (AUTO) 31.2 %; MEAN CORPUSCULAR HEMOGLOBIN 28.9 pg (27.0-31.0); MEAN CORPUSCULAR HGB CONC 32.6 g/dL (32.0-36.0); MEAN CORPUSCULAR VOLUME 88.9 fL (81.0-99.0); MONOCYTES # (AUTO) 0.5 10^3/uL (0.0-1.0); MONOCYTES % (AUTO) 8.2 %; NEUTROPHILS # (AUTO) 3.7 10^3/uL (1.5-6.6); NEUTROPHILS % (AUTO) 58.5 %; PLT - PLATELET COUNT 171 10^3/uL (130-450); RED BLOOD COUNT 5.32 10^6/uL (4.20-5.40); RED CELL DISTRIBUTION WIDTH 13.2 % (12.0-15.0); WHITE BLOOD COUNT 6.4 x10^3/uL (4.8-10.8)
[2022-11-18 14:51] LABS: ALBUMIN/GLOBULIN RATIO 1.3 (1.0-2.2); BILIRUBIN,TOTAL 0.6 mg/dL (0.2-1.0); CALCIUM 9.4 mg/dL (8.5-10.3); CREATININE 0.7 mg/dL (0.4-1.0); POTASSIUM 3.9 mmol/L (3.5-5.0)
[2022-11-18] MEDS ORDERED: LORazepam 2 MG/ML VIAL IVP STA (15:05)
--- NOTE | 2022-11-18 15:08 | ED Physician Documentation ---
History of Present Illness - Stated complaint Stated Complaint: SYNCOPE - Chief complaint Chief Complaint: Cardiac - Additonal information Additional information: 62-year-old female who has a history most significant for hypertension, diabete s, Takotsubo's cardiomyopathy presents for evaluation of syncope. She states that she is under an inordinate amount of stress due to cramped family living quarters. She states that when she gets stressed she passes out. Her reports that when she passed out this morning she had been hyperventilating just prior to. She reports the sensation that her arms and legs are tingling right now. She is breathing in the 30s. She appears exceedingly anxious and crying. States that she feels as though she is falling. I am her reports that she has had many similar events in the past and is always chalked up to anxiety and stress and the work-ups are typically negative. She is followed by Dr. Maia Pate at [facility] cardiology for her history of cardiomyopathy. Meds: Metformin, Jardiance, lisinopril, Rouvastatin, daily aspirin Review of Systems Constitutional: denies: Fever, Chills Cardiac: reports: Chest pain / pressure Respiratory: reports: Reviewed and negative GI: reports: Reviewed and negative : reports: Reviewed and negative Skin: reports: Reviewed and negative Musculoskeletal: denies: Neck pain, Back pain Psychiatric: reports: Anxiety Endocrine: reports: Reviewed and negative Immunocompromised: reports: Reviewed and negative PD PAST MEDICAL HISTORY - Past Medical History Cardiovascular: Congestive heart failure, [place] Respiratory: None Neuro: None Endocrine/Autoimmune: None GI: GERD 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 : None HEENT: None Psych: Depression, Anxiety Musculoskeletal: Osteoarthritis, Rheumatoid arthritis, Other Derm: None - Past Surgical History Past Surgical History: Yes General: Appendectomy, Gastric surgery, Other /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 SERVICE 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 MEMBER: section, Hysterectomy, Other - Present Medications Home Medications: Ambulatory Orders Medication Instructions Recorded Confirmed Blood Sugar Diagnostic [Glucometer 1 each TIDWM #1 pkg 10/01/19 11/18/22 Strips] Blood-Glucose Meter [Glucometer] 1 each DAILY #1 each 10/01/19 11/18/22 lisinopriL [Lisinopril] 10 mg PO DAILY #30 tablet 10/02/19 11/18/22 Empagliflozin [Jardiance] 10 mg ORAL DAILY 08/14/20 11/18/22 Rosuvastatin Calcium [Crestor] 5 mg PO HS 08/14/20 11/18/22 metFORMIN [Glucophage] 1,000 mg PO BIDWM 08/14/20 11/18/22 ALPRAZolam [Alprazolam] 0.5 mg PO Q6HR PRN #10 tablet 09/05/21 11/18/22 Omeprazole Magnesium 20 mg PO DAILY 11/18/22 11/18/22 - Allergies Allergies/Adverse Reactions: Allergies Allergy/AdvReac Type Severity Reaction Status Date / Time No Known Drug Allergies Allergy Verified 09/05/21 20:35 - Social History Does the pt smoke?: No Smoking Status: Never smoker Does the pt drink ETOH?: No Does the pt have substance abuse?: Yes - Immunizations Immunizations are current?: Yes - POLST Patient has POLST: No POLST Status: Full Code PD ED PE EXPANDED - General General: Alert, Anxious (Anxious, crying, tearful.) - Cardiac Cardiac: Regular Rate, Radial strong equal, Pedal strong equal, Cap refill < 2 sec. No: Murmur Present - Respiratory Respiratory: Clear to ausultation frankie. No: Distress, Labored (Mild tachypnea) - Abdomen Abdomen: Normal Bowel sounds. No: Tender to palpation - Derm Derm: Normal color, Warm and dry. No: Rash - Neuro Neuro: Alert and Oriented X 3, CNII-XII intact - GCS Eye Opening: Spontaneous Motor: Obeys Commands Verbal: Oriented Total: 15 - Psych Psych: Withdrawn, Anxious Results - Vitals Vitals: Vital Signs - 24 hr 11/18/22 11/18/22 11/18/22 14:24 14:39 14:40 Temperature 36.2 C L Heart Rate 68 63 Heart Rate [ 63 Supine] Respiratory 18 32 H Rate Blood Pressure 121/109 H 119/93 H Blood Pressure 119/93 H [Supine] O2 Saturation 98 97 11/18/22 11/18/22 11/18/22 15:27 16:00 16:33 Temperature 36.7 C 36.4 C L Heart Rate 61 66 66 Heart Rate [ Supine] Respiratory 14 16 20 Rate Blood Pressure 129/75 119/76 107/67 Blood Pressure [Supine] O2 Saturation 97 93 98 Oxygen O2 Source Room air - EKG (time done) 1417 EKG releavant findings:: EKG personally interpreted by author of this note. Relevant findings are: Rate: Rate (enter#) (67) Rhythm: NSR [place]: LAD Intervals: Normal [place]. No: Prolonged QT QRS: Poor R wave progression Ischemia: Normal ST segments Compare to prior EKG: Unchanged from prior EKG Computer interpretation: Agree with computer - Labs Labs: Laboratory Tests 11/18/22 11/18/22 11/18/22 14:29 14:31 14:31 WBC 6.4 RBC 5.32 Hgb 15.4 Hct 47.3 H MCV 88.9 MCH 28.9 MCHC 32.6 RDW 13.2 Plt Count 171 MPV 11.0 H Neut # (Auto) 3.7 Lymph # (Auto) 2.0 [place] # (Auto) 0.5 Eos # (Auto) 0.1 Baso # (Auto) 0.1 Absolute Nucleated RBC 0.00 Nucleated RBC % 0.0 Sodium 136 Potassium 3.9 Chloride 103 Carbon Dioxide 21 Anion Gap 12.0 BUN 13 Creatinine 0.7 Estimated GFR (MDRD) 84 L Glucose 197 H POC Whole Bld Glucose 187 H Calcium 9.4 Total Bilirubin 0.6 AST 31 ALT 33 Alkaline Phosphatase 49 Troponin I High Sens B-Natriuretic Peptide Total Protein 7.0 Albumin 4.0 Globulin 3.0 Albumin/Globulin Ratio 1.3 Lipase 41 11/18/22 11/18/22 11/18/22 14:31 14:31 16:00 WBC RBC Hgb Hct MCV MCH MCHC RDW Plt Count MPV Neut # (Auto) Lymph # (Auto) [place] # (Auto) Eos # (Auto) Baso # (Auto) Absolute Nucleated RBC Nucleated RBC % Sodium Potassium Chloride Carbon Dioxide Anion Gap BUN Creatinine Estimated GFR (MDRD) Glucose POC Whole Bld Glucose Calcium Total Bilirubin AST ALT Alkaline Phosphatase Troponin I High Sens < 2.3 L < 2.3 L B-Natriuretic Peptide 30 Total Protein Albumin Globulin Albumin/Globulin Ratio Lipase PD Medical Decision Making - ED course Complexity details: reviewed results, re-evaluated patient, d/w patient, d/w family ED course: 62-year-old female presents emergency department for evaluation of a syncopal episode. She and her report that she has a longstanding history of syncope associated with stressful situations. She is usually able to remain at home but when people at home began to panic about her syncope she began to panic thus exacerbating her symptoms. She does have a history of [place] O cardiomyopathy. Followed by Dr. Maia Pate at [facility]. Her EKG today in the emergency department is interpreted by myself shows a sinus rhythm without tachycardia or ischemic changes. Chest x-ray is without acute findings. CBC, electrolytes and high-sen sitivity troponin x2 were both negative. The patient presented actively hyperventilating and having numbness and tingling in all her extremities. She was given a single dose of 1 mg Ativan IV and on reevaluation the symptoms including chest pain have fully subsided. Clinically given 2 negative troponins this is not consistent with ACS. She has a longstanding history of syncope which I believe is contributing to her panic thus creating a cyclic [place]. She is advised to follow closely with her primary care provider. Usual emergent return precautions worsening symptoms were discussed Departure - Departure Disposition: Home, Self Care Clinical Impression: Panic attack, History of cardiomyopathy Condition: Stable Record reviewed to determine appropriate education?: Yes Comments: You were seen today in the emergency department because you were very stressed at home and then fainted. 1911 was summoned to this caused you to have a panic attack. Your labs today do not show any worrisome findings. Your EKG is unchanged from previous EKGs. Your labs do not indicate that you are having a heart attack. Please discuss this ED visit with your primary doctor. Return to the ER if your symptoms are worsening.
--- NOTE | 2022-11-18 15:14 | XRAY Report ---
PROCEDURE: Chest 1 View X-Ray INDICATIONS: Chest Pain TECHNIQUE: One view of the chest was acquired. COMPARISON: 09/05/2021 FINDINGS: Surgical changes and devices: None. Lungs and pleura: No pleural effusions or pneumothorax. Lungs are clear. Mediastinum: Mediastinal contours appear normal. Heart size is normal. Bones and chest wall: No suspicious bony lesions. Overlying soft tissues appear unremarkable. IMPRESSION: No acute cardiopulmonary process. Reviewed by: Kameron Handley MD on 11/18/2022 2:13 PM BECKA Approved by: Kameron Handley MD on 11/18/2022 2:13 PM AKDT Station ID: [id number]
[2022-11-18 16:40] VITALS: BP 107/67
== END 2022-11-18 17:02 | disposition home or self-care (01) ==
LOC: EDUNIT# → EDBD → ED 13:53
DX: F41.0 Panic disorder [episodic paroxysmal anxiety] (principal); E11.9 Type 2 diabetes mellitus without complications; I11.0 Hypertensive heart disease with heart failure; I50.9 Heart failure, unspecified; I25.2 Old myocardial infarction; Z79.84 Long term (current) use of oral hypoglycemic drugs; Z79.899 Other long term (current) drug therapy
CPT/HCPCS: 36415; 71045; 80053; 83690; 83880; 84484; 85025; 93005; 96374; 99283; 99284; J2060

== ENCOUNTER 2023-02-04 10:44 | Emergency (ER) | payer MEDICAID ==
[2023-02-04 10:58] VITALS: BP 136/77; O2SAT 95
--- NOTE | 2023-02-04 12:12 | ED Physician Documentation ---
History of Present Illness - Stated complaint Stated Complaint: LT FACE PX/SWELLING - Chief complaint Chief Complaint: Heent - Additonal information Additional information: 62-year-old female presents to the emergency department for evaluation of 3 days left upper mouth pain and now cheek swelling. She reports she has a bridge up there that she believes may be infected. She is unable to see her dentist for 3 additional weeks. No trismus or fevers. She does have history of diabetes for which she is controlled on metformin only. No fevers or vomiting. 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 HEENT: None Psych: Depression, Anxiety Musculoskeletal: Osteoarthritis, Rheumatoid arthritis, Other Derm: None - Past Surgical History Past Surgical History: Yes General: Appendectomy, Gastric surgery, Other /SHEET METAL SUPERVISOR: section, Hysterectomy, Other - Present Medications Home Medications: Ambulatory Orders Medication Instructions Recorded Confirmed Blood Sugar Diagnostic [Glucometer 1 each TIDWM #1 pkg 10/01/19 02/04/23 Strips] Blood-Glucose Meter [Glucometer] 1 each DAILY #1 each 10/01/19 02/04/23 lisinopriL [Lisinopril] 10 mg PO DAILY #30 tablet 10/02/19 02/04/23 Empagliflozin [Jardiance] 10 mg ORAL DAILY 08/14/20 02/04/23 Rosuvastatin Calcium [Crestor] 5 mg PO HS 08/14/20 02/04/23 metFORMIN [Glucophage] 1,000 mg PO BIDWM 08/14/20 02/04/23 ALPRAZolam [Alprazolam] 0.5 mg PO Q6HR PRN #10 tablet 09/05/21 02/04/23 Omeprazole Magnesium 20 mg PO DAILY 11/18/22 02/04/23 Amox/Clav 875/125 [Augmentin] 1 each PO Q12H #20 tablet 02/04/23 Chlorhexidine Gluconate [Peridex] 15 ml MM BID #300 ml 02/04/23 HYDROcod/ACETAM 5/325 [[place] 5/325] 1 tablet PO BID PRN #10 tablet 02/04/23 - Allergies Allergies/Adverse Reactions: Allergies Allergy/AdvReac Type Severity Reaction Status Date / Time No Known Drug Allergies Allergy Verified 09/05/21 20:35 - Social History Does the pt smoke?: No Smoking Status: Never smoker Does the pt drink ETOH?: No Does the pt have substance abuse?: Yes - Immunizations Immunizations are current?: Yes - POLST Patient has POLST: No POLST Status: Full Code PD ED PE NORMAL - General General: Alert and oriented X 3, No acute distress, Well developed/nourished - HEENT HEENT: Atraumatic, Other (Left upper gumline swelling and erythema without obvious drainage. The bridge itself appears intact but is quite tender to touch.) Results - Vitals Vitals: Vital Signs - 24 hr 02/04/23 10:51 Temperature 36.7 C Heart Rate 78 Respiratory 16 Rate Blood Pressure 136/77 H O2 Saturation 95 Oxygen O2 Source Room air PD Medical Decision Making - ED course Complexity details: reviewed results, re-evaluated patient, d/w patient ED course: 62-year-old female presents emergency department for evaluation of 3 days left upper mouth pain and mild cheek swelling. The bridge in place between teeth 14 through 16 is intact but quite tender and the gumline is quite inflamed. I susp ect that she may have an apical dental abscess. Given this finding I elected to start her on Augmentin as well as Peridex mouth rinse. A limited amount of [place] is being sent for severe pain. Discussed with patient that it is imperative she continue to follow closely with dentistry. Clinically there are no red flags such as trismus or inability to tolerate oral secretions. Usual emergent return precautions were discussed for concerns of worsening infection. Departure - Departure Disposition: 01 Home, Self Care Clinical Impression: Dental abscess Condition: Stable Record reviewed to determine appropriate education?: Yes Instructions: ED Abscess Dental Prescriptions: Amox/Clav 875/125 [Augmentin] 1 each PO Q12H #20 tablet HYDROcod/ACETAM 5/325 [[place] 5/325] 1 tablet PO BID PRN #10 tablet PRN Reason: Pain Chlorhexidine Gluconate [Peridex] 15 ml MM BID #300 ml Comments: You appear to have a dental infection in your left upper mouth and gumline area. Please fill the prescription for the Augmentin and begin taking twice daily as directed. I would like you to fill the mouth rinse and use it also twice a day for the next 10 days. In general would like you to use Tylenol 500 mg 3 times a day or alternate with ibuprofen 600 mg taken with food also 3 times a day for pain control. For more severe symptoms I have written a limited prescription for [place]. It is very important you continue to follow-up with a dentist for which you are already scheduled. This will become a recurrent problem until the infected tooth is addressed. I am prescribing a short course of narcotic pain medication for you. These are potentially dangerous and addictive medications that should be used carefully. These medications may constipate you. Take an nfbq-uxt-plvzuid stool softener (docusate) twice daily with plenty of water while taking these medications. If you go 24 hours without a bowel movement, take [id number] miralax, per package instructions. Do not drink or drive while taking these medications. If you received narcotic or sedating medications while in the emergency department, do not drive for 24 hours. Store this medication in a safe, secure place and out of reach of children. It is a violation of federal law to give or sell this medication to another person or to use in a manner other than prescribed. The ED will not refill narcotic prescriptions, including prescriptions lost or stolen. To dispose of unwanted medications: 1. [facility] at [address] [facility] [address] [facility] in [place] has a medication drop box. They accept prescription medications (in pill form) Sunday through Sunday 9:00 a.m. to 5:00 p.m. 2. [facility] [employer] accepts prescription medications (in pill form only) for disposal year round. Call for more information. 3. Contact the [facility] for the next [facility] sponsored prescription drug collection event. , [phone], or [phone]; Note that many narcotic pain relievers also contain Tylenol/acetaminophen. Please ensure that your total dose of acetaminophen from all sources does not exceed 3 g (3000 mg) per day.
== END 2023-02-04 13:00 | disposition home or self-care (01) ==
LOC: ED 10:44
DX: K04.7 Periapical abscess without sinus (principal); I50.9 Heart failure, unspecified; E11.9 Type 2 diabetes mellitus without complications; Z79.899 Other long term (current) drug therapy; Z79.84 Long term (current) use of oral hypoglycemic drugs
CPT/HCPCS: 99282; 99283

== ENCOUNTER 2023-12-18 16:39 | Emergency (ER) | payer MEDICAID, MEDICARE ==
--- NOTE | 2023-12-18 17:40 | ED Physician Documentation ---
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 : None HEENT: None Psych: Depression, Anxiety Musculoskeletal: Osteoarthritis, Rheumatoid arthritis, Other Derm: None - Past Surgical History Past Surgical History: Yes General: Appendectomy, Gastric surgery, Other /BLOOD SPLATTER ANALYST: section, Hysterectomy, Other - Present Medications Home Medications: Ambulatory Orders Medication Instructions Recorded Confirmed Blood Sugar Diagnostic [Glucometer 1 each MC TIDWM #1 pkg 10/01/19 12/18/23 Strips] Blood-Glucose Meter [Glucometer] 1 each MC DAILY #1 each 10/01/19 12/18/23 lisinopriL [Lisinopril] 10 mg PO DAILY #30 tablet 10/02/19 12/18/23 Empagliflozin [Jardiance] 10 mg ORAL DAILY 08/14/20 12/18/23 Rosuvastatin Calcium [Crestor] 5 mg PO HS 08/14/20 02/04/23 metFORMIN [Glucophage] 1,000 mg PO BIDWM 08/14/20 12/18/23 ALPRAZolam [Alprazolam] 0.5 mg PO Q6HR PRN #10 tablet 09/05/21 12/18/23 Omeprazole Magnesium 20 mg PO DAILY 11/18/22 02/04/23 - Allergies Allergies/Adverse Reactions: Allergies Allergy/AdvReac Type Severity Reaction Status Date / Time morphine AdvReac Anxiety Verified 12/18/23 16:54 - Social History Does the pt smoke?: No Smoking Status: Never smoker Does the pt drink ETOH?: No Does the pt have substance abuse?: Yes - Immunizations Immunizations are current?: Yes - POLST Patient has POLST: No POLST Status: Full Code Results - Vitals Vitals: Vital Signs - 24 hr 12/18/23 16:44 Temperature 35.8 C L Heart Rate 82 Respiratory 18 Rate Blood Pressure 146/69 H O2 Saturation 99 Oxygen O2 Source Room air - Labs Labs: Laboratory Tests 12/18/23 16:57 POC Whole Bld Glucose 152 H Departure - Departure
[2023-12-18 17:57] LABS: BASOPHILS # (AUTO) 0.1 10^3/uL (0.0-0.1); BASOPHILS % (AUTO) 1.2 %; EOSINOPHILS # (AUTO) 0.1 10^3/uL (0.0-0.7); EOSINOPHILS % (AUTO) 1.4 %; HGB - HEMOGLOBIN 15.4 g/dL (12.0-16.0); LYMPHOCYTES # (AUTO) 2.3 10^3/uL (1.5-3.5); LYMPHOCYTES % (AUTO) 34.4 %; MEAN CORPUSCULAR HEMOGLOBIN 28.8 pg (27.0-31.0); MEAN CORPUSCULAR HGB CONC 32.1 g/dL (32.0-36.0); MEAN CORPUSCULAR VOLUME 89.7 fL (81.0-99.0); MEAN PLATELET VOLUME 10.8 fL (7.9-10.8); MONOCYTES # (AUTO) 0.4 10^3/uL (0.0-1.0); MONOCYTES % (AUTO) 6.7 %; NEUTROPHILS # (AUTO) 3.7 10^3/uL (1.5-6.6); NEUTROPHILS % (AUTO) 56.1 %; PLT - PLATELET COUNT 186 10^3/uL (130-450); RED BLOOD COUNT 5.35 10^6/uL (4.20-5.40); RED CELL DISTRIBUTION WIDTH 13.1 % (12.0-15.0); WHITE BLOOD COUNT 6.5 x10^3/uL (4.8-10.8)
[2023-12-18 18:17] LABS: TROPONIN I HIGH SENSITIVITY < 2.3 ng/L (2.3-14.8)
[2023-12-18 18:23] LABS: ALBUMIN 4.2 g/dL (3.2-5.5); ALBUMIN/GLOBULIN RATIO 1.8 (1.0-2.2); ALKALINE PHOSPHATASE 37 IU/L (42-121); ALT ALANINE AMINOTRANSFERASE 21 IU/L (10-60); AST ASPARTATE AMINOTRANSFERASE 16 IU/L (10-42); BILIRUBIN,TOTAL 0.5 mg/dL (0.2-1.0); BUN - BLOOD UREA NITROGEN 13 mg/dL (6-20); CALCIUM 9.6 mg/dL (8.5-10.3); CARBON DIOXIDE - CO2 29 mmol/L (21-32); CHLORIDE 100 mmol/L (101-111); CREATININE 0.6 mg/dL (0.6-1.3); GFR - MDRD 100 (>89); GLUCOSE 157 mg/dL (74-104); LIPASE 25 U/L (11-82); MAGNESIUM 1.7 mg/dL (1.7-2.3); POTASSIUM 4.2 mmol/L (3.5-4.5); SODIUM 137 mmol/L (135-145); TOTAL PROTEIN 6.6 g/dL (6.4-8.9)
--- NOTE | 2023-12-18 18:44 | ED Physician Documentation ---
History of Present Illness - Stated complaint Stated Complaint: DIZZY - Chief complaint Chief Complaint: General - History obtained from History obtained from: Patient, Family - History of Present Illness Timing: Today - Additonal information Additional information: Yanet Gilmore is a 63-year-old female with history of type 2 diabetes who is on Ozempic Jardiance and metformin and she ended up with a blood sugar of over 500 last night she drank 2 L of water her sugar came down in the 300s she was up most of the night urinating and today she has again sugars over 300 and she is dizzy. She is dizzy when she is standing and she is feeling lightheaded. She denies any chest pain. She has added berberine to her regimen in an attempt to lower her blood sugar and this is a supplement that is also active as a diuretic. Review of Systems Constitutional: denies: Fever, Chills Ears: denies: Ear pain Nose: denies: Congestion Throat: denies: Sore throat Cardiac: denies: Chest pain / pressure Respiratory: denies: Dyspnea, Cough GI: denies: Abdominal Pain, Nausea, Vomiting, Constipation : reports: Frequency. 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 : None HEENT: None Psych: Depression, Anxiety Musculoskeletal: Osteoarthritis, Rheumatoid arthritis, Other Derm: None - Past Surgical History Past Surgical History: Yes General: Appendectomy, Gastric surgery, Other /AMPOULE SEALER: section, Hysterectomy, Other - Present Medications Home Medications: Ambulatory Orders Medication Instructions Recorded Confirmed Blood Sugar Diagnostic [Glucometer 1 each TIDWM #1 pkg 10/01/19 12/18/23 Strips] Blood-Glucose Meter [Glucometer] 1 each DAILY #1 each 10/01/19 12/18/23 lisinopriL [Lisinopril] 10 mg PO DAILY #30 tablet 10/02/19 12/18/23 Empagliflozin [Jardiance] 10 mg ORAL DAILY 08/14/20 12/18/23 Rosuvastatin Calcium [Crestor] 5 mg PO HS 08/14/20 02/04/23 metFORMIN [Glucophage] 1,000 mg PO BIDWM 08/14/20 12/18/23 ALPRAZolam [Alprazolam] 0.5 mg PO Q6HR PRN #10 tablet 09/05/21 12/18/23 Omeprazole Magnesium 20 mg PO DAILY 11/18/22 02/04/23 - Allergies Allergies/Adverse Reactions: Allergies Allergy/AdvReac Type Severity Reaction Status Date / Time morphine AdvReac Anxiety Verified 12/18/23 16:54 - Social History Does the pt smoke?: No Smoking Status: Never smoker Does the pt drink ETOH?: No Does the pt have substance abuse?: Yes - Immunizations Immunizations are current?: Yes - POLST Patient has POLST: No POLST Status: Full Code PD ED PE NORMAL - Vitals Vital signs reviewed: Yes (hypertensive ) - General General: Alert and oriented X 3, No acute distress, Well developed/nourished - HEENT HEENT: Atraumatic, PERRL, EOMI - Neck Neck: Supple, no meningeal sign, No bony TTP - Cardiac Cardiac: RRR, No murmur - Respiratory Respiratory: No respiratory distress, Clear bilaterally - Abdomen Abdomen: Normal bowel sounds, Soft, Non tender - Back Back: No CVA TTP, No spinal TTP - Derm Derm: Normal color, Warm and dry, No rash - Extremities Extremities: No deformity, No edema - Neuro Neuro: Alert and oriented X 3, data modeler 2-12 intact, No motor deficit, No sensory deficit, Normal speech Eye Opening: Spontaneous Motor: Obeys Commands Verbal: Oriented GCS Score: 15 - Psych Psych: Normal mood, Normal affect Results - Vitals Vitals: Vital Signs - 24 hr 12/18/23 16:44 Temperature 35.8 C L Heart Rate 82 Respiratory 18 Rate Blood Pressure 146/69 H O2 Saturation 99 Oxygen O2 Source Room air - EKG (time done) 1699 EKG releavant findings:: EKG personally interpreted by author of this note. Relevant findings are: Rate: Rate (enter#) (74) Rhythm: LAE Huntley: LAD Compare to prior EKG: Unchanged from prior EKG (SPT 11/18/22 no sig change) Computer interpretation: Agree with computer - Labs Labs: Laboratory Tests 12/18/23 12/18/23 12/18/23 16:57 17:53 17:53 WBC 6.5 RBC 5.35 Hgb 15.4 Hct 48.0 H MCV 89.7 MCH 28.8 MCHC 32.1 RDW 13.1 Plt Count 186 MPV 10.8 Neut # (Auto) 3.7 Lymph # (Auto) 2.3 Real # (Auto) 0.4 Eos # (Auto) 0.1 Baso # (Auto) 0.1 Absolute Nucleated RBC 0.00 Nucleated RBC % 0.0 VBG pH VBG pCO2 VBG pO2 VBG HCO3 VBG Total CO2 VBG O2 Saturation VBG Base Excess Sodium 137 Potassium 4.2 Chloride 100 L Carbon Dioxide 29 Anion Gap 8.0 BUN 13 Creatinine 0.6 Estimated GFR (MDRD) 100 Glucose 157 H POC Whole Bld Glucose 152 H Calcium 9.6 Magnesium 1.7 Total Bilirubin 0.5 AST 16 ALT 21 Alkaline Phosphatase 37 L Troponin I High Sens < 2.3 L Total Protein 6.6 Albumin 4.2 Globulin 2.4 Albumin/Globulin Ratio 1.8 Lipase 25 Serum Ketones 12/18/23 12/18/23 17:53 18:59 WBC RBC Hgb Hct MCV MCH MCHC RDW Plt Count MPV Neut # (Auto) Lymph # (Auto) Real # (Auto) Eos # (Auto) Baso # (Auto) Absolute Nucleated RBC Nucleated RBC % VBG pH 7.359 VBG pCO2 47.3 VBG pO2 29.4 VBG HCO3 26.1 VBG Total CO2 27.5 VBG O2 Saturation 58.4 L VBG Base Excess 0.0 Sodium Potassium Chloride Carbon Dioxide Anion Gap BUN Creatinine Estimated GFR (MDRD) Glucose POC Whole Bld Glucose Calcium Magnesium Total Bilirubin AST ALT Alkaline Phosphatase Troponin I High Sens Total Protein Albumin Globulin Albumin/Globulin Ratio Lipase Serum Ketones NEGATIVE Procedures - IVC sono (time) 1830 Bedside IVC sono: IVC measures (cm) (0.72), Dehydration (est 2-3 liter deficit) PD Medical Decision Making - ED course Complexity details: reviewed old records, reviewed results, re-evaluated patient, considered differential, d/w patient, d/w family Reviewed Lab Results: We reviewed the complete blood count showing a normal white blood cell count normal hemoglobin hematocrit and platelets. Hematocrit was mildly elevated at 48 consistent with a level of dehydration the patient is experiencing. Chemistries showed normal electrolytes normal kidney function normal liver function glucose was elevated at 157. High sensitive troponin normal at less than 2.3.These laboratory results do not contribute to a specific diagnosis they are reassuring for a benign process. Her hematocrit being elevated at 48 is consistent with a level of dehydration the patient is experiencing as determined by interrogation of the IVC by [facility]. ED course: 63-year-old Berkley Lew is a type II diabetic on Jardiance Ozempic and metformin was also taking some berberine. She developed extremely high blood sugar last night and she diuresed. We are able to establish IV access and administered intravenous saline for dehydration. We found that her blood sugar this afternoon is in a decent range and did not require insulin. Departure - Departure Disposition: Home, Self Care Clinical Impression: Dehydration Condition: Stable Instructions: ED Dehydration Follow-Up: Primary Care Ayad [Provider Group] Comments: Berkleyevangelinaconstantino, today it looks like you were significantly dehydrated from elevated blood sugar. Elevated blood sugar in this range can act like a diuretic and you are on Jardiance that causes diuresis with elevated blood sugars at lower levels of sugar. In addition you are on some berberine which can act as a diuretic. We were able to provide some fluid and the expectation is return to your normal state of being. Today it looks like your diabetes is under good control and this entire bag of sugar popcorn new 8 is likely the cause of the markedly elevated blood sugar. Follow-up with your primary care doctor to consider increasing your dose of his Ozempic for further weight loss and potential remission of your diabetes. Forms: PCP List
[2023-12-18] MEDS: SODIUM CHLORIDE 0.9% 1,000 ML IV STA (19:03)
[2023-12-18 19:07] LABS: VBG PCO2 47.3 mmHg (41-51); VBG PH 7.359 (7.31-7.41)
[2023-12-18 19:08] LABS: VBG HCO3 26.1 mmol/L (23-28); VBG OXYGEN SATURATION 58.4 % (60-80); VBG PO2 29.4 mmHg (25-47); VBG TOTAL CO2 27.5 mmol/L (24-29)
[2023-12-18 20:19] VITALS: BP 107/77; O2SAT 94
== END 2023-12-18 20:18 | disposition home or self-care (01) ==
LOC: ED 16:39
DX: E86.0 Dehydration (principal); E11.65 Type 2 diabetes mellitus with hyperglycemia; I50.9 Heart failure, unspecified; Z79.84 Long term (current) use of oral hypoglycemic drugs; Z79.899 Other long term (current) drug therapy
CPT/HCPCS: 36415; 80053; 82009; 82803; 83690; 83735; 84484; 85025; 93005; 96360; 99283

== ENCOUNTER 2024-01-21 14:06 | Emergency (ER) | payer MEDICARE, MEDICAID ==
--- NOTE | 2024-01-21 14:27 | ED Physician Documentation ---
PD HPI CHEST PAIN - Stated complaint Stated Complaint: CHEST PX - Chief complaint Chief Complaint: Cardiac - History obtained from History obtained from: Patient, Family - Additional information Additional information: She has a history of [place], few years ago. Per her description she had an angiogram but there was no intervention because maybe it was due to myocardial bridging? Today, about an hour ago she had a syncopal episode. She had been feeling somewhat fatigued and poorly prior to that but when she was awoken after the syncopal episode she had severe left-sided chest pain similar to prior heart attack. It is associated with nausea, shortness of breath but no diaphoresis. Pain is severe. 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 : None HEENT: None Psych: Depression, Anxiety Musculoskeletal: Osteoarthritis, Rheumatoid arthritis, Other Derm: None - Past Surgical History Past Surgical History: Yes General: Appendectomy, Gastric surgery, Other /BIOLOGY SPECIMEN TECHNICIAN: section, Hysterectomy, Other - Present Medications Home Medications: Ambulatory Orders Medication Instructions Recorded Confirmed Blood Sugar Diagnostic [Glucometer 1 each TIDWM #1 pkg 10/01/19 12/18/23 Strips] Blood-Glucose Meter [Glucometer] 1 each DAILY #1 each 10/01/19 12/18/23 lisinopriL [Lisinopril] 10 mg PO DAILY #30 tablet 10/02/19 12/18/23 Empagliflozin [Jardiance] 10 mg ORAL DAILY 08/14/20 12/18/23 Rosuvastatin Calcium [Crestor] 5 mg PO HS 08/14/20 02/04/23 metFORMIN [Glucophage] 1,000 mg PO BIDWM 08/14/20 12/18/23 ALPRAZolam [Alprazolam] 0.5 mg PO Q6HR PRN #10 tablet 09/05/21 12/18/23 Omeprazole Magnesium 20 mg PO DAILY 11/18/22 02/04/23 - Allergies Allergies/Adverse Reactions: Allergies Allergy/AdvReac Type Severity Reaction Status Date / Time morphine AdvReac Anxiety Verified 01/21/24 14:08 - Social History Does the pt smoke?: No Smoking Status: Former smoker Does the pt drink ETOH?: No Does the pt have substance abuse?: Yes Substance Use and Type: CBD oil / Products - Immunizations Immunizations are current?: Yes - POLST Patient has POLST: No POLST Status: Full Code PD ED PE NORMAL - Vitals Vital signs reviewed: Yes - General General: Alert and oriented X 3, Other (She appears uncomfortable and in pain.) - HEENT HEENT: PERRL, EOMI - Neck Neck: Supple, no meningeal sign, No bony TTP - Cardiac Cardiac: RRR, No murmur - Respiratory Respiratory: No respiratory distress, Clear bilaterally - Abdomen Abdomen: Non tender - Extremities Extremities: No edema, No calf tenderness / cord - Neuro Neuro: Alert and oriented X 3, Normal speech Results - Vitals Vitals: Vital Signs - 24 hr 01/21/24 01/21/24 01/21/24 14:08 15:14 16:00 Temperature 36.3 C L 36.8 C Heart Rate 86 82 83 Respiratory 24 22 14 Rate Blood Pressure 152/122 H 126/76 106/68 O2 Saturation 100 96 94 01/21/24 01/21/24 16:30 17:05 Temperature Heart Rate 87 88 Respiratory 20 16 Rate Blood Pressure 94/83 H 98/64 O2 Saturation 97 93 Oxygen O2 Source Room air - EKG (time done) 1413 EKG releavant findings:: EKG personally interpreted by author of this note. Relevant findings are: Rate: Rate (enter#) (73) Rhythm: NSR, LAE Nicholson: LAD Intervals: Normal AK QRS: Normal Ischemia: Normal ST segments. No: ST elevation c/w ischemia, ST depression - Labs Labs: Laboratory Tests 01/21/24 01/21/24 01/21/24 14:14 14:27 14:27 WBC 7.7 RBC 6.06 H Hgb 17.5 H Hct 53.7 H MCV 88.6 MCH 28.9 MCHC 32.6 RDW 13.2 Plt Count 218 MPV 10.4 Neut # (Auto) 4.3 Lymph # (Auto) 2.6 [place] # (Auto) 0.6 Eos # (Auto) 0.1 Baso # (Auto) 0.1 Absolute Nucleated RBC 0.00 Nucleated RBC % 0.0 D-Dimer Sodium 136 Potassium 3.5 Chloride 96 L Carbon Dioxide 23 Anion Gap 17.0 H BUN 15 Creatinine 0.7 Estimated GFR (MDRD) 84 L Glucose 121 H POC Whole Bld Glucose 122 H Calcium 10.5 H Total Bilirubin 0.6 AST 22 ALT 26 Alkaline Phosphatase 48 Troponin I High Sens < 2.3 L Total Protein 7.5 Albumin 4.8 Globulin 2.7 Albumin/Globulin Ratio 1.8 Lipase 38 01/21/24 01/21/24 14:58 16:34 WBC RBC Hgb Hct MCV MCH MCHC RDW Plt Count MPV Neut # (Auto) Lymph # (Auto) [place] # (Auto) Eos # (Auto) Baso # (Auto) Absolute Nucleated RBC Nucleated RBC % D-Dimer 208.6 Sodium Potassium Chloride Carbon Dioxide Anion Gap BUN Creatinine Estimated GFR (MDRD) Glucose POC Whole Bld Glucose Calcium Total Bilirubin AST ALT Alkaline Phosphatase Troponin I High Sens < 2.3 L Total Protein Albumin Globulin Albumin/Globulin Ratio Lipase PD Medical Decision Making - ED course ED course: She had a syncopal episode associated with severe chest pain. There is a large anxiety component for with it and she is very agreeable to some pain medication and lorazepam. Her EKG is not ischemic. But we will check troponins. Given the association with syncope we will do a D-dimer to rule out PE, although that is less likely since her vital signs are normal with no hypoxemia, tachycardia, or hypotension. There is also no pedal edema or calf tenderness on exam. Initial workup demonstrates that she does have thrombocytosis. This is not necessarily new for her but worse than her usual. She has not had it worked up before and I encouraged her to follow-up with recreational therapy technician. Her D-dimer was negative. Chemistries are relatively unremarkable with negative troponin initially. Because of the time course we will need to repeat the troponin after 2 hours Subsequently that her repeat troponin was negative and her pain was much better. Departure - Departure Disposition: 01 Home, Self Care Clinical Impression: Chest pain Qualifiers: Chest pain type: unspecified Qualified Code(s): R07.9 - Chest pain, unspecified Condition: Good Record reviewed to determine appropriate education?: Yes Instructions: ED Chest Pain NonCardiac Comments: The cause of your chest pain is unclear but I am confident that it is very unlikely to be your heart given the 2 negative troponins and normal EKG. We have also ruled out blood clot/pulmonary embolism via D-dimer testing. Call your doctor to arrange a follow-up appointment, make the next available appointment. In the interim, return anytime if worse or if new symptoms develop. Forms: PCP List
[2024-01-21 14:35] LABS: BASOPHILS # (AUTO) 0.1 10^3/uL (0.0-0.1); BASOPHILS % (AUTO) 0.8 %; EOSINOPHILS # (AUTO) 0.1 10^3/uL (0.0-0.7); EOSINOPHILS % (AUTO) 1.2 %; HCT - HEMATOCRIT 53.7 % (37.0-47.0); HGB - HEMOGLOBIN 17.5 g/dL (12.0-16.0); LYMPHOCYTES # (AUTO) 2.6 10^3/uL (1.5-3.5); LYMPHOCYTES % (AUTO) 33.9 %; MEAN CORPUSCULAR HEMOGLOBIN 28.9 pg (27.0-31.0); MEAN CORPUSCULAR HGB CONC 32.6 g/dL (32.0-36.0); MEAN CORPUSCULAR VOLUME 88.6 fL (81.0-99.0); MEAN PLATELET VOLUME 10.4 fL (7.9-10.8); MONOCYTES # (AUTO) 0.6 10^3/uL (0.0-1.0); MONOCYTES % (AUTO) 8.3 %; NEUTROPHILS # (AUTO) 4.3 10^3/uL (1.5-6.6); NEUTROPHILS % (AUTO) 55.5 %; PLT - PLATELET COUNT 218 10^3/uL (130-450); RED BLOOD COUNT 6.06 10^6/uL (4.20-5.40); RED CELL DISTRIBUTION WIDTH 13.2 % (12.0-15.0); WHITE BLOOD COUNT 7.7 x10^3/uL (4.8-10.8)
[2024-01-21 14:47] LABS: ALBUMIN 4.8 g/dL (3.2-5.5); ALBUMIN/GLOBULIN RATIO 1.8 (1.0-2.2); ALKALINE PHOSPHATASE 48 IU/L (42-121); ALT ALANINE AMINOTRANSFERASE 26 IU/L (10-60); AST ASPARTATE AMINOTRANSFERASE 22 IU/L (10-42); BILIRUBIN,TOTAL 0.6 mg/dL (0.2-1.0); BUN - BLOOD UREA NITROGEN 15 mg/dL (6-20); CALCIUM 10.5 mg/dL (8.5-10.3); CARBON DIOXIDE - CO2 23 mmol/L (21-32); CHLORIDE 96 mmol/L (101-111); CREATININE 0.7 mg/dL (0.6-1.3); GFR - MDRD 84 (>89); GLUCOSE 121 mg/dL (74-104); LIPASE 38 U/L (11-82); POTASSIUM 3.5 mmol/L (3.5-4.5); SODIUM 136 mmol/L (135-145); TOTAL PROTEIN 7.5 g/dL (6.4-8.9)
[2024-01-21] MEDS: HYDROmorphone 1 MG/ML CARPUJECT IVP STA (14:50)
[2024-01-21] MEDS: LORazepam 2 MG/ML VIAL IVP STA (14:50)
[2024-01-21] MEDS: LORazepam 1 MG TABLET PO STA (14:54)
[2024-01-21] MEDS: oxyCODONE 5 MG TABLET PO STA (14:54)
[2024-01-21 14:57] LABS: TROPONIN I HIGH SENSITIVITY < 2.3 ng/L (2.3-14.8)
--- NOTE | 2024-01-21 15:02 | XRAY Report ---
PROCEDURE: Chest 1V INDICATIONS: Chest pain TECHNIQUE: One view of the chest was acquired. COMPARISON: None. FINDINGS: Surgical changes and devices: None. Lungs and pleura: No pleural effusions or pneumothorax. Lungs are clear. Mediastinum: Mediastinal contours appear normal. Heart size is normal. Bones and chest wall: No suspicious bony lesions. Overlying soft tissues appear unremarkable. IMPRESSION: No acute cardiopulmonary process. Reviewed by: Toby Casey MD on 01/21/2024 3:01 PM PDT Approved by: Toby Casey MD on 01/21/2024 3:01 PM PDT Station ID: [id number]
[2024-01-21] MEDS: KETOROLAC 60 MG/2 ML VIAL IM STA (16:07)
[2024-01-21 17:14] VITALS: BP 98/64; O2SAT 93
== END 2024-01-21 17:18 | disposition home or self-care (01) ==
LOC: ED 14:06
DX: R07.9 Chest pain, unspecified (principal); F41.9 Anxiety disorder, unspecified; D75.839 Thrombocytosis, unspecified; Z87.891 Personal history of nicotine dependence
CPT/HCPCS: 36415; 71045; 80053; 83690; 84484; 85025; 85379; 93005; 96372; 99283; 99284; A9270; J1170; J8499

== ENCOUNTER 2024-01-25 11:31 | Outpatient (CLI) | payer MEDICARE, MEDICAID ==
--- NOTE | 2024-01-25 17:44 | XRAY Report ---
PROCEDURE: Thoracic Spine 2V INDICATIONS: BACK PAIN TECHNIQUE: AP and lateral views of the thoracic spine COMPARISON: Chest x-ray 01/25/2024 and 01/21/2024, CT abdomen pelvis with contrast 08/14/2020 FINDINGS: 12 rib bearing thoracic vertebrae are present. The vertebral body heights are preserved. Mild osseous demineralization. Prior interbody cage between C5-C6. Mild dextrocurvature of the thoracic spine wit h the apex at T8. Visualized lung parenchyma and upper abdomen are within normal limits. IMPRESSION: No acute radiographic abnormality of the thoracic spine. Mild dextrocurvature with the apex at T8. Reviewed by: Russel García MD on 01/25/2024 5:42 PM PDT Approved by: Russel García MD on 01/25/2024 5:42 PM PDT Station ID: [id number]
--- NOTE | 2024-01-25 18:00 | XRAY Report ---
PROCEDURE: Chest 2V INDICATIONS: CHEST PAIN,RECURRENT TECHNIQUE: 2 views of the chest were acquired. COMPARISON: Chest x-ray 01/21/2024 FINDINGS: Surgical changes and devices: Interbody cage spacer overlying the cervical spine. Lungs and pleura: No pleural effusions or pneumothorax. Lungs are clear. Mediastinum: Mediastinal contours appear normal. Heart size is normal. Bones and chest wall: No suspicious bony lesions. Overlying soft tissues appear unremarkable. IMPRESSION: No acute cardiopulmonary process. Reviewed by: Russel García MD on 01/25/2024 5:59 PM PDT Approved by: Russel García MD on 01/25/2024 5:59 PM PDT Station ID: [id number]
--- NOTE | 2024-01-25 18:52 | XRAY Report ---
PROCEDURE: Lumbar Spine 2-3V INDICATIONS: CHRONIC BACK PAIN TECHNIQUE: 3 views of the lumbar spine were acquired. COMPARISON: CT abdomen pelvis with contrast 08/14/2020 FINDINGS: 5 nonrib-bearing lumbar vertebrae are present. Likely chronic L1 superior endplate vertebral body com pression fracture with less than 10% height loss. Otherwise, the vertebral body heights are preserved . The lumbar lordosis is preserved. The intervertebral disc heights are preserved. Moderate severe mu ltilevel facet arthropathy, most conspicuous at L4-L5 and L5-S1. Right upper quadrant surgical clips. IMPRESSION: 1.No acute radiographic abnormality of the lumbar spine. 2.Multilevel moderate-severe facet arthropathy. Reviewed by: Russel García MD on 01/25/2024 6:22 PM PDT Approved by: Russel García MD on 01/25/2024 6:22 PM PDT Station ID: [id number]
== END 2024-01-25 11:32 | disposition home or self-care (01) ==
LOC: DI.S 11:31
PROVIDERS: ATTEND Registered Nurse
DX: R07.9 Chest pain, unspecified (principal); M47.816 Spondylosis without myelopathy or radiculopathy, lumbar region; M54.6 Pain in thoracic spine

== ENCOUNTER 2024-01-25 16:39 | Outpatient (CLI) | payer MEDICARE, MEDICAID ==
--- NOTE | 2024-01-25 19:21 | Ultrasound Report ---
PROCEDURE: Abdomen Complete INDICATIONS: LUQ ABDOMEN PAIN TECHNIQUE: Real-time scanning was performed of the abdominal and retroperitoneal organs, with image documentatio n. COMPARISON: CT abdomen and pelvis 08/14/2020. FINDINGS: Liver: Measures 18.5 cm. Increase in echogenicity. Gallbladder: Absent. Biliary ducts: Intrahepatic bile ducts are non-dilated. Extrahepatic bile duct caliber measures 4 m m. Normal is 6-7 mm or less in diameter, or 10 mm or less post-cholecystectomy. Pancreas: Visualized portions of the pancreas are sonographically normal. Spleen: Spleen is normal in size and homogeneous in echotexture. The spleen measures 10.9 cm. Kidneys: Kidneys are normal in size and echotexture. Horseshoe kidney. Right kidney measures 11.6 c m long; left kidney measures 11.1 cm long. No hydronephrosis or nephrolithiasis. Echogenic focus in the lateral left kidney measuring 1 cm. No complex renal cystic lesions which require follow-up. Aorta: Visualized aorta is normal in caliber at less than 3 cm. Iliacs: Right cc IA measures 1.1 cm. Left is not seen. IVC: Intrahepatic inferior vena cava is patent. Miscellaneous: No free abdominal fluid. IMPRESSION: 1. No hydronephrosis. Horseshoe kidney. 2. Left kidney echogenic focus measuring 1 cm. 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 Thi s could be further evaluated with renal protocol CT or MRI if clinically indicated. 3. Increased echogenicity of the hepatic parenchyma. This is most commonly seen in hepatic steatosis. Other forms of hepatocellular disease could have a similar appearance. 4. Post cholecystectomy. Reviewed by: Chacorta Guzman MD on 01/25/2024 7:20 PM PDT Approved by: Chacorta Guzman MD on 01/25/2024 7:20 PM PDT Station ID: [id number]
== END 2024-01-25 16:40 | disposition home or self-care (01) ==
LOC: DI 16:39
PROVIDERS: ATTEND Registered Nurse
DX: R10.12 Left upper quadrant pain (principal); R93.422 Abnormal radiologic findings on diagnostic imaging of left kidney; R93.2 Abnormal findings on diagnostic imaging of liver and biliary tract; Z90.49 Acquired absence of other specified parts of digestive tract; R07.9 Chest pain, unspecified; M47.816 Spondylosis without myelopathy or radiculopathy, lumbar region; M54.6 Pain in thoracic spine